=== PATIENT | male | born 1955 | race Caucasian/White ===

== ENCOUNTER → 2023-08-05 14:14 | Outpatient (REF) | payer OTHER, SELFPAY | LOC: RAD 14:14 | PROVIDERS: ATTENDING PHYSICIAN Internal Medicine Cardiovascular Disease; FAMILY PHYSICIAN Student in an Organized Health Care Education/Training Program | DX: C34.90 Malignant neoplasm of unspecified part of unspecified bronchus or lung (principal); I48.0 Paroxysmal atrial fibrillation; R60.0 Localized edema | CPT/HCPCS: 93970 ==

== ENCOUNTER → 2023-08-08 09:14 | Outpatient (REF) | payer OTHER, SELFPAY ==
[2023-08-08 09:45] VITALS: BP 133/67; BP_SYST 101
[2023-08-08 10:32] LABS: % Basophils 0.5 % (0-2); % Eosinophils 0.8 % (0-6); % Immature Granulocytes 0.3 % (0-0.5); % Lymphocytes 4.3 % (20.5-51.1); % Monocytes 8.7 % (1.7-9.3); % Neutrophils 85.4 % (42.2-75.2); Absolute Eosinophils 0.1 10^3/uL (0-0.7); Absolute Lymphocytes 0.3 10^3/uL (1.2-3.4); Absolute Monocytes 0.6 10^3/uL (0.1-0.6); Absolute Neutrophils 5.5 10^3/uL (1.4-6.5); Hematocrit 27.7 % (39.0-52.0); Hemoglobin 8.9 g/dL (13.0-18.0); Mean Corp Hgb Conc. 32.1 g/dL (33.0-37.0); Mean Corpuscular Hgb 25.4 pg (27.0-31.0); Mean Corpuscular Volume 78.9 fL (80.0-94.0); Mean Platelet Volume 9.2 fL (7.4-10.4); Nucleated Red Blood Cells % 0 % (-); Platelet Count 268 10^3/uL (130-400); Red Blood Cell Count 3.51 10^6/uL (4.70-6.10); Red Cell Dist. Width 16.3 % (11.5-14.5); White Blood Cell Count 6.5 10^3/uL (4.8-10.8)
[2023-08-08 10:38] LABS: ALT (SGPT) 23 U/L (0-50); AST (SGOT) 29 U/L (17-59); Alkaline Phosphatase 96 U/L (38-126); Blood Urea Nitrogen 12 mg/dl (9-20); Calcium 8.7 mg/dl (8.4-10.2); Carbon Dioxide 29 mmol/L (22-30); Chloride 98 mmol/L (98-107); Glucose 91 mg/dl (70-99); Iron 35 ug/dl (49-181); Potassium 4.2 mmol/L (3.5-5.1); Sodium 129 mmol/L (135-145); Total Bilirubin 0.5 mg/dl (0.2-1.3); eGFR > 60.00
[2023-08-08] MEDS: ANCEF 10 IV (10:44)
[2023-08-08 10:48] LABS: Percent Saturation 14 % (20-50); Total Iron Binding Capacity 245 ug/dl (261-462)
[2023-08-08 12:07] VITALS: BP 121/80
== END ==
LOC: RADI 09:14
PROVIDERS: ATTENDING PHYSICIAN Internal Medicine Hematology & Oncology; FAMILY PHYSICIAN Student in an Organized Health Care Education/Training Program
DX: C34.31 Malignant neoplasm of lower lobe, right bronchus or lung (principal); C79.51 Secondary malignant neoplasm of bone; C78.7 Secondary malignant neoplasm of liver and intrahepatic bile duct
CPT/HCPCS: 36561; 76937; 77001; 80053; 82728; 83540; 83550; 85025; 99152; 99153; C1788

== ENCOUNTER → 2023-08-11 13:54 | Outpatient (REF) | payer OTHER, SELFPAY ==
[2023-08-11 14:41] LABS: ALT (SGPT) 17 U/L (0-50); AST (SGOT) 25 U/L (17-59); Albumin 3.1 g/dl (3.5-5.0); Alkaline Phosphatase 86 U/L (38-126); Blood Urea Nitrogen 17 mg/dl (9-20); Calcium 9.1 mg/dl (8.4-10.2); Carbon Dioxide 27 mmol/L (22-30); Chloride 92 mmol/L (98-107); Glucose 106 mg/dl (70-99); Potassium 4.5 mmol/L (3.5-5.1); Sodium 129 mmol/L (135-145); Total Bilirubin 0.6 mg/dl (0.2-1.3); Total Protein 6.2 g/dl (6.3-8.2); eGFR > 60.00
== END ==
LOC: REG 13:54
PROVIDERS: ATTENDING PHYSICIAN Internal Medicine Hematology & Oncology; FAMILY PHYSICIAN Student in an Organized Health Care Education/Training Program
DX: C34.31 Malignant neoplasm of lower lobe, right bronchus or lung (principal); C79.51 Secondary malignant neoplasm of bone; C78.7 Secondary malignant neoplasm of liver and intrahepatic bile duct; D64.81 Anemia due to antineoplastic chemotherapy
CPT/HCPCS: 36415; 80053

== ENCOUNTER → 2023-09-01 13:45 | Outpatient (REF) | payer OTHER, SELFPAY ==
[2023-09-01 09:51] LABS: Hematocrit 27.7 % (39.0-52.0); Hemoglobin 8.9 g/dL (13.0-18.0); Mean Corp Hgb Conc. 32.1 g/dL (33.0-37.0); Mean Corpuscular Hgb 26.1 pg (27.0-31.0); Mean Corpuscular Volume 81.2 fL (80.0-94.0); Mean Platelet Volume 10.2 fL (7.4-10.4); Nucleated Red Blood Cells % 0 % (-); Platelet Count 213 10^3/uL (130-400); Red Blood Cell Count 3.41 10^6/uL (4.70-6.10); Red Cell Dist. Width 21.1 % (11.5-14.5); White Blood Cell Count 2.2 10^3/uL (4.8-10.8)
[2023-09-01 10:12] LABS: ALT (SGPT) 20 U/L (0-50); AST (SGOT) 21 U/L (17-59); Albumin 3.5 g/dl (3.5-5.0); Alkaline Phosphatase 102 U/L (38-126); Blood Urea Nitrogen 18 mg/dl (9-20); Calcium 8.6 mg/dl (8.4-10.2); Carbon Dioxide 28 mmol/L (22-30); Chloride 99 mmol/L (98-107); Glucose 90 mg/dl (70-99); Potassium 4.4 mmol/L (3.5-5.1); Sodium 131 mmol/L (135-145); Total Bilirubin 0.2 mg/dl (0.2-1.3); Total Protein 6.3 g/dl (6.3-8.2); eGFR > 60.00
[2023-09-01 11:03] LABS: Absolute Neutrophils -Man Diff 1.3 10^3/uL (1.4-6.5); Band Neutrophils 0 % (0-3); Eosinophils 4 % (0-6); Lymphocytes 18 % (20-51); Metamyelocytes 3 % (-); Monocytes 15 % (2-9); Segmented Neutrophils 60 % (42-75)
[2023-09-01 11:04] LABS: Acanthocytes Slight; Anisocytosis 1+; Hypochromasia 1+; Normal RBC Morphology No; Ovalocytes Slight; Platelets Checked Yes
[2023-09-01 11:05] LABS: Total Cells Counted 100
== END ==
LOC: OIDL 13:45
PROVIDERS: ATTENDING PHYSICIAN Internal Medicine Hematology & Oncology
DX: C34.31 Malignant neoplasm of lower lobe, right bronchus or lung (principal)
CPT/HCPCS: 80053; 85025

== ENCOUNTER → 2023-09-02 10:43 | Outpatient (REF) | payer OTHER, SELFPAY ==
[2023-09-02 12:05] LABS: Iron 71 ug/dl (49-181)
[2023-09-02 12:14] LABS: Percent Saturation 24 % (20-50); Total Iron Binding Capacity 287 ug/dl (261-462)
== END ==
LOC: OIDL 10:43
PROVIDERS: ATTENDING PHYSICIAN Internal Medicine Hematology & Oncology
DX: C34.31 Malignant neoplasm of lower lobe, right bronchus or lung (principal)
CPT/HCPCS: 82728; 83540; 83550

== ENCOUNTER 2023-10-14 08:26 | Outpatient (RCR) | payer MEDICARE, OTHER, SELFPAY ==
[2023-10-14] VITALS (7 sets, daily range): BP systolic 101–125; BP diastolic 55–72
[2023-10-14] MEDS: TYLENOL 650 MG PO (08:50)
== END 2023-10-28 23:59 | disposition home or self-care (01) ==
LOC: OID 08:26
PROVIDERS: ATTENDING PHYSICIAN Internal Medicine Hematology & Oncology
DX: C34.31 Malignant neoplasm of lower lobe, right bronchus or lung (principal); C79.51 Secondary malignant neoplasm of bone; C78.7 Secondary malignant neoplasm of liver and intrahepatic bile duct; D64.81 Anemia due to antineoplastic chemotherapy
CPT/HCPCS: 36430; 86850; 86900; 86901; 86920; P9016

== ENCOUNTER → 2023-10-28 07:13 | Outpatient (REF) | payer MEDICARE, OTHER, SELFPAY | LOC: RCS 07:13 | PROVIDERS: ATTENDING PHYSICIAN Nurse Practitioner Gerontology; FAMILY PHYSICIAN Student in an Organized Health Care Education/Training Program | DX: I48.0 Paroxysmal atrial fibrillation (principal); I51.89 Other ill-defined heart diseases; R93.1 Abnormal findings on diagnostic imaging of heart and coronary circulation; C34.91 Malignant neoplasm of unspecified part of right bronchus or lung | CPT/HCPCS: 93306; Q9950 ==

== ENCOUNTER → 2023-11-18 08:31 | Outpatient (REF) | payer MEDICARE, OTHER, SELFPAY | LOC: MRI 08:31 | PROVIDERS: ATTENDING PHYSICIAN Internal Medicine Cardiovascular Disease; FAMILY PHYSICIAN Student in an Organized Health Care Education/Training Program | DX: I51.89 Other ill-defined heart diseases (principal) | CPT/HCPCS: 75561; A9585 ==

== ENCOUNTER 2023-12-17 08:19 | Outpatient (RCR) | payer MEDICARE, OTHER, SELFPAY ==
[2023-12-03] VITALS (7 sets, daily range): BP systolic 96–108; BP diastolic 60–73
[2023-12-16 14:41] LABS: % Eosinophils 0.3 % (0-6); % Immature Granulocytes 0.6 % (0-0.5); % Lymphocytes 4.8 % (20.5-51.1); % Neutrophils 85.3 % (42.2-75.2); Absolute Lymphocytes 0.2 10^3/uL (1.2-3.4); Absolute Monocytes 0.3 10^3/uL (0.1-0.6); Absolute Neutrophils 3.1 10^3/uL (1.4-6.5); Hematocrit 23.4 % (39.0-52.0); Hemoglobin 7.4 g/dL (13.0-18.0); Mean Corp Hgb Conc. 31.6 g/dL (33.0-37.0); Mean Corpuscular Hgb 28.7 pg (27.0-31.0); Mean Corpuscular Volume 90.7 fL (80.0-94.0); Mean Platelet Volume 12.3 fL (7.4-10.4); Nucleated Red Blood Cells % 0 % (-); Platelet Count 106 10^3/uL (130-400); Red Blood Cell Count 2.58 10^6/uL (4.70-6.10); Red Cell Dist. Width 19.4 % (11.5-14.5); White Blood Cell Count 3.6 10^3/uL (4.8-10.8)
[2023-12-17] VITALS (7 sets, daily range): BP systolic 87–105; BP diastolic 46–60
== END 2023-12-28 23:59 | disposition home or self-care (01) ==
LOC: OID 08:19
PROVIDERS: Internal Medicine Hematology & Oncology; ATTENDING PHYSICIAN Internal Medicine Hematology & Oncology; FAMILY PHYSICIAN Student in an Organized Health Care Education/Training Program
DX: C34.31 Malignant neoplasm of lower lobe, right bronchus or lung (principal); C79.51 Secondary malignant neoplasm of bone; C78.7 Secondary malignant neoplasm of liver and intrahepatic bile duct; D64.81 Anemia due to antineoplastic chemotherapy
CPT/HCPCS: 36415; 36430; 85025; 86850; 86900; 86901; 86920; P9016

== ENCOUNTER 2024-01-06 16:22 | Inpatient (IN) | payer MEDICARE, OTHER, SELFPAY ==
[2024-01-06] VITALS (15 sets, daily range): BP systolic 85–125; BP diastolic 47–81; PULSE 78–85; BMI 23.3; BMI 23.7
--- NOTE | 2024-01-06 12:04 | ED.GENMED ---
History of Present Illness
General
Chief Complaint: Weakness
Time Seen by Provider: 01/06/24 11:55
History of Present Illness
History of Present Illness:
68-year-old male with history of metastatic lung cancer presents emergency department for ration of generalized weakness and shortness of breath. Currently undergoing chemotherapy treatments, over the past several days he has had no appetite and no
desire to drink fluids. Feels as though he may be dehydrated. No chest pain at this time. Does also have chronic lower extremity edema, on 20 mg of Lasix daily, may be worsening. Last chemo treatment was 2 weeks ago. Did have a fever of 100
Fahrenheit this morning but this resolved, denies any purulent or bloody sputum
Past History
Past History
ED Past Medical History: None
ED Past Surgical History: Appendectomy
Social History
Tobacco: Smoker
Alcohol: None
Personal: Single
Living: alone
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
Review of Systems
Review of Systems
Allergies reviewed?: Yes
All Other Systems: ROS reviewed and negative except as documented in HPI and ROS
Phy Exam
Physical Exam
Physical Exam:
GEN: Chronically ill-appearing, tachypneic
Eyes: PERRLA, EOMs intact, no scleral icterus
HENT: NCAT, oral mucosa moist
Lungs: Tachypneic with occasional pursed lip breathing, diminished right base breath sounds with crackles
Cardiac: Tachycardic and irregular
Abdomen: S, NT, ND, NABS, no masses or hepatosplenomegaly
Neuro: AO x 3
MSK: No gross deformity or ecchymosis. 2+ pitting edema bilateral lower extremities
Skin: No rashes, petechiae. Normal color, no pallor or jaundice.
Psych: Calm, cooperative, proper hygiene
Course
Orders/Labs/Results
Orders:
Orders
01/06/24 11:51
EKG [Electrocardiogram (*1)] Urgent
Reason for Study: Vertigo / Dizzy
01/06/24 11:52
EKG- Treatment ONCE
01/06/24 11:57
CXR2 [CR Chest - 2 Views ] Urgent
Comment:
Reason For Exam: shortness of breath
01/06/24 12:02
Urinalysis Reflex To Culture Urgent
Date Specimen was Collected: 01/06/24
Time Specimen was Collected: 12:03
01/06/24 12:03
Complete Blood Count/With Diff Urgent
Comprehensive Metabolic Panel Urgent
Lactic Acid Urgent
NT-proBNP Urgent
Serum Osmolality Urgent
Comment: SERUM OSOLALITY ADDED ON BY FLOOR 12:40PM 01-06-24
Troponin I Urgent
Blood Culture Urgent
SERGIO Source: Blood/Venous
Specimen Description:
Blood Culture Urgent
SERGIO Source: Blood/Venous
Specimen Description:
01/06/24 12:36
Urine Sodium Urgent
Date Specimen was Collected: 01/06/24
Time Specimen was Collected: 12:43
0.9% Sodium Chloride 500 ml [Nss] 500 ml IV BOLUS
01/06/24 12:37
Add On- LAB Urgent
Tests Added?: serum osmolality
01/06/24 14:28
0.9% Sodium Chloride 500 ml [Nss] 500 ml IV BOLUS
01/06/24 15:00
Lactic Acid Urgent
Abnormal Lab Results
01/06/24
12:03
WBC 11.8 H 10^3/uL
(4.8-10.8)
RBC 2.96 L 10^6/uL
(4.70-6.10)
Hgb 8.5 L g/dL
(13.0-18.0)
Hct 26.3 L %
(39.0-52.0)
MCHC 32.3 L g/dL
(33.0-37.0)
RDW 19.6 H %
(11.5-14.5)
MPV 10.9 H fL
(7.4-10.4)
Abs Immat Gran (auto) 0.2 H 10^3/uL
(0-0.05)
Absolute Neuts (auto) 9.3 H 10^3/uL
(1.4-6.5)
Absolute Lymphs (auto) 0.5 L 10^3/uL
(1.2-3.4)
Absolute Monos (auto) 1.9 H 10^3/uL
(0.1-0.6)
Immature Gran % 1.3 H %
(0-0.5)
Neutrophils % 78.8 H %
(42.2-75.2)
Lymphocytes % 3.8 L %
(20.5-51.1)
Monocytes % 15.8 H %
(1.7-9.3)
Sodium 125 L mmol/L
(135-145)
Chloride 93 L mmol/L
(98-107)
Serum Osmolality 262 L mOsm/kg
(275-300)
Lactic Acid 2.3 H mmol/L
(0.7-2.0)
Calcium 7.9 L mg/dl
(8.4-10.2)
Total Protein 5.2 L g/dl
(6.3-8.2)
Albumin 2.6 L g/dl
(3.5-5.0)
01/06/24 12:03
01/06/24 12:03
Vital Signs
Initial and Last Documented VS:
Initial Vital Signs
BP
87/67
01/06/24 11:52
Last Documented Vital Signs
Temp Pulse Resp BP Pulse Ox
97.8 F 115 20 95/59 93
01/06/24 11:53 01/06/24 13:45 01/06/24 13:45 01/06/24 13:44 01/06/24 13:45
MDM/Problems Addressed
MDM/Problems Addressed:
This is a complex situation as the patient is clearly dehydrated/hypovolemic however likely has a component of decompensated HFrEF evidenced by dyspnea at rest and increased lower extremity edema. Last ejection fraction was 20% on echocardiogram in
September. Patient was quite insistent on being discharged however I recommended against this given the complexity of the situation. He is hypotensive and thus we trialed a small fluid challenge which she tolerated with improved blood pressures. Did
not diurese in the emergency department due to hypotension. May ultimately be suitable for hospice care given the extensive nature of his cancer will admit to the hospitalist service for further evaluation and management
Comment
Comment:
EKG independently interpreted by me shows atrial fibrillation with a rapid ventricular response at a rate of 116, no obvious ST changes concerning for ischemia, QTc of 517
*Critical Care Note
Total Time (30-74mins, 75-104mins- exclusive of procedures): Not Applicable
ED Attending Note
-
Portions of this chart may have been created with voice recognition software.� Occasional wrong word or��sound alike� substitutions may have occurred due to the inherent limitations of voice recognition software.
Discharge Plan
Departure
Patient Disposition: Admit
Date of Disposition: 01/06/24
Time of Disposition: 15:17
Admit to: IMU
Presentation/result/management discussed w/ accepting MD/DO: Hospitalist
Discharge Problem:
Acute hyponatremia, Atrial fibrillation with RVR, Acute HFrEF (heart failure with reduced ejection fraction), Metastatic primary lung cancer
Prescriptions:
No Action
acetaminophen 325 mg Tablet
650 mg PO Q4HPRN PRN (Reason: mild pain/DOUGLASS/temp> 100.4F) Qty: 0 0RF
folic acid 1 mg Tablet
1 mg PO DAILY
dexamethasone 4 mg Tablet
8 mg PO DAILYPRN PRN (Reason: 2 days before and 2 after chemo)
furosemide 20 mg Tablet
20 mg PO MOWEFR@0800
metoprolol succinate [Toprol XL] 50 mg Tablet Extended Release 24 Hr
50 mg PO BID
ondansetron HCl [Zofran] 8 mg Tablet
8 mg PO Q8HPRN PRN (Reason: nausea)
Eliquis 5 mg Tablet
5 mg PO BID
amiodarone 200 mg tablet
200 mg PO DAILY
doxycycline hyclate 100 mg Capsule
100 mg PO BID
lidocaine-prilocaine 2.5-2.5 % Cream
1 applic topical DAILYPRN PRN (Reason: port)
lorazepam 0.5 mg Tablet
0.5 mg PO TIDPRN PRN (Reason: anxiety)
loratadine [Claritin] 10 mg Tablet
10 mg PO DAILYPRN PRN (Reason: allergies)
codeine-guaifenesin 10-100 mg/5 mL Liquid
10 ml PO TIDPRN PRN (Reason: cough)
Referrals:
Eliud Jones MD [Family Provider] -
Interventions
Interventions:
*Risk Screen - Suicide Last Done: 01/06/24 12:23
*General Assessment Last Done: 01/06/24 12:22
*Neglect/Abuse Screening Last Done: 01/06/24 12:23
ED- Fall Risk Assessment Last Done: 01/06/24 12:30
*ED COVID-19 Vaccine History Last Done: 01/06/24 12:21
ED- Cardiac Assessment Last Done: 01/06/24 12:30
ED- Neurological Assessment Last Done: 01/06/24 12:30
ED- Pulmonary Assessment Last Done: 01/06/24 12:30
Discharge Date and Time
Print Language: SINGAPOREAN
[2024-01-06 12:19] LABS: % Basophils 0.3 % (0-2); % Immature Granulocytes 1.3 % (0-0.5); % Lymphocytes 3.8 % (20.5-51.1); % Monocytes 15.8 % (1.7-9.3); % Neutrophils 78.8 % (42.2-75.2); Absolute Immature Granulocytes 0.2 10^3/uL (0-0.05); Absolute Lymphocytes 0.5 10^3/uL (1.2-3.4); Absolute Monocytes 1.9 10^3/uL (0.1-0.6); Absolute Neutrophils 9.3 10^3/uL (1.4-6.5); Hematocrit 26.3 % (39.0-52.0); Hemoglobin 8.5 g/dL (13.0-18.0); Mean Corp Hgb Conc. 32.3 g/dL (33.0-37.0); Mean Corpuscular Hgb 28.7 pg (27.0-31.0); Mean Corpuscular Volume 88.9 fL (80.0-94.0); Mean Platelet Volume 10.9 fL (7.4-10.4); Nucleated Red Blood Cells % 0 % (-); Platelet Count 232 10^3/uL (130-400); Red Blood Cell Count 2.96 10^6/uL (4.70-6.10); Red Cell Dist. Width 19.6 % (11.5-14.5); White Blood Cell Count 11.8 10^3/uL (4.8-10.8)
[2024-01-06 12:34] LABS: ALT (SGPT) 14 U/L (0-50); AST (SGOT) 36 U/L (17-59); Albumin 2.6 g/dl (3.5-5.0); Alkaline Phosphatase 73 U/L (38-126); Blood Urea Nitrogen 15 mg/dl (9-20); Calcium 7.9 mg/dl (8.4-10.2); Carbon Dioxide 25 mmol/L (22-30); Chloride 93 mmol/L (98-107); Estimated Creatinine Clearance 80 ml/min; Glucose 89 mg/dl (70-99); Sodium 125 mmol/L (135-145); Total Protein 5.2 g/dl (6.3-8.2); eGFR > 60.00
[2024-01-06 12:40] LABS: Lactic Acid 2.3 mmol/L (0.7-2.0)
[2024-01-06 12:44] LABS: NT-proBNP 8050 pg/ml; Troponin I < 0.012 ng/ml
[2024-01-06] MEDS: NSS 500 IV ×2 (12:50→14:30)
[2024-01-06 14:48] LABS: Osmolality Serum 262 mOsm/kg (275-300)
--- NOTE | 2024-01-06 16:07 | CON.CAR ---
Addendum entered and electronically signed by Rolan Herrera MD 01/06/24 19:45:
Patient seen and examined in collaboration with TRANSPORTATION DRIVER; agree with below.
-68-year-old male with metastatic lung adenocarcinoma, including right atrial mass, chronic dilated cardiomyopathy/HFrEF, and persistent atrial fibrillation (on Eliquis) presenting with shortness of breath; Cardiology consulted for CHF management.
-The patient takes Lasix 3 days weekly, but he has had decreased PO intake over the past 2 days.
-Patient is likely having progressive medical decline, given his metastatic cancer in addition to end-stage cardiomyopathy.
-Nephrology consulted--patient is currently hyponatremic; plan is for hypertonic saline.
-Patient's heart rate likely to improve with nutrion; monitor volume status closely.
-threat monitoring analyst; will follow.
Original Note:
Consultation
Consultation Request
Date/Time Consultation Requested: 01/06/2024 16:00
Date/Time Consultation Performed: 01/06/2024 16:10
Requesting Provider: Rona Ghosh PA-C
Performing Provider: DAQUAN Beckman for Dr. Herrera
Reason for Consultation: Abnormal proBNP
Medical History
-
Chief Complaint: Shortness of breath
History of Present Illness:
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
lung with metastasis. He also has a dilated cardiomyopathy, HFrEF, and neoplastic anemia. He presents today with a chief complaint of shortness of breath. This started yesterday and got worse today. He also reports decreased oral intake and poor
appetite. He also endorses associated fatigue. He saw [facility] for a second opinion but unfortunately those records are not available at this time.
Past Medical History
Past Medical History: Arrhythmias (Persistent atrial fibrillation [on apixaban]), Cancer (Metastatic lung cancer), CHF (HFrEF, DCM) and Other (Anemia)
Past Surgical History: Appendectomy
Social History
Tobacco: Former Smoker
Alcohol: Former (Sobriety x 17 years)
Drug: None
Family History
Family History: Reviewed & Not Pertinent
Allergies / Home Medications
Allergy/AdvReac Type Severity Reaction Status Date / Time
No Known Allergies Allergy Verified 01/06/24 11:52
�Medication �Instructions �Recorded �Confirmed �Type
acetaminophen 325 mg tablet 650 mg (2 x 325 mg) PO Q4HPRN PRN 07/14/23 01/06/24 Rx
mild pain/DOUGLASS/temp> 100.4F #0 tabs
folic acid 1 mg tablet 1 mg PO DAILY 08/08/23 01/06/24 History
dexamethasone 4 mg tablet 8 mg PO DAILYPRN PRN 2 days before 10/14/23 01/06/24 History
and 2 after chemo
furosemide 20 mg tablet 20 mg PO MOWEFR@0800 10/14/23 01/06/24 History
amiodarone 200 mg tablet 200 mg PO DAILY 12/03/23 01/06/24 History
apixaban 5 mg tablet (Eliquis) 5 mg PO BID 12/03/23 01/06/24 History
metoprolol succinate 50 mg 50 mg PO BID 12/03/23 01/06/24 History
tablet,extended release 24 hr
(Toprol XL)
ondansetron HCl 8 mg tablet 8 mg PO Q8HPRN PRN nausea 12/03/23 01/06/24 History
codeine 10 mg-guaifenesin 100 mg/5 10 ml PO TIDPRN PRN cough 01/06/24 01/06/24 History
mL oral liquid
doxycycline hyclate 100 mg capsule 100 mg PO BID 01/06/24 01/06/24 History
lidocaine-prilocaine 2.5 %-2.5 % 1 applic topical DAILYPRN PRN port 01/06/24 01/06/24 History
topical cream
loratadine 10 mg tablet (Claritin) 10 mg PO DAILYPRN PRN allergies 01/06/24 01/06/24 History
lorazepam 0.5 mg tablet 0.5 mg PO TIDPRN PRN anxiety 01/06/24 01/06/24 History
Review of Systems
-
History Source: Patient
All other systems: Negative unless noted
Constitutional: Fatigue
EENT: No Symptoms
Respiratory: Trouble Breathing
Cardiac: No Symptoms
Abdomen/GI: No Symptoms
: No Symptoms
Musculoskeletal: Edema
Skin: No Symptoms
Neurological: Dizzy and Weakness
Endocrine: No Symptoms
Hematologic/Lymphatic: No Symptoms
Physical Exam
Vital Signs
Temp Pulse Resp BP Pulse Ox
97.8 F 115 20 95/59 93
01/06/24 11:53 01/06/24 13:45 01/06/24 13:45 01/06/24 13:44 01/06/24 13:45
Lab Results
01/06/24 12:03
01/06/24 12:03
Troponin I < 0.012 ng/ml 01/06/24 12:03
Ywa-T-[id number] Pept 8050 pg/ml 01/06/24 12:03
Physical Exam
General: Well Developed, Well Nourished, No Apparent Distress and Comfortable
HEENT: Other (Periorbital edema)
Respiratory: Rhonchi
Cardiac: S1/S2, Irregular Rhythm and Peripheral Edema (+2 pitting bilateral lower extremity edema)
Breast: Deferred by me
GI: Soft, Non Tender, Non Distended and Normal Bowel Sounds
Rectal: Deferred by Provider
Genito-urinary: No Costovertebral Tender
Musculoskeletal: No Clubbing and No Cyanosis
Skin: Warm and Dry
Neuro: AO x 3
Hematologic/Lymphatic: No Lymphadenopathy
Psych: Calm
Impression / Plan
-
Shortness of breath, multifactorial
-In the setting of HFrEF, anemia, and active lung cancer
Dizziness
-Could be orthostasis
-None at rest, follow telemetry
Dilated cardiomyopathy
HFrEF (LVEF 20%)
-Furosemide is on hold for hyponatremia
-Bilateral lower extremity edema on exam
-Follow daily weight, I/O
Persistent atrial fibrillation
-Rate control has been particularly challenging
-Continue amiodarone and metoprolol succinate
-Oral Anticoagulation: Apixaban 5 mg twice daily, he denies missed doses and abnormal bleeding
-[id number]: Score is low at 1 (age 68) however metastatic cancer is a thrombogenic condition
Metastatic lung cancer, adenocarcinoma
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
-Metastasis to adrenal gland, liver, and retroperitoneum
-Currently on Keytruda and Alimta
-Most recent PET showed progression
-He follows with Dr. Hong, he got a second opinion at [facility]
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
Right atrial mass, measuring 1.8 x 2.2 cm which appeared to be continuous with the left atrial mass
Hyponatremia, per primary
Tricuspid regurgitation, moderate
Neoplastic anemia
Former smoker, continued cessation recommended
Data Reviewed
-
EKG: Report Reviewed by me (Atrial fibrillation with rapid ventricular response, low voltage QRS, rate 116)
Radiology: Report Reviewed by me (CXR: Moderate right pleural effusion. Recent PET scan showed large primary malignancy in the right lower lobe continuous within the right side of the heart)
Medical Tests (Nuc Med, Echo etc): Report Reviewed by me (Prior echocardiogram as above)
Labs: Labs Reviewed by me
Old Records: Reviewed
--- NOTE | 2024-01-06 16:13 | HPS.HSE ---
Addendum entered and electronically signed by Yasmine Hameed MD 01/06/24 22:18:
I saw and examined the patient.
The DESIGN AND SALES CONSULTANT or PA's note was reviewed and I agree with the note.
Comment: 68M Metastatic Lung Ca Chronic Anemia Hyponatremia HFrEF afib p/w weakness dizziness poor oral intake past few days. Recently noted to be febrile in outpatient oncology follow up assessment, started on Doxycycline. Fever since resolved.
On chemo, last tx a few weeks ago, next tx due following week. ED eval notable for worsening hyponatremia Elevated BNP and mild leukocytosis. Expiratory wheeze also noted on auscultation but otherhwise stable respiratory statys on room air
Physical Exam
General: No acute distress resting comfortably in bed
HEENT: Anicteric normocephalic atraumatic
Respiratory: Stable respiratory status on room air conversational dyspnea noted along with mild expiratory wheeze
Cardiac: irregularly irregular
GI: Soft and Non Tender
Musculoskeletal: No Clubbing, No Cyanosis, Trace/+1 non-pitting edema bilateral lower ext
Skin: Warm and Dry
Neuro: Awake, Alert, Oriented and Nonfocal/grossly intact
Psych: calm
Acute on Chronic Hyponatremia
Chronic HFpEF
Metastatic Lung Cancer with invasion into myocardium and liver, bone, adrenal metastasis
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
Suspected COPD, extensive smoking hx 40+ ys prior to quitting
Paroxysmal Atrial Fibrillation
Anxiety/Depression
3% NS as per nephro
cardio nephro eval's appreciated
hold home diuresis as this time
Xopenex scheduled and prn
cont home Eliquis Amiodarone Metoprolol
cont doxycycline
trend wbc follow cultures
Original Note:
Family Physician
-
Family Physician: Eliud Jones
Chief Complaint
-
Weakness and Dizziness
History of Present Illness
Patient is a 68 y/o male past medical history of metastatic lung cancer, chronic anemia, chronic hyponatremia, heart failure and atrial fibrillation who presents with weakness and dizziness. Patient reports over the past few days he has been
experiencing increased generalized weakness. He report poor appetite with decreased oral intake over the past few days. Yesterday he developed some dizziness which worsened today prompting him to come to the emergency department for evaluation. He
reports shortness of breath that seems worse over the past few days. He denies increased cough, chest pain or palpitation. He denies abdominal pain, nausea, vomiting or diarrhea.
Medical History
Past Medical History
Past Medical History: Reports Other
Additional Past Medical History:
Metastatic Lung Cancer with invasion into myocardium and liver, bone, adrenal metastasis
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
Chronic HFpEF EF 20%
Paroxysmal Atrial Fibrillation
Anxiety/Depression
Past Surgical History: Reports Other
Additional Past Surgical History:
Appendectomy
Social History
Tobacco: Former Smoker (Quit in Jan 2023)
Alcohol: Former (Sober for 17 years)
Family History
Family History: Not pertinent
Allergies / Home Medications
Allergies reflects when Allergies were last updated in [email or web address].
Home Medications with original date entered in [email or web address]
Allergy/Medication List:
Allergies
Allergy/AdvReac Type Severity Reaction Status Date / Time
No Known Allergies Allergy Verified 01/06/24 11:52
Home Medications
acetaminophen 325 mg tablet 650 mg (2 x 325 mg) PO Q4HPRN PRN mild pain/DOUGLASS/temp> 100.4F #0 tabs 07/14/23
folic acid 1 mg tablet 1 mg PO DAILY 08/08/23
dexamethasone 4 mg tablet 8 mg PO DAILYPRN PRN 2 days before and 2 after chemo 10/14/23
furosemide 20 mg tablet 20 mg PO MOWEFR@0800 10/14/23
amiodarone 200 mg tablet 200 mg PO DAILY 12/03/23
apixaban 5 mg tablet (Eliquis) 5 mg PO BID 12/03/23
metoprolol succinate 50 mg tablet,extended release 24 hr (Toprol XL) 50 mg PO BID 12/03/23
ondansetron HCl 8 mg tablet 8 mg PO Q8HPRN PRN nausea 12/03/23
codeine 10 mg-guaifenesin 100 mg/5 mL oral liquid 10 ml PO TIDPRN PRN cough 01/06/24
doxycycline hyclate 100 mg capsule 100 mg PO BID 01/06/24
lidocaine-prilocaine 2.5 %-2.5 % topical cream 1 applic topical DAILYPRN PRN port 01/06/24
loratadine 10 mg tablet (Claritin) 10 mg PO DAILYPRN PRN allergies 01/06/24
lorazepam 0.5 mg tablet 0.5 mg PO TIDPRN PRN anxiety 01/06/24
Review of Systems
-
A 12 point ROS was completed and negative except as noted: Yes
Respiratory: Reports Cough and Trouble Breathing
Cardiac: Denies Chest Pain or Palpitations
Abdomen/GI: Denies Abdominal Pain, Nausea, Vomiting or Diarrhea
Physical Exam
Vital Signs
Vital Signs
Temp Pulse Resp BP Pulse Ox
97.8 F 86 24 87/48 92
01/06/24 11:53 01/06/24 16:00 01/06/24 14:30 01/06/24 16:00 01/06/24 16:00
Physical Exam
General: Comfortable and Conversant (Slight conversational dyspnea)
HEENT: Anicteric and Other (Mucous membranes are slightly dry)
Respiratory: Wheezes (Late Expiratory) and Non Labored Respirations
Cardiac: S1/S2 and Regular Rhythm
GI: Soft and Non Tender
Rectal: Deferred by Provider
Musculoskeletal: No Clubbing, No Cyanosis and Other (Trace/+1 non-pitting edema bilateral lower ext)
Skin: Warm and Dry
Neuro: Awake, Alert, Oriented and Nonfocal/grossly intact
Psych: Other (Flat Affect)
Laboratory Results
-
01/06/24 12:03
01/06/24 12:03
Laboratory Results
Lactic Acid 2.3 mmol/L (0.7-2.0) H 01/06/24 12:03
Total Bilirubin 1.0 mg/dl (0.2-1.3) 01/06/24 12:03
AST 36 U/L (17-59) 01/06/24 12:03
ALT 14 U/L (0-50) 01/06/24 12:03
Alkaline Phosphatase 73 U/L (38-126) 01/06/24 12:03
Troponin I < 0.012 ng/ml 01/06/24 12:03
Data Reviewed
-
Lab Data: Labs Reviewed by me
Old Records: Reviewed
Impression/Plan
-
Acute on Chronic Hyponatremia, appears volume depleted presenting with dizziness/tachycardia/hypotension
-Consult Nephrology
-Check urine sodium/osmo
-Hold Lasix
-Continue slow IVFs overnight
Chronic HFpEF
-Echo September 2023: Severe global hypokinesis with EF 20%
-Patient appears intravascularly depleted but BNP elevated with some lower extremity edema
-Lasix on hold
-Consult Cardiology
-Monitor Is&Os and Daily Weights
Metastatic Lung Cancer with invasion into myocardium and liver, bone, adrenal metastasis
-Last chemotherapy December 22
-Consult Oncology
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
-Last transfusion
-Continue to monitor CBC
Suspected COPD
-Add Xopenex TID and PRN
Paroxysmal Atrial Fibrillation
-Continue Eliquis for anticoagulation
-Continue Amiodarone and Metoprolol
Anxiety/Depression
-Continue lorazepam prn
DVT proph: Eliquis
Code Status: Full Code
--- NOTE | 2024-01-06 16:50 | W.CON.NEPH ---
Consultation
-
Date/Time Consultation Requested: January 06, 2024 4 PM
Date/Time Consultation Performed: January 06, 2024 5 PM
Requesting Provider: Dr. Hameed
Performing Provider: Dr. Horta
Reason for Consultation: Hyponatremia
Medical History
-
Chief Complaint: Shortness of breath
History of Present Illness:
This is a 68-year-old gentleman who has metastatic lung cancer to myocardium, liver, bone, adrenal glands. He is currently being treated with chemotherapy. Given the extent of the disease he has likely been deemed a nonsurgical candidate but may
be a candidate for palliative radiation therapy. He has a chronic cough for months. He also has heart failure with reduced ejection fraction of 20% on diuretic therapy. However this is low-dose and dosed only 3 times a week. He often will skip
the dose if he feels that his lower legs are not swollen. He tries to follow a fluid intake of around 60 ounces per day. Recently, his appetite had changed as food sometimes did not taste good. So there are days when he was not eating. However,
he maintained his fluid intake as well as his medications. Ultimately his shortness of breath worsened and he came to the emergency room for evaluation. He was noted to have a sodium level of 125, lower than his typical sodium of 130. He also
reports lightheadedness and orthostasis recently as well.
Past Medical History
Metastatic lung cancer to heart, liver, bone, adrenal
Hyponatremia
Heart failure reduced ejection fraction 20%
Paroxysmal atrial fibrillation
Anxiety/depression
Appendectomy
Right-sided port placement
Social History
Tobacco: Former Smoker
Alcohol: Former
Family History
Family History: Not Pertinent
Allergies / Home Medications
Allergy/AdvReac Type Severity Reaction Status Date / Time
No Known Allergies Allergy Verified 01/06/24 11:52
�Medication �Instructions �Recorded �Confirmed �Type
acetaminophen 325 mg tablet 650 mg (2 x 325 mg) PO Q4HPRN PRN 07/14/23 01/06/24 Rx
mild pain/DOUGLASS/temp> 100.4F #0 tabs
folic acid 1 mg tablet 1 mg PO DAILY 08/08/23 01/06/24 History
dexamethasone 4 mg tablet 8 mg PO DAILYPRN PRN 2 days before 10/14/23 01/06/24 History
and 2 after chemo
furosemide 20 mg tablet 20 mg PO MOWEFR@0800 10/14/23 01/06/24 History
amiodarone 200 mg tablet 200 mg PO DAILY 12/03/23 01/06/24 History
apixaban 5 mg tablet (Eliquis) 5 mg PO BID 12/03/23 01/06/24 History
metoprolol succinate 50 mg 50 mg PO BID 12/03/23 01/06/24 History
tablet,extended release 24 hr
(Toprol XL)
ondansetron HCl 8 mg tablet 8 mg PO Q8HPRN PRN nausea 12/03/23 01/06/24 History
codeine 10 mg-guaifenesin 100 mg/5 10 ml PO TIDPRN PRN cough 01/06/24 01/06/24 History
mL oral liquid
doxycycline hyclate 100 mg capsule 100 mg PO BID 01/06/24 01/06/24 History
lidocaine-prilocaine 2.5 %-2.5 % 1 applic topical DAILYPRN PRN port 01/06/24 01/06/24 History
topical cream
loratadine 10 mg tablet (Claritin) 10 mg PO DAILYPRN PRN allergies 01/06/24 01/06/24 History
lorazepam 0.5 mg tablet 0.5 mg PO TIDPRN PRN anxiety 01/06/24 01/06/24 History
Review of Systems
-
Orthostasis. No pain. Chronic cough. Shortness of breath as above. No issues with urine output
All other systems: Negative unless noted
Physical Exam
Vital Signs
Vital Signs
Temp Pulse Resp BP Pulse Ox
97.8 F 83 24 87/48 91
01/06/24 11:53 01/06/24 16:30 01/06/24 14:30 01/06/24 16:00 01/06/24 16:30
Lab Results
WBC 11.8 10^3/uL (4.8-10.8) H 01/06/24 12:03
RBC 2.96 10^6/uL (4.70-6.10) L 01/06/24 12:03
Hgb 8.5 g/dL (13.0-18.0) L 01/06/24 12:03
Hct 26.3 % (39.0-52.0) L 01/06/24 12:03
Plt Count 232 10^3/uL (130-400) 01/06/24 12:03
Sodium 125 mmol/L (135-145) L 01/06/24 12:03
Potassium 4.0 mmol/L (3.5-5.1) 01/06/24 12:03
Chloride 93 mmol/L (98-107) L 01/06/24 12:03
Carbon Dioxide 25 mmol/L (22-30) 01/06/24 12:03
BUN 15 mg/dl (9-20) 01/06/24 12:03
Creatinine 1.0 mg/dL (0.7-1.3) 01/06/24 12:03
eGFR > 60.00 01/06/24 12:03
Glucose 89 mg/dl (70-99) 01/06/24 12:03
Calcium 7.9 mg/dl (8.4-10.2) L 01/06/24 12:03
Par-O-Sccsyhfjusu Pept 8050 pg/ml 01/06/24 12:03
Albumin 2.6 g/dl (3.5-5.0) L 01/06/24 12:03
Physical Exam
Patient is awake alert oriented and in no distress. Mood and affect were pleasant, insight and judgment were good. Pupils are equal round and reactive to light, extraocular movements are intact, sclera were anicteric. Hearing was normal, ears and
nose are intact. Oropharynx was clear. Neck was supple with trachea midline and no thyromegaly. Heart was regular rate and rhythm without rubs. Lower extremities without edema. Lungs were clear to auscultation bilaterally and with normal
excursion. There were rhonchi and rales at the right base. Abdomen was soft, nontender, with normal active bowel sounds, and no hepatosplenomegaly. Skin was without rash and with normal turgor.
Data Reviewed
-
Radiology: Image Personally Visualized and interpreted (Chest x-ray on January 06, 2024 by my reading shows right-sided effusion and consolidation)
Medical Tests (Nuc Med, Echo etc): Image Personally Visualized and interpreted (EKG on January 06, 2024 my read shows atrial fibrillation rapid ventricular sponsor) and Report Reviewed by me (Echocardiogram on October 28, 2023 shows ejection fraction 20%
severe global hypokinesis, left atrial echodensity 2.8 cm, right atrial mass 2.2 cm, tricuspid regurgitation)
Labs: Labs Reviewed by me (WBC 11.8, hemoglobin 8.5, platelets 232, sodium 125, potassium 4.0, creatinine 1, lactic acid 2.3, calcium 7.9)
Old Records: Reviewed (On September 01, 2023 sodium 131, calcium 8.6)
Assessment/Plan
-
Assessment
metastatic lung cancer to heart, liver, bone, adrenal
Acute on chronic hyponatremia
Anemia
Atrial fibrillation
Hypotension
Heart failure reduced ejection fraction 20%
Anemia
Lactic acidosis
Plan
Hypertonic saline
Holding Lasix
Check urine studies
Could consider Samsca if blood pressure improves
Lactic acidosis with a normal bicarbonate level would suggest a mixed disorder with some contribution from volume depletion
Follow lactate level
[2024-01-06] MEDS: SODIUM CHLORIDE 3% 250 IV (18:02)
[2024-01-06 18:27] LABS: Lactic Acid 1.8 mmol/L (0.7-2.0)
[2024-01-06] MEDS: XOPENEX 0.63 MG INHALANT SOLUTION INH (19:48)
[2024-01-06] MEDS: TOPROL XL PO (21:46)
[2024-01-06] MEDS: ATIVAN 0.5 MG PO (21:46)
[2024-01-06] MEDS: ELIQUIS 5 MG PO (21:46)
[2024-01-06] MEDS: VIBRAMYCIN 100 MG PO (21:46)
[2024-01-06 22:03] LABS: Blood Urea Nitrogen 18 mg/dl (9-20); Calcium 7.9 mg/dl (8.4-10.2); Carbon Dioxide 24 mmol/L (22-30); Chloride 95 mmol/L (98-107); Estimated Creatinine Clearance 80 ml/min; Glucose 105 mg/dl (70-99); Potassium 3.8 mmol/L (3.5-5.1); Sodium 126 mmol/L (135-145); eGFR > 60.00
[2024-01-06] MEDS: ANESTHETIC LOZENGE 1 LOZENGE PO (22:21)
[2024-01-07] VITALS (16 sets, daily range): BP systolic 90–116; BP diastolic 56–89; BMI 23.7
[2024-01-07 05:24] LABS: Hemoglobin 8.7 g/dL (13.0-18.0); Mean Corp Hgb Conc. 33.5 g/dL (33.0-37.0); Mean Corpuscular Hgb 29.4 pg (27.0-31.0); Mean Corpuscular Volume 87.8 fL (80.0-94.0); Mean Platelet Volume 10.8 fL (7.4-10.4); Platelet Count 227 10^3/uL (130-400); Red Blood Cell Count 2.96 10^6/uL (4.70-6.10); Red Cell Dist. Width 19.2 % (11.5-14.5); White Blood Cell Count 10.9 10^3/uL (4.8-10.8)
[2024-01-07 05:42] LABS: Blood Urea Nitrogen 18 mg/dl (9-20); Carbon Dioxide 24 mmol/L (22-30); Chloride 97 mmol/L (98-107); Estimated Creatinine Clearance 80 ml/min; Glucose 90 mg/dl (70-99); Magnesium 1.7 mg/dl (1.6-2.3); Potassium 3.8 mmol/L (3.5-5.1); Sodium 127 mmol/L (135-145); eGFR > 60.00
[2024-01-07 06:11] LABS: Urine Albumin Negative (Neg - Trace); Urine Bilirubin 1+ (Negative); Urine Character Slightly Cloudy (Clear); Urine Color Amber; Urine Glucose Negative (Negative); Urine Ketone Trace (Negative); Urine Leukocyte Negative (Negative); Urine Nitrite Negative (Negative); Urine Occult Blood Trace (Negative); Urine Specific Gravity 1.025 (<1.030); Urine Urobilinogen Negative (Neg - 1+)
[2024-01-07 06:14] LABS: TSH Reflex To Free T4 3.78 uIU/ml (0.47-4.68)
[2024-01-07 06:22] LABS: Osmolality Urine 518 mOsm/kg (300-900)
[2024-01-07 06:25] LABS: Urine Sodium 9 mmol/L (30-90)
--- NOTE | 2024-01-07 06:34 | PTCARENOTE ---
Pt admitted from ED on 3% NS. Pt AAOx3, standby assist with ambulation. No c/o pain. Pt afebrile. BP 80s/50s - 8 pm metoprolol held. Port accessed by IV team. No N/V or stool. Call gaytan within reach.
[2024-01-07 07:06] LABS: Urine Bacteria Many (Negative); Urine Mucus Few
[2024-01-07 07:07] LABS: Urine Red Blood Cell 0-2 /HPF (0-2)
--- NOTE | 2024-01-07 07:17 | W.PN.HOSP.TC ---
Today's Communication/Plan
-
Transfer to IMU
amio digoxin as per cardio
switch doxycycline to empiric vanc zosyn possible sepsis 2/2 pna immunocompromised recent chemo
fluid restriction
monitor Na
Assessment / Plan
Assessment / Plan
Physical Exam
General: No acute distress resting comfortably in bed
HEENT: Anicteric normocephalic atraumatic
Respiratory: Stable respiratory status on room air conversational dyspnea noted along with mild expiratory wheeze
Cardiac: irregularly irregular
GI: Soft and Non Tender
Musculoskeletal: No Clubbing, No Cyanosis, Trace/+1 non-pitting edema bilateral lower ext
Skin: Warm and Dry
Neuro: Awake, Alert, Oriented and Nonfocal/grossly intact
Psych: calm
68M Metastatic Lung Ca Chronic Anemia Hyponatremia HFrEF afib p/w weakness dizziness poor oral intake past few days. Recently noted to be febrile in outpatient oncology follow up assessment, started on Doxycycline. Fever since resolved. On chemo,
last tx a few weeks ago, next tx due following week. ED eval notable for worsening hyponatremia Elevated BNP and mild leukocytosis. Expiratory wheeze also noted on auscultation but otherwise stable respiratory status on room a
Acute on Chronic Hyponatremia, appears volume depleted presenting with dizziness/tachycardia/hypotension
-Consult Nephrology appreciated once 3% given, fluid restrict
-Hold Lasix
Paroxysmal Atrial Fibrillation
Developed Afib rvr
-Continue Eliquis for anticoagulation
-Cardio eval appreciated amio gtt and digoxin load started
-transferred to IMU for closer monitoring.
Chronic HFpEF
-Echo September 2023: Severe global hypokinesis with EF 20%
-Patient appears intravascularly depleted but BNP elevated with some lower extremity edema
-Lasix on hold
-Consult Cardiology appreciated
-Monitor Is&Os and Daily Weights
Metastatic Lung Cancer with invasion into myocardium and liver, bone, adrenal metastasis
-Last chemotherapy December 22
-Consult Oncology appreciated
Possible PNA noted on CXR
Started on Doxycycline outpt due to fever not noted here
given leukocytosis tachycardia recent chemo, doxycycline switched to empiric vanc zosyn for now possible sepsis immunocompromised
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
-Last transfusion
-Continue to monitor CBC
Suspected COPD
-cont Xopenex TID and PRN
Anxiety/Depression
-Continue lorazepam prn
DVT proph: Eliquis
Code Status: Full Code
Anticipated Discharge: > 48 hours
Subjective/Interval History
-
Date of Service: January 07, 2024
Objective Data
-
Labs:
Laboratory Results
01/06/24 01/07/24
21:37 05:00
WBC 10.9 H
Hgb 8.7 L
Hct 26.0 L
Plt Count 227
Sodium 126 L 127 L
Potassium 3.8 3.8
Chloride 95 L 97 L
Carbon Dioxide
BUN 18 18
Creatinine 1.0 1.0
Glucose 105 H 90
Calcium 7.9 L 8.0 L
Vital Signs:
Vital Signs
Temp Pulse Resp BP Pulse Ox
97.3 F 108 20 110/63 96
01/07/24 03:54 01/07/24 03:54 01/07/24 03:54 01/07/24 03:54 01/07/24 03:54
I&O
01/06/24 01/07/24 01/08/24
06:59 06:59 06:59
Intake Total 720 / 720
Output Total 125 / 125
Balance 595 / 595
[2024-01-07] MEDS: XOPENEX 0.63 MG INHALANT SOLUTION INH ×3 (07:50→21:40)
[2024-01-07] MEDS: ELIQUIS 5 MG PO ×2 (08:13→20:24)
[2024-01-07] MEDS: FOLVITE 1 MG PO (08:13)
[2024-01-07] MEDS: VIBRAMYCIN 100 MG PO (08:13)
[2024-01-07] MEDS: PACERONE 200 MG PO ×2 (08:38→20:25)
[2024-01-07] MEDS: MAGNESIUM SULFATE 50 IV (08:44)
[2024-01-07] MEDS: TOPROL XL PO (08:49)
--- NOTE | 2024-01-07 09:08 | W.PN.CD ---
Today's Communication / Plan
-
afib wit RVR. challenging to manage on prior in patient admit. He was on amio 400mg PO for a while and mre recently on 200mg. Ability to rhythm control limited with cardiac invasion of his lung cancer. rate control also limtied by BP
- IV amiodarone start today and increase oral dosing back to 400mg daily
- will start Digoxin for adtional rate control . will need to limit dosing while on amio
- previously would have PAF and spontaneously convert without needed CV. Continue to observe to seeif convertson his own.
- continue BB as BP tolerates
- echo to r/o pericardial effusion
--Oral Anticoagulation: Apixaban 5 mg twice daily, he denies missed doses and abnormal bleeding
-[id number]: Score is low at 2 (age 68, HF)and metastatic cancer/thrombogenic condition
.
Impression / Plan
-
.
Shortness of breath, multifactorial
-In the setting of HFrEF, anemia, afib with RVR.and active lung cancer
-on RA this morning but so with minimal activiyt ( getting to bedside commode) . Now on O2
- echo to r/o pericardial effusion
afib wit RVR. challenging to manage on prior in patient admit. He was on amio 400mg PO for a while and mre recently on 200mg. Ability to rhythm control limited with cardiac invasion of his lung cancer. rate control also limtied by BP
- IV amiodarone start today and increase oral dosing back to 400mg daily
- will start Digoxin for adtional rate control . will need to limit dosing while on amio
- previously would have PAF and spontaneously convert without needed CV. Continue to observe to seeif convertson his own.
- continue BB as BP tolerates
- echo to r/o pericardial effusion
--Oral Anticoagulation: Apixaban 5 mg twice daily, he denies missed doses and abnormal bleeding
-[id number]: Score is low at 2 (age 68, HF)and metastatic cancer/thrombogenic condition
.
Dilated cardiomyopathy
HFrEF (LVEF 20%)
-Furosemide is on hold for hyponatremia
-Bilateral lower extremity edema on exam
-Follow daily weight, I/O
Persistent atrial fibrillation
-Rate control has been particularly challenging
-Continue amiodarone and metoprolol succinate
-Oral Anticoagulation: Apixaban 5 mg twice daily, he denies missed doses and abnormal bleeding
-[id number]: Score is low at 2 (age 68, HF)and metastatic cancer/thrombogenic condition
Metastatic lung cancer, adenocarcinoma
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
-Metastasis to adrenal gland, liver, and retroperitoneum
-Currently on Keytruda and Alimta
-Most recent PET showed progression
-He follows with Dr. Hong, [facility]
-Defer to oncology regarding management but appears palliative care options will needto be reviewed with im.
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
Right atrial mass, measuring 1.8 x 2.2 cm which appeared to be continuous with the left atrial mass
Hyponatremia, per primary
Tricuspid regurgitation, moderate
Neoplastic anemia
Former smoker, continued cessation recommended
Physical Exam
Vital Signs/Labs
Vital Signs
Temp Pulse Resp BP Pulse Ox
97.5 F 155 16 90/56 93
01/07/24 08:03 01/07/24 08:38 01/07/24 08:03 01/07/24 08:49 01/07/24 08:03
01/06/24 01/07/24 01/08/24
06:59 06:59 06:59
Actual Weight 79.18 kg
01/07/24 05:00
01/07/24 05:00
Magnesium 1.7 mg/dl (1.6-2.3) 01/07/24 05:00
01/06/24
12:03
Bmx-S-Pzimotpivtc Pept 8050
LAB Results
01/06/24
12:03
Troponin I < 0.012
Physical Exam
Constitutional: No acute distress
Cardiovascular: Rhythm/rate is irregular and Other (tachycadic)
Respiratory: Wheeze Absent and Rhonchi Absent
GI: Soft and Non tender
Neuro/Psych: Alert
Other: Other (mild ankle edema)
Data Reviewed
-
Date of Service: January 07, 2024
Labs: Labs Reviewed by me
--- NOTE | 2024-01-07 09:23 | CON.ONC ---
Impression
Impression
Metastatic lung cancer, with extensive mediastinal and cardiac involvement, recently initiated Taxotere chemotherapy after progression on Keytruda and Alimta
HFrEF, persistent atrial fibrillation
Hyponatremia
Fever to 102, 01/05/2024; possible pneumonia by chest x-ray
Anemia, likely secondary to malignancy and chemotherapy
Plan
Plan
In the short-term, management of cardiac status per cardiology
Low threshold to initiate empiric antibiotics as he had a fever to 102 when I saw him in the office on Friday morning and chest x-ray suggest possible pneumonia
Discussed goals of care; he would like to continue active/aggressive cancer treatment. He recently initiated chemotherapy with Taxotere, too soon to know if he is or will respond. We discussed the fact that his metastatic lung cancer and
significant cardiac issues are both life-threatening. I've reached out to Dr. Reeder at [facility] (whom Samuel saw last week) to review his case, awaiting call back. Unfortunately, I do not think additional/better cancer treatment options exist beyond
what we're doing now.
We will continue to follow, and arrange outpatient oncology follow-up accordingly.
Patient History
History of Present Illness
This is a 68-year-old man with metastatic lung cancer, well-known to me from the office setting. He recently started Taxotere chemotherapy (december 22) after disease progression on Keytruda and Alimta. He has extensive mediastinal/cardiac tumor
involvement and HFrEF with persistent afib, known to Dr. Pedro. I saw him for a scheduled office visit on January 05, 2024. He presented to the office with a fever of 102, chills, and weakness. He declined ER evaluation. I sent him for blood work,
urine analysis and blood cultures. Later that night he had a fall and progressive weakness at home, and presented to the emergency room yesterday for evaluation. He has been afebrile since admission. Blood work at admission showed sodium 126, 127
today. Chest x-ray showed moderate right pleural effusion which is stable and probable mild right perihilar pneumonia. Also seen is a tiny left pleural effusion.
He has been seen by cardiology, echocardiogram has been ordered. IV amiodarone and digoxin started. Lasix is on hold in the setting of hyponatremia.
Past-Medical/Surgical History
Past medical and surgical history is as per the HPI, small right caudate head infarct noted at the time of lung cancer diagnosis, appendectomy
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
Family history: Brother had several forms of cancer, details unknown. Father had cancer involving the brain
Patient Medication
�Medication �Instructions �Recorded �Confirmed �Last Taken �Type
acetaminophen 325 mg tablet 650 mg (2 x 325 mg) PO Q4HPRN PRN 07/14/23 01/06/24 01/03/24 Rx
mild pain/DOUGLASS/temp> 100.4F #0 tabs
folic acid 1 mg tablet 1 mg PO DAILY Supplement 08/08/23 01/06/24 01/06/24 History
dexamethasone 4 mg tablet 8 mg PO DAILYPRN PRN 2 days before 10/14/23 01/06/24 12/02/23 History
and 2 after chemo
furosemide 20 mg tablet 20 mg PO MOWEFR@0800 Fluid 10/14/23 01/06/24 01/05/24 History
Retention/Swelling
amiodarone 200 mg tablet 200 mg PO DAILY Arrhythmia 12/03/23 01/06/24 01/06/24 History
apixaban 5 mg tablet (Eliquis) 5 mg PO BID Blood Clot 12/03/23 01/06/24 01/06/24 History
Prevention/Tx
metoprolol succinate 50 mg 50 mg PO BID Blood Pressure 12/03/23 01/06/24 01/06/24 History
tablet,extended release 24 hr
(Toprol XL)
ondansetron HCl 8 mg tablet 8 mg PO Q8HPRN PRN nausea 12/03/23 01/06/24 12/03/23 History
codeine 10 mg-guaifenesin 100 mg/5 10 ml PO TIDPRN PRN cough 01/06/24 01/06/24 01/05/24 History
mL oral liquid
doxycycline hyclate 100 mg capsule 100 mg PO BID Infection 01/06/24 01/06/24 01/06/24 History
lidocaine-prilocaine 2.5 %-2.5 % 1 applic topical DAILYPRN PRN port 01/06/24 01/06/24 Unknown History
topical cream
loratadine 10 mg tablet (Claritin) 10 mg PO DAILYPRN PRN allergies 01/06/24 01/06/24 12/30/23 History
lorazepam 0.5 mg tablet 0.5 mg PO TIDPRN PRN anxiety 01/06/24 01/06/24 Unknown History
Active Medications
Generic Name Dose Route Start Last Admin
Trade Name Freq PRN Reason Stop Dose Admin
Acetaminophen 650 mg 01/06/24 19:24
Acetaminophen 325 Mg Tablet PO 02/03/24 19:23
Q4HPRN PRN
mild pain/DOUGLASS/temp> 100.4F
Amiodarone HCl 200 mg 01/07/24 20:00
Amiodarone 200 Mg Tablet PO 02/04/24 19:59
BID CH[place]
Apixaban 5 mg 01/06/24 20:00 01/07/24 08:13
Apixaban (Eliquis) 5 Mg Tablet PO 02/03/24 19:59 5 mg
BID [place] Administration
Benzocaine/Menthol 1 lozenge 01/06/24 21:53 01/06/24 22:21
Benzocaine/Menthol Lozenge PO 02/03/24 21:52 1 lozenge
Q2HPRN PRN Administration
sore throat/cough
Digoxin 250 mcg 01/07/24 09:02
Digoxin 250 Mcg Tablet PO 01/07/24 09:03
NOW STA
Digoxin 250 mcg 01/07/24 09:05
Digoxin 250 Mcg Tablet PO 01/07/24 09:06
ONCE ONE
Doxycycline Hyclate 100 mg 01/06/24 20:00 01/07/24 08:13
Doxycycline 100 Mg Capsule PO 100 mg
BID [place] Administration
Folic Acid 1 mg 01/07/24 08:00 01/07/24 08:13
Folic Acid 1 Mg Tablet PO 02/04/24 07:59 1 mg
DAILY [place] Administration
Heparin Sodium (Porcine) 500 unit 01/07/24 05:47 01/07/24 05:49
Heparin Flush Pf (100 Unit/Ml) 5 Ml Syringe IV 02/04/24 05:46 500 unit
PRN PRN Administration
PORT FLUSH
Magnesium Sulfate 2 gram in 50 mls @ 25 mls/hr 01/07/24 08:25 01/07/24 08:44
Magnesium Sulfate IV 01/07/24 10:24 50 mls
NOW STA Administration
Amiodarone HCl 150 mg/ 103 mls @ 618 mls/hr 01/07/24 09:01
Dextrose IV 01/07/24 09:10
NOW STA
Amiodarone HCl 900 mg/ 518 mls @ 0 mls/hr 01/07/24 09:15
Dextrose/Water IV
PER PROTOCOL [place]INA
Protocol
Per Protocol
Levalbuterol HCl 0.63 mg 01/06/24 20:00 01/07/24 07:50
Levalbuterol 0.63 Mg/3 Ml Ampul INH 0.63 mg
R TID [place] Administration
Protocol
Levalbuterol HCl 0.63 mg 01/06/24 19:24
Levalbuterol 0.63 Mg/3 Ml Ampul INH
R Q6HPRN PRN
shortness of breath/wheeze
Protocol
Lorazepam 0.5 mg 01/06/24 19:24 01/06/24 21:46
Lorazepam 0.5 Mg Tablet PO 02/03/24 19:23 0.5 mg
TIDPRN PRN Administration
anxiety
Metoprolol Succinate 50 mg 01/06/24 20:00 01/07/24 08:49
Metoprolol 50 Mg Extended Release Tablet PO 02/03/24 19:59 Not Given
BID [place]
Sodium Chloride 0 flush 01/06/24 18:00
Sodium Chloride 0.9% (Flush) Syringe IV 02/03/24 17:59
PER PROTOCOL [place]
Review of Systems
-
All Other Systems: Not reviewed unless documented
Physical Exam
-
General: No Apparent Distress and Conversant
HEENT: Negative Jaundice
Cardiology: Irregular Rate/Rhythm
Musculoskeletal: No Edema
Neurology: Non Focal, No Lateralizing Symptoms and No Word Finding Difficulty
Skin: Warm and Dry
Psych: Calm and Intact Judgement/Insight
Labs
Lab Results
WBC 10.9 10^3/uL (4.8-10.8) H 01/07/24 05:00
RBC 2.96 10^6/uL (4.70-6.10) L 01/07/24 05:00
Hgb 8.7 g/dL (13.0-18.0) L 01/07/24 05:00
Hct 26.0 % (39.0-52.0) L 01/07/24 05:00
MCV 87.8 fL (80.0-94.0) 01/07/24 05:00
MCH 29.4 pg (27.0-31.0) 01/07/24 05:00
MCHC 33.5 g/dL (33.0-37.0) 01/07/24 05:00
RDW 19.2 % (11.5-14.5) H 01/07/24 05:00
Plt Count 227 10^3/uL (130-400) 01/07/24 05:00
MPV 10.8 fL (7.4-10.4) H 01/07/24 05:00
Abs Immat Gran (auto) 0.2 10^3/uL (0-0.05) H 01/06/24 12:03
Absolute Neuts (auto) 9.3 10^3/uL (1.4-6.5) H 01/06/24 12:03
Absolute Lymphs (auto) 0.5 10^3/uL (1.2-3.4) L 01/06/24 12:03
Absolute Monos (auto) 1.9 10^3/uL (0.1-0.6) H 01/06/24 12:03
Absolute Eos (auto) 0.0 10^3/uL (0-0.7) 01/06/24 12:03
Absolute Basos (auto) 0.0 10^3/uL (0-0.2) 01/06/24 12:03
Immature Gran % 1.3 % (0-0.5) H 01/06/24 12:03
Neutrophils % 78.8 % (42.2-75.2) H 01/06/24 12:03
Lymphocytes % 3.8 % (20.5-51.1) L 01/06/24 12:03
Monocytes % 15.8 % (1.7-9.3) H 01/06/24 12:03
Eosinophils % 0.0 % (0-6) 01/06/24 12:03
Basophils % 0.3 % (0-2) 01/06/24 12:03
Creatinine 1.0 mg/dL (0.7-1.3) 01/07/24 05:00
Vital Signs
Vital Signs
Temp Pulse Resp BP Pulse Ox
97.5 F 155 16 90/56 93
01/07/24 08:03 01/07/24 08:38 01/07/24 08:03 01/07/24 08:49 01/07/24 08:03
[2024-01-07] MEDS: LANOXIN 250 MCG PO ×2 (09:51→16:45)
--- NOTE | 2024-01-07 09:54 | WOUNDNOTE ---
WO RN note: Patient admitted with hyponatremia, weakness, poor po. Patient lives alone.
See H&P for complete history.
PMH: metastatic lung cancer, last chemo 12/22, anemia, a fib (Eliquis), anxiety/depression.
Wound Location and type/assessment: Patient admitted with: R sacral/buttocks deep dermal pressure injury, pink with yellow fibrin. Sacral stage 1 pressure injury.
Appetite: improved today as per patient.
Pressure redistribution devices in place: [employer] air bed. Patient can move self in bed. He was ambulating at home. He stated he sleeps on his couch at home.
Plan: Silicone border foam applied to R buttocks and sacrum. Air chair cushion given. Instructed local wound care and suggested he request VN if discharged back home when discharged. Instructed patient pressure injury prevention measures including
heel elevation, take air chair cushion when discharged and importance of nutrition/protein for wound healing.
Will confirm orders with Dr. Hameed and discussed with CHIRAG Singh. Patient being transferred to ICU.
Care plan to be updated and will follow as needed.
Note to case management requested for discharge: VN if goes home when discharged.
Recommend follow up at wound care center upon discharge.
--- NOTE | 2024-01-07 10:48 | PTCARENOTE ---
Pt received to room 3365 ([facility]) from the floor in sinus rhythm. Amio gtt had not been started. Dr Pedro notified. Per , Amio gtt will be started as ordered.
[2024-01-07] MEDS: CORDARONE IV (10:54)
[2024-01-07] MEDS: CORDARONE 518 MG IV (11:50)
[2024-01-07] MEDS: CORDARONE 103 MG IV (11:50)
--- NOTE | 2024-01-07 13:09 | PHA.VAN.IN ---
Assessment
- Assessment
Renal Function: Appears similar to baseline
Concomitant Antimicrobials: piperacillin/tazobactam
AUC Dosing Plan
- Dosing Variables
Dosing Weight (kg): 79
Dosing CrCl (ml/min): 80
Vd coefficient (L/kg): 0.7
- Empiric Dosing
Initial / Loading Dose: 2000mg - administration pending
Maintenance Regimen: Vanc 1000mg Q12H starting 01/07 600
Estimated AUC (mcg*h/mL): 529
Estimated Peak (mcg*h/mL): 31.6
Estimated Trough (mcg/ml): 14.5
Estimated Half Life (H): 9.8
- Monitoring
No levels ordered at this time: consider levels in next few days
MRSA Screen: Ordered per protocol
Pharmacokinetics Vancomycin I
- -
Patient Age: 68
Patient Sex: Male
Vancomycin Day #: 1
Indication: Pulmonary/Respiratory
Requesting Provider: Dr. Hameed
Pertinent Antimicrobial Allergies:
NKDA
Height / Weight:
Height 6 ft
Actual Weight 79.18 kg
Pertinent Past Medical History: metastatic lung cancer
- Vital Signs / Lab Results
Temp Pulse Resp BP Pulse Ox
98.4 F 121 16 90/56 93
01/07/24 11:08 01/07/24 09:51 01/07/24 08:03 01/07/24 08:49 01/07/24 08:03
Lab Results - Hematology
01/06/24 01/07/24
12:03 05:00
WBC 11.8 H 10.9 H
Lab Results - Chemistry
01/06/24 01/06/24 01/07/24
12:03 21:37 05:00
BUN 15 18 18
Creatinine 1.0 1.0 1.0
Estimated Creat Clear 80 80 80
Albumin 2.6 L
01/06/24 01/06/24
12:03 18:11
Lactic Acid 2.3 H 1.8
Lab Results - Urine
01/07/24
05:37
Urine Nitrite (Reflex) Negative
Leukocyte Esterase Rfl Negative
Urine WBC (Reflex) 3-5
Ur Squamous Epith Cells 6-10
Urine Bacteria (Reflex) Many A
Microbiology Results
01/06/24 12:03 Blood Culture - Preliminary
Blood/Venous No Growth in 24 hours- Final report to follow
01/06/24 12:03 Blood Culture - Preliminary
Blood/Venous No Growth in 24 hours- Final report to follow
--- NOTE | 2024-01-07 13:14 | PTCARENOTE ---
1000 Pt transferred to room 3369 per order. All belongings sent with pt. Amiodarone received as pt was been transferred and sent with pt. Pt transported with nurse educator and PCT on a monitor.
--- NOTE | 2024-01-07 13:15 | PTCARENOTE ---
Addendum entered by Olive Calzada RN 01/07/24 13:26:
Back in NSR at 1320.
Original Note:
Pt back in Afib around 11:40. HR 110-120s. Occasionally noted to be 140. Amio gtt infusing. O2 weaned off. SpO2 92-94%
[2024-01-07] MEDS: VANCOCIN 540 MG IV (14:07)
--- NOTE | 2024-01-07 14:23 | W.PN.NEPH.PH ---
Today's Communication / Plan
-
Observe on fluid restriction
Assessment/Plan
-
Assessment
metastatic lung cancer to heart, liver, bone, adrenal
Acute on chronic hyponatremia
Anemia
Atrial fibrillation with RVR
Hypotension
Heart failure reduced ejection fraction 20%
Anemia
Lactic acidosis
Plan
Hypertonic saline was provided and serum sodium was raised to 127
Holding Lasix, however patient likely volume overloaded and therefore I will try to avoid hypertonic saline again
Check urine studies: Urine sodium was less than 5 and urine osmolality was 500
Could consider Samsca if blood pressure improves but currently remains hypotensive
Lactic acidosis with a normal bicarbonate level would suggest a mixed disorder with some contribution from volume depletion
Follow lactate level
-
-
Date of Service: January 07, 2024
CC / HPI / ROS
-
Chief Complaint:
Hyponatremia
History of Present Illness:
Serum sodium improved to 127 after hypertonic saline administered
Hemodynamically labile
Review of Systems:
Nonoliguric
Weight stable
No fevers
Labs
-
Labs:
WBC 10.9 10^3/uL (4.8-10.8) H 01/07/24 05:00
RBC 2.96 10^6/uL (4.70-6.10) L 01/07/24 05:00
Hgb 8.7 g/dL (13.0-18.0) L 01/07/24 05:00
Hct 26.0 % (39.0-52.0) L 01/07/24 05:00
Plt Count 227 10^3/uL (130-400) 01/07/24 05:00
Sodium 127 mmol/L (135-145) L 01/07/24 05:00
Potassium 3.8 mmol/L (3.5-5.1) 01/07/24 05:00
Chloride 97 mmol/L (98-107) L 01/07/24 05:00
Carbon Dioxide 24 mmol/L (22-30) 01/07/24 05:00
BUN 18 mg/dl (9-20) 01/07/24 05:00
Creatinine 1.0 mg/dL (0.7-1.3) 01/07/24 05:00
eGFR > 60.00 01/07/24 05:00
Glucose 90 mg/dl (70-99) 01/07/24 05:00
Calcium 8.0 mg/dl (8.4-10.2) L 01/07/24 05:00
Qyj-S-Xconvxydmmi Pept 8050 pg/ml 01/06/24 12:03
Albumin 2.6 g/dl (3.5-5.0) L 01/06/24 12:03
Physical Exam
-
Vital Signs:
Vital Signs
Temp Pulse Resp BP Pulse Ox
98.4 F 92 23 93/63 93
01/07/24 11:08 01/07/24 14:16 01/07/24 14:16 01/07/24 12:49 01/07/24 14:16
Cardiovascular:: Regular rate and rhythm
Respiratory:: Bilateral: Coarse
Extremity Edema:: None: Bilateral:
Schwartz Catheter: No
[2024-01-07] MEDS: ZOSYN 50 IV ×3 (14:45→23:57)
[2024-01-07] MEDS: TOPROL XL 50 MG PO (20:24)
--- NOTE | 2024-01-07 22:22 | PTCARENOTE ---
cannot verify vitals prior to 1900, previous shift.
--- NOTE | 2024-01-07 22:22 | PTCARENOTE ---
Received patient AAOx3, following commands, denying pain. Afib 100s-120s, BP stable 110s/50s, normothermic. +2 bilateral lower extremity edema, TARI stockings on. 96% on room air, lung sounds diminished. Abdomen soft, round, nontender, positive bowel
sounds. Walks to bathroom to void. Stage 1 on right sacrum and stage 2 on right cheek, dressing CDI. Chest wall port patent, WNL, amio gtt ongoing per order. RFA #[id number] patent, WNL. Call gaytan within reach.
[2024-01-08] VITALS (13 sets, daily range): BP systolic 92–123; BP diastolic 60–78; PULSE 84; O2SAT 92–93; BMI 24.3
[2024-01-08 04:09] LABS: Hematocrit 25.2 % (39.0-52.0); Hemoglobin 8.2 g/dL (13.0-18.0); Mean Corp Hgb Conc. 32.5 g/dL (33.0-37.0); Mean Corpuscular Hgb 29.2 pg (27.0-31.0); Mean Corpuscular Volume 89.7 fL (80.0-94.0); Mean Platelet Volume 10.1 fL (7.4-10.4); Platelet Count 253 10^3/uL (130-400); Red Blood Cell Count 2.81 10^6/uL (4.70-6.10); Red Cell Dist. Width 18.9 % (11.5-14.5); White Blood Cell Count 12.5 10^3/uL (4.8-10.8)
[2024-01-08 04:36] LABS: Blood Urea Nitrogen 16 mg/dl (9-20); Calcium 8.2 mg/dl (8.4-10.2); Carbon Dioxide 23 mmol/L (22-30); Chloride 96 mmol/L (98-107); Digoxin 0.7 ng/ml (0.8-2.0); Estimated Creatinine Clearance 89 ml/min; Glucose 115 mg/dl (70-99); Magnesium 2.1 mg/dl (1.6-2.3); Phosphorus 3.5 mg/dl (2.5-4.5); Potassium 3.8 mmol/L (3.5-5.1); Sodium 127 mmol/L (135-145); eGFR > 60.00
[2024-01-08] MEDS: ZOSYN 50 IV ×4 (05:55→23:33)
[2024-01-08] MEDS: VANCOCIN 200 IV (05:56)
--- NOTE | 2024-01-08 06:50 | W.PN.HOSP.TC ---
Today's Communication/Plan
-
cont empiric zosyn, MRSA screen neg vanc discontinued
ID eval requested
PT/OT
Amio digoxin as per Cardiology
fluid restriction as per Nephro
Assessment / Plan
Assessment / Plan
Physical Exam
General: No acute distress resting comfortably in bed
HEENT: Anicteric normocephalic atraumatic
Respiratory: clear to auscultation b/l some conversational dyspnea remains present.
Cardiac: irregularly irregular
GI: Soft and Non Tender
Musculoskeletal: No Clubbing, No Cyanosis, Trace/+1 non-pitting edema bilateral lower ext
Skin: Warm and Dry
Neuro: AOx3
Psych: calm
68M Metastatic Lung Ca Chronic Anemia Hyponatremia HFrEF afib p/w weakness dizziness poor oral intake past few days. Recently noted to be febrile in outpatient oncology follow up assessment, started on Doxycycline. Fever since resolved. On chemo,
last tx a few weeks ago, next tx due following week. ED eval notable for worsening hyponatremia Elevated BNP and mild leukocytosis. Expiratory wheeze also noted on auscultation but otherwise stable respiratory status on room a
Acute on Chronic Hyponatremia, appears volume depleted presenting with dizziness/tachycardia/hypotension
-Consult Nephrology appreciated once 3% given, fluid restrict
-Hold Lasix
Persistent Atrial Fibrillation
Developed Afib rvr
-Continue Eliquis for anticoagulation
-Cardio eval appreciated amio gtt and digoxin load started
-transferred to IMU for closer monitoring.
-amio gtt to transition to oral 01/07 as per cardio
Chronic HFpEF
-Echo September 2023: Severe global hypokinesis with EF 20%
-Repeat ECHO notes slight improvement from 20 to 30% EF, slight enlargement left atrial mass
-Lasix on hold soft pressures, otherwise stable respiratory status on room air
-Consult Cardiology appreciated
-Monitor Is&Os and Daily Weights
Metastatic Lung Cancer with invasion into myocardium and liver, bone, adrenal metastasis
-Last chemotherapy December 22
-Consult Oncology appreciated
Possible PNA noted on CXR
Started on Doxycycline outpt due to fever not noted here
given leukocytosis tachycardia recent chemo, doxycycline switched to empiric vanc zosyn for possible sepsis immunocompromised
MRSA screen neg, vanc discontinued
ID eval requested
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
-Last transfusion
-Continue to monitor CBC
Suspected COPD
-Xopenex PRN
Anxiety/Depression
-Continue lorazepam prn
PT/OT appreciated home health
DVT proph: Eliquis
Code Status: Full Code
I spent a total of 55 minutes with the patient or on the floor. More than 50% of this time involved counseling and coordination of care.
Anticipated Discharge: 24 - 48 hours
Subjective/Interval History
-
Date of Service: January 08, 2024
No acute distress. Continues to report exertional dyspnea no relief with neb treatment. Heart rate better controlled. In and out of afib.
Objective Data
-
Labs:
Laboratory Results
01/08/24
03:47
WBC 12.5 H
Hgb 8.2 L
Hct 25.2 L
Plt Count 253
Sodium 127 L
Potassium 3.8
Chloride 96 L
Carbon Dioxide 23
BUN 16
Creatinine 0.9
Glucose 115 H
Calcium 8.2 L
Vital Signs:
Vital Signs
Temp Pulse Resp BP Pulse Ox
98 F 129 23 92/73 95
01/08/24 03:51 01/08/24 06:00 01/08/24 06:00 01/08/24 04:04 01/07/24 22:29
I&O
01/06/24 01/07/24 01/08/24
06:59 06:59 06:59
Intake Total 720 / 720 583.7 / 583.7
Output Total 125 / 125
Balance 595 / 595 583.7 / 583.7
--- NOTE | 2024-01-08 07:00 | PTCARENOTE ---
report received from previous RN. pt resting in bed. AAOX3. afib on telemetry heart rate in low 100s. amio gtt infusing at 0.5 mg/min. 94% on room air. lung sounds diminished in bases. active bowel sounds. voiding in urinal/bathroom. pt updated on
plan of care. see worklist for full nursing assessment.
[2024-01-08] MEDS: XOPENEX 0.63 MG INHALANT SOLUTION INH (08:02)
--- NOTE | 2024-01-08 08:17 | W.PN.CD ---
Today's Communication / Plan
-
Transient conversion to sinus rhythm but back in A-fib. Rates are better controlled than yesterday.
Will transition from IV amiodarone to oral amiodarone later today. Although we usually try to avoid amiodarone 20 mg daily for A-fib. Due to all the challenges above we will plan to transition amiodarone 40 mg daily at discharge.
Continue digoxin
Continue Toprol-XL as blood pressure tolerates
Impression / Plan
-
.
Shortness of breath, multifactorial
-In the setting of HFrEF, anemia, afib with RVR.and active lung cancer
-on RA this morning but so with minimal activiyt ( getting to bedside commode) . Now on O2
- echo to r/o pericardial effusion
afib wit RVR. challenging to manage on prior in patient admit. He was on amio 400mg PO for a while and mre recently on 200mg. Ability to rhythm control limited with cardiac invasion of his lung cancer. rate control also limtied by BP
-Transient conversion to sinus rhythm but now back in A-fib. Rates mildly improved.
-Patient was on amiodarone 200 mg daily prior to admit. IV amiodarone given back on 01/07/2024. Transition to oral amiodarone.
-Patient received 2 doses of digoxin on 01/07/2024. Will continue digoxin. Monitor dosing closely with patient on amiodarone.
- continue BB as BP tolerates
- echo to r/o pericardial effusion
--Oral Anticoagulation: Apixaban 5 mg twice daily, he denies missed doses and abnormal bleeding
-[id number]: Score is low at 2 (age 68, HF)and metastatic cancer/thrombogenic condition
.
Dilated cardiomyopathy
HFrEF (LVEF 20%)
-Furosemide is on hold for hyponatremia
-Bilateral lower extremity edema on exam
-Follow daily weight, I/O
Persistent atrial fibrillation
-Rate control has been particularly challenging
-Continue amiodarone and metoprolol succinate
-Oral Anticoagulation: Apixaban 5 mg twice daily, he denies missed doses and abnormal bleeding
-[id number]: Score is low at 2 (age 68, HF)and metastatic cancer/thrombogenic condition
Metastatic lung cancer, adenocarcinoma
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
-Metastasis to adrenal gland, liver, and retroperitoneum
-Currently on Keytruda and Alimta
-Most recent PET showed progression
-He follows with Dr. Hong, [facility]
-Defer to oncology regarding management but appears palliative care options will needto be reviewed with im.
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
Right atrial mass, measuring 1.8 x 2.2 cm which appeared to be continuous with the left atrial mass
Hyponatremia, per primary
Tricuspid regurgitation, moderate
Neoplastic anemia
Former smoker, continued cessation recommended
Physical Exam
Vital Signs/Labs
Vital Signs
Temp Pulse Resp BP Pulse Ox
97.7 F 114 20 92/73 94
01/08/24 08:13 01/08/24 08:06 01/08/24 08:06 01/08/24 04:04 01/08/24 08:06
01/07/24 01/08/24 01/09/24
06:59 06:59 06:59
Actual Weight 79.18 kg 81.1 kg
01/08/24 03:47
01/08/24 03:47
Magnesium 2.1 mg/dl (1.6-2.3) 01/08/24 03:47
Digoxin 0.7 ng/ml (0.8-2.0) L 01/08/24 03:47
01/06/24
12:03
Qti-C-Rsrumvsvitu Pept 8050
LAB Results
01/06/24
12:03
Troponin I < 0.012
Physical Exam
Constitutional: No acute distress
Cardiovascular: Rhythm/rate is irregular
Respiratory: Respiratory effort normal
GI: Soft
Data Reviewed
-
Date of Service: January 08, 2024
Medical Decision Making: External Notes
Medical Tests (PFT, Pathology etc): Image Personally Visualized and interpreted
Labs: Labs Reviewed by me
Old Records: Requested
--- NOTE | 2024-01-08 08:25 | W.PN.NEPH.PH ---
Today's Communication / Plan
-
Maintain fluid restrict
Follow electrolyte
Assessment/Plan
-
Assessment
metastatic lung cancer to heart, liver, bone, adrenal
Acute on chronic hyponatremia
Anemia
Atrial fibrillation with RVR
Hypotension
Heart failure reduced ejection fraction 20%
Anemia
Lactic acidosis
Plan
Hypertonic saline was provided and serum sodium was raised to 127, remains stable at 127
Holding Lasix, however patient likely volume overloaded and therefore I will try to avoid hypertonic saline again
Check urine studies: Urine sodium was less than 5 and urine osmolality was 500
Will utilize Samsca if sodium levels dropped further as patient has underlying SIADH and ongoing hypotension
Maintain fluid restriction 48 ounce
-
-
Date of Service: January 08, 2024
CC / HPI / ROS
-
Chief Complaint:
Hyponatremia
History of Present Illness:
Serum sodium improved to 127 after hypertonic saline administered
Hemodynamically labile, can provide midodrine as needed
Review of Systems:
Nonoliguric
Weight stable
No fevers
Labs
-
Labs:
WBC 12.5 10^3/uL (4.8-10.8) H 01/08/24 03:47
RBC 2.81 10^6/uL (4.70-6.10) L 01/08/24 03:47
Hgb 8.2 g/dL (13.0-18.0) L 01/08/24 03:47
Hct 25.2 % (39.0-52.0) L 01/08/24 03:47
Plt Count 253 10^3/uL (130-400) 01/08/24 03:47
Sodium 127 mmol/L (135-145) L 01/08/24 03:47
Potassium 3.8 mmol/L (3.5-5.1) 01/08/24 03:47
Chloride 96 mmol/L (98-107) L 01/08/24 03:47
Carbon Dioxide 23 mmol/L (22-30) 01/08/24 03:47
BUN 16 mg/dl (9-20) 01/08/24 03:47
Creatinine 0.9 mg/dL (0.7-1.3) 01/08/24 03:47
eGFR > 60.00 01/08/24 03:47
Glucose 115 mg/dl (70-99) H 01/08/24 03:47
Calcium 8.2 mg/dl (8.4-10.2) L 01/08/24 03:47
Phosphorus 3.5 mg/dl (2.5-4.5) 01/08/24 03:47
Dpg-B-Jpecxcftgmd Pept 8050 pg/ml 01/06/24 12:03
Albumin 2.6 g/dl (3.5-5.0) L 01/06/24 12:03
Physical Exam
-
Vital Signs:
Vital Signs
Temp Pulse Resp BP Pulse Ox
97.7 F 127 17 92/73 94
01/08/24 08:13 01/08/24 08:15 01/08/24 08:15 01/08/24 04:04 01/08/24 08:06
Cardiovascular:: Regular rate and rhythm
Respiratory:: Bilateral: Coarse
Extremity Edema:: None: Bilateral:
Schwartz Catheter: No
[2024-01-08] MEDS: ELIQUIS 5 MG PO ×2 (08:29→20:38)
[2024-01-08] MEDS: FOLVITE 1 MG PO (08:29)
[2024-01-08] MEDS: LANOXIN 250 MCG PO (09:44)
[2024-01-08] MEDS: PACERONE 200 MG PO ×2 (09:44→20:38)
[2024-01-08] MEDS: TOPROL XL 50 MG PO ×2 (10:08→20:38)
--- NOTE | 2024-01-08 10:11 | CON.ID ---
Documented by User: Cindy Sutherland MD, Resident 01/08/24 10:40
Chief Complaint / Past History
History of Present Illness
68-year-old man with past medical history significant of metastatic lung cancer to liver, bone, myocardium on chemotherapy ( started December 22), was admitted for evaluation of weakness and dizziness. Patient reports having chronic cough for some
months and weakness from the past few days. He had an outpatient visit with his oncologist Dr. Henny Hong on January 05, 2024�presented with fever of 102, chills, weakness. Later that night he had a fall due to weakness/dizziness at home and
presented to the ER for further evaluation. Blood work at admission showed sodium of 126, chest x-ray showed moderate right pleural effusion and mild right perihilar pneumonia, tiny left pleural effusion. Patient is afebrile today.
Past History
Allergy History:
No Known Allergies Allergy (Verified 01/06/24 11:52)
Review of Systems
Vital Signs
Temp Pulse Resp BP Pulse Ox
97.7 F 90 17 123/72 94
01/08/24 08:13 01/08/24 10:08 01/08/24 08:15 01/08/24 10:08 01/08/24 08:06
Physical Exam
Lab / Diagnostic Study Results
01/08/24 03:47
01/08/24 03:47
Abs Immat Gran (auto) 0.2 10^3/uL (0-0.05) H 01/06/24 12:03
Absolute Neuts (auto) 9.3 10^3/uL (1.4-6.5) H 01/06/24 12:03
Absolute Lymphs (auto) 0.5 10^3/uL (1.2-3.4) L 01/06/24 12:03
Absolute Monos (auto) 1.9 10^3/uL (0.1-0.6) H 01/06/24 12:03
Absolute Basos (auto) 0.0 10^3/uL (0-0.2) 01/06/24 12:03
Immature Gran % 1.3 % (0-0.5) H 01/06/24 12:03
Neutrophils % 78.8 % (42.2-75.2) H 01/06/24 12:03
Lymphocytes % 3.8 % (20.5-51.1) L 01/06/24 12:03
Monocytes % 15.8 % (1.7-9.3) H 01/06/24 12:03
Eosinophils % 0.0 % (0-6) 01/06/24 12:03
Basophils % 0.3 % (0-2) 01/06/24 12:03
Lactic Acid 1.8 mmol/L (0.7-2.0) 01/06/24 18:11
Ur Squamous Epith Cells 6-10 /LPF (Few) 01/07/24 05:37
Microbiology Results
Micro:
01/07/24 18:32 Nasal Screen MRSA (PCR) - Final
Nose MRSA not detected - performed by PCR methodology.
01/06/24 12:03 Blood Culture - Preliminary
Blood/Venous No Growth in 24 hours- Final report to follow
01/06/24 12:03 Blood Culture - Preliminary
Blood/Venous No Growth in 24 hours- Final report to follow
01/07/24 05:37 Urine Culture - Pending
Urine

Documented by User: Rolan Rhodes DO 01/08/24 13:16
Consultation
-
Date/Time Consultation Requested: 01/08/2024 [id number]
Date/Time Consultation Performed: 01/08/2024 1158
Requesting Provider: Dr. Hameed
Performing Provider: Dr. Rhodes
Reason for Consultation: Sepsis
Chief Complaint / Past History
History of Present Illness
Samuel Pro is a 68-year-old male being evaluated at the request of Dr. Hameed in regards to possible sepsis. History is obtained from chart review, along with patient interview.
The patient has a significant past medical history of metastatic lung cancer (to liver, bone and myocardium; Dx 01/2023). He previously was on Keytruda and Alimta but had disease progression and started Taxotere on 12/23/2023. He reports that he
was feeling well up through this past weekend, but earlier this week developed marked decrease in overall appetite. He had seen [facility] in the office, and at that point in time he was reported to have a fever of 102 degrees. He admits to having
chills possibly in the night before. While in the office he declined ER evaluation, but was started on empiric doxycycline. Ultimately, he had progression of generalized weakness which resulted in a fall at home and he was brought to the emergency
room for further workup.
Here he was noted to have hyponatremia along with a low-grade leukocytosis. Chest imaging revealed possible right middle lobe infiltrate. Infectious Diseases is asked to comment upon further antimicrobial therapy.
The patient reports ongoing shortness of breath, but denies any significant change to his chronic cough which he describes as dry with the occasional production of clear sputum.
Past History
Additional Past Medical History:
Lung adenocarcinoma (mets to liver, bone and myocardium)
CHF
Anxiety/depression
Paroxysmal A-fib
Anemia
Additional Past Surgical History:
Port-A-Cath placement
Appendectomy
Allergy History:
No Known Allergies Allergy (Verified 01/06/24 11:52)
Medications Reviewed: Yes
Current Antibiotics:
Zosyn
Social History
Tobacco: Smoker (2 PPD)
Alcohol: Former
Drug: None
Personal: Single
Living: Alone
Employment: Employed
Family History
Family History: Not Pertinent
Physical Exam
Physical Exam
Constitutional: No Acute Distress, Comfortable and Non-toxic
Head: Normocephalic
Eyes: Pupils Equal, Pupils Round, No Conjunctival Hemorrhage and Sclera Anicteric
Oral: No Thrush and No Ulcers
Cardiovascular: Regular Rate and S1/S2; Negative S3/S4
Pulmonary: Wheezes, Rhonchi (scattered), Coarse and Non Labored
Gastrointestinal: Soft, Non Tender, Non Distended, Normal Bowel Sounds, No Rebound and No Guarding
Genito-Urinary: Negative Schwartz
Extremities: Negative Edema, Cyanosis or Erythema
Musculoskeletal: Negative Joint Swelling or Joint Effusion
Skin: Warm and Dry; Negative Rash or Jaundice
Neurological: Awake, Alert and Oriented
Psychological: Calm
Lab / Diagnostic Study Results
01/08/24 03:47
01/08/24 03:47
Abs Immat Gran (auto) 0.2 10^3/uL (0-0.05) H 01/06/24 12:03
Absolute Neuts (auto) 9.3 10^3/uL (1.4-6.5) H 01/06/24 12:03
Absolute Lymphs (auto) 0.5 10^3/uL (1.2-3.4) L 01/06/24 12:03
Absolute Monos (auto) 1.9 10^3/uL (0.1-0.6) H 01/06/24 12:03
Absolute Basos (auto) 0.0 10^3/uL (0-0.2) 01/06/24 12:03
Immature Gran % 1.3 % (0-0.5) H 01/06/24 12:03
Neutrophils % 78.8 % (42.2-75.2) H 01/06/24 12:03
Lymphocytes % 3.8 % (20.5-51.1) L 01/06/24 12:03
Monocytes % 15.8 % (1.7-9.3) H 01/06/24 12:03
Eosinophils % 0.0 % (0-6) 01/06/24 12:03
Basophils % 0.3 % (0-2) 01/06/24 12:03
Lactic Acid 1.8 mmol/L (0.7-2.0) 01/06/24 18:11
Ur Squamous Epith Cells 6-10 /LPF (Few) 01/07/24 05:37
Microbiology Results
Imaging:
01/06/2024 CXR (2 view): Moderate right pleural effusion. Tiny left pleural effusion noted. No pneumothorax. New mild right suprahilar and perihilar suspected airspace disease. Overall minimal change from CXR imaging in June 2023 by personal
visualization.
Assessment / Plan
Generalized weakness
Pulmonary infiltrate
- DDx: PNA vs malignancy progression
- Pt with little infectious symptomatology at present
Low-grade leukocytosis
Fever (outpatient)
- afebrile since admission
Hyponatremia
Elevated BNP
Lung adenocarcinoma (mets to liver, bone and myocardium)
- recent transition (12/23/23) to taxotere 2* disease progression on Keytruda and Alimta
CHF
Anxiety/depression
Paroxysmal A-fib
Anemia
Recommendations:
Continue Zosyn for the present.
Check sputum culture. Check Legionella and pneumococcal urinary antigens.
Follow white count and temperature curve.
Monitor for clinical improvement.
Further recommendations as additional data is returned.
Would not order procalcitonin given underlying malignancy, as results may be falsely positive.
--- NOTE | 2024-01-08 12:30 | W.PN.ONC2 ---
Today's Communication / Plan
-
follow CBC, fever, curve, infectious work up
Impression
Impression
Metastatic lung cancer, with extensive mediastinal and cardiac involvement, recently initiated Taxotere chemotherapy after progression on Keytruda and Alimta
HFrEF, persistent atrial fibrillation
Hyponatremia
Fever to 102, 01/05/2024; possible pneumonia by chest x-ray
Anemia, likely secondary to malignancy and chemotherapy
Plan
Plan
In the short-term, management of cardiac status per cardiology
on IV antibiotics
chest x-ray suggest possible pneumonia
goals of care; he would like to continue active/aggressive cancer treatment. He recently initiated chemotherapy with Taxotere, too soon to know if he is or will respond. We discussed the fact that his metastatic lung cancer and significant cardiac
issues are both life-threatening.
I will follow up with Dr. Reeder at [facility] (whom Samuel saw last week) to review his case, awaiting call back. Unfortunately, I do not think additional/better cancer treatment options exist beyond what we're doing now.
We will continue to follow, and arrange outpatient oncology follow-up accordingly.
Subjective/Objective
Chief Complaint
feeling better, diarrhea since admission
Subjective
denies sob at rest, chest pain or palpitations
Vital Signs:
Vital Signs
Temp Pulse Resp BP Pulse Ox
97.8 F 85 16 123/72 93
01/08/24 12:20 01/08/24 11:00 01/08/24 11:00 01/08/24 10:08 01/08/24 11:00
Lab Results:
Laboratory Data
WBC 12.5 10^3/uL (4.8-10.8) H 01/08/24 03:47
Hgb 8.2 g/dL (13.0-18.0) L 01/08/24 03:47
Plt Count 253 10^3/uL (130-400) 01/08/24 03:47
eGFR > 60.00 01/08/24 03:47
Physical Exam
General: No Apparent Distress and Conversant
HEENT: Negative Jaundice
Cardiology: Irregular Rate/Rhythm
Musculoskeletal: No Edema
Neurology: Non Focal, No Lateralizing Symptoms and No Word Finding Difficulty
Skin: Warm and Dry
Psych: Calm and Intact Judgement/Insight
Review of Systems
Review of Systems
notable for subjective, otherwise negative
--- NOTE | 2024-01-08 13:13 | PN.CDI ---
CDI
- -
CDI:
Physician Documentation Request
Admit Date: 01/06/24 16:22
Dear Doctor Zari,
Patient admitted with acute on chronic hyponatremia.
01/06 PN, 'Paroxysmal Atrial Fibrillation...'
01/06 Cardiology note, 'Persistent atrial fibrillation.'
Due to conflicting documentation, please clarify in your note the type of atrial fibrillation being monitored, evaluated and/ or treated:
Paroxysmal atrial fibrillation - terminates spontaneously or with intervention within 7 days of onset
Persistent atrial fibrillation - episodes of continuous AF that last more than 7 days and do not self-terminate
Other - please specify
Use of terms such as suspected, likely, concern for, or probable (associated with a specific diagnosis that is being evaluated, monitored, or treated as if it exists) are acceptable and can be coded in the inpatient setting, when documented at the
time of discharge.
Thank you,
Juanis GRADY,RN,CCDS
CDI Specialist
Available via tiger text
Please use your independent medical judgment in providing your response.
[2024-01-08] MEDS: ANESTHETIC LOZENGE 1 LOZENGE PO (20:47)
[2024-01-09] VITALS (23 sets, daily range): BP systolic 102–143; BP diastolic 55–96
--- NOTE | 2024-01-09 03:39 | PTCARENOTE ---
Assumed care of patient at 1900, nursing assessment as documented. Patient ambulated to bathroom with x1 assist for stand by. Medications given without difficulty. Right CW subcutaneous port accessed and patent. Patient on RA and desaturated into
60's during sleep, recovered to 94% when awakened, denies hx of JATIN. VSS, call gaytan within reach, care ongoing.
[2024-01-09] MEDS: ZOSYN 50 IV ×2 (05:20→11:34)
[2024-01-09 05:32] LABS: Hematocrit 21.4 % (39.0-52.0); Mean Corp Hgb Conc. 32.7 g/dL (33.0-37.0); Mean Corpuscular Volume 88.8 fL (80.0-94.0); Mean Platelet Volume 10.5 fL (7.4-10.4); Platelet Count 196 10^3/uL (130-400); Red Blood Cell Count 2.41 10^6/uL (4.70-6.10); Red Cell Dist. Width 18.7 % (11.5-14.5); White Blood Cell Count 7.4 10^3/uL (4.8-10.8)
[2024-01-09 06:02] LABS: Blood Urea Nitrogen 11 mg/dl (9-20); Calcium 8.1 mg/dl (8.4-10.2); Carbon Dioxide 25 mmol/L (22-30); Chloride 98 mmol/L (98-107); Estimated Creatinine Clearance 100 ml/min; Glucose 82 mg/dl (70-99); Potassium 3.3 mmol/L (3.5-5.1); Sodium 129 mmol/L (135-145); eGFR > 60.00
[2024-01-09] MEDS: KCL 40 MEQ PO (06:32)
--- NOTE | 2024-01-09 07:31 | W.PN.HOSP.TC ---
Today's Communication/Plan
-
Likely discharge later today pending repeat BMP results following Samsca
Assessment / Plan
Assessment / Plan
Physical Exam
General: No acute distress resting comfortably in bed
HEENT: Anicteric normocephalic atraumatic
Respiratory: clear to auscultation b/l some conversational dyspnea remains present though improved from prior.
Cardiac: NSR rate controlled
GI: Soft and Non Tender
Musculoskeletal: No Clubbing, No Cyanosis, Trace/+1 non-pitting edema bilateral lower ext
Skin: Warm and Dry
Neuro: AOx3
Psych: calm
68M Metastatic Lung Ca Chronic Anemia Hyponatremia HFrEF afib p/w weakness dizziness poor oral intake past few days. Recently noted to be febrile in outpatient oncology follow up assessment, started on Doxycycline. Fever since resolved. On chemo,
last tx a few weeks ago, next tx due following week. ED eval notable for worsening hyponatremia Elevated BNP and mild leukocytosis. Expiratory wheeze also noted on auscultation but otherwise stable respiratory status on room a
Acute on Chronic Hyponatremia, appears volume depleted presenting with dizziness/tachycardia/hypotension
-Consult Nephrology appreciated once 3% given, fluid restrict
-Hold Lasix
-once samsca 01/09/24
Persistent Atrial Fibrillation
Developed Afib rvr
-Continue Eliquis for anticoagulation
-Cardio eval appreciated amio gtt and digoxin load started
-transferred to IMU for closer monitoring.
-amio gtt to transition to oral 01/07 as per cardio
-stable for discharge as per Cardio
Chronic HFpEF
-Echo September 2023: Severe global hypokinesis with EF 20%
-Repeat ECHO notes slight improvement from 20 to 30% EF, slight enlargement left atrial mass
-Lasix on hold soft pressures, otherwise stable respiratory status on room air
-Consult Cardiology appreciated
-Monitor Is&Os and Daily Weights
Metastatic Lung Cancer with invasion into myocardium and liver, bone, adrenal metastasis
-Last chemotherapy December 22
-Consult Oncology appreciated
Possible PNA noted on CXR
Started on Doxycycline outpt due to fever not noted here
given leukocytosis tachycardia recent chemo, doxycycline switched to empiric vanc zosyn for possible sepsis immunocompromised
MRSA screen neg, vanc discontinued
Leukocytosis since resolved
ID eval appreciated abx narrowed to Cefdinir for 5 more days
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
-Last transfusion
-Continue to monitor CBC
-Oncology eval appreciated
-transfusing 1PRBC as per oncology for goal hgb >7.5 in preparation for Treatment next week
Likely COPD
-Stable respiratory status on room air.
Hypokalemia
-monitor and replete as necessary
Anxiety/Depression
-Continue lorazepam prn
PT/OT appreciated home health
DVT proph: Eliquis
Code Status: Full Code
Pending repeat BMP following samsca, likely Medically stable for discharge, later today, home with home health and outpatient follow up recommendations
Total Time Preparing Discharge __50 minutes including examination of the patient, summary of the hospital stay, instructions for continuing care to all relevant caregivers; and preparation of discharge records, prescriptions, and referral
forms if necessary.
Anticipated Discharge: Today
Subjective/Interval History
-
Date of Service: January 09, 2024
Seen and examined at bedside in not acute distress reports overall improvement in symptoms. Denies new acute issues. Eager to go home.
Objective Data
-
Labs:
Laboratory Results
01/09/24
05:19
WBC 7.4
Hgb 7.0 L
Hct 21.4 L
Plt Count 196 D
Sodium 129 L
Potassium 3.3 L
Chloride 98
Carbon Dioxide 25
BUN 11
Creatinine 0.8
Glucose 82
Calcium 8.1 L
Vital Signs:
Vital Signs
Temp Pulse Resp BP Pulse Ox
97.8 F 76 15 105/65 90
01/09/24 07:28 01/09/24 06:00 01/09/24 06:00 01/09/24 06:00 01/09/24 06:00
I&O
01/08/24 01/09/24 01/10/24
06:59 06:59 06:59
Intake Total 583.7 / 600.4 903.5 / 903.5
Balance 583.7 / 600.4 903.5 / 903.5
[2024-01-09] MEDS: PACERONE 200 MG PO ×2 (08:10→20:25)
[2024-01-09] MEDS: ELIQUIS 5 MG PO ×2 (08:10→20:23)
[2024-01-09] MEDS: TOPROL XL 50 MG PO ×2 (08:11→20:24)
[2024-01-09] MEDS: FOLVITE 1 MG PO (08:11)
--- NOTE | 2024-01-09 09:22 | PN.CDI ---
CDI
- -
CDI:
Physician Documentation Request
Admit Date: 01/06/24 16:22
Dear Doctor Zari,
Patient admitted with acute on chronic hyponatremia.
01/06 PN, 'Started on Doxycycline outpt due to fever not noted here...possible PNA noted on CXR....given leukocytosis tachycardia recent chemo, doxycycline switched to empiric Vanc Zosyn for possible sepsis.'
On admission, HR> 90 and RR > 20.
Laboratory Tests
01/06/24 01/07/24 01/08/24
12:03 05:00 03:47
WBC 11.8 H 10.9 H 12.5 H
After careful study, please clarify the status update for the possible sepsis diagnosis:
Sepsis was POA
Sepsis evolved during hospitalization
Sepsis ruled out
Other
Use of terms such as suspected, likely, concern for, or probable (associated with a specific diagnosis that is being evaluated, monitored, or treated as if it exists) are acceptable and can be coded in the inpatient setting, when documented at the
time of discharge.
Thank you,
Juanis GRADY,RN,CCDS
CDI Specialist
Available via tiger text
Please use your independent medical judgment in providing your response.
--- NOTE | 2024-01-09 09:50 | W.PN.NEPH.PH ---
Today's Communication / Plan
-
samsca
Assessment/Plan
-
Assessment
metastatic lung cancer to heart, liver, bone, adrenal
Acute on chronic hyponatremia
Anemia
Atrial fibrillation with RVR
Hypotension
Heart failure reduced ejection fraction 20%
Anemia
Lactic acidosis
Plan
samsca today
follow BMP
replete K
-
-
Date of Service: January 09, 2024
CC / HPI / ROS
-
Chief Complaint:
Hyponatremia
History of Present Illness:
Serum sodium improved to 129 after hypertonic saline administered
Hemodynamically labile, can provide midodrine as needed
K low 3.3
Review of Systems:
Nonoliguric
Weight stable
No fevers
Labs
-
Labs:
WBC 7.4 10^3/uL (4.8-10.8) 01/09/24 05:19
RBC 2.41 10^6/uL (4.70-6.10) L 01/09/24 05:19
Plt Count 196 10^3/uL (130-400) D 01/09/24 05:19
Sodium 129 mmol/L (135-145) L 01/09/24 05:19
Potassium 3.3 mmol/L (3.5-5.1) L 01/09/24 05:19
Chloride 98 mmol/L (98-107) 01/09/24 05:19
Carbon Dioxide 25 mmol/L (22-30) 01/09/24 05:19
BUN 11 mg/dl (9-20) 01/09/24 05:19
Creatinine 0.8 mg/dL (0.7-1.3) 01/09/24 05:19
eGFR > 60.00 01/09/24 05:19
Glucose 82 mg/dl (70-99) 07/12/24 05:19
Calcium 8.1 mg/dl (8.4-10.2) L 01/09/24 05:19
Phosphorus 3.5 mg/dl (2.5-4.5) 01/08/24 03:47
Tnh-N-Qbfghmyzycq Pept 8050 pg/ml 01/06/24 12:03
Albumin 2.6 g/dl (3.5-5.0) L 01/06/24 12:03
Physical Exam
-
Vital Signs:
Vital Signs
Temp Pulse Resp BP Pulse Ox
97.8 F 79 23 129/85 90
01/09/24 07:28 01/09/24 08:00 01/09/24 08:00 01/09/24 08:00 01/09/24 06:00
Cardiovascular:: Regular rate and rhythm
Respiratory:: Bilateral: Coarse
Lung Excursion:: Normal
Abdomen:: Nontender and Soft
Bowel Sounds:: Normal
Extremity Edema:: None: Bilateral:
--- NOTE | 2024-01-09 10:37 | W.PN.ONC2 ---
Today's Communication / Plan
-
follow CBC, fever, curve, infectious work up
transfuse 1 unit prbc for Hgb <7.5 in preparation for treatment next week -consent obtained and placed on chart
Impression
Impression
Metastatic lung cancer, with extensive mediastinal and cardiac involvement, recently initiated Taxotere chemotherapy after progression on Keytruda and Alimta
HFrEF, persistent atrial fibrillation
acute on chronic Hyponatremia
PNA
Anemia, likely secondary to malignancy and chemotherapy
Plan
Plan
on IV antibiotics
goals of care; he would like to continue active/aggressive cancer treatment. He recently initiated chemotherapy with Taxotere, too soon to know if he is or will respond. complex case with metastatic lung cancer and significant cardiac issues that
are both life-threatening.
2nd opinion with Dr. Reeder at [facility] (whom Samuel saw last week) agrees with current treatment plan, if poor response or POD would consider clinical trial at [facility]
Subjective/Objective
Chief Complaint
no new complaints
Subjective
afebrile, no hypoxia or hypotension
Vital Signs:
Vital Signs
Temp Pulse Resp BP Pulse Ox
97.8 F 79 23 129/85 90
01/09/24 07:28 01/09/24 08:00 01/09/24 08:00 01/09/24 08:00 01/09/24 06:00
Lab Results:
Laboratory Data
WBC 7.4 10^3/uL (4.8-10.8) 01/09/24 05:19
Hgb 7.0 g/dL (13.0-18.0) L 01/09/24 05:19
Plt Count 196 10^3/uL (130-400) D 01/09/24 05:19
eGFR > 60.00 01/09/24 05:19
Physical Exam
General: No Apparent Distress and Conversant
HEENT: Negative Jaundice
Cardiology: Irregular Rate/Rhythm
Musculoskeletal: No Edema
Neurology: Non Focal, No Lateralizing Symptoms and No Word Finding Difficulty
Skin: Warm and Dry
Psych: Calm and Intact Judgement/Insight
Review of Systems
Review of Systems
notable for subjective, otherwise negative
[2024-01-09] MEDS: SAMSCA 15 MG PO (11:33)
[2024-01-09] MEDS: LANOXIN 125 MCG PO (11:33)
[2024-01-09] MEDS: FLUSH (NSS) 1 FLUSH IV (11:35)
--- NOTE | 2024-01-09 12:31 | W.PN.ID1 ---
Date of Service
Date of Service: January 09, 2024
Today's Communication
Narrow to cefdinir
Assessment / Plan
Generalized weakness
Pulmonary infiltrate
- DDx: PNA vs malignancy progression
- Pt with little infectious symptomatology at present
Low-grade leukocytosis
- normalized today
Fever (outpatient)
- afebrile since admission
Hyponatremia
Elevated BNP
Lung adenocarcinoma (mets to liver, bone and myocardium)
- recent transition (12/23/23) to taxotere 2* disease progression on Keytruda and Alimta
CHF
Anxiety/depression
Paroxysmal A-fib
Anemia
Recommendations:
Legionella and pneumococcal urinary antigens negative.
White count normalized today. Patient with little significant pulmonary symptomatology.
Narrow antibiotics to cefdinir 300 mg p.o. twice daily for an additional 5 days.
Monitor for clinical improvement.
Would not order procalcitonin given underlying malignancy, as results may be falsely positive.
����������������������������������������������������������
Chief Complaint
-: Clinical Sepsis
Subjective / Review of Systems
Review of Systems: No Fever, No Chills, Cough (occasional) and No Sputum Production
Vital Signs / Physical Exam
Vital Signs
Vital Signs
Temp Pulse Resp BP Pulse Ox
97.8 F 76 12 102/61 95
01/09/24 07:28 01/09/24 11:33 01/09/24 10:00 01/09/24 10:00 01/09/24 12:08
Physical Exam
Constitutional: Comfortable, Chronically Ill and Non-toxic
Eyes: Sclera Anicteric
Cardiovascular: S1/S2; Negative S3/S4
Pulmonary: Rhonchi (Scattered), Coarse and Non Labored
Gastrointestinal: Soft, Non Tender and Non Distended
Extremities: Negative Edema, Cyanosis or Erythema
Neurological: Awake and Alert
Psychological: Calm
Objective Data
Lab Data
Estimated Creat Clear 100 ml/min 01/09/24 05:19
Lactic Acid 1.8 mmol/L (0.7-2.0) 01/06/24 18:11
Total Bilirubin 1.0 mg/dl (0.2-1.3) 01/06/24 12:03
AST 36 U/L (17-59) 01/06/24 12:03
ALT 14 U/L (0-50) 01/06/24 12:03
Alkaline Phosphatase 73 U/L (38-126) 01/06/24 12:03
Most recent labs reviewed.
Micro Results:
01/06/24 12:03 Blood Culture - Preliminary
Blood/Venous No Growth in 72 hours- Final report to follow
01/06/24 12:03 Blood Culture - Preliminary
Blood/Venous No Growth in 72 hours- Final report to follow
01/08/24 17:18 Respiratory Culture - Preliminary
Sputum Usual Respiratory Dona
Gram Stain - Preliminary
01/08/24 18:21 Legionella Urinary Antigen - Final
Urine Negative for Legionella pneumophila Serogroup 1 antigen.
A negative result does not rule out the possiblity of
Legionella infection due to other serogroups or species of
Legionella. Clinical correlation is recommended.
Streptococcus pneumoniae Antigen (M - Final
Negative for Streptococcus pneumoniae antigen.
A negative result does not exclude infection with
Streptococcus pneumoniae. Clinical correlation is
recommended.
01/07/24 05:37 Urine Culture - Final
Urine No Significant Growth
01/07/24 18:32 Nasal Screen MRSA (PCR) - Final
Nose MRSA not detected - performed by PCR methodology.
Imaging:
01/06/2024 CXR (2 view): Moderate right pleural effusion. Tiny left pleural effusion noted. No pneumothorax. New mild right suprahilar and perihilar suspected airspace disease. Overall minimal change from CXR imaging in June 2023 by personal
visualization.
--- NOTE | 2024-01-09 12:33 | CM ---
CM following re: discharge planning.
Reviewed pt's chart, met with pt. Pt stated he feels he might be ready to be discharged today. IMM reviewed, placed on chart, pt has a copy.
PT and OT evaluations noted - home PT/OT recommended. pt is aware, expressed his agreement. A list of VN vendors provided. Pt preferred [facility]. A referral to [facility] made.
Please fax discharge instructions to [facility] at [phone]
D/C plan: home with [facility] and family support. Domestic partner Tg to transport home.
CM will follow with discharge plan updates as hospitalization progresses
--- NOTE | 2024-01-09 12:37 | W.PN.CD ---
Today's Communication / Plan
-
-
Will decrease Dig dose to 62.5 mcg daily to decrease risk of future toxicity. Note age, amio use, and poor prognosis lung cancer
-
Cardiology will sign off.
-
I think he will need Lasix at discharge at least PRN for weight gain/increased edema
-
F/u in place with Dr. Pedro on 01/29/2024 at 1:40 PM
-
-
Impression / Plan
-
-
Shortness of breath, multifactorial
-In the setting of HFrEF, anemia, afib with RVR.and active lung cancer
AFib
- In sinus last 24 hrs, sinus rate OK
- Rate was fast earlier in afib
- On BB, dig, amio
- On Eliquis
Dilated cardiomyopathy
HFrEF (LVEF 20% =>30%
Metastatic lung cancer, adenocarcinoma
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
-Metastasis to adrenal gland, liver, and retroperitoneum
-Currently on Keytruda and Alimta
-Most recent PET showed progression
-He follows with Dr. Hong, he got a second opinion at [place]
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
Right atrial mass, measuring 1.8 x 2.2 cm which appeared to be continuous with the left atrial mass
Hyponatremia, per primary
Tricuspid regurgitation, moderate
Neoplastic anemia
Former smoker, continued cessation recommended
Subjective:
He wants to go home.
Physical Exam
Vital Signs/Labs
Vital Signs
Temp Pulse Resp BP Pulse Ox
97.8 F 76 12 102/61 95
01/09/24 07:28 01/09/24 11:33 01/09/24 10:00 01/09/24 10:00 01/09/24 12:08
01/08/24 01/09/24 01/10/24
06:59 06:59 06:59
Actual Weight 81.1 kg
Magnesium 2.1 mg/dl (1.6-2.3) 01/08/24 03:47
Digoxin Cancelled 01/08/24 12:21
01/06/24
12:03
Iqs-P-Qrquxuuzrco Pept 8050
LAB Results
01/06/24
12:03
Troponin I < 0.012
Physical Exam
Constitutional: No acute distress
Cardiovascular: Rhythm & rate is regular and Pedal edema is absent
Respiratory: Lungs clear to auscul. (but decrease BS on right)
GI: Soft and Distention absent
Neuro/Psych: AO x 3
Data Reviewed
-
Date of Service: January 09, 2024
[2024-01-09 13:31] LABS: % Basophils 0.5 % (0-2); % Monocytes 7.5 % (1.7-9.3); Absolute Immature Granulocytes 0.1 10^3/uL (0-0.05); Absolute Lymphocytes 0.4 10^3/uL (1.2-3.4); Absolute Monocytes 0.6 10^3/uL (0.1-0.6); Absolute Neutrophils 7.1 10^3/uL (1.4-6.5); Hematocrit 22.1 % (39.0-52.0); Hemoglobin 7.3 g/dL (13.0-18.0); Mean Corpuscular Hgb 28.7 pg (27.0-31.0); Mean Platelet Volume 9.9 fL (7.4-10.4); Nucleated Red Blood Cells % 0 % (-); Platelet Count 220 10^3/uL (130-400); Red Blood Cell Count 2.54 10^6/uL (4.70-6.10); White Blood Cell Count 8.2 10^3/uL (4.8-10.8)
[2024-01-09 17:19] LABS: ALT (SGPT) 14 U/L (0-50); AST (SGOT) 30 U/L (17-59); Albumin 2.6 g/dl (3.5-5.0); Alkaline Phosphatase 74 U/L (38-126); Blood Urea Nitrogen 10 mg/dl (9-20); Calcium 8.3 mg/dl (8.4-10.2); Carbon Dioxide 24 mmol/L (22-30); Chloride 99 mmol/L (98-107); Estimated Creatinine Clearance 100 ml/min; Glucose 98 mg/dl (70-99); Potassium 3.6 mmol/L (3.5-5.1); Sodium 131 mmol/L (135-145); Total Bilirubin 0.5 mg/dl (0.2-1.3); Total Protein 5.2 g/dl (6.3-8.2); eGFR > 60.00
--- NOTE | 2024-01-09 17:26 | PTCARENOTE ---
Patient has remained in SR, HR 70-80's. Vital signs stable. Patient ambulating to BR with assistance x1. RA SPO2 MID 90'S denies SOB. Dry cough, non-productive. Patient urinating without difficulty. Patient reports a few loose stools. Currently
receiving one unit of PRBC'S, hemoglobin today 7.3. in room at bedside.
--- NOTE | 2024-01-09 19:53 | PTCARENOTE ---
Assumed care of pt. approx 1900.
AAOx4, no neurological deficits present, of note pt is hard of hearing.
NSR w/ non conductive pvcs, normotensive (MAP 70-83), Normothermic (tMAX: 98.2), pt offers no complaints of chest pain.
Lungs vesicular bilaterally, no evidence of TRALI post transfusion., RA SP02 (94-98).
Normoactive bowel sounds, loose stools noted from day shift.
Excessive UO, approx 1200 dayshift, of note pt received Samsca dose, contributing to antidiuresis.
Chest wall port patent.
Care transferred to telemetry floor.
[2024-01-09] MEDS: OMNICEF 300 MG PO (20:22)
--- NOTE | 2024-01-09 21:30 | PTCARENOTE ---
Patient received from ICU accompanied by ICU RNs in bed, patient transferred into room 404-2 with all belongings. Oriented to room and unit. Nursing assessment as documented. Instructed use of call gaytan and within reach, VSS, care ongoing.
[2024-01-10 03:43] VITALS: BP 92/61
[2024-01-10 05:59] LABS: Blood Urea Nitrogen 8 mg/dl (9-20); Calcium 8.6 mg/dl (8.4-10.2); Carbon Dioxide 26 mmol/L (22-30); Chloride 104 mmol/L (98-107); Estimated Creatinine Clearance 100 ml/min; Glucose 86 mg/dl (70-99); Potassium 3.3 mmol/L (3.5-5.1); Sodium 137 mmol/L (135-145); eGFR > 60.00
[2024-01-10 06:00] VITALS: BMI 23.5
[2024-01-10 06:06] LABS: Digoxin 0.8 ng/ml (0.8-2.0)
--- NOTE | 2024-01-10 07:09 | W.PN.HOSP.TC ---
Today's Communication/Plan
-
discharge
Assessment / Plan
Assessment / Plan
Physical Exam
General: No acute distress resting comfortably in bed
HEENT: Anicteric normocephalic atraumatic
Respiratory: clear to auscultation b/l
Cardiac: NSR rate controlled
GI: Soft and Non Tender
Musculoskeletal: No Clubbing, No Cyanosis, Trace/+1 non-pitting edema bilateral lower ext
Skin: Warm and Dry
Neuro: AOx3
Psych: calm
68M Metastatic Lung Ca Chronic Anemia Hyponatremia HFrEF afib p/w weakness dizziness poor oral intake past few days. Recently noted to be febrile in outpatient oncology follow up assessment, started on Doxycycline. Fever since resolved. On chemo,
last tx a few weeks ago, next tx due following week. ED eval notable for worsening hyponatremia Elevated BNP and mild leukocytosis. Expiratory wheeze also noted on auscultation but otherwise stable respiratory status on room air. Wheezing since
resolved
Acute on Chronic Hyponatremia, appears volume depleted presenting with dizziness/tachycardia/hypotension
-Consult Nephrology appreciated once 3% given, fluid restrict
-once samsca 01/09/24 Na since improved to 130s
-started on lasix 20 mg po daily as per nephro
Persistent Atrial Fibrillation
Developed Afib rvr
-Continue Eliquis for anticoagulation
-Cardio eval appreciated amio gtt and digoxin load started
-transferred to IMU for closer monitoring.
-amio gtt to transition to oral 01/07 as per cardio
-stable for discharge as per Cardio on oral amio and digoxin
Chronic HFpEF
-Echo September 2023: Severe global hypokinesis with EF 20%
-Repeat ECHO notes slight improvement from 20 to 30% EF, slight enlargement left atrial mass
-Lasix on hold soft pressures, otherwise stable respiratory status on room air
-Consult Cardiology appreciated
-Monitor Is&Os and Daily Weights
Metastatic Lung Cancer with invasion into myocardium and liver, bone, adrenal metastasis
-Last chemotherapy December 22
-Consult Oncology appreciated
Possible PNA noted on CXR
possible sepsis POA
Started on Doxycycline outpt due to fever not noted here
given leukocytosis tachycardia recent chemo, doxycycline switched to empiric vanc zosyn for possible sepsis immunocompromised
MRSA screen neg, vanc discontinued
Leukocytosis since resolved
ID eval appreciated abx narrowed to Cefdinir for 5 more days
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
-Last transfusion
-Continue to monitor CBC
-Oncology eval appreciated
-transfused 1PRBC as per oncology for goal hgb >7.5 in preparation for Treatment next week
-01/09 Hgb at goal >7.5
Likely COPD
-Stable respiratory status on room air.
Hypokalemia
-monitor and replete as necessary
Anxiety/Depression
-Continue lorazepam prn
PT/OT appreciated home health
DVT proph: Eliquis
Code Status: Full Code
Medically stable for discharge home with home services and outpatient follow up recommendations.
Discussed with patient and patient's significant other Tg
Total Time Preparing Discharge ___50____ minutes including examination of the patient, summary of the hospital stay, instructions for continuing care to all relevant caregivers; and preparation of discharge records, prescriptions, and referral
forms if necessary.
Anticipated Discharge: Today
Subjective/Interval History
-
Date of Service: January 10, 2024
Seen and examined at bedside in no acute distress sitting up comfortably in bed. Overall reports feeling well. Denies new acute issues at this time. Eager to go home.
Objective Data
-
Labs:
Laboratory Results
01/09/24 01/10/24
13:19 05:26
Hgb Cancelled
Hct Cancelled
Sodium 137
Potassium 3.3 L
Chloride 104
Carbon Dioxide 26
BUN 8 L
Creatinine 0.8
Glucose 86
Calcium 8.6
Vital Signs:
Vital Signs
Temp Pulse Resp BP Pulse Ox
97.9 F 103 18 92/61 91
01/10/24 03:43 01/10/24 03:43 01/10/24 03:43 01/10/24 03:43 01/10/24 03:43
I&O
01/09/24 01/10/24 01/11/24
06:59 06:59 06:59
Intake Total 903.5 / 903.5 1879
Output Total 1859
Balance 903.5 / 903.5
[2024-01-10 07:25] VITALS: BP 102/70
[2024-01-10] MEDS: OMNICEF 300 MG PO (07:51)
[2024-01-10] MEDS: PACERONE 200 MG PO (07:51)
[2024-01-10] MEDS: TOPROL XL 50 MG PO (07:51)
[2024-01-10] MEDS: ELIQUIS 5 MG PO (07:52)
[2024-01-10] MEDS: FOLVITE 1 MG PO (07:52)
[2024-01-10] MEDS: KCL 40 MEQ PO ×2 (08:00→13:41)
--- NOTE | 2024-01-10 09:55 | W.PN.NEPH.PH ---
Today's Communication / Plan
-
lasix
Assessment/Plan
-
Assessment
metastatic lung cancer to heart, liver, bone, adrenal
Acute on chronic hyponatremia
Anemia
Atrial fibrillation with RVR
Hypotension
Heart failure reduced ejection fraction 20%
Anemia
Lactic acidosis
Plan
lasix 20mg po daily
follow BMP
replete K
-
-
Date of Service: January 10, 2024
CC / HPI / ROS
-
Chief Complaint:
Hyponatremia
History of Present Illness:
Serum sodium improved to 137
Hemodynamically labile, can provide midodrine as needed
K low 3.3 still
Review of Systems:
Nonoliguric
Weight stable
No fevers
Labs
-
Labs:
WBC Cancelled 01/10/24 07:51
RBC Cancelled 01/10/24 07:51
Plt Count Cancelled 01/10/24 07:51
Sodium Cancelled 01/10/24 07:51
Potassium Cancelled 01/10/24 07:51
Chloride Cancelled 01/10/24 07:51
Carbon Dioxide Cancelled 01/10/24 07:51
BUN Cancelled 01/10/24 07:51
Creatinine Cancelled 01/10/24 07:51
eGFR Cancelled 01/10/24 07:51
Glucose Cancelled 01/10/24 07:51
Calcium Cancelled 01/10/24 07:51
Phosphorus Cancelled 01/10/24 07:51
Ezc-K-Pjuveekeypc Pept 8050 pg/ml 01/06/24 12:03
Albumin 2.6 g/dl (3.5-5.0) L 01/09/24 13:19
Physical Exam
-
Vital Signs:
Vital Signs
Temp Pulse Resp BP Pulse Ox
98.9 F 83 16 102/70 95
01/10/24 07:25 01/10/24 07:51 01/10/24 07:25 01/10/24 07:51 01/10/24 07:25
Cardiovascular:: Regular rate and rhythm
Respiratory:: Bilateral: Coarse
Lung Excursion:: Normal
Abdomen:: Nontender and Soft
Bowel Sounds:: Normal
Extremity Edema:: None: Bilateral:
[2024-01-10 10:21] LABS: Hemoglobin 7.8 g/dL (13.0-18.0)
[2024-01-10 11:15] VITALS: BP 103/64
[2024-01-10] MEDS: LANOXIN 62.5 MCG PO (11:21)
[2024-01-10] MEDS: LASIX 20 MG PO (11:22)
[2024-01-10 11:54] VITALS: BP 103/64; BP 111/65; BP 99/58; PULSE 79; PULSE 81; PULSE 82
--- NOTE | 2024-01-10 14:59 | W.DCSUMMARY ---
Discharge Summary
Discharge Data
Date of Admission: 01/06/24
Date of Discharge: 01/10/24
-
Pending Results: No
Discharge Plan
-
Patient Disposition: Home with Home Care
Discharge Diagnosis/Procedures: Acute on Chronic Hyponatremia
Persistent Atrial Fibrillation
Atrial Fibrillation with Rapid Ventricular Rate since resolved
Chronic Heart Failure with Restricted Ejection Fraction
Metastatic Lung Cancer with invasion into myocardium and liver, bone, adrenal metastasis
Possible Pneumonia
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
Suspected COPD
Mild Hypokalemia
Anxiety/Depression
Condition: Fair
Diet: 2 Gram Sodium and Restrict fluids to 48 oz
Activity: As tolerated
Driving Restrictions: Not until seen by your Dr
Bathing Restrictions: None
Blood Work: Repeat CBC, CMP, and digoxin level with primary care provider or Oncology in 2-3 days of discharge.
Other Services: VN, PT and OT
Specialty Instructions: Weigh Daily- Call MD for wt gain/loss 3 lbs overnight/5 lbs in 1 week
Activity Restrictions/Additional Instructions:
Wound Care Instructions
R sacral/buttocks ulcer-clean with saline, apply silicone border foam, change q 3 days and prn loosened dressing. If foam ineffective, apply zinc barrier ointment (i.e. Calazime or Triad) 2-3 times a day instead.
Elevate heels off bed with pillow/s.
Pressure redistributing chair cushion (i.e. Air chair cushion).
Follow up at wound care center call for an appointment.
Please up with your primary care provider and oncologist in 1 week of discharge and keep your appointment with Cardiology.
Cefdinir has been prescribed for 5 days to complete treatment of suspected pneumonia. (previously prescribed Doxycycline has been discontinued, no need to take at this time)
Digoxin and increased amiodarone dose have been prescribed for better control atrial fibrillation
Lasix has been increased to daily for treatment heart failure and hyponatremia.
Potassium supplementation has been prescribed for mild hypokalemia and to prevent hypokalemia due to Lasix diuresis
Please take medications as prescribed/recommended and follow up with primary care provider and/or other healthcare provider involved in your care for refills and/or further adjustment to your medication regimen as necessary.
Referrals:
Gume Pedro MD [Active] - 01/29/24 1:40 pm
Eliud Jones MD [Family Provider] - in one week
Prescriptions:
New
digoxin 125 mcg (0.125 mg) Tablet
62.5 mcg PO NOON 30 Days Qty: 15 0RF
cefdinir 300 mg Capsule
300 mg PO Q12 5 Days Qty: 10 0RF
potassium chloride 20 mEq tablet extended release
20 meq PO DAILY 30 Days Qty: 30 0RF
furosemide [Lasix] 20 mg tablet
20 mg PO DAILY 30 Days Qty: 30 0RF
Continued
acetaminophen 325 mg Tablet
650 mg PO Q4HPRN PRN (Reason: mild pain/DOUGLASS/temp> 100.4F) Qty: 0 0RF
folic acid 1 mg Tablet
1 mg PO DAILY
dexamethasone 4 mg Tablet
8 mg PO DAILYPRN PRN (Reason: 2 days before and 2 after chemo)
metoprolol succinate [Toprol XL] 50 mg Tablet Extended Release 24 Hr
50 mg PO BID
ondansetron HCl 8 mg Tablet
8 mg PO Q8HPRN PRN (Reason: nausea)
Eliquis 5 mg Tablet
5 mg PO BID
lidocaine-prilocaine 2.5-2.5 % Cream
1 applic topical DAILYPRN PRN (Reason: port)
lorazepam 0.5 mg Tablet
0.5 mg PO TIDPRN PRN (Reason: anxiety)
loratadine [Claritin] 10 mg Tablet
10 mg PO DAILYPRN PRN (Reason: allergies)
codeine-guaifenesin 10-100 mg/5 mL Liquid
10 ml PO TIDPRN PRN (Reason: cough)
Changed
amiodarone 200 mg tablet
200 mg PO BID 30 Days Qty: 60 0RF
Discontinued
furosemide 20 mg Tablet
20 mg PO MOWEFR@0800
doxycycline hyclate 100 mg Capsule
100 mg PO BID
Discharge Orders:
Discharge Patient (As Directed); Ordered 01/10/24
Ordered By: Yasmine Hameed
Discharge Date and Time
Print Language: MALAGASY
--- NOTE | 2024-01-10 15:12 | CM ---
CM reviewed chart and noted dc order
Referral sent to [facility] in Care PO[facility]
Physical home address is [address] [facility] [address]
Bedside update to pt and SO
IMM completed day prior
VN order on chart
Discharge Disposition- home with [facility]- family transport
--- NOTE | 2024-01-12 11:23 | W.HF.CON ---
Heart Failure
- LV Function
Left ventricular function study result: LV Ejection fraction </= 35%
Ejection Fraction Percentage: 20-30
- ARNI
Patient already on ARNI: No
Heart Failure ARNI Contraindication: Hypotension
- ACEI/ARB
Patient already on ACEI/ARB: No
Heart Failure ACEI/ARB Contraindication: Hypotension
- Beta Shalini
Patient already on Evidence Based Beta Shalini: Yes
- Mineralocorticord Receptor Antagonist
Patient already on MRA: No
Heart Failure MRA Contraindication: Hypotension
- SGLT-2 Inhibitor
Patient already on SGLT-2 Inhibitor: No
Heart Failure SGLT-2 Inhibitor Contraindication: Patient Refusal
- Afib Anticoagulation
Patient already on Anticoagulation for Afib: Yes
- NYHA CHF Classification
NYHA CHF Classification Level: Class III - Symptoms w/ min exertion, interferes w/ nml daily activity (lung cancer with metastasis)
- ACC/AHA Stage
ACC/AHA Stage: Stage C: Symptomatic Heart Failure
== END 2024-01-10 16:41 | disposition home health service (06) | DRG 871 ==
LOC: 4 EAST ACU 16:22
PROVIDERS: Internal Medicine Cardiovascular Disease; Nurse Practitioner Acute Care; Physician Assistant; Physician Assistant Medical; Specialist; ADMITTING PHYSICIAN Internal Medicine; CONSULT PHYSICIAN Internal Medicine; CONSULT PHYSICIAN Internal Medicine Hematology & Oncology; CONSULT PHYSICIAN Internal Medicine Infectious Disease; CONSULT PHYSICIAN Specialist; EMERGENCY PHYSICIAN Emergency Medicine; FAMILY PHYSICIAN Family Medicine
PROC: 30233N1 Transfusion of Nonautologous Red Blood Cells into Peripheral Vein, Percutaneous Approach (ICD-10-PCS; 2024-01-09)
DX: A41.9 Sepsis, unspecified organism (principal); J18.9 Pneumonia, unspecified organism; E87.1 Hypo-osmolality and hyponatremia; I48.19 Other persistent atrial fibrillation; I50.32 Chronic diastolic (congestive) heart failure; C34.90 Malignant neoplasm of unspecified part of unspecified bronchus or lung; C78.7 Secondary malignant neoplasm of liver and intrahepatic bile duct; D84.9 Immunodeficiency, unspecified; F17.200 Nicotine dependence, unspecified, uncomplicated; Z79.01 Long term (current) use of anticoagulants; E87.6 Hypokalemia; I48.0 Paroxysmal atrial fibrillation
CPT/HCPCS: 93308; 71046; 80048; 80053; 80162; 81003; 81015; 82570; 83605; 83735; 83880; 83930; 83935; 84100; 84300; 84443; 84484; 85014; 85018; 85025; 85027; 86850; 86900; 86901; 86920; 87040; 87070; 87086; 87205; 87449; 87641; 87899; 93005; 94640; 96360; 97162; 97167; 99285; P9016

== ENCOUNTER → 2024-01-12 15:52 | Outpatient (REF) | payer MEDICARE, OTHER, SELFPAY ==
[2024-01-12 13:21] LABS: % Basophils 0.3 % (0-2); % Eosinophils 0.1 % (0-6); % Immature Granulocytes 0.9 % (0-0.5); % Lymphocytes 3.5 % (20.5-51.1); % Monocytes 6.6 % (1.7-9.3); % Neutrophils 88.6 % (42.2-75.2); Absolute Immature Granulocytes 0.1 10^3/uL (0-0.05); Absolute Lymphocytes 0.4 10^3/uL (1.2-3.4); Absolute Monocytes 0.7 10^3/uL (0.1-0.6); Absolute Neutrophils 9.2 10^3/uL (1.4-6.5); Hematocrit 25.3 % (39.0-52.0); Hemoglobin 8.2 g/dL (13.0-18.0); Mean Corp Hgb Conc. 32.4 g/dL (33.0-37.0); Mean Corpuscular Hgb 28.5 pg (27.0-31.0); Mean Corpuscular Volume 87.8 fL (80.0-94.0); Mean Platelet Volume 10.1 fL (7.4-10.4); Nucleated Red Blood Cells % 0 % (-); Platelet Count 275 10^3/uL (130-400); Red Blood Cell Count 2.88 10^6/uL (4.70-6.10); Red Cell Dist. Width 18.6 % (11.5-14.5); White Blood Cell Count 10.4 10^3/uL (4.8-10.8)
[2024-01-12 13:23] LABS: ALT (SGPT) 13 U/L (0-50); AST (SGOT) 30 U/L (17-59); Albumin 2.9 g/dl (3.5-5.0); Alkaline Phosphatase 80 U/L (38-126); Blood Urea Nitrogen 11 mg/dl (9-20); Calcium 9.1 mg/dl (8.4-10.2); Carbon Dioxide 27 mmol/L (22-30); Chloride 98 mmol/L (98-107); Glucose 87 mg/dl (70-99); Sodium 134 mmol/L (135-145); Total Bilirubin 0.5 mg/dl (0.2-1.3); Total Protein 5.8 g/dl (6.3-8.2); eGFR > 60.00
[2024-01-12 13:53] LABS: PSA, Total - Diagnostic 2.31 ng/ml (0.0-4.0)
== END ==
LOC: OIDL 15:52
PROVIDERS: Obstetrics & Gynecology Gynecologic Oncology; ATTENDING PHYSICIAN Nurse Practitioner Adult Health
DX: C34.31 Malignant neoplasm of lower lobe, right bronchus or lung (principal); C50.019 Malignant neoplasm of nipple and areola, unspecified female breast; C79.51 Secondary malignant neoplasm of bone
CPT/HCPCS: 80053; 84153; 85025

== ENCOUNTER 2024-01-14 16:38 | Inpatient (IN) | payer MEDICARE, OTHER, SELFPAY ==
[2024-01-14] VITALS (16 sets, daily range): BP systolic 76–136; BP diastolic 51–74; BMI 23.4; BMI 22.9
--- NOTE | 2024-01-14 12:15 | ED.GENMED ---
History of Present Illness
General
Chief Complaint: Dizziness
Source: patient
Time Seen by Provider: 01/14/24 11:59
History of Present Illness
History of Present Illness:
68yoM with a history of lung cancer on chemotherapy, CHF with an EF of 30%, and atrial fibrillation presenting via EMS for evaluation after a fall. Patient states he stood up to ambulate about an hour prior to arrival when became dizzy and fell. He
denies any injuries from the fall. Specifically, he denies any head strike or LOC. He currently reports feeling generally weak and short of breath. He had chills last night but denies any fevers. He was recently admitted from 01/06/24-01/10/24 for a
CHF exacerbation. He states his weight is unchanged from discharge and he has been complaint with his diet. He was supposed to have chemotherapy treatment today but this was cancelled due to his recent hospitalization.
Past History
Past History
ED Past Medical History: None
ED Past Surgical History: Appendectomy
Social History
Tobacco: Smoker
Alcohol: None
Personal: Single
Living: alone
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
Phy Exam
Physical Exam
Physical Exam:
Ill appearing male, mildly tachypneic, dry mucous membranes
General Physical Exam
General Presentation: mild distress
General age: appears older than age
General Skin: warm and dry
General Mental: alert
General Hydration: dry mucous membranes
ENT Exam
ENT Exam: normocephalic (No external signs of head trauma. Full ROM of cervical spine without midline tenderness. )
Eye Exam
Eye Exam: PERRL
Cardiovascular Exam
Cardiovascular Exam: irregularly irregular and tachycardia
Pulmonary Exam
Pulmonary Exam: other (Rhonchi noted bilaterally)
Cough: non productive cough
Respirations: mild increase in effort
Gastrointestinal Exam
Gastrointestinal Exam: non tender, soft and non distended
Neurological Exam
Neurological Exam: alert and no motor deficits
Evans Coma Scale
Eye Opening: Spontaneous
Verbal Response: Oriented
Motor Response: Obeys Commands
GCS Total Score: 15
Skin Exam
Skin Exam: normal color and warm/dry
Course
Orders/Labs/Results
Orders:
Orders
01/14/24 11:51
ECG [Electrocardiogram (*1)] Urgent
Reason for Study: Syncope
EKG- Treatment ONCE
01/14/24 12:07
Complete Blood Count/With Diff Urgent
Comprehensive Metabolic Panel Urgent
Magnesium Urgent
Comment: ADD ON
Troponin I Urgent
Urinalysis Reflex To Culture Urgent
Date Specimen was Collected: 01/14/24
Time Specimen was Collected: 12:06
01/14/24 12:18
Add On- LAB Urgent
Tests Added?: magnesium
01/14/24 12:19
CT Head W/o Iv Contrast Urgent
Comment:
Reason For Exam: Fall, headache
CR Chest - 2 Views Urgent
Comment:
Reason For Exam: SOB
01/14/24 13:17
0.9% Sodium Chloride 250 ml [Nss] 250 ml IV BOLUS
01/14/24 14:16
Dexamethasone Sod Phosphate [Decadron] 10 mg IV NOW STA
Levetiracetam [Keppra] 500 mg PO NOW STA
Abnormal Lab Results
01/14/24
12:07
WBC 23.6 H 10^3/uL
(4.8-10.8)
RBC 3.17 L 10^6/uL
(4.70-6.10)
Hgb 9.2 L g/dL
(13.0-18.0)
Hct 28.3 L %
(39.0-52.0)
MCHC 32.5 L g/dL
(33.0-37.0)
RDW 18.9 H %
(11.5-14.5)
Abs Immat Gran (auto) 0.3 H 10^3/uL
(0-0.05)
Absolute Neuts (auto) 21.1 H 10^3/uL
(1.4-6.5)
Absolute Lymphs (auto) 0.4 L 10^3/uL
(1.2-3.4)
Absolute Monos (auto) 1.7 H 10^3/uL
(0.1-0.6)
Immature Gran % 1.4 H %
(0-0.5)
Neutrophils % 89.5 H %
(42.2-75.2)
Lymphocytes % 1.7 L %
(20.5-51.1)
Sodium 129 L mmol/L
(135-145)
Chloride 94 L mmol/L
(98-107)
Troponin I 0.036 H* ng/ml
Total Protein 5.7 L g/dl
(6.3-8.2)
Albumin 3.0 L g/dl
(3.5-5.0)
01/14/24 12:07
01/14/24 12:07
Vital Signs
Initial and Last Documented VS:
Initial Vital Signs
Temp Pulse Resp BP Pulse Ox
98.1 F 129 22 121/74 91
01/14/24 11:54 01/14/24 11:54 01/14/24 11:54 01/14/24 11:54 01/14/24 11:54
Last Documented Vital Signs
Temp Pulse Resp BP Pulse Ox
97.2 F 107 19 91/56 99
01/14/24 14:00 01/14/24 14:00 01/14/24 14:00 01/14/24 14:00 01/14/24 14:00
MDM/Problems Addressed
Differential Diagnosis Includes:
68yoM here after a fall. Became dizzy after standing and fell. No LOC. No reported injuries. C/o generalized weakness and SOB. Hx of lung cancer on chemo and CHF. Patient is ill-appearing but nontoxic. Mild increased work of breathing. Rhonchi
noted throughout lung exam. No obvious injuries on exam. Patient is tachycardic to 129, oxygen saturation 91%. Remainder of vitals stable. Differential diagnosis includes but is not limited to: Dehydration, orthostatic hypotension, electrolyte
abnormality, arrhythmia, ACS, infectious process, failure to thrive
Initial ED plan: Check cardiac labs, magnesium, UA, CXR, and CT head.
*EKG
Interpreted by ED Provider?: Yes
EKG Intrepretation Date: 01/14/24
Interpretation: abnormal
Heart Rate: 122
Rate: tachycardiac
Rhythm: a-fib
[place]: normal axis
Interval: normal interval
Ischemia: non-specific ST changes
*Critical Care Note
Total Time (30-74mins, 75-104mins- exclusive of procedures): Not Applicable
Update Note
Update Note:
EKG shows afib with RVR and nonspecific T wave changes. Troponin is 0.036. Leukocytosis noted with WBC of 23.6 which is new. CXR appears improved from prior. UA bland. No clear source of infection identified. CT head shows 3.5cm area in the
posterior L occipital lobe suspicious for a hemorrhagic metastasis, less likely intracranial hematoma. Case was discussed with both oncology and neurosurgery (Dr. Mccormick, Dr. Chu). Both oncology and neurosurgery recommending admission here at
[facility]. Neurosurgery recommends MRI brain w/ and w/o contrast, CT CAP to reassess cancer staging, Decadron 10mg x 1 followed by 4mg Q6, and Keppra 500mg BID. No need to reverse Eliquis at this time per neurosurgery. He was admitted for further
management.
ED Attending Note
-
Portions of this chart may have been created with voice recognition software.� Occasional wrong word or��sound alike� substitutions may have occurred due to the inherent limitations of voice recognition software.
Discharge Plan
Departure
Patient Disposition: Admit
Date of Disposition: 01/14/24
Time of Disposition: 14:39
Presentation/result/management discussed w/ accepting MD/DO: Hospitalist
Discharge Problem:
Abnormal CT of the head, Atrial fibrillation with RVR, Fall from standing, Elevated troponin, Generalized weakness
Prescriptions:
No Action
acetaminophen 325 mg Tablet
650 mg PO Q4HPRN PRN (Reason: mild pain/DOUGLASS/temp> 100.4F) Qty: 0 0RF
folic acid 1 mg Tablet
1 mg PO DAILY
dexamethasone 4 mg Tablet
8 mg PO DAILYPRN PRN (Reason: 2 days before and 2 after chemo)
metoprolol succinate [Toprol XL] 50 mg Tablet Extended Release 24 Hr
50 mg PO BID
ondansetron HCl 8 mg Tablet
8 mg PO Q8HPRN PRN (Reason: nasuea from chemo)
Eliquis 5 mg Tablet
5 mg PO BID
lidocaine-prilocaine 2.5-2.5 % Cream
1 applic topical DAILYPRN PRN (Reason: port)
lorazepam 0.5 mg Tablet
0.5 mg PO TIDPRN PRN (Reason: anxiety)
loratadine [Claritin] 10 mg Tablet
10 mg PO DAILYPRN PRN (Reason: allergies)
codeine-guaifenesin 10-100 mg/5 mL Liquid
10 ml PO TIDPRN PRN (Reason: cough)
digoxin 125 mcg (0.125 mg) Tablet
62.5 mcg PO NOON 30 Days Qty: 15 0RF
cefdinir 300 mg Capsule
300 mg PO Q12 5 Days Qty: 10 0RF
amiodarone 200 mg tablet
200 mg PO BID 30 Days Qty: 60 0RF
potassium chloride 20 mEq tablet extended release
20 meq PO DAILY 30 Days Qty: 30 0RF
furosemide [Lasix] 20 mg tablet
20 mg PO DAILY 30 Days Qty: 30 0RF
Referrals:
Eliud Jones MD [Family Provider] -
Interventions
Interventions:
*General Assessment Last Done: 01/14/24 11:50
*Neglect/Abuse Screening Last Done: 01/14/24 12:44
ED- Fall Risk Assessment Last Done: 01/14/24 12:44
*ED COVID-19 Vaccine History Last Done: 01/14/24 11:49
ED- Cardiac Assessment Last Done: 01/14/24 12:44
ED-Musculoskeletal Assessment Last Done: 01/14/24 12:44
ED- Neurological Assessment Last Done: 01/14/24 12:44
ED-Skin Assessment Last Done: 01/14/24 12:44
ED Swallowing Screen Last Done: 01/14/24 12:44
Discharge Date and Time
Print Language: GREEK
[2024-01-14 12:20] LABS: Urine Albumin Negative (Neg - Trace); Urine Bilirubin Negative (Negative); Urine Character Clear (Clear); Urine Color Yellow; Urine Glucose Negative (Negative); Urine Ketone Negative (Negative); Urine Leukocyte Negative (Negative); Urine Nitrite Negative (Negative); Urine Occult Blood Negative (Negative); Urine Urobilinogen Negative (Neg - 1+); Urine pH 6.5 (5.0-9.0)
[2024-01-14 12:33] LABS: ALT (SGPT) 14 U/L (0-50); AST (SGOT) 45 U/L (17-59); Alkaline Phosphatase 85 U/L (38-126); Blood Urea Nitrogen 12 mg/dl (9-20); Calcium 8.6 mg/dl (8.4-10.2); Carbon Dioxide 28 mmol/L (22-30); Chloride 94 mmol/L (98-107); Estimated Creatinine Clearance 89 ml/min; Glucose 93 mg/dl (70-99); Potassium 3.8 mmol/L (3.5-5.1); Sodium 129 mmol/L (135-145); Total Bilirubin 0.8 mg/dl (0.2-1.3); Total Protein 5.7 g/dl (6.3-8.2); eGFR > 60.00
[2024-01-14 12:43] LABS: Troponin I 0.036 ng/ml
[2024-01-14 12:44] LABS: Hematocrit 28.3 % (39.0-52.0); Hemoglobin 9.2 g/dL (13.0-18.0); Mean Corp Hgb Conc. 32.5 g/dL (33.0-37.0); Mean Corpuscular Volume 89.3 fL (80.0-94.0); Mean Platelet Volume 9.9 fL (7.4-10.4); Platelet Count 271 10^3/uL (130-400); Red Blood Cell Count 3.17 10^6/uL (4.70-6.10); Red Cell Dist. Width 18.9 % (11.5-14.5); White Blood Cell Count 23.6 10^3/uL (4.8-10.8)
[2024-01-14 12:47] LABS: Magnesium 1.6 mg/dl (1.6-2.3)
[2024-01-14 13:06] LABS: % Basophils 0.2 % (0-2); % Eosinophils 0.1 % (0-6); % Immature Granulocytes 1.4 % (0-0.5); % Lymphocytes 1.7 % (20.5-51.1); % Monocytes 7.1 % (1.7-9.3); % Neutrophils 89.5 % (42.2-75.2); Absolute Immature Granulocytes 0.3 10^3/uL (0-0.05); Absolute Lymphocytes 0.4 10^3/uL (1.2-3.4); Absolute Monocytes 1.7 10^3/uL (0.1-0.6); Absolute Neutrophils 21.1 10^3/uL (1.4-6.5); Nucleated Red Blood Cells % 0 % (-)
[2024-01-14] MEDS: NSS 250 IV (14:57)
[2024-01-14] MEDS: KEPPRA 500 MG PO ×2 (14:58→22:08)
[2024-01-14] MEDS: DECADRON 10 MG IV (14:58)
--- NOTE | 2024-01-14 16:08 | HPS.HSE ---
Family Physician
-
Family Physician: Eliud Jones
Chief Complaint
-
Dizziness with fall.
History of Present Illness
Patient is a 68 years old male with metastatic lung carcinoma recently on chemotherapy who was discharged less than a week ago after treatment for shortness of breath at that time felt to be multifactorial in the settings of decompensated CHF,
anemia, overall deconditioning. Patient felt weak and dizzy today and fell with inability to get up. He denies any loss of consciousness or head trauma.
Additional workup while in the emergency room revealed no focal neurologic findings, although with imaging consistent with occipital metastatic disease with hemorrhagic complication and cerebral edema.
Medical History
Past Medical History
Past Medical History: Reports Arrhythmia (Paroxysmal A-fib), CHF and Other (Metastatic lung CA)
Past Surgical History: Reports Other
Social History
Tobacco: Non-smoker
Alcohol: None
Drug: None
Personal:
Living: With Family
Family History
Family History: Not pertinent
Allergies / Home Medications
Allergies reflects when Allergies were last updated in [facility].
Home Medications with original date entered in [facility]
Allergy/Medication List:
Allergies
Allergy/AdvReac Type Severity Reaction Status Date / Time
No Known Allergies Allergy Verified 01/06/24 11:52
Home Medications
acetaminophen 325 mg tablet 650 mg (2 x 325 mg) PO Q4HPRN PRN mild pain/DOUGLASS/temp> 100.4F #0 tabs 07/14/23
folic acid 1 mg tablet 1 mg PO DAILY Supplement 08/08/23
dexamethasone 4 mg tablet 8 mg PO DAILYPRN PRN 2 days before and 2 after chemo 10/14/23
apixaban 5 mg tablet (Eliquis) 5 mg PO BID Blood Clot Prevention/Tx 12/03/23
metoprolol succinate 50 mg tablet,extended release 24 hr (Toprol XL) 50 mg PO BID Blood Pressure 12/03/23
ondansetron HCl 8 mg tablet 8 mg PO Q8HPRN PRN nasuea from chemo 12/03/23
codeine 10 mg-guaifenesin 100 mg/5 mL oral liquid 10 ml PO TIDPRN PRN cough 01/06/24
lidocaine-prilocaine 2.5 %-2.5 % topical cream 1 applic topical DAILYPRN PRN port 01/06/24
loratadine 10 mg tablet (Claritin) 10 mg PO DAILYPRN PRN allergies 01/06/24
lorazepam 0.5 mg tablet 0.5 mg PO TIDPRN PRN anxiety 01/06/24
amiodarone 200 mg tablet 200 mg PO BID Arrhythmia 30 days #60 tabs 01/09/24
cefdinir 300 mg capsule 300 mg PO Q12 5 days #10 caps 01/09/24
digoxin 125 mcg (0.125 mg) tablet 62.5 mcg (1/2 x 125 mcg (0.125 mg)) PO NOON 30 days #15 tabs 01/09/24
furosemide 20 mg tablet (Lasix) 20 mg PO DAILY 30 days #30 tabs 01/10/24
potassium chloride 20 mEq tablet,extended release 20 meq PO DAILY 30 days #30 tabs 01/10/24
Review of Systems
-
A 12 point ROS was completed and negative except as noted: Yes
Respiratory: Reports See HPI
Neurological: Reports See HPI
Physical Exam
Vital Signs
Vital Signs
Temp Pulse Resp BP Pulse Ox
97.6 F 102 20 92/62 98
01/14/24 15:47 01/14/24 15:47 01/14/24 15:47 01/14/24 15:47 01/14/24 15:47
Physical Exam
General: Well Developed, Well Nourished and No Apparent Distress
HEENT: NormoCephalic, Moist mucous membranes and Atraumatic
Respiratory: Clear
Cardiac: S1/S2 and Regular Rhythm; No Murmur or Rub
GI: Soft, Non Tender, Non Distended and Normal Bowel Sounds; No Organomegaly
Rectal: Deferred by Provider
Musculoskeletal: No Clubbing, No Cyanosis and No Edema
Skin: No Rash
Neuro: Awake, Alert, Oriented, AO x 3, No Motor Deficits and Nonfocal/grossly intact
Laboratory Results
-
01/14/24 12:07
01/14/24 12:07
Laboratory Results
Total Bilirubin 0.8 mg/dl (0.2-1.3) 01/14/24 12:07
AST 45 U/L (17-59) 01/14/24 12:07
ALT 14 U/L (0-50) 01/14/24 12:07
Alkaline Phosphatase 85 U/L (38-126) 01/14/24 12:07
Troponin I 0.036 ng/ml H* 01/14/24 12:07
Data Reviewed
-
CT Scan: Report Reviewed by me
Lab Data: Labs Reviewed by me
Impression/Plan
-
IMPRESSION:
Presentation with fall, vertigo/ataxia.
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
Recurrent euvolemic hyponatremia
Acute hypoxic respiratory insufficiency
Conditions prior to admission
Metastatic lung CA with extensive mediastinal and cardiac involvement.
� Recently initiated on Taxotere chemo after progression on Keytruda and Alimta.
Acute hypoxic respiratory insufficiency, multifactorial due to CHF, anemia, active lung CA, overall deconditioning.
Dilated cardiomyopathy.
� Heart failure reduced EF with LVEF of 20%
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
Paroxysmal atrial fibrillation
Anticoagulation with Eliquis for thromboembolic prophylaxis [employer]
Hyponatremia
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
Anxiety/depression.
PLAN:
Presentation with fall, vertigo and ataxia.
CT head without contrast consistent with 3.5 cm slightly hyperdense/hemorrhagic mass along the posterior left occipital lobe with moderate amount of adjacent vasogenic edema suspicious for hemorrhagic metastatic cysts.
Neurologic status stable with no focal findings.
Discussed with neurosurgery, neurology.
Stop Eliquis. No reversal required.
Neurologic monitoring.
Seizure precautions
MRI of the brain for better assessment.
Oncology possibly radiation oncology consultation.
IV corticosteroids: Decadron 10 mg with following dose 4 mg every 6 hours.
Seizure prophylaxis with Keppra 500 g twice daily.
Further consideration of options pending brain MRI as well as restaging imaging with CT chest abdomen and pelvis. If this is a single solitary lesion and there is a possibility of getting good systemic control, neurosurgical intervention could be
offered otherwise radiation treatment could be considered. Patient with progressively deteriorating performance status as well as severe dilated cardiomyopathy with intracardiac carcinoma spread and LVEF of 20%.
CHF/cardiomyopathy with severely reduced EF 20-30%.
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
Currently compensated volume status. Continue Lasix. Monitor volume status closely
Paroxysmal atrial fibrillation
Sinus rhythm upon presentation
Rhythm control with amiodarone, digoxin (check level), metoprolol.
With intracranial hemorrhagic complications, stop Eliquis
Hyponatremia.
Euvolemic on exam.
Continue free water restriction to 48 ounces
Continue Lasix
Serial BMP.
Repeat urine osmolarity
Consider nephrology consultation
Consider Samsca.
Leukocytosis
Patient is afebrile
Chest x-ray with right lower lobe infiltrate improving from prior examination.
He does have productive cough.
He just completed course of antibiotics including cefdinir.
He has no gastrointestinal or urinary complaints
Monitor closely following CBC.
If febrile or with rising white count consider empiric antibiotics
Anxiety/depression
Continue lorazepam
Goals of care discussion with patient and at the bedside
They understand seriousness of situation with progressive carcinoma, deteriorating performance status and multiple hospital readmissions. Further discussion with primary oncology.
They would like to maintain full code at this time.
DVT prophylaxis mechanical.
[2024-01-14 18:31] LABS: Glucose - Point of Care 108 mg/dl (70-99)
[2024-01-14] MEDS: NOVOLOG FLEXPEN-LOW RESISTANCE SC (18:32)
--- NOTE | 2024-01-14 19:57 | PTCARENOTE ---
received pt from ED 1730, oriented to room 318-2, VSS obtained, assessment complete, call gaytan within reach, pt resting comfortably, no obvious distress
[2024-01-14] MEDS: ProAmatine 5 MG PO (20:20)
--- NOTE | 2024-01-14 20:39 | W.PN.UPDATE ---
Update Note
Progress Note Update
RN notified JANITOR patient BP manual was 76/52, 106, 19, 97 3l, SOB, Pt received 250ml bolus in ER, Will give Midodrine 5 mg PO x 1 at present, hold metoprolol
Keppra PO given, BP 104/60 HR 100, no complaints at present
[2024-01-14] MEDS: PACERONE 200 MG PO (22:06)
[2024-01-14] MEDS: DECADRON 4 MG IV (22:12)
[2024-01-15] VITALS (7 sets, daily range): BP systolic 92–116; BP diastolic 50–68; O2SAT 97; BMI 23.1
[2024-01-15] MEDS: DECADRON 4 MG IV ×4 (04:05→21:21)
[2024-01-15] MEDS: DECADRON IV (04:17)
[2024-01-15] MEDS: OMNIPAQUE 50 ML PO (06:00)
[2024-01-15 07:52] LABS: Glucose - Point of Care 131 mg/dl (70-99)
[2024-01-15] MEDS: NOVOLOG FLEXPEN-LOW RESISTANCE SC ×2 (08:07→12:52)
--- NOTE | 2024-01-15 08:16 | CON.ONC ---
Impression
Impression
Metastatic lung cancer, with extensive mediastinal and cardiac involvement, recently initiated Taxotere chemotherapy after progression on Keytruda and Alimta
3.5 cm slightly hyperdense/hemorrhagic mass along the posterior left occipital lobe with moderate amount of adjacent vasogenic edema suspicious for hemorrhagic metastasis
HFrEF, persistent atrial fibrillation
Anemia, likely secondary to malignancy and chemotherapy
Leukocytosis
hyponatremia
Plan
Plan
f/u brain MRI
f/u neurosurgery/neurology consult
XRT consult upon discharge
dexamethasone 4mg q6
blood sugar monitoring/management on steroids
monitor for infection
Patient History
History of Present Illness
68-year-old man with metastatic lung cancer, well-known to Dr. Hong recently hospitalized 01/05-01/09 for management of CHF, atrial fibrillation and pneumonia who presented with dizziness and fall. He reports that he fell due to dizziness and was
unable to get up due to weakness. He denies LOC, trauma, or injury. He started Taxotere chemotherapy 12/23/2023 after disease progression on Keytruda and Alimta. He has extensive mediastinal/cardiac tumor involvement and HFrEF with persistent afib,
known to Dr. Pedro. He was evaluated in the offce 01/12/2024 and his 2nd cycle of antineoplastic therapy was postponed to allow for recovery from pneumonia since he was still on oral antibiotics. 01/13 cxr showed slight interval improvement of
irregular right basilar opacity. His CT head showed a 3.5 cm slightly hyperdense/hemorrhagic mass along the posterior left occipital lobe with moderate amount of adjacent vasogenic edema suspicious for hemorrhagic metastasis versus less likely
intracranial hematoma. These findings are new when compared to MRI brain June 2023 that showed no evidence if intracranial metastatic disease. He received dexamethasone 10mg x 1 dose in the ER and continued on dexamethasone 4mg q6. He was also
started on Keppra. Neurology and neurosurgery consults are pending. MRI brain is pending.
Clinically, other than his dizziness, he denies headache, visual changes or other neurological symptoms. He feels that his appetite and PO intake if good.
Past-Medical/Surgical History
Past medical and surgical history is as per the HPI, small right caudate head infarct noted at the time of lung cancer diagnosis, appendectomy
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
Family history: Brother had several forms of cancer, details unknown. Father had cancer involving the brain
Patient Medication
�Medication �Instructions �Recorded �Confirmed �Last Taken �Type
acetaminophen 325 mg tablet 650 mg (2 x 325 mg) PO Q4HPRN PRN 07/14/23 01/14/24 01/03/24 Rx
mild pain/DOUGLASS/temp> 100.4F #0 tabs
folic acid 1 mg tablet 1 mg PO DAILY Supplement 08/08/23 01/14/24 01/14/24 History
dexamethasone 4 mg tablet 8 mg PO DAILYPRN PRN 2 days before 10/14/23 01/14/24 12/02/23 History
and 2 after chemo
apixaban 5 mg tablet (Eliquis) 5 mg PO BID Blood Clot 12/03/23 01/14/24 01/14/24 History
Prevention/Tx
metoprolol succinate 50 mg 50 mg PO BID Blood Pressure 12/03/23 01/14/24 01/14/24 History
tablet,extended release 24 hr
(Toprol XL)
ondansetron HCl 8 mg tablet 8 mg PO Q8HPRN PRN nasuea from 12/03/23 01/14/24 12/03/23 History
chemo
codeine 10 mg-guaifenesin 100 mg/5 10 ml PO TIDPRN PRN cough 01/06/24 01/14/24 01/05/24 History
mL oral liquid
lidocaine-prilocaine 2.5 %-2.5 % 1 applic topical DAILYPRN PRN port 01/06/24 01/14/24 Unknown History
topical cream
loratadine 10 mg tablet (Claritin) 10 mg PO DAILYPRN PRN allergies 01/06/24 01/14/24 12/30/23 History
lorazepam 0.5 mg tablet 0.5 mg PO TIDPRN PRN anxiety 01/06/24 01/14/24 Unknown History
amiodarone 200 mg tablet 200 mg PO BID Arrhythmia 30 days 01/09/24 01/14/24 01/14/24 Rx
#60 tabs
cefdinir 300 mg capsule 300 mg PO Q12 5 days #10 caps 01/09/24 01/14/24 01/14/24 Rx
digoxin 125 mcg (0.125 mg) tablet 62.5 mcg (1/2 x 125 mcg (0.125 01/09/24 01/14/24 01/13/24 Rx
mg)) PO NOON 30 days #15 tabs
furosemide 20 mg tablet (Lasix) 20 mg PO DAILY 30 days #30 tabs 01/10/24 01/14/24 01/14/24 Rx
potassium chloride 20 mEq 20 meq PO DAILY 30 days #30 tabs 01/10/24 01/14/24 01/14/24 Rx
tablet,extended release
Active Medications
Generic Name Dose Route Start Last Admin
Trade Name Freq PRN Reason Stop Dose Admin
Acetaminophen 650 mg 01/14/24 17:19
Acetaminophen 325 Mg Tablet PO 02/11/24 17:18
Q4HPRN PRN
mild pain/DOUGLASS/temp> 100.4F
Amiodarone HCl 200 mg 01/14/24 20:00 01/14/24 22:06
Amiodarone 200 Mg Tablet PO 02/11/24 19:59 200 mg
BID [place] Administration
Dexamethasone Sodium Phosphate 4 mg 01/15/24 04:00 01/15/24 04:05
Dexamethasone 4 Mg/Ml 1 Ml Vial IV 02/12/24 03:59 4 mg
Q6H [place] Administration
Dextrose 12.5 grams 01/14/24 17:19
Dextrose 50% (0.5 Grams/Ml) 50 Ml Syringe IV 02/11/24 17:18
[id number] PRN
hypoglycemia
Protocol
Digoxin 62.5 mcg 01/15/24 12:00
Digoxin 125 Mcg Tablet PO 02/12/24 11:59
NOON [place]
Folic Acid 1 mg 01/15/24 08:00
Folic Acid 1 Mg Tablet PO 02/12/24 07:59
DAILY [place]
Furosemide 20 mg 01/15/24 08:00
Furosemide 20 Mg Tablet PO 02/12/24 07:59
DAILY [place]
Glucagon 1 mg 01/14/24 17:19
Glucagon 1 Mg Vial IM 02/11/24 17:18
PRN PRN
hypoglycemia
Protocol
Guaifenesin/Codeine Phosphate 10 ml 01/14/24 17:19
Guaifenesin/Codeine Solution (200 Mg/20 Mg) 10 Ml Cup PO 02/11/24 17:18
TIDPRN PRN
cough
Heparin Sodium (Porcine) 500 unit 01/14/24 18:30 01/14/24 22:16
Heparin Flush Pf (100 Unit/Ml) 5 Ml Syringe IV 02/11/24 18:29 500 unit
PER PROTOCOL [place] Administration
Insulin Aspart 0 units 01/14/24 17:19 01/15/24 08:07
Insulin Aspart Low Resistance 300 Units/3 Ml Pen.Injctr SC 02/11/24 17:18 Not Given
AC [place]
Protocol
Levetiracetam 500 mg 01/14/24 20:00 01/14/24 22:08
Levetiracetam 500 Mg Regular Release Tablet PO 02/11/24 19:59 500 mg
BID [place] Administration
Lidocaine/Prilocaine 0 gram 01/14/24 17:19
Lidocaine 2.5%/Prilocaine 2.5% (Cream) 5 Gram Tube TOPICAL 02/11/24 17:18
DAILYPRN PRN
port
Loratadine 10 mg 01/14/24 17:19
Loratadine 10 Mg Tablet PO 02/11/24 17:18
DAILYPRN PRN
allergies
Lorazepam 0.5 mg 01/14/24 17:19
Lorazepam 0.5 Mg Tablet PO 02/11/24 17:18
TIDPRN PRN
anxiety
Metoprolol Succinate 50 mg 01/14/24 20:00 01/14/24 22:06
Metoprolol 50 Mg Extended Release Tablet PO 02/11/24 19:59 Not Given
BID [place]
Ondansetron HCl 8 mg 01/14/24 17:29
Ondansetron 4 Mg Tablet PO 02/11/24 17:28
Q8HPRN PRN
nasuea from chemo
Potassium Chloride 20 meq 01/15/24 08:00
Potassium Chloride 20 Meq Extended Release Tablet PO 02/12/24 07:59
DAILY [place]
Sodium Chloride 0 flush 01/14/24 18:00
Sodium Chloride 0.9% (Flush) Syringe IV 02/11/24 17:59
PER PROTOCOL [place]
Review of Systems
-
Review of systems is notable for HPI, otherwise negative
Physical Exam
-
General: No Apparent Distress
HEENT: Moist Mucous Membranes; Negative Jaundice
Cardiology: S1 and S2
Pulmonary: Other (scatter rhonchi)
GI: Soft
Musculoskeletal: Negative No Edema
Extremities: Pulses Present; Negative Edema
Neurology: Other (speech clear)
Skin: Warm
Psych: Calm
Labs
Lab Results
WBC 23.6 10^3/uL (4.8-10.8) H 01/14/24 12:07
RBC 3.17 10^6/uL (4.70-6.10) L 01/14/24 12:07
Hgb 9.2 g/dL (13.0-18.0) L 01/14/24 12:07
Hct 28.3 % (39.0-52.0) L 01/14/24 12:07
MCV 89.3 fL (80.0-94.0) 01/14/24 12:07
MCH 29.0 pg (27.0-31.0) 01/14/24 12:07
MCHC 32.5 g/dL (33.0-37.0) L 01/14/24 12:07
RDW 18.9 % (11.5-14.5) H 01/14/24 12:07
Plt Count 271 10^3/uL (130-400) 01/14/24 12:07
MPV 9.9 fL (7.4-10.4) 01/14/24 12:07
Abs Immat Gran (auto) 0.3 10^3/uL (0-0.05) H 01/14/24 12:07
Absolute Neuts (auto) 21.1 10^3/uL (1.4-6.5) H 01/14/24 12:07
Absolute Lymphs (auto) 0.4 10^3/uL (1.2-3.4) L 01/14/24 12:07
Absolute Monos (auto) 1.7 10^3/uL (0.1-0.6) H 01/14/24 12:07
Absolute Eos (auto) 0.0 10^3/uL (0-0.7) 01/14/24 12:07
Absolute Basos (auto) 0.0 10^3/uL (0-0.2) 01/14/24 12:07
Immature Gran % 1.4 % (0-0.5) H 01/14/24 12:07
Neutrophils % 89.5 % (42.2-75.2) H 01/14/24 12:07
Lymphocytes % 1.7 % (20.5-51.1) L 01/14/24 12:07
Monocytes % 7.1 % (1.7-9.3) 01/14/24 12:07
Eosinophils % 0.1 % (0-6) 01/14/24 12:07
Basophils % 0.2 % (0-2) 01/14/24 12:07
Creatinine 0.9 mg/dL (0.7-1.3) 01/14/24 12:07
Vital Signs
Vital Signs
Temp Pulse Resp BP Pulse Ox
97.5 F 73 16 107/68 97
01/15/24 07:37 01/15/24 07:37 01/15/24 07:37 01/15/24 07:37 01/15/24 07:37
--- NOTE | 2024-01-15 08:20 | CON.NEURO4 ---
Addendum entered and electronically signed by Nasir Vaughn MD 01/15/24 15:36:
I saw and evaluated the patient I reviewed the note by Daphnie Mckeon and agree with the findings the following comments:
68-year-old male with known metastatic lung cancer presented to hospital because of dizziness and a fall and has been found to have left-sided occipital brain metastasis associated with mild amount of hemorrhage and edema..
Patient has noticed perhaps some mild blurred vision and perhaps some difficulty reading but otherwise no overt blindness or double vision. He denies any headache or recent head trauma he has been compliant with Eliquis. He had brain MRI in
June 2023 which showed no evidence of [employer] metastatic disease.
Neurologic examination shows normal mental status
Cranial nerves significant for a right-sided inferior quadrant tropia
Motor examination unremarkable
Brain MRI reviewed with lesion in the left occipital lobe associated with very minimal amount of hemorrhage visible in the susceptibility and GRE sequences as well as mild surrounding edema and no significant midline shift
Assessment: Lung cancer now with metastasis to the brain in the left occipital lobe resulting in some right-sided visual field defect. Patient has been evaluated by neurosurgery. Underlying medical issues including significant cardiac
abnormalities have pointed to that he is a suboptimal surgical candidate and patient discussed with me that he in general would not want to pursue surgery. He is agreeable to medical treatments and radiation.
No clinical seizures have been apparent.
Recommendations
-My office will report to [facility] and he should not drive due to the quadrantopia from the occipital lobe metastasis
-Reasonable to have on levetiracetam 500 mg twice daily for prophylaxis of seizures
-Agree with steroids 4 mg 3-4 times a day should be sufficient, blood sugar monitoring and management
-Agree that it seems best to hold Eliquis given risk of brain hemorrhage and evidence of minimal brain hemorrhage on CT and brain MRI
Original Note:
Consultation - Neurology 4
-
CONSULTING PHYSICIAN: Yudy Vaugnh MD
REFERRING PHYSICIAN: Hospitalists/Dr. Fernandez
DICTATED BY: DAQUAN Duffy
DATE/TIME OF REQUEST: 01/14/24
DATE/TIME OF CONSULTATION: 01/15/24
Reason for Consultation: Abnormal CT of head
History of Present Illness:
This is a 68-year-old right-handed male with a PMH of metastatic lung cancer with myocardium, liver, bone, and adrenal involvement, Afib (Eliquis), HFrEF who has presented to the hospital on 01/14/24 with report of dizziness and a fall. Patient
reports being diagnosed with lung cancer in May 2023. He underwent radiation in June 2023 then started chemotherapy in July. He was recently started on Taxotere on 12/23/23. He was recently hospitalized here from 01/06/24-01/10/24 with CHF
exacerbation. Patient reports about one week ago standing up, becoming dizzy, then falling to the ground. He did not hit his head and did not seek medical attention. Then yesterday (01/15/24), he reports having the same thing happen again, but this
time he had been feeling weak and dyspneic, so he called 911. Blood pressure has been as low at 76/52. CT head was obtained in the ER and demonstrated a left occipital mass concerning for hemorrhagic metastases. Patient had an MRI brain in June
2023 that was negative for any acute abnormalities. He reports a 1-2 week history of intermittent blurry vision. He has felt like his eyes have been 'wet' and wiping them was improving his blurry vision. He denies any overt vision loss. He also
notes having an occasional headache starting two months ago. He has had numbness in bilateral fingers for years. He denies any speech/swallow difficulty, nausea, focal weakness, chest pain, and palpitations. He is taking Eliquis for Afib and denies
missing any doses.
Past Medical History: Lung cancer w/myocardium, liver, bone, and adrenal metastasis s/p radiation/currently on chemotherapy (Keytruda, Alimta starting 07/2023, changed to Taxotere 12/23/23), Afib (Eliquis), HFrEF, anemia, hyponatremia,
anxiety/depression
Surgical History: lung biopsy, thoracentesis, hepatic mass biopsy, appendectomy, port placement
Family History: Father- brain cancer. Brother- cancer, unsure which type.
Social History: Stopped smoking January 2023 (35 year smoking history). Former alcohol. Denies illicit drug
Allergies: No known allergies.
Home Medications:See below.
Review of Symptoms:
Patient denies any fever, headache, chest pain, shortness of breath, GI or symptoms.
�Per the HPI.�All systems are reviewed negative except above.
Physical Exam:
The patient is afebrile, abdomen is nondistended, breathing is unlabored, skin is warm and dry, no edema.
Neurologic Examination:
The patient is awake, alert and oriented x 3. He is able to follow commands and answer questions appropriately. There is no aphasia or dysarthria. On cranial nerve assessment, pupils are 3 mm bilateral, round and reactive to light and
accommodation. Visual ibarra are absent in the RLQ. Extraocular movements are intact. Facial sensations are intact and bilaterally symmetrical, there is no facial asymmetry. Hearing is intact bilaterally to normal conversation volume. Tongue palate
and uvula are midline. Sternocleidomastoid strengths are full bilaterally. Motor strengths are 5/5 bilateral upper and lower extremities on medical research Perley scale. There is no drift or involuntary movement noted. Deep tendon reflexes are 1+
bilateral upper and lower extremities and Babinski is absent bilaterally. There was no extinction noted on double simultaneous stimulation. Coordination is intact by finger to nose bilaterally.
Lab Results: See below.
Neuro Imaging:
1. CT Head 01/15/24: 3.5 cm slightly hyperdense/hemorrhagic mass along the posterior left occipital lobe with moderate amount of adjacent vasogenic edema suspicious for hemorrhagic metastasis versus less likely intracranial hematoma.
2. MRI brain 01/15/24: There are three rounded enhancing masses in the left posterior cerebral hemisphere as described, with associated white matter edema. These almost certainly represent intracranial metastatic lesions in this patient with a
history of metastatic lung cancer.
Differentials for the patient's presentation include:
1. 3 new enhancing masses in the occipital lobe with moderate associated vasogenic edema concerning for brain metastases, new since MRI brain imaging in June 2023.
2. Dizziness/falls likely due to orthostatic hypotension.
3. Metastatic lung cancer.
Patient has the following risk factors for their symptoms: Cancer
Recommendations:
-Okay to continue Keppra 500mg BID for seizure prophylaxis.
-Resume home Eliquis 5mg BID when it is confirmed that no surgical procedures/biopsies are taking place.
-Steroid dosing per oncology.
-Check orthostatic vital signs BID.
-DVT prophylaxis.
-No driving.
Discussed patient care with: Dr. Vaughn, the patient
Vital Signs and Labs
-
Vital Signs and Labs:
Vital Signs
Temp Pulse Resp BP Pulse Ox
97.5 F 73 16 107/68 97
01/15/24 07:37 01/15/24 08:32 01/15/24 07:37 01/15/24 08:32 01/15/24 09:54
Lab Results
01/14/24 12:07
01/14/24 12:07
Sodium 129 mmol/L (135-145) L 01/14/24 12:07
Potassium 3.8 mmol/L (3.5-5.1) 01/14/24 12:07
BUN 12 mg/dl (9-20) 01/14/24 12:07
Glucose 93 mg/dl (70-99) 01/14/24 12:07
Calcium 8.6 mg/dl (8.4-10.2) 01/14/24 12:07
Medications
-
Active Medications
Generic Name Dose Route Start Last Admin
Trade Name Freq PRN Reason Stop Dose Admin
Acetaminophen 650 mg 01/14/24 17:19
Acetaminophen 325 Mg Tablet PO 02/11/24 17:18
Q4HPRN PRN
mild pain/DOUGLASS/temp> 100.4F
Amiodarone HCl 200 mg 01/14/24 20:00 01/15/24 08:31
Amiodarone 200 Mg Tablet PO 02/11/24 19:59 200 mg
BID [place] Administration
Dexamethasone Sodium Phosphate 4 mg 01/15/24 04:00 01/15/24 04:05
Dexamethasone 4 Mg/Ml 1 Ml Vial IV 02/12/24 03:59 4 mg
Q6H [place] Administration
Dextrose 12.5 grams 01/14/24 17:19
Dextrose 50% (0.5 Grams/Ml) 50 Ml Syringe IV 02/11/24 17:18
[id number] PRN
hypoglycemia
Protocol
Digoxin 62.5 mcg 01/15/24 12:00
Digoxin 125 Mcg Tablet PO 02/12/24 11:59
NOON [place]
Folic Acid 1 mg 01/15/24 08:00 01/15/24 08:32
Folic Acid 1 Mg Tablet PO 02/12/24 07:59 1 mg
DAILY [place] Administration
Furosemide 20 mg 01/15/24 08:00 01/15/24 08:32
Furosemide 20 Mg Tablet PO 02/12/24 07:59 20 mg
DAILY [place] Administration
Glucagon 1 mg 01/14/24 17:19
Glucagon 1 Mg Vial IM 02/11/24 17:18
PRN PRN
hypoglycemia
Protocol
Guaifenesin/Codeine Phosphate 10 ml 01/14/24 17:19
Guaifenesin/Codeine Solution (200 Mg/20 Mg) 10 Ml Cup PO 02/11/24 17:18
TIDPRN PRN
cough
Heparin Sodium (Porcine) 500 unit 01/14/24 18:30 01/14/24 22:16
Heparin Flush Pf (100 Unit/Ml) 5 Ml Syringe IV 02/11/24 18:29 500 unit
PER PROTOCOL [place] Administration
Insulin Aspart 0 units 01/14/24 17:19 01/15/24 08:07
Insulin Aspart Low Resistance 300 Units/3 Ml Pen.Injctr SC 02/11/24 17:18 Not Given
AC [place]
Protocol
Levetiracetam 500 mg 01/14/24 20:00 01/15/24 08:31
Levetiracetam 500 Mg Regular Release Tablet PO 02/11/24 19:59 500 mg
BID [place] Administration
Lidocaine/Prilocaine 0 gram 01/14/24 17:19
Lidocaine 2.5%/Prilocaine 2.5% (Cream) 5 Gram Tube TOPICAL 02/11/24 17:18
DAILYPRN PRN
port
Loratadine 10 mg 01/14/24 17:19
Loratadine 10 Mg Tablet PO 02/11/24 17:18
DAILYPRN PRN
allergies
Lorazepam 0.5 mg 01/14/24 17:19
Lorazepam 0.5 Mg Tablet PO 02/11/24 17:18
TIDPRN PRN
anxiety
Metoprolol Succinate 50 mg 01/14/24 20:00 01/14/24 22:06
Metoprolol 50 Mg Extended Release Tablet PO 02/11/24 19:59 Not Given
BID [place]
Ondansetron HCl 8 mg 01/14/24 17:29
Ondansetron 4 Mg Tablet PO 02/11/24 17:28
Q8HPRN PRN
nasuea from chemo
Potassium Chloride 20 meq 01/15/24 08:00 01/15/24 08:31
Potassium Chloride 20 Meq Extended Release Tablet PO 02/12/24 07:59 20 meq
DAILY [place] Administration
Sodium Chloride 0 flush 01/14/24 18:00
Sodium Chloride 0.9% (Flush) Syringe IV 02/11/24 17:59
PER PROTOCOL [place]
Home Medications
�Medication �Instructions �Recorded
acetaminophen 325 mg tablet 650 mg (2 x 325 mg) PO Q4HPRN PRN 07/14/23
mild pain/DOUGLASS/temp> 100.4F #0 tabs
folic acid 1 mg tablet 1 mg PO DAILY Supplement 08/08/23
dexamethasone 4 mg tablet 8 mg PO DAILYPRN PRN 2 days before 10/14/23
and 2 after chemo
apixaban 5 mg tablet (Eliquis) 5 mg PO BID Blood Clot 12/03/23
Prevention/Tx
metoprolol succinate 50 mg 50 mg PO BID Blood Pressure 12/03/23
tablet,extended release 24 hr
(Toprol XL)
ondansetron HCl 8 mg tablet 8 mg PO Q8HPRN PRN nasuea from 12/03/23
chemo
codeine 10 mg-guaifenesin 100 mg/5 10 ml PO TIDPRN PRN cough 01/06/24
mL oral liquid
lidocaine-prilocaine 2.5 %-2.5 % 1 applic topical DAILYPRN PRN port 01/06/24
topical cream
loratadine 10 mg tablet (Claritin) 10 mg PO DAILYPRN PRN allergies 01/06/24
lorazepam 0.5 mg tablet 0.5 mg PO TIDPRN PRN anxiety 01/06/24
amiodarone 200 mg tablet 200 mg PO BID Arrhythmia 30 days 01/09/24
#60 tabs
cefdinir 300 mg capsule 300 mg PO Q12 5 days #10 caps 01/09/24
digoxin 125 mcg (0.125 mg) tablet 62.5 mcg (1/2 x 125 mcg (0.125 01/09/24
mg)) PO NOON 30 days #15 tabs
furosemide 20 mg tablet (Lasix) 20 mg PO DAILY 30 days #30 tabs 01/10/24
potassium chloride 20 mEq 20 meq PO DAILY 30 days #30 tabs 01/10/24
tablet,extended release
[2024-01-15] MEDS: KCL 20 MEQ PO (08:31)
[2024-01-15] MEDS: PACERONE 200 MG PO ×2 (08:31→20:12)
[2024-01-15] MEDS: KEPPRA 500 MG PO ×2 (08:31→20:12)
[2024-01-15] MEDS: LASIX 20 MG PO (08:32)
[2024-01-15] MEDS: FOLVITE 1 MG PO (08:32)
[2024-01-15 09:50] LABS: Osmolality Urine 616 mOsm/kg (300-900)
[2024-01-15 10:18] LABS: Glycohemoglobin (HgbA1c) 5.3 % (4.0-5.6)
--- NOTE | 2024-01-15 12:24 | WOUNDNOTE ---
R BUTTOCKS (SACRAL/BUTTOCKS)
--- NOTE | 2024-01-15 12:25 | WOUNDNOTE ---
[facility] RN note: Patient admitted with lung ca with complications. Patient lives with . History of fall prior to admission.
See H&P for complete history.
PMH: metastatic lung ca on chemo, a fib, COPD, CHF, R buttocks stage 2 pressure injury.
Wound Location and type/assessment: Patient admitted with: R sacral/buttocks deep dermal stage 2 pressure injury, lower occipital dry scab suspect r/t recent fall, small arm scabbed abrasions.
Appetite: good.
Pressure redistribution devices in place: [employer] Accumax. Patient moves well in bed.
Plan: Silicone border foam applied R buttocks. Cleansed scalp scab with saline. PT Raisa to elevate patient's heels at end of her session and she gave patient and air chair cushion.
Will confirm orders with Dr. Gomez and updated RN Soco.
Care plan to be updated and will follow as needed.
Recommend follow up at wound care center upon discharge.
[2024-01-15] MEDS: LANOXIN 62.5 MCG PO (12:45)
[2024-01-15 12:53] LABS: Glucose - Point of Care 140 mg/dl (70-99)
--- NOTE | 2024-01-15 12:58 | CON.NS ---
Consultation
-
Date/Time Consultation Performed: 01/15/2024; 13:00
Performing Provider: Vlad
Chief Complaint
History of Present Illness
This is a neurosurgical consultation on a 68-year-old gentleman with a past medical history of metastatic lung carcinoma, recently on chemotherapy, who was discharged 1 week prior after being treated for shortness of breath. He also has
decompensated congestive heart failure, anemia, and deconditioning. He presented with symptoms of weakness, dizziness. He had a noncontrast head CT which demonstrated a possible left occipital neoplastic lesion.
Oncology notes are available for review. Patient recently had new chemotherapy initiated, Taxotere, on 12/23/2023, after he had progression of disease on Keytruda and Alimta. There is notable extensive mediastinal/cardiac tumor involvement with
heart failure.
Review of Systems
-
A 10 point review of systems including constitutional, ENT, cardiovascular, respiratory, GI, , hematologic, neurologic, musculoskeletal, endocrinologic, was performed and was negative except for stated in HPI.
Medication and Allergies
Home Medications
Home Medications
�Medication �Instructions �Recorded
acetaminophen 325 mg tablet 650 mg (2 x 325 mg) PO Q4HPRN PRN 07/14/23
mild pain/DOUGLASS/temp> 100.4F #0 tabs
folic acid 1 mg tablet 1 mg PO DAILY Supplement 08/08/23
dexamethasone 4 mg tablet 8 mg PO DAILYPRN PRN 2 days before 10/14/23
and 2 after chemo
apixaban 5 mg tablet (Eliquis) 5 mg PO BID Blood Clot 12/03/23
Prevention/Tx
metoprolol succinate 50 mg 50 mg PO BID Blood Pressure 12/03/23
tablet,extended release 24 hr
(Toprol XL)
ondansetron HCl 8 mg tablet 8 mg PO Q8HPRN PRN nasuea from 12/03/23
chemo
codeine 10 mg-guaifenesin 100 mg/5 10 ml PO TIDPRN PRN cough 01/06/24
mL oral liquid
lidocaine-prilocaine 2.5 %-2.5 % 1 applic topical DAILYPRN PRN port 01/06/24
topical cream
loratadine 10 mg tablet (Claritin) 10 mg PO DAILYPRN PRN allergies 01/06/24
lorazepam 0.5 mg tablet 0.5 mg PO TIDPRN PRN anxiety 01/06/24
amiodarone 200 mg tablet 200 mg PO BID Arrhythmia 30 days 01/09/24
#60 tabs
cefdinir 300 mg capsule 300 mg PO Q12 5 days #10 caps 01/09/24
digoxin 125 mcg (0.125 mg) tablet 62.5 mcg (1/2 x 125 mcg (0.125 01/09/24
mg)) PO NOON 30 days #15 tabs
furosemide 20 mg tablet (Lasix) 20 mg PO DAILY 30 days #30 tabs 01/10/24
potassium chloride 20 mEq 20 meq PO DAILY 30 days #30 tabs 01/10/24
tablet,extended release
Allergies
Allergies
Allergy/AdvReac Type Severity Reaction Status Date / Time
No Known Allergies Allergy Verified 01/06/24 11:52
Physical Exam
-
Exam:
Awake, alert, no apparent distress
Pupils equal and reactive
Extraocular movements are full
Visual ibarra: Right hemifield cut
Right-sided neglect, arm greater than leg
Motor: 5/5 strength in bilateral upper and lower extremities, no pronator drift
Gait not tested
Head is normocephalic atraumatic
Neck is supple
Breathing nonlabored, on oxygen
Abdomen is soft
Extremities are warm
MRI brain with without contrast performed on 01/15/2024 demonstrates 3 separate left occipital lesions extending from the left parasagittal parietal lobe to the left occipital lobe. There is evidence of vasogenic edema. Imaging is most consistent
with brain metastasis, given that patient had brain MRI performed in June 2023 which did not demonstrate any lesion.
Problems
-
Problem Status Onset Code
Generalized weakness R53.1
Elevated troponin R79.89
Fall from standing W19.XXXA
Atrial fibrillation with RVR I48.[address] of the head R93.0
Assessment / Plan
-
This is a 68-year-old gentleman, who unfortunately has now likely left-sided brain metastases in the setting of Metastatic lung cancer, with recent admission secondary to overall systemic progression of disease, and significant mediastinal/cardiac
involvement.
Imaging is most consistent with brain metastasis versus other pathology, given that previous brain MRI in June 2023 did not demonstrate these lesions.
Given multiplicity of lesions, and the patient's underlying medical comorbidities/unfortunately poor systemic control of primary disease, he is a suboptimal surgical candidate for craniotomy for resection of these lesions.
Recommend radiation oncology treatment/ongoing oncologic treatment for the patient's primary neoplastic disease.
Okay to continue with dexamethasone for symptomatic relief.
--- NOTE | 2024-01-15 14:53 | W.PN.HOSP.TC ---
Today's Communication/Plan
-
Home O2 eval
Follow Na
DC planning
Assessment / Plan
Assessment / Plan
IMPRESSION:
Presentation with fall, vertigo/ataxia.
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
Recurrent euvolemic hyponatremia
Acute hypoxic respiratory insufficiency
Conditions prior to admission
Metastatic lung CA with extensive mediastinal and cardiac involvement.
� Recently initiated on Taxotere chemo after progression on Keytruda and Alimta.
Acute hypoxic respiratory insufficiency, multifactorial due to CHF, anemia, active lung CA, overall deconditioning.
Dilated cardiomyopathy.
� Heart failure reduced EF with LVEF of 20%
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
Paroxysmal atrial fibrillation
Anticoagulation with Eliquis for thromboembolic prophylaxis [employer]
Hyponatremia
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
Anxiety/depression.
PLAN:
Presentation with fall, vertigo and ataxia.
CT head without contrast consistent with 3.5 cm slightly hyperdense/hemorrhagic mass along the posterior left occipital lobe with moderate amount of adjacent vasogenic edema suspicious for hemorrhagic metastatic cysts.
Neurologic status stable with no focal findings.
Neurosurgery, neurology involved
Stop Eliquis. No reversal required.
MRI of the brain with intracranial mets with surrounding edema. Steroids inititated . Onc planning on RTX as OP.
Decadron 10 mg with following dose 4 mg every 6 hours.
Seizure prophylaxis with Keppra 500 g twice daily.
CHF/cardiomyopathy with severely reduced EF 20-30%.
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
Currently compensated volume status. Continue Lasix. Monitor volume status closely
Paroxysmal atrial fibrillation
Sinus rhythm upon presentation
Rhythm control with amiodarone, digoxin (check level), metoprolol.
With intracranial hemorrhagic complications, stop Eliquis
Hyponatremia.
Euvolemic on exam.
Continue free water restriction to 48 ounces
Continue Lasix
Serial BMP.
urine osmolarity 616 . Salt tabs not much of help. If needed will use lasix prn
Consider nephrology consultation if remains low
Leukocytosis
Patient is afebrile
Chest x-ray with right lower lobe infiltrate improving from prior examination.
He does have productive cough.
He just completed course of antibiotics including cefdinir.
He has no gastrointestinal or urinary complaints
Monitor closely following CBC.
If febrile or with rising white count consider empiric antibiotics
Anxiety/depression
Continue lorazepam
Goals of care discussion with patient and at the bedside by Dr Fernandez
They understand seriousness of situation with progressive carcinoma, deteriorating performance status and multiple hospital readmissions.
They would like to maintain full code at this time.
DVT prophylaxis mechanical.
DW Onc Dr Rdz today -cw steroids and follow up with Onc for OP RTX
Check for Home o2 need
DC planing
Anticipated Discharge: Within 24 hours
Subjective/Interval History
-
Date of Service: January 15, 2024
No DOUGLASS
No vision changes
No limb weakness
No N/V
Feels better in general with use of oxygen
Not SOB
Cough present mostly dry; Post nasal drip noted at home
Objective Data
-
Vital Signs:
Vital Signs
Temp Pulse Resp BP Pulse Ox
97.5 F 65 17 113/68 98
01/15/24 07:37 01/15/24 12:45 01/15/24 11:24 01/15/24 11:24 01/15/24 11:24
Review of Systems
-
Cardiac: Denies Chest Pain
Abdomen/GI: Denies Abdominal Pain
Neuro: Denies Dizzy
Physical Exam
-
General: No Apparent Distress
HEENT: Moist Mucous Membranes
Respiratory: Non Labored Respirations; Negative Wheezes or Accessory Resp Muscle Use
Cardiac: Regular Rhythm and S1/S2
GI: Soft and Nontender
Neuro: AO x 3
Data Reviewed
-
CT Scan: Report Reviewed by me (CT A/P)
MRI: Report Reviewed by me (Brain)
Labs: Labs Reviewed by me
[2024-01-15 16:38] LABS: Glucose - Point of Care 158 mg/dl (70-99)
--- NOTE | 2024-01-15 16:48 | CM ---
Initial assessment completed
Pharmacy verified: [facility] @ [address]
Patient and significant other live in a [place]; 3 steps to enter; bathroom has walk-in shower stall
PLOF: reports he was independent with ADL, ambulation, not driving currently
DME: Has a walker available to him if recommended
Transportation: will have a ride home
Home O2 evaluation in progress. CM will follow up tomorrow and send home oxygen/supplies referral if needed
Plan: discharge to home when stable; PT recommended outpatient therapy; will need a script
[2024-01-15] MEDS: NOVOLOG FLEXPEN-LOW RESISTANCE 1 UNITS SC (16:58)
--- NOTE | 2024-01-15 17:08 | RESPNOTE ---
Respiratory: Pulse ox was SpO2 85% on Room Air at Rest. Walk not completed. SpO2 on 3 LPM nasal cannula 95%.
[2024-01-15 21:17] LABS: Glucose - Point of Care 211 mg/dl (70-99)
[2024-01-16 03:01] VITALS: BP 122/73
[2024-01-16] MEDS: DECADRON 4 MG IV ×3 (03:50→16:58)
[2024-01-16 06:00] VITALS: BMI 23.3
[2024-01-16 06:34] LABS: Hematocrit 25.1 % (39.0-52.0); Hemoglobin 8.2 g/dL (13.0-18.0); Mean Corp Hgb Conc. 32.7 g/dL (33.0-37.0); Mean Corpuscular Hgb 29.6 pg (27.0-31.0); Mean Corpuscular Volume 90.6 fL (80.0-94.0); Mean Platelet Volume 10.8 fL (7.4-10.4); Platelet Count 227 10^3/uL (130-400); Red Blood Cell Count 2.77 10^6/uL (4.70-6.10); Red Cell Dist. Width 18.7 % (11.5-14.5); White Blood Cell Count 13.4 10^3/uL (4.8-10.8)
[2024-01-16 06:41] LABS: Blood Urea Nitrogen 28 mg/dl (9-20); Calcium 8.6 mg/dl (8.4-10.2); Carbon Dioxide 25 mmol/L (22-30); Chloride 96 mmol/L (98-107); Estimated Creatinine Clearance 89 ml/min; Glucose 137 mg/dl (70-99); Potassium 4.5 mmol/L (3.5-5.1); Sodium 130 mmol/L (135-145); eGFR > 60.00
[2024-01-16 07:27] LABS: Glucose - Point of Care 141 mg/dl (70-99)
[2024-01-16] MEDS: NOVOLOG FLEXPEN-LOW RESISTANCE SC ×3 (07:29→16:59)
[2024-01-16 07:38] VITALS: BP 113/73
[2024-01-16] MEDS: PACERONE 200 MG PO (08:44)
[2024-01-16] MEDS: FOLVITE 1 MG PO (08:45)
[2024-01-16] MEDS: LASIX 20 MG PO (08:45)
[2024-01-16] MEDS: KCL 20 MEQ PO (08:45)
[2024-01-16] MEDS: KEPPRA 500 MG PO (08:45)
[2024-01-16 11:34] VITALS: BP 118/71
[2024-01-16 11:43] LABS: Glucose - Point of Care 128 mg/dl (70-99)
--- NOTE | 2024-01-16 12:18 | PN.CDI ---
CDI
- -
CDI:
Physician Documentation Request
Admit Date: 01/14/24 16:38
Dear Doctor Jason,
Patient admitted with intracranial metastatic process with hemorrhage and cerebral edema.
01/14 N note, 'Patient admitted with: R sacral/buttocks deep dermal stage 2 pressure injury.'
Physician documentation of the type and location of wounds is required for compliant documentation. Based on the above clinical findings and your assessment, please provide the following in your progress note:
Type (etiology) of ulcer/wound:
- Diabetic ulcer
- Arterial (ischemic) ulcer
- Traumatic wound
- Venous stasis ulcer
- Pressure (decubitus) ulcer
- Non-healing surgical wound
- Other
- Unable to determine
For a pressure ulcer, please also include the stage* of the ulcer:
- Stage 1 - Skin intact, non-blanchable redness
- Stage 2 - Partial thickness loss of dermis, includes intact or open blister
- Stage 3 - Full thickness tissue not including bone, tendon or muscle
- Stage 4 - Full thickness tissue loss, including exposed bone, tendon or muscle
- Unstageable - Full thickness loss in which the base of the ulcer is covered by slough (yellow, matthews, donaldson, green or brown) and/or eschar (matthews, brown or black) in the wound bed.
- Unable to determine
Use of terms such as suspected, likely, concern for, or probable (associated with a specific diagnosis that is being evaluated, monitored, or treated as if it exists) are acceptable and can be coded in the inpatient setting, when documented at the
time of discharge.
Thank you,
Juanis GRADY,RN,CCDS
CDI Specialist
Available via [facility] text
Please use your independent medical judgment in providing your response.
*Source: National Pressure Ulcer Advisory Panel (NPUAP)
--- NOTE | 2024-01-16 12:38 | W.PN.ONC2 ---
Today's Communication / Plan
-
XRT consult
continue dexamethasone
Impression
Impression
Metastatic lung cancer, with extensive mediastinal and cardiac involvement, recently initiated Taxotere chemotherapy after progression on Keytruda and Alimta
3 rounded enhancing masses in the left posterior cerebral hemisphere measuring 3.2cm, 1.9cm, and 1.5cm with MRI finding suggesting a component of hemorrhage
HFrEF, persistent atrial fibrillation
Anemia, likely secondary to malignancy and chemotherapy
Leukocytosis
hyponatremia
Plan
Plan
XRT consulted, [place] Texted Dr. Joiner
dexamethasone 4mg q6
blood sugar monitoring/management on steroids
monitor for infection, improving WBC and remains afebrile
Subjective/Objective
Chief Complaint
frontal headache, visual field cut
ambulating to bathroom
Subjective
Met with pt and 2 sons at bedside to discuss need for continued steroids and XRT
He is meeting with wares sorter today for will planning with family
Vital Signs:
Vital Signs
Temp Pulse Resp BP Pulse Ox
97.4 F 76 18 118/71 96
01/16/24 11:34 01/16/24 11:34 01/16/24 11:34 01/16/24 11:34 01/16/24 11:34
Lab Results:
Laboratory Data
WBC 13.4 10^3/uL (4.8-10.8) H 01/16/24 06:00
Hgb 8.2 g/dL (13.0-18.0) L 01/16/24 06:00
Plt Count 227 10^3/uL (130-400) 01/16/24 06:00
eGFR > 60.00 01/16/24 06:00
Physical Exam
General: No Apparent Distress
HEENT: Moist Mucous Membranes; Negative Jaundice
Cardiology: S1 and S2
Pulmonary: Other (scatter rhonchi)
GI: Soft
Musculoskeletal: Negative No Edema
Extremities: Pulses Present; Negative Edema
Neurology: Other (speech clear)
Skin: Warm
Psych: Calm
Review of Systems
Review of Systems
Review of systems notable for subjective otherwise negative
Orders
Orders
Orders From Last 24 Hours
01/16/24 12:13
Radiation Oncology Consult Routine
[2024-01-16] MEDS: LANOXIN 62.5 MCG PO (13:04)
--- NOTE | 2024-01-16 13:04 | W.PN.HOSP.TC ---
Addendum entered and electronically signed by Leonardo Gomez MD 01/28/24 10:38:
'Patient admitted with: R sacral/buttocks deep dermal stage 2 pressure injury
Addendum entered and electronically signed by Leonardo Gomez MD 01/16/24 13:24:
Pt is in need of oxygen at 3l/min via NC continuously not 2l
Addendum entered and electronically signed by Leonardo Gomez MD 01/16/24 13:18:
Patient is in need of oxygen at 2 liters/minute via nasal cannula continuously due to pulse oximetry of 85% on room air at rest. Oxygen will help to improve hypoxemia. Patient is mobile within the home. DuoNeb therapy has been tried and is
ineffective in treating hypoxemia related symptoms. Oxygen is needed to improve symptoms.
Original Note:
Today's Communication/Plan
-
DC
Assessment / Plan
Assessment / Plan
IMPRESSION:
Presentation with fall, vertigo/ataxia.
Intracranial metastatic process with cerebral edema and likely small component of hemorrhage
Recurrent euvolemic hyponatremia
Acute hypoxic respiratory insufficiency
Conditions prior to admission
Metastatic lung CA with extensive mediastinal and cardiac involvement.
� Recently initiated on Taxotere chemo after progression on Keytruda and Alimta.
Acute hypoxic respiratory insufficiency, multifactorial due to CHF, anemia, active lung CA, overall deconditioning.
Dilated cardiomyopathy.
� Heart failure reduced EF with LVEF of 20%
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
Paroxysmal atrial fibrillation
Anticoagulation with Eliquis for thromboembolic prophylaxis [employer]
Hyponatremia
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
Anxiety/depression.
PLAN:
Presentation with fall, vertigo and ataxia.
CT head without contrast consistent with 3.5 cm slightly hyperdense/hemorrhagic mass along the posterior left occipital lobe with moderate amount of adjacent vasogenic edema suspicious for hemorrhagic metastatic cysts.
Neurologic status stable with no focal findings.
Neurosurgery, neurology involved
Stop Eliquis. No reversal required.
MRI of the brain with intracranial mets with surrounding edema. Steroids inititated . Onc planning on RTX as OP.
Decadron 10 mg with following dose 4 mg every 6 hours.
Seizure prophylaxis with Keppra 500 g twice daily.
CHF/cardiomyopathy with severely reduced EF 20-30%.
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
Currently compensated volume status. Continue Lasix. Monitor volume status closely
Paroxysmal atrial fibrillation
Sinus rhythm upon presentation
Rhythm control with amiodarone, digoxin (check level), metoprolol.
With intracranial hemorrhagic complications, stop Eliquis
Hyponatremia.
Euvolemic on exam.
Continue free water restriction to 48 ounces
Continue Lasix
Serial BMP - Na 130 mildly low - cw his lasix and FR.
urine osmolarity 616 . Salt tabs not much of help.
Leukocytosis
Patient is afebrile
Chest x-ray with right lower lobe infiltrate improving from prior examination.
He does have productive cough.
He just completed course of antibiotics including cefdinir.
He has no gastrointestinal or urinary complaints
Improving CBC. Afebrile.
Anxiety/depression
Continue lorazepam
Goals of care discussion with patient and at the bedside by Dr Fernandez
They understand seriousness of situation with progressive carcinoma, deteriorating performance status and multiple hospital readmissions.
They would like to maintain full code at this time.
DVT prophylaxis mechanical.
DW Onc Dr Rdz 01/14 -cw steroids and follow up with Onc for OP RTX
Home o2 eval shows need of O2 - CM arranging it
DW pt about new findings, med changes, and follow up plan
More than 30 minutes spent in discharge including
Final examination of the patient
Summarizing hospital stay
Instructions for continuing care to all relevant caregivers
Preparation of discharge records, prescriptions, and referral forms
Total time spent (in minutes): 35
Anticipated Discharge: Today
Subjective/Interval History
-
Date of Service: January 16, 2024
Slight headache but nothing to severe needing even Tylenol.
Objective Data
-
Labs:
Laboratory Results
01/16/24
06:00
WBC 13.4 H
Hgb 8.2 L
Hct 25.1 L
Plt Count 227
Sodium 130 L
Potassium 4.5
Chloride 96 L
Carbon Dioxide 25
BUN 28 H
Creatinine 0.9
Glucose 137 H
Calcium 8.6
Vital Signs:
Vital Signs
Temp Pulse Resp BP Pulse Ox
97.4 F 76 18 118/71 96
01/16/24 11:34 01/16/24 11:34 01/16/24 11:34 01/16/24 11:34 01/16/24 11:34
I&O
01/15/24 01/16/24 01/17/24
06:59 06:59 06:59
Intake Total 180 / 180
Output Total 500 / 500
Balance -320 / -320
Review of Systems
-
Constitutional: Denies Fever
Respiratory: Denies Trouble Breathing
Cardiac: Denies Chest Pain
Abdomen/GI: Denies Abdominal Pain, Nausea or Vomiting
Neuro: Denies Dizzy
Physical Exam
-
General: Comfortable
Respiratory: Clear to Auscultation and Non Labored Respirations; Negative Accessory Resp Muscle Use
Cardiac: Regular Rhythm and S1/S2
Neuro: AO x 3 and No Motor Deficits
Psych: Calm; Negative Confused
Data Reviewed
-
Labs: Labs Reviewed by me
--- NOTE | 2024-01-16 13:16 | W.DS.TRANS ---
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
-
Discharge Instructions:
Sleep Apnea Risk Low
Discharge Diagnosis/Procedures Intracranial mets;Lung cancer;hypoxic resp
insufficiency
Diet Regular
Activity As tolerated
Driving Restrictions Not until seen by your Dr
Bathing Restrictions None
Other Services PT,VN
Instructions:
Stand-Alone Forms:
Changes to Home Medications: Yes
Discharge Medications:
DC Medications w/original date entered in [facility]
acetaminophen 325 mg tablet 650 mg (2 x 325 mg) PO Q4HPRN PRN mild pain/DOUGLASS/temp> 100.4F #0 tabs 07/14/23
folic acid 1 mg tablet 1 mg PO DAILY Supplement 08/08/23
metoprolol succinate 50 mg tablet,extended release 24 hr (Toprol XL) 50 mg PO BID Blood Pressure 12/03/23
ondansetron HCl 8 mg tablet 8 mg PO Q8HPRN PRN nasuea from chemo 12/03/23
codeine 10 mg-guaifenesin 100 mg/5 mL oral liquid 10 ml PO TIDPRN PRN cough 01/06/24
lidocaine-prilocaine 2.5 %-2.5 % topical cream 1 applic topical DAILYPRN PRN port 01/06/24
loratadine 10 mg tablet (Claritin) 10 mg PO DAILYPRN PRN allergies 01/06/24
lorazepam 0.5 mg tablet 0.5 mg PO TIDPRN PRN anxiety 01/06/24
amiodarone 200 mg tablet 200 mg PO BID Arrhythmia 30 days #60 tabs 01/09/24
digoxin 125 mcg (0.125 mg) tablet 62.5 mcg (1/2 x 125 mcg (0.125 mg)) PO NOON 30 days #15 tabs 01/09/24
furosemide 20 mg tablet (Lasix) 20 mg PO DAILY 30 days #30 tabs 01/10/24
potassium chloride 20 mEq tablet,extended release 20 meq PO DAILY 30 days #30 tabs 01/10/24
dexamethasone 4 mg tablet 4 mg PO BID #60 tabs 01/16/24
levetiracetam 500 mg tablet 500 mg PO BID #60 tabs 01/16/24
pantoprazole 40 mg tablet,delayed release (Protonix) 40 mg PO DAILY #30 tabs 01/16/24
Home Medication Changes
New med - Protonix, keppra, dexamthasone
DC meds - Eliquis
Pending Results: No
--- NOTE | 2024-01-16 14:12 | CM ---
Addendum entered by Nayeli Taylor 01/16/24 16:47:
Portable O2 tank delivered to bedside
Original Note:
Met with patient at bedside to discuss discharge plan; home health offered; patient agreeable
Home health referral sent to [facility] via email: [email or web address]
Plan: discharge to Home with [facility] Home Health services for VN an PT. Domestic Partner will provide transport home
Home oxygen ordered; Oxygen order and clinicals sent to [facility]; portable tank will be delivered to the bedside before 4 PM today.
Patient instructed to call [email or web address] @ #[phone] before he leaves the hospital today
[2024-01-16 15:48] VITALS: BP 94/60
== END 2024-01-16 17:55 | disposition home health service (06) | DRG 54 ==
LOC: 3 WEST ACU 16:38
PROVIDERS: ADMITTING PHYSICIAN Internal Medicine; ATTENDING PHYSICIAN Internal Medicine; CONSULT PHYSICIAN Internal Medicine Hematology & Oncology; CONSULT PHYSICIAN Neurological Surgery; CONSULT PHYSICIAN Student in an Organized Health Care Education/Training Program; EMERGENCY PHYSICIAN Emergency Medicine; FAMILY PHYSICIAN Family Medicine
DX: C79.31 Secondary malignant neoplasm of brain (principal); G93.6 Cerebral edema; C34.90 Malignant neoplasm of unspecified part of unspecified bronchus or lung; E87.1 Hypo-osmolality and hyponatremia; I50.22 Chronic systolic (congestive) heart failure; I42.0 Dilated cardiomyopathy; C79.70 Secondary malignant neoplasm of unspecified adrenal gland; R09.02 Hypoxemia; I48.0 Paroxysmal atrial fibrillation; D63.0 Anemia in neoplastic disease; F41.9 Anxiety disorder, unspecified; L89.152 Pressure ulcer of sacral region, stage 2
CPT/HCPCS: 70450; 70553; 71046; 71260; 74177; 80048; 80053; 81003; 82962; 83036; 83735; 83935; 84153; 84484; 85025; 85027; 93005; 96361; 96374; 97116; 97163; 99285; 99406; Q9967

== ENCOUNTER → 2024-02-13 13:56 | Outpatient (REF) | payer MEDICARE, OTHER, SELFPAY ==
[2024-02-13 11:49] LABS: % Immature Granulocytes 1.7 % (0-0.5); % Lymphocytes 1.8 % (20.5-51.1); % Monocytes 4.2 % (1.7-9.3); % Neutrophils 92.3 % (42.2-75.2); Absolute Immature Granulocytes 0.2 10^3/uL (0-0.05); Absolute Lymphocytes 0.2 10^3/uL (1.2-3.4); Absolute Monocytes 0.5 10^3/uL (0.1-0.6); Absolute Neutrophils 10.8 10^3/uL (1.4-6.5); Hematocrit 27.4 % (39.0-52.0); Hemoglobin 8.8 g/dL (13.0-18.0); Mean Corp Hgb Conc. 32.1 g/dL (33.0-37.0); Mean Corpuscular Hgb 29.7 pg (27.0-31.0); Mean Corpuscular Volume 92.6 fL (80.0-94.0); Mean Platelet Volume 10.2 fL (7.4-10.4); Nucleated Red Blood Cells % 0 % (-); Platelet Count 140 10^3/uL (130-400); Red Blood Cell Count 2.96 10^6/uL (4.70-6.10); Red Cell Dist. Width 20.2 % (11.5-14.5); White Blood Cell Count 11.7 10^3/uL (4.8-10.8)
[2024-02-13 12:03] LABS: ALT (SGPT) 42 U/L (0-50); AST (SGOT) 37 U/L (17-59); Albumin 3.6 g/dl (3.5-5.0); Alkaline Phosphatase 101 U/L (38-126); Blood Urea Nitrogen 54 mg/dl (9-20); Calcium 9.2 mg/dl (8.4-10.2); Carbon Dioxide 32 mmol/L (22-30); Chloride 95 mmol/L (98-107); Glucose 78 mg/dl (70-99); Potassium 4.3 mmol/L (3.5-5.1); Sodium 133 mmol/L (135-145); Total Bilirubin 0.4 mg/dl (0.2-1.3); Total Protein 6.3 g/dl (6.3-8.2); eGFR > 60.00
== END ==
LOC: OIDL 13:56
PROVIDERS: ATTENDING PHYSICIAN Internal Medicine Hematology & Oncology
DX: C34.31 Malignant neoplasm of lower lobe, right bronchus or lung (principal)
CPT/HCPCS: 80053; 85025

== ENCOUNTER → 2024-02-17 15:38 | Outpatient (REF) | payer MEDICARE, OTHER, SELFPAY ==
[2024-02-17 12:29] LABS: Blood Urea Nitrogen 53 mg/dl (9-20); Iron 61 ug/dl (49-181)
[2024-02-17 12:38] LABS: Percent Saturation 21 % (20-50); Total Iron Binding Capacity 286 ug/dl (261-462)
== END ==
LOC: OIDL 15:38
PROVIDERS: ATTENDING PHYSICIAN Internal Medicine Hematology & Oncology
DX: C34.31 Malignant neoplasm of lower lobe, right bronchus or lung (principal)
CPT/HCPCS: 82565; 82728; 83540; 83550; 84520

== ENCOUNTER 2024-02-23 04:33 | Inpatient (IN) | payer MEDICARE, OTHER, SELFPAY ==
[2024-02-23] VITALS (18 sets, daily range): BP systolic 84–115; BP diastolic 56–103; PULSE 121–140; O2SAT 97; BMI 20.6; BMI 23.3; BMI 24.3
[2024-02-23 01:38] LABS: Hematocrit 23.1 % (39.0-52.0); Hemoglobin 7.5 g/dL (13.0-18.0); Mean Corp Hgb Conc. 32.5 g/dL (33.0-37.0); Mean Corpuscular Hgb 30.7 pg (27.0-31.0); Mean Corpuscular Volume 94.7 fL (80.0-94.0); Red Blood Cell Count 2.44 10^6/uL (4.70-6.10); Red Cell Dist. Width 19.2 % (11.5-14.5)
[2024-02-23 01:41] LABS: ALT (SGPT) 48 U/L (0-50); AST (SGOT) 53 U/L (17-59); Albumin 2.9 g/dl (3.5-5.0); Alkaline Phosphatase 83 U/L (38-126); Blood Urea Nitrogen 47 mg/dl (9-20); Calcium 8.5 mg/dl (8.4-10.2); Carbon Dioxide 38 mmol/L (22-30); Chloride 97 mmol/L (98-107); Estimated Creatinine Clearance 64 ml/min; Glucose 86 mg/dl (70-99); Potassium 4.4 mmol/L (3.5-5.1); Sodium 138 mmol/L (135-145); Total Bilirubin 0.7 mg/dl (0.2-1.3); Total Protein 5.1 g/dl (6.3-8.2); eGFR > 60.00
[2024-02-23 01:43] LABS: Band Neutrophils 8 % (0-3); Lymphocytes 24 % (20-51); Monocytes 4 % (2-9); Segmented Neutrophils 64 % (42-75)
[2024-02-23 01:44] LABS: Anisocytosis 1+; Hypochromasia Moderate; Microcytosis 1+; Normal RBC Morphology No; Nucleated Red Blood Cells 4 (-); Platelets Checked Yes; Polychromasia 1+
[2024-02-23 01:45] LABS: Ovalocytes Slight; Poikilocytosis Slight; Tear Drop Red Blood Cells Slight; Total Cells Counted 25
[2024-02-23 01:46] LABS: White Blood Cell Count 1.1 10^3/uL (4.8-10.8)
[2024-02-23 01:47] LABS: Absolute Neutrophils -Man Diff 0.7 10^3/uL (1.4-6.5); Platelet Count 27 10^3/uL (130-400)
[2024-02-23] MEDS: DUONEB 3 ML INH ×5 (01:52→20:13)
[2024-02-23 01:56] LABS: NT-proBNP 3050 pg/ml; Troponin I 0.026 ng/ml
--- NOTE | 2024-02-23 02:03 | ED.GENMED ---
History of Present Illness
General
Chief Complaint: Breathing Problem
Source: patient, spouse, ambulance crew and previous hospital records (Multiple recent hospitalizations for similar events, acute CHF, metastatic lung cancer)
Exam Limitations: none
Time Seen by Provider: 02/23/24 01:33
Nursing documentation reviewed up to this point in time: agreed with
History of Present Illness
History of Present Illness:
This is a 68-year-old gentleman who has history of metastatic lung cancer with extensive mediastinal as well as cardiac involvement as well as metastatic brain lesion noted on most recent hospitalization 1 month ago. He also has history of CHF with
reduced EF of 25 to 30%. 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 Was started on supplemental oxygen at last hospitalization in December and he continues to follow with
[facility], maintained on chemotherapy.
He presents via EMS with progressive shortness of breath throughout the day today. He began with a cough 1 to 2 days ago but is unsure if he has been running a fever. He denies feeling feverish. Cough has been wet but nonproductive. He denies
pain. He does note increasing in lower extremity edema.
Overall chronically fatigued which has been an ongoing issue.
Past History
Past History
ED Past Medical History: Arrthythmia (Paroxysmal atrial fibrillation), Cancer (Metastatic lung cancer), CHF and COPD
ED Past Surgical History: Appendectomy
Social History
Tobacco: Smoker
Alcohol: None
Personal: Single
Living: with family
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
Family History
Family History: Other (Noncontributory)
Phy Exam
Physical Exam
Physical Exam:
GENERAL: 68-year-old gentleman appears much older than stated age, appears chronically debilitated, mild to moderate respiratory distress, appears moderately fatigued but able to speak in full sentences, alert, oriented x 3.
EYE: pupils equal and reactive. anicteric
NECK: Supple, nontender, no meningismus, no significant adenopathy. Mild JVD.
ENT: posterior pharynx is clear, oral mucosa is moist. No rhinorrhea.
CARDIAC: Irregularly irregular, tachycardic at 120, 2/6 holosystolic murmur sternal border.
LUNGS: Mild to moderate respiratory distress with frequent moist nonproductive cough. Coarse rhonchi throughout with moderately decreased breath sounds right base. Scattered expiratory wheezing.
ABDOMEN: Soft, nondistended, without focal tenderness, no r/g, normoactive BS.
NEUROLOGICAL: Awake, minimally fatigued, and oriented x3, no focal neuro deficits.
SKIN: Warm and dry, normal color, skin intact. No rash.
MUSCULOSKELETAL: +3 pitting edema bilateral lower extremities, peripheral pulses are full and equal b/l. No palpable tenderness.
PSYCH: Normal and appropriate interaction.
Scores
Heart Failure Risk
Heart Failure Risk Score: Yes
History of Stroke or TIA: No
History of intubation for respiratory distress: No
Heart rate on ED arrival >/= 110: Yes
SaO2 <90% on arrival on room air: Yes
HR >/=110 during 3min walk test (or too ill to perform test): Yes
ECG has acute ischemic changes: No
Urea >/=12mmol/L (BUN 33.6mg/dL): Yes
Serum CO2>/=35mmol/L: Yes
Troponin I or T elevated to SD Level (0.4mg/dL): No
NT-proBNP >/=5,000ng/L (5,000pg/ml): No
HF Risk Score: 6
Admission Status: VERY HIGH RISK 55.3% Consider admission to hospital
Course
Orders/Labs/Results
Orders:
Orders
02/23/24 00:49
Electrocardiogram (*1) Urgent
Reason for Study: Other
Other Reason for Exam: Respiratory Distress
Cardiac Monitoring- Treatment ONCE
EKG- Treatment ONCE
IV Insert/Care/Rem.- Treatment PRN
O2 Therapy [RESP] Urgent
Titrate/Wean O2 to maintain O2 sat greater than (%): 93
Special Instructions: TO MAINTAIN CONTINUOUS O2 SATS >/= 93%
Pulse Ox/cont/shift [RESP] Urgent
Quantity: 1
Special Instructions: continuous pulse ox
02/23/24 01:10
Portable Chest Xray [CR Chest Portable - 1 View] Urgent
Comment:
Reason For Exam: sob
Reason Study Needs to be Portable: Patient Unstable
02/23/24 01:13
Complete Blood Count/With Diff Urgent
Manual Differential Urgent
NT-proBNP Urgent
Troponin I Urgent
02/23/24 01:14
Comprehensive Metabolic Panel Urgent
02/23/24 01:38
Ipratropium/Albuterol Sulfate [Duoneb] 3 ml INH R NOW ONE
02/23/24 01:39
Sputum Culture [Respiratory Culture/Gram Stain] Urgent
SERGIO Source: Sputum
Specimen Description:
02/23/24 01:41
Heparin Pf [Heparin Lock Flush] 500 unit .ROUTE .STK-MED ONE
02/23/24 02:08
COVID-19 Antigen Urgent
Source: Nasal Swab
Lactic Acid Urgent
Blood Culture Urgent
SERGIO Source: Blood/Venous
Specimen Description:
02/23/24 02:10
Cefepime HCl [Maxipime] 2,000 mg IV NOW STA
02/23/24 02:14
Piperacillin/Tazo 4.5 Gram [Zosyn] 4.5 gram in 100 ml IV NOW
02/23/24 03:23
Cefepime HCl [Maxipime] 2,000 mg .ROUTE .STK-MED ONE
Heparin Pf [Heparin Lock Flush] 500 unit .ROUTE .STK-MED ONE
02/23/24 03:27
Sterile Water [Sterile Water For Injection] 10 ml .ROUTE .STK-MED ONE
02/23/24 03:45
Heparin Pf [Heparin Lock Flush] 500 unit IV NOW ONE
02/23/24 04:11
Admit/Transfer Patient As Directed
Co-Sign Provider:
Level of Care: Inpatient admission
Assign to:: IMU- Intermediate Care
Physician / Group: [facility]bo
Diagnosis: Pneumonia, Neutropenia, A-Fib, Lung Cancer
Reason for Hospitalization: Pneumonia, Neutropenia, A-Fib, Lung Cancer
Expected length of stay greater than two midnights?: Yes
ELOS- Estimated Length of Stay in days: 4
I certify the patient meets the requirements for IP care: Yes
PRN Pain Medication Management As Directed
May give lesser potent ordered pain med per pt: Yes
preference::
Protocol:: Medication orders for pain may be administered in a
manner that supports deferring to patient preference
when the pt is:
- Requesting an ordered lesser potent pain medication.
Least to most potent pain medications are defined
as: acetaminophen < NSAID < tramadol < opioids
(morphine, oxycodone, hydromorphone).
- Requesting a lesser dose of the same medication IF
ORDERED.
- Requesting a less intrusive route of administration
if both routes are prescribed by the provider (PO <
IV).
02/23/24 04:13
Code Status As Directed
Resuscitation Status: Full Code
02/23/24 Breakfast
Regular
02/23/24 06:39
Acetaminophen [Tylenol] 650 mg PO Q4HPRN PRN
Albuterol Nebs [Ventolin Nebules] 2.5 mg INH R Q4HPRN PRN
Lorazepam [Ativan] 0.5 mg PO TIDPRN PRN
Piperacillin/Tazo 3.375 Gram [Zosyn] 3.375 gram in 50 ml IV Q6H
Polyethylene Glycol Powder [Miralax] 17 grams PO DAILY PRN
02/23/24 06:39
Consult Notification Routine
Specialty to Notify: Oncology
Consult Notification Routine
Specialty to Notify: Pulmonary
ONCOLOGY CONSULT Routine
Consulting Provider: Sergio Walker
Was physician already notified: No
Reason for consult: Pneumonia, Neutropenia, A-Fib, Lung Cancer
PULMONARY CONSULT Routine
Consulting Provider: Elijah Mendoza
Was physician already notified: No
Reason for consult: Pneumonia, Neutropenia, Lung Cancer
Activity As Directed
Activity Level: Ambulate
With Assistance
Bladder Scan As Directed
Follow Bladder Retention/Intermittent Cath Algorithm?: Yes
PRN if no void in __ hours: 6
Frequency: Per Retention Algorithm
If Bladder Scan Result >: 400
then:: Straight cath
EKG with chest pain [ECG as needed] As Directed
ECG as needed for:: Chest Pain
I/O [Intake/ Output] As Directed
Frequency: Per unit guidelines
Orthostatic Vital Signs As Directed
Orthostatic VS Frequency: BID
Pneumatic Compression Sleeves As Directed
Type: Knee high
Precautions As Directed
Type of Precautions: Aspiration
Neutropenic
Straight Cath As Directed
Frequency: Per Retention Algorithm
Additional Instructions: straight cath as needed per acute urinary retention algorithm for 24 hrs
Additional Instructions: for bladder scan greater than 400 mL
Vital Signs As Directed
Frequency: Per unit guidelines
Weight As Directed
Frequency: Daily
Acapella [Rx Pep / Acapela] [RESP] Routine
Chest PT [Rx Chest Pt] [RESP] Routine
Special Instructions: BID
Oxygen Therapy [O2 Therapy] [RESP] Routine
Titrate/Wean O2 to maintain O2 sat greater than (%): 94
Ot Eval And Treat Routine
PT Consult [Pt Eval And Treat] Routine
Activity Level: Ambulate
With Assistance
Speech Therapy Eval & Treat Routine
DX Deep Vein Thrombosis Video Routine
02/23/24 08:00
Amiodarone [Pacerone] 200 mg PO BID
Dexamethasone [Decadron] 4 mg PO DAILY
FOLic ACID [Folvite] 1 mg PO DAILY
Furosemide [Lasix] 40 mg PO DAILY
Ipratropium/Albuterol Sulfate [Duoneb] 3 ml INH R QID
Levetiracetam [Keppra] 500 mg PO BID
Metoprolol Xl [Toprol Xl] 50 mg PO BID
Pantoprazole [Protonix] 40 mg PO DAILY
Potassium Chloride [KCl] 20 meq PO DAILY
02/23/24 12:00
Digoxin [Lanoxin] 62.5 mcg PO NOON
02/24/24 06:00
Basic Metabolic Panel IN AM
Complete Blood Count/No Diff IN AM
Abnormal Lab Results
02/23/24 02/23/24
01:13 01:14
WBC 1.1 L* 10^3/uL
(4.8-10.8)
RBC 2.44 L 10^6/uL
(4.70-6.10)
Hgb 7.5 L g/dL
(13.0-18.0)
Hct 23.1 L %
(39.0-52.0)
MCV 94.7 H fL
(80.0-94.0)
MCHC 32.5 L g/dL
(33.0-37.0)
RDW 19.2 H %
(11.5-14.5)
Plt Count 27 L* 10^3/uL
(130-400)
Abs Neuts (Manual) 0.7 L* 10^3/uL
(1.4-6.5)
Band Neutrophils 8 H %
(0-3)
Chloride 97 L mmol/L
(98-107)
Carbon Dioxide 38 H mmol/L
(22-30)
BUN 47 H mg/dl
(9-20)
Total Protein 5.1 L g/dl
(6.3-8.2)
Albumin 2.9 L g/dl
(3.5-5.0)
02/23/24 01:13
02/23/24 01:14
Vital Signs
Initial and Last Documented VS:
Initial Vital Signs
Temp Pulse Resp BP Pulse Ox
98.2 F 124 32 110/69 98
02/23/24 00:52 02/23/24 00:52 02/23/24 00:52 02/23/24 00:52 02/23/24 00:52
Last Documented Vital Signs
Temp Pulse Resp BP Pulse Ox
98.3 F 122 25 90/63 97
02/23/24 06:21 02/23/24 04:30 02/23/24 04:30 02/23/24 04:00 02/23/24 06:21
MDM/Problems Addressed
Differential Diagnosis Includes:
Concern for acute on chronic CHF, pneumonia, sepsis, neutropenia, anemia, progression of known lung CA with metastatic disease.
Patient appears moderately fatigued, mild shortness of breath but improved with nasal cannula oxygen.
Chest x-ray shows large masslike structure right mediastinum with large right pleural effusion, mild to moderate interstitial fullness. Overall similar to previous film 1 month ago save for interstitial fullness seems most more pronounced.
Chronic conditions affecting care: Cardiomyopathy, Arrhythmia, COPD, Immunosuppressed and Cancer
Acute Exacerbation and/or Progression of Chronic Illness: Cardiomyopathy, Arrhythmia, Immunosuppressed and Cancer
*Radiology
Radiology exam reviewed: preliminary read by ED provider (Chest x-ray shows large mass right hilum with moderate size right pleural effusion, concern for interstitial edema which is more pronounced from previous film.)
*Pulse Oximetry
Patient hypoxic: yes
*EKG
Interpreted by ED Provider?: Yes
Interpretation: abnormal
Comparison EKG: changes noted (A flutter has replaced A-fib noted on previous EKG January 13)
Rate: tachycardiac
Rhythm: atrial flutter
Mentmore: normal axis
Interval: normal QT interval
QRS Pattern: normal QRS
Ischemia: non-specific ST changes
*Head Loft Worker Interpretation
Rate: tachycardiac
Interpretation: abnormal
Rhythm: atrial flutter
*Critical Care Note
Total Time (30-74mins, 75-104mins- exclusive of procedures): Not Applicable
Comment
Comment:
Patient is severely immunocompromised, neutropenic with severe thrombocytopenia, significant concern for sepsis, he is at risk for spontaneous bleeding.
IV Zosyn initiated for potential healthcare associated pneumonia.
Admit to hospitalist service.
ED Attending Note
-
Portions of this chart may have been created with voice recognition software.� Occasional wrong word or��sound alike� substitutions may have occurred due to the inherent limitations of voice recognition software.
Discharge Plan
Departure
Patient Disposition: Admit
Date of Disposition: 02/23/24
Time of Disposition: 02:20
Admit to: Telemetry
Admit to doctor: Bob
Presentation/result/management discussed w/ accepting MD/DO: Hospitalist
Condition: Serious
Discharge Problem:
HCAP (healthcare-associated pneumonia), Acute HFrEF (heart failure with reduced ejection fraction), Metastatic primary lung cancer, Immunocompromised, Atrial fibrillation with RVR, severe neutropenia, Severe thrombocytopenia
Interventions
Interventions:
*Risk Screen - Suicide Last Done: 02/23/24 06:28
*General Assessment Last Done: 02/23/24 01:25
*Neglect/Abuse Screening Last Done: 02/23/24 01:25
ED- Fall Risk Assessment Last Done: 02/23/24 01:25
*ED COVID-19 Vaccine History Last Done: 02/23/24 01:25
*Nursing Disposition Last Done: 02/23/24 06:20
ED- Cardiac Assessment Last Done: 02/23/24 01:25
ED- Pulmonary Assessment Last Done: 02/23/24 01:25
Discharge Date and Time
Discharge Date/Time: 02/23/24 06:22
[2024-02-23 02:37] LABS: COVID-19 Antigen Negative (Negative)
[2024-02-23] MEDS: ZOSYN 100 IV (02:46)
[2024-02-23] MEDS: MAXIPIME 2000 MG IV (03:28)
--- NOTE | 2024-02-23 04:16 | HPS.HSE ---
Family Physician
-
Family Physician: Damion Allen, DO
Chief Complaint
-
Cough / SOB
History of Present Illness
Patient is a 68y M with PMH significant for metastatic lung cancer, CHF, COPD and A-Fib who presents to ED complaining of increased cough and SOB. Patient states that he has noted 'rattling' in his throat and ineffective cough for about 1-2
weeks now. He has felt increasingly more weak / fatigued. EMS had to come to his house this AM to help him up out of bed due to his weakness. He declined ED evaluation at that time. This evening after dinner he developed a harsh cough paroxysm
and became extremely SOB. EMS was called and this time patient was brought to the ED for further evaluation.
In the ED, he states that he feels somewhat improved.
He continues to have the rattling sensation but his dyspnea is somewhat better after coughing spell has ceased.
Patient denies any fevers / chills, chest pain or GI complaints.
His most recent chemo treatment was last Friday.
He had XRT last Friday (10 days ago).
He states that he took double dose of Lasix (40mg) for the past 4 days due to increased LE edema. This was effective and he notes that his legs are much improved.
He notes that his steroid dose is being tapered down.
He is not certain of the current dose.
Patient states that his significant other gave a medication list to staff or EMS; however, it is no longer present and his medications have not been updated.
Medical History
Past Medical History
Past Medical History: Reports Other
Additional Past Medical History:
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
Chronic HFpEF EF 20%
Paroxysmal Atrial Fibrillation
Anxiety/Depression
Past Surgical History: Reports Other
Additional Past Surgical History:
Appendectomy
Social History
Tobacco: Former Smoker (Quit in Jan 2023)
Alcohol: Former (Sober for 17 years)
Family History
Family History: Not pertinent
Allergies / Home Medications
Allergies reflects when Allergies were last updated in [facility].
Home Medications with original date entered in [facility]
Allergy/Medication List:
Allergies
Allergy/AdvReac Type Severity Reaction Status Date / Time
No Known Allergies Allergy Verified 01/06/24 11:52
Home Medications
acetaminophen 325 mg tablet 650 mg (2 x 325 mg) PO Q4HPRN PRN mild pain/DOUGLASS/temp> 100.4F #0 tabs 07/14/23
folic acid 1 mg tablet 1 mg PO DAILY Supplement 08/08/23
metoprolol succinate 50 mg tablet,extended release 24 hr (Toprol XL) 50 mg PO BID Blood Pressure 12/03/23
ondansetron HCl 8 mg tablet 8 mg PO Q8HPRN PRN nasuea from chemo 12/03/23
codeine 10 mg-guaifenesin 100 mg/5 mL oral liquid 10 ml PO TIDPRN PRN cough 01/06/24
lidocaine-prilocaine 2.5 %-2.5 % topical cream 1 applic topical DAILYPRN PRN port 01/06/24
loratadine 10 mg tablet (Claritin) 10 mg PO DAILYPRN PRN allergies 01/06/24
lorazepam 0.5 mg tablet 0.5 mg PO TIDPRN PRN anxiety 01/06/24
amiodarone 200 mg tablet 200 mg PO BID Arrhythmia 30 days #60 tabs 01/09/24
digoxin 125 mcg (0.125 mg) tablet 62.5 mcg (1/2 x 125 mcg (0.125 mg)) PO NOON 30 days #15 tabs 01/09/24
furosemide 20 mg tablet (Lasix) 20 mg PO DAILY 30 days #30 tabs 01/10/24
potassium chloride 20 mEq tablet,extended release 20 meq PO DAILY 30 days #30 tabs 01/10/24
dexamethasone 4 mg tablet 4 mg PO BID #60 tabs 01/16/24
levetiracetam 500 mg tablet 500 mg PO BID #60 tabs 01/16/24
pantoprazole 40 mg tablet,delayed release (Protonix) 40 mg PO DAILY #30 tabs 01/16/24
Review of Systems
-
History Source: Patient
A 12 point ROS was completed and negative except as noted: Yes
Constitutional: Reports Fatigue; Denies Fever or Chills
EENT: Denies Sore Throat
Respiratory: Reports Cough and Trouble Breathing; Denies Hemoptysis
Cardiac: Denies Chest Pain or Palpitations
Abdomen/GI: Denies Abdominal Pain, Nausea, Vomiting or Diarrhea
: Denies Dysuria or Flank Pain
Musculoskeletal: Reports Edema
Neurological: Reports Weakness; Denies Dizzy or Headache
Psych: Reports Depression and Anxiety
Physical Exam
Vital Signs
Vital Signs
Temp Pulse Resp BP Pulse Ox
98.1 F 122 20 102/75 100
02/23/24 02:54 02/23/24 02:54 02/23/24 02:54 02/23/24 02:54 02/23/24 02:54
Physical Exam
General: Other (Frail 68y M in no acute distress.)
HEENT: Moist mucous membranes, PERRLA and Other (Pos JVD. )
Respiratory: Other (Coarse rhonchi throughout. No wheezing or rales. Decreased BS / dullness to percussion at the R base.)
Cardiac: S1/S2, Irregular Rhythm and Tachycardia; No Murmur
GI: Soft, Non Tender, Non Distended and Normal Bowel Sounds
Musculoskeletal: No Clubbing, No Cyanosis and Other (2-3+ pitting edema b/l LEs to the knees.)
Neuro: AO x 3 and Nonfocal/grossly intact
Laboratory Results
-
02/23/24 01:13
02/23/24 01:14
Laboratory Results
Lactic Acid 2.0 mmol/L (0.7-2.0) 02/23/24 02:08
Total Bilirubin 0.7 mg/dl (0.2-1.3) 02/23/24 01:14
AST 53 U/L (17-59) 02/23/24 01:14
ALT 48 U/L (0-50) 02/23/24 01:14
Alkaline Phosphatase 83 U/L (38-126) 02/23/24 01:14
Troponin I 0.026 ng/ml 02/23/24 01:13
Impression/Plan
-
A/P: Patient is a 68y M with PMH significant for metastatic lung cancer on chemotherapy who presents to ED complaining of increased cough and SOB.
Acute Hypoxemic Respiratory Insufficiency
Right Sided Pneumonia
Possible Aspiration
- Admit for further evaluation and treatment.
- Coarse breath sounds throughout wth increase opacity in the RUL / RML on CXR compared to prior.
- Pancytopenia including neutropenia - but afebrile at present.
- Cover with IV Zosyn for now for possible pneumonia.
- Supportive care including nebs, chest PT, Acapella, etc.
- Pulmonary evaluation.
- Follow for clinical improvement. Monitor temperature curve, culture data, etc.
- Aspiration precautions / formal Speech evaluation.
Pancytopenia
Neutropenia
- Chronic anemia appears essentially unchanged / at baseline.
- New neutropenia / thrombocytopenia compared to prior.
- ? new chemo formulation?
- Neutropenic precautions. IV abx as noted above.
- Monitor for any evidence of active bleeding - none at present.
- Oncology evaluation for additional recommendations - ? GCSF, etc.
Metastatic Lung Cancer
- Patent with widely metastatic disease including the mediastinum, pericardium, brain, etc.
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
- Oncology evaluation as noted above.
- Prognosis is dismal.
Chronic HFrEF
- Some evidence of volume overload on CXR, exam, etc - though edema improved from recent according to patient.
- Will continue with higher dose of Lasix for now (40mg daily).
- Follow I/Os, daily weights, etc.
- Adjust diuretic regimen as needed.
Paroxysmal Atrial Fibrillation
- Rates in the low 100s - 120s here in the ED.
- Continue usual home med regimen including Amio, dig and metoprolol.
- Monitor on telemetry.
- Not on OAC secondary to recent discovery of hemorrhagic brain metastases.
Anxiety / Depression
- Continue PRN Ativan.
DVT Prophylaxis: SCDs
Code Status: Full
--- NOTE | 2024-02-23 07:35 | PTCARENOTE ---
Pt arrived to IMU from ED approx 0620. Complete CHG bath provided. All admission questions answered by pt. Pt is AAO3, wet voice quality. Telemetry rhythm reveals Afib, HR 120-130's, +2 edema noted in b/l LE, palpable peripheral pulses present. Lung
sounds w rhonchi/crackles throughout, pox 95-97% on 3L O2 nasal cannula. +BS, abdomen soft nontender. Urinal at bedside. Sacral dressing removed upon arrival to unit, skin intact/blanchable; new dressing applied. Pt w several scattered scabbed areas
on b/l elbows, dressings removed, skin assessed, new dressings applied. R SQ port in place, capped. Report given to oncoming shift RN.
[2024-02-23] MEDS: LASIX 40 MG PO (08:50)
[2024-02-23] MEDS: PROTONIX 40 MG PO (08:50)
[2024-02-23] MEDS: FOLVITE 1 MG PO (08:50)
[2024-02-23] MEDS: PACERONE 200 MG PO ×2 (08:50→20:58)
[2024-02-23] MEDS: KEPPRA 500 MG PO ×2 (08:50→20:58)
[2024-02-23] MEDS: KCL 20 MEQ PO (08:50)
[2024-02-23] MEDS: ZOSYN 50 IV ×3 (08:50→20:58)
[2024-02-23] MEDS: DECADRON 4 MG PO (08:50)
[2024-02-23] MEDS: TOPROL XL 50 MG PO ×2 (08:50→20:58)
--- NOTE | 2024-02-23 09:10 | CON.PUL ---
Consultation
Consultation Request
Date/Time Consultation Requested: 02/23/24
Date/Time Consultation Performed: 02/23/24
Performing Provider: Fuad
Reason for Consultation: SOB
Medical History
-
History of Present Illness:
Patient is a 68-year-old male with previous history of metastatic lung cancer (presumed) to bone, liver, mediastinum; CHF, COPD, A-fib presenting to ER for increased cough and shortness of breath. Chest x-ray demonstrating chronic right sided
effusion, increased compared to prior. This is in the site of his known primary lung mass. Has been actively receiving treatment including palliative radiation with [facility], he is deemed a nonsurgical candidate. He has been taking additional
doses of Lasix for increased lower extremity swelling. On arrival was noted to be pancytopenic, placed on 2 L nasal cannula.
Was seen by Dr. Cardona in the past, last seen in May.
Quit smoking 1 year ago and has remained off.
.
Past Medical History
Past Medical History: Other (see list below)
Social History
Tobacco: Former Smoker
Alcohol: None
Drug: None
Family History
Family History: Reviewed & Not Pertinent
Allergies / Home Medications
Allergies
Allergy/AdvReac Type Severity Reaction Status Date / Time
No Known Allergies Allergy Verified 01/06/24 11:52
Home Medications
�Medication �Instructions �Recorded �Confirmed �Last Taken �Type
acetaminophen 325 mg tablet 650 mg (2 x 325 mg) PO Q4HPRN PRN 07/14/23 02/23/24 01/03/24 Rx
mild pain/DOUGLASS/temp> 100.4F #0 tabs
folic acid 1 mg tablet 1 mg PO DAILY Supplement 08/08/23 02/23/24 01/14/24 History
metoprolol succinate 50 mg 50 mg PO BID Blood Pressure 12/03/23 02/23/24 01/14/24 History
tablet,extended release 24 hr
(Toprol XL)
ondansetron HCl 8 mg tablet 8 mg PO Q8HPRN PRN nasuea from 12/03/23 02/23/24 12/03/23 History
chemo
codeine 10 mg-guaifenesin 100 mg/5 10 ml PO TIDPRN PRN cough 01/06/24 02/23/24 01/05/24 History
mL oral liquid
lidocaine-prilocaine 2.5 %-2.5 % 1 applic topical DAILYPRN PRN port 01/06/24 02/23/24 Unknown History
topical cream
loratadine 10 mg tablet (Claritin) 10 mg PO DAILYPRN PRN allergies 01/06/24 02/23/24 12/30/23 History
lorazepam 0.5 mg tablet 0.5 mg PO TIDPRN PRN anxiety 01/06/24 02/23/24 Unknown History
amiodarone 200 mg tablet 200 mg PO BID Arrhythmia 30 days 01/09/24 02/23/24 01/14/24 Rx
#60 tabs
potassium chloride 20 mEq 20 meq PO DAILY 30 days #30 tabs 01/10/24 02/23/24 01/14/24 Rx
tablet,extended release
dexamethasone 4 mg tablet 4 mg PO BID #60 tabs 01/16/24 02/23/24 Unknown Rx
pantoprazole 40 mg tablet,delayed 40 mg PO DAILY #30 tabs 01/16/24 02/23/24 Unknown Rx
release (Protonix)
Decadron 1 mg PO DAILY 02/23/24 02/23/24 Unknown History
furosemide 20 mg tablet (Lasix) 40 mg PO DAILY 02/23/24 02/23/24 Unknown History
levetiracetam 500 mg tablet 100 mg PO BID 02/23/24 02/23/24 Unknown History
prochlorperazine 10 mg PO DAILY PRN nausea 02/23/24 02/23/24 Unknown History
Review of Systems
-
History Source: Patient
All other systems: Negative unless noted
Vitals / Labs / Diagnostic Testing
Vital Signs
Temp Pulse Resp BP Pulse Ox
98.3 F 123 17 96/70 98
02/23/24 06:21 02/23/24 08:07 02/23/24 08:07 02/23/24 08:00 02/23/24 08:07
Lab Data
02/23/24 01:13
02/23/24 01:14
Diagnostic Testing:
Physical Exam
-
HEENT: Normocephalic, Anicteric and Moist Mucous Membranes
Cardiovascular: S1/S2, Regular Rhythm and Peripheral Edema
Respiratory: Clear (decreased BS at bases) and Non-Labored Respirations
GI: Soft, Non Distended and Non Tender
Neurology: Awake, Alert, Oriented, AO x 3 and No Motor Deficits
Skin: Warm, Dry and Good Color
General: Comfortable, Poor Appetite and Other (NAD, overall weakness noted)
Assessment
-
Patient is a 68-year-old male with previous history of metastatic lung cancer (presumed) to bone, liver, mediastinum; CHF, COPD, A-fib presenting to ER for increased cough and shortness of breath. Chest x-ray demonstrating chronic right sided
effusion, increased compared to prior. This is in the site of his known primary lung mass. Has been actively receiving treatment including palliative radiation with [facility], he is deemed a nonsurgical candidate. He has been taking additional
doses of Lasix for increased lower extremity swelling. On arrival was noted to be pancytopenic, placed on 2 L nasal cannula. We are consulted for eval.
Acute hypoxic respiratory failure
Right-sided pleural effusion cannot exclude PNA/worsening met dz
Pancytopenia
History of metastatic lung cancer, nonsurgical candidate, palliative radiation treatment
Large left atrial mass/echodensity on ECHO
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
Large lung mass: PET/CT with metastatic to liver, adrenal and bone.
Status post percutaneous biopsy 06/20/2023 --nondiagnostic
s/p liver biopsy 07-14-23 by IRad --poorly differentiated carcinoma, nonspecific, cancer type ID favored to be lung adeno with a 72% probability
Malignant R pleural effusions s/p thora 07/15/23, 1500mL removed -- positive for malignant cells
s/ PORT placement 08/08/23
Atrial fibrillation with rapid ventricular response
Tobacco abuse-likely has COPD.
Chronic heart failure with reduced ejection fraction of 20%
Former ETOH abuse, sober 17 years
Anxiety/depression
Plan
Hypoxemia noted on arrival, placed on 2L NC, now 98%
He not known to be on home O2
Home O2 evaluation eventually
Prior history of lung disease is noted including possible COPD, no PFTs in past for review
Former smoker, quit 1 year ago
Following with Dr Cardona but has not been back/reviewed OP records
Primary lung cancer determined based on 72% chance/following with [facility]
Suspect patient has SOB/cough from malignant recurrent R pleural effusion, increased from prior
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
CXR/CT imaging personally reviewed
Can consider therapeutic tap but plts are 27
Pancytopenia noted
Onc eval obtained
CHF
Prior ECHO results are reviewed indicating EF 30%
Has been taking increased lasix as OP for LE swelling
Continue as tolerated, midodrine PRN
Smoking history noted, quit 1 year ago
Encouraged continued smoking cessation
Will need outpatient pulmonary evaluation in our office for PFTs and 6MWT
Reviewed with patient
We will follow
Diagnostic Data
Chest X-Ray: 02/23/24- 1. Right lower lobe hazy opacity, slightly improved compared to prior study. This is likely related to the large right hilar and right mediastinal mass seen on prior CT dated 01/15/2024, and/or post obstructive atelectasis from
the mass.
2. Small right pleural effusion, likely with some loculation along the right lateral chest wall.
CT Scan: [facility] 01/15/24- 1. Large right lower lobe and right hilar mass measures 14.6 x 11.6 x 8.0 cm, grossly unchanged in size compared to PET/CT dated 12/01/2023.
2. Mass invades the mediastinum, and causes direct invasion of the left atrium. Right pulmonary venous inflow into the left atrium is severely narrowed by the mass. Intra-atrial portion of the mass measures approximately 5 cm in diameter.
3. 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
4. Hepatic metastasis, enlarged compared to prior PET/CT.
5. Bilateral adrenal metastasis.
6. Bilateral retroperitoneal/perirenal metastases, enlarged in size compared to prior PET/CT.
7. Small bilateral pleural effusions. Bibasilar subsegmental atelectasis.
8. Urinary bladder is diffusely thick-walled. Please correlate for symptoms of cystitis.
Echo: 01/08/24- Normal LV size with severely reduced systolic function. LVEF is estimated at approximately 30%. LAD and RCA territory severe hypokinesis/akinesis. Normal right ventricular size and function. Large left atrial mass/echodensity still
present. Limited valvular interrogation. Trivial pericardial effusion. Compared to prior from October 28, 2023, on [id number] comparison overall LVEF is slightly improved from 20% to approximately 30% today and left atrial mass/echodensity appears
to be slightly larger on certain views.
PFT's:
Reports and relevant images were personally reviewed.
Total time spent on this consultation __76__ includes review of history, physical exam, medications, laboratory data, personal review of imaging, extensive review of outpatient records, discussion with care team and respiratory therapy.
--- NOTE | 2024-02-23 09:12 | CON.ONC ---
Documented by User: [email or web address] Viveros 02/23/24 11:22
Impression
Impression
stage IV lung cancer with invasion into myocardium and liver, bone, adrenal, and brain metastasis s/p C2 taxotere 02/16, eflapegrastim 02/17
a/w acute respiratory failure
Pancytopenia
PAF
HFrEF
Restorative goals
Plan
Plan
Neutropenic precautions, no role for G-CSF since long-acting agent administered 02/17
Transfuse hemoglobin less than 7 or as needed for symptomatic anemia
Transfuse platelets for platelet count less than 10 or as needed for bleeding, if develops a neutropenic fever will transfuse platelets for less than 20,000
Avoid NSAIDs, anticoagulation, and antiplatelets with platelet count less than 50,000
Continue steroid taper per radiation oncology. He reports current dose of dexamethasone is 1mg BID. He takes PPI while on steroids for GI ppx
On empiric IV antibiotics, follow blood cultures
Follow-up pulmonary consult
Taxotere can be associated with but not limited to fluid retention, pancytopenia, infection, asthenia, interstitial pulmonary disease, pneumonitis, pulmonary edema, pulmonary fibrosis. May benefit from further evaluation with CT chest to help
determine etiology of acute respiratory failure.
Goals remain restorative
Patient History
History of Present Illness
Consult reason stage IV lung non-small cell lung cancer
Samuel is a 68-year-old male known to Dr. Hong for stage IV lung cancer with invasion into myocardium and liver, bone, adrenal, and brain metastasis who presented to [facility] emergency room with increased cough and shortness of breath. He
reports a cough for approximately 1 to 2 weeks and increasing weakness for which EMS was called to help him get out of bed, however he declined ER evaluation at that time. That evening, after dinner he developed worsening cough and became acutely
short of breath for which EMS was called and patient was brought to the emergency room. Chest xray showed a right lower lobe hazy opacity, slightly improved and is likely related to the large right hilar and right mediastinal mass seen on prior CT
dated 01/15/2024, and/or post obstructive atelectasis from the mass. Small right pleural effusion, likely with some loculation along the right lateral chest wall. Labs reveal pancytopenia with ANC 700, hemoglobin 7.5 g/dL and platelet count 27,000.
Troponin 0.026, proBNP 3050.
He started Taxotere on December 23, 2023 after progression on Keytruda and pemetrexed. He was then hospitalized in early December with fever and diagnosed with brain metastasis in mid December. He completed radiation therapy to his brain metastasis February 08,
2023. He was doing well at home with physical therapy and weaning from his steroids. With improvement of performance status he resumed Taxotere on February 17, 2024 which was his second dose.
Clinically he denies fever, chills, nausea, vomiting, diarrhea, constipation. He does note increasing lower extremity edema despite increased dose of Lasix over the past 48 hours. Denies overt bleeding. Denies headache or any other neurological
changes.
Afebrile, tachycardia, 3-4L NC
Significant other at bedside provided with updates per pt request.
Past-Medical/Surgical History
Past medical CHF w LVEF 20%, COPD, A-Fib, anxiety, depression
surgical history: appendectomy
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
Family history: Brother had several forms of cancer, details unknown. Father had cancer involving the brain
Patient Medication
�Medication �Instructions �Recorded �Confirmed �Last Taken �Type
acetaminophen 325 mg tablet 650 mg (2 x 325 mg) PO Q4HPRN PRN 07/14/23 02/23/24 01/03/24 Rx
mild pain/DOUGLASS/temp> 100.4F #0 tabs
folic acid 1 mg tablet 1 mg PO DAILY Supplement 08/08/23 02/23/24 01/14/24 History
metoprolol succinate 50 mg 50 mg PO BID Blood Pressure 12/03/23 02/23/24 01/14/24 History
tablet,extended release 24 hr
(Toprol XL)
ondansetron HCl 8 mg tablet 8 mg PO Q8HPRN PRN nasuea from 12/03/23 02/23/24 12/03/23 History
chemo
codeine 10 mg-guaifenesin 100 mg/5 10 ml PO TIDPRN PRN cough 01/06/24 02/23/24 01/05/24 History
mL oral liquid
lidocaine-prilocaine 2.5 %-2.5 % 1 applic topical DAILYPRN PRN port 01/06/24 02/23/24 Unknown History
topical cream
loratadine 10 mg tablet (Claritin) 10 mg PO DAILYPRN PRN allergies 01/06/24 02/23/24 12/30/23 History
lorazepam 0.5 mg tablet 0.5 mg PO TIDPRN PRN anxiety 01/06/24 02/23/24 Unknown History
amiodarone 200 mg tablet 200 mg PO BID Arrhythmia 30 days 01/09/24 02/23/24 01/14/24 Rx
#60 tabs
potassium chloride 20 mEq 20 meq PO DAILY 30 days #30 tabs 01/10/24 02/23/24 01/14/24 Rx
tablet,extended release
dexamethasone 4 mg tablet 4 mg PO BID #60 tabs 01/16/24 02/23/24 Unknown Rx
pantoprazole 40 mg tablet,delayed 40 mg PO DAILY #30 tabs 01/16/24 02/23/24 Unknown Rx
release (Protonix)
Decadron 1 mg PO DAILY 02/23/24 02/23/24 Unknown History
furosemide 20 mg tablet (Lasix) 40 mg PO DAILY 02/23/24 02/23/24 Unknown History
levetiracetam 500 mg tablet 100 mg PO BID 02/23/24 02/23/24 Unknown History
prochlorperazine 10 mg PO DAILY PRN nausea 02/23/24 02/23/24 Unknown History
Active Medications
Generic Name Dose Route Start Last Admin
Trade Name Freq PRN Reason Stop Dose Admin
Acetaminophen 650 mg 02/23/24 06:39
Acetaminophen 325 Mg Tablet PO 03/22/24 06:38
Q4HPRN PRN
Mild Pain / Temp > 101
Albuterol Sulfate 2.5 mg 02/23/24 06:39
Albuterol Nebs 2.5 Mg/3 Ml Ampul INH
R Q4HPRN PRN
SOB
Protocol
Albuterol/Ipratropium 3 ml 02/23/24 08:00 02/23/24 08:00
Ipratropium 0.5/Albuterol 3 Mg (3 Ml Ampul) INH 3 ml
R QID CHINA Administration
Protocol
Amiodarone HCl 200 mg 02/23/24 08:00 02/23/24 08:50
Amiodarone 200 Mg Tablet PO 03/22/24 07:59 200 mg
BID CHINA Administration
Dexamethasone 4 mg 02/23/24 08:00 02/23/24 08:50
Dexamethasone 4 Mg Tablet PO 03/22/24 07:59 4 mg
DAILY [place]INA Administration
Digoxin 62.5 mcg 02/23/24 12:00
Digoxin 125 Mcg Tablet PO 03/22/24 11:59
NOON CHINA
Folic Acid 1 mg 02/23/24 08:00 02/23/24 08:50
Folic Acid 1 Mg Tablet PO 03/22/24 07:59 1 mg
DAILY CHINA Administration
Furosemide 40 mg 02/23/24 08:00 02/23/24 08:50
Furosemide 40 Mg Tablet PO 03/22/24 07:59 40 mg
DAILY [place]INA Administration
Piperacillin Sod/Tazobactam Sod 3.375 gram in 50 mls @ 100 mls/hr 02/23/24 08:00 02/23/24 08:50
Zosyn IV 50 mls
Q6H CHINA Administration
Levetiracetam 500 mg 02/23/24 08:00 02/23/24 08:50
Levetiracetam 500 Mg Regular Release Tablet PO 03/22/24 07:59 500 mg
BID CHINA Administration
Lorazepam 0.5 mg 02/23/24 06:39
Lorazepam 0.5 Mg Tablet PO 03/22/24 06:38
TIDPRN PRN
anxiety
Metoprolol Succinate 50 mg 02/23/24 08:00 02/23/24 08:50
Metoprolol 50 Mg Extended Release Tablet PO 03/22/24 07:59 50 mg
BID CHINA Administration
Pantoprazole Sodium 40 mg 02/23/24 08:00 02/23/24 08:50
Pantoprazole 40 Mg Delayed Release Tablet PO 03/22/24 07:59 40 mg
DAILY [place]INA Administration
Polyethylene Glycol 17 grams 02/23/24 06:39
Polyethylene Glycol Powder 17 Grams Packet PO 03/22/24 06:38
DAILYPRN PRN
Constipation
Potassium Chloride 20 meq 02/23/24 08:00 02/23/24 08:50
Potassium Chloride 20 Meq Extended Release Tablet PO 03/22/24 07:59 20 meq
DAILY CHINA Administration
Sodium Chloride 0 flush 02/23/24 08:00
Sodium Chloride 0.9% (Flush) Syringe IV 03/22/24 07:59
PER PROTOCOL CHINA
Review of Systems
-
Review of systems notable for HPI, otherwise negative
Physical Exam
-
General: Appears Chronically Ill; Negative No Apparent Distress
HEENT: Moist Mucous Membranes; Negative Jaundice
Cardiology: Other (tachycardia)
Pulmonary: Rhonchi (coars)
GI: Soft
Extremities: Pulses Present and Edema (bilateral pitting)
Neurology: Non Focal
Skin: Warm
Psych: Calm
Labs
Lab Results
WBC 1.1 10^3/uL (4.8-10.8) L* 02/23/24 01:13
RBC 2.44 10^6/uL (4.70-6.10) L 02/23/24 01:13
Hgb 7.5 g/dL (13.0-18.0) L 02/23/24 01:13
Hct 23.1 % (39.0-52.0) L 02/23/24 01:13
MCV 94.7 fL (80.0-94.0) H 02/23/24 01:13
MCH 30.7 pg (27.0-31.0) 02/23/24 01:13
MCHC 32.5 g/dL (33.0-37.0) L 02/23/24 01:13
RDW 19.2 % (11.5-14.5) H 02/23/24 01:13
Plt Count 27 10^3/uL (130-400) L* 02/23/24 01:13
MPV Not Reportable 02/23/24 01:13
Creatinine 1.1 mg/dL (0.7-1.3) 02/23/24 01:14
Vital Signs
Vital Signs
Temp Pulse Resp BP Pulse Ox
98.3 F 123 17 96/70 98
02/23/24 06:21 02/23/24 08:07 02/23/24 08:07 02/23/24 08:00 02/23/24 08:07

Documented by User: Padma Johnson MD 02/23/24 11:45
Impression
Impression
stage IV lung cancer with invasion into myocardium and liver, bone, adrenal, and brain metastasis s/p C2 taxotere 02/16, eflapegrastim 02/17
a/w acute respiratory failure
Pancytopenia
PAF with rapid ventricular response
HFrEF
Restorative goals
Plan
Plan
Neutropenic precautions, no role for G-CSF since long-acting agent administered 02/17
Transfuse hemoglobin less than 7 or as needed for symptomatic anemia
Transfuse platelets for platelet count less than 10 or as needed for bleeding, if develops a neutropenic fever will transfuse platelets for less than 20,000
Avoid NSAIDs, anticoagulation, and antiplatelets with platelet count less than 50,000
Continue steroid taper per radiation oncology. He reports current dose of dexamethasone is 1mg BID. He takes PPI while on steroids for GI ppx
On empiric IV antibiotics, follow blood cultures
Follow-up pulmonary consult
Taxotere can be associated with but not limited to fluid retention, pancytopenia, infection, asthenia, interstitial pulmonary disease, pneumonitis, pulmonary edema, pulmonary fibrosis. May benefit from further evaluation with CT chest to help
determine etiology of acute respiratory failure.
Goals remain restorative
ATTENDING SUPPLEMENT
Clinical picture concerning for sepsis with pancytopenia way out of proportion to that seen with cycle 1 taxotere, hypotension. At risk due to ANC 700.
DIC panel.
He was not on steroids long enough to cause adrenal insufficiency but he does have adrenal mets. Check AM Cortisol, eval for stress-dose steroid.
Currently on Zosyn for post-obstructive pna, but with suspicion for sepsis, suggest abx appropriate for neutropenic fever.
Elliott-culture if not already done.
I think pneumonitis may be less likely given that he has been on steroids for almost a month now.
Prognosis grim for this pt, he is DNR. Suggest observing for improvement over next 24-48 hours before possibly revisiting goals of care.
Patient History
History of Present Illness
Consult reason stage IV lung non-small cell lung cancer
Samuel is a 68-year-old male known to Dr. Hong for stage IV lung cancer with invasion into myocardium and liver, bone, adrenal, and brain metastasis who presented to [facility] emergency room with increased cough and shortness of breath. He
reports a cough for approximately 1 to 2 weeks and increasing weakness for which EMS was called to help him get out of bed, however he declined ER evaluation at that time. That evening, after dinner he developed worsening cough and became acutely
short of breath for which EMS was called and patient was brought to the emergency room. Chest xray showed a right lower lobe hazy opacity, slightly improved and is likely related to the large right hilar and right mediastinal mass seen on prior CT
dated 01/15/2024, and/or post obstructive atelectasis from the mass. Small right pleural effusion, likely with some loculation along the right lateral chest wall. Labs reveal pancytopenia with ANC 700, hemoglobin 7.5 g/dL and platelet count 27,000.
Troponin 0.026, proBNP 3050.
He started Taxotere on December 23, 2023 after progression on Keytruda and pemetrexed. He was then hospitalized in early December with fever and diagnosed with brain metastasis in mid December. He completed radiation therapy to his brain metastasis February 08,
2023. He was doing well at home with physical therapy and weaning from his steroids; pt's states now on dexamethasone 1 mg (1 tab?) PO BID, had been on 4 mg PO TID beginning 01/28 when diagnosted with brain mets. With improvement of performance
status he resumed Taxotere on February 17, 2024 which was his second dose. He was treated with Rolvedon (WBC growth factor) on 02/17. Cytopenias were minimal with cycle 1.
Clinically he denies fever, chills, nausea, vomiting, diarrhea, constipation. He does note increasing lower extremity edema despite increased dose of Lasix over the past 48 hours, and weight loss of 7 lbs between 02/16 and 02/22 (assuming hospital
scale and our office scale are similar.) Denies overt bleeding. Denies headache or any other neurological changes.
Afebrile, tachycardia, 3-4L NC
Significant other at bedside provided with updates per pt request.
Physical Exam
-
Awake, alert, appropriate
--- NOTE | 2024-02-23 10:23 | PTOTSP ---
Speech Therapy Swallowing Assessment
The patient is showing overt signs of aspiration with symptoms also suggesting redirection of material from cervical esophagus into pharynx and/or pharyngeal stasis. Given known subcarinal mediastinum mass, question is there may be compression of
esophagus contributing to dysphagia symptoms.
Recommend
1. NPO (except meds in applesauce),
2. VSE to determine what if any oral diet is safe as MD reported the patient is not interested in hospice at this time.
3. Meds in applesauce
4. Will await results of VSE before decision re: [facility]
--- NOTE | 2024-02-23 11:53 | CON.CAR ---
Consultation
Consultation Request
Date/Time Consultation Requested: 02/23/24899
Date/Time Consultation Performed: 02/23/24899
Requesting Provider: hospitalist
Performing Provider: Dr Pedro
Reason for Consultation: afib, cm, edema
Medical History
-
History of Present Illness:
68-year-old male known to me from outpatient visits. He has metastatic lung cancer. Large lung mass with with direct invasion of the heart as noted by MRI and CT. In addition he has other metastases including metastases to the brain. From a
cardiac standpoint he has had atrial fibrillation which has been difficult to control. Challenging to keep in sinus rhythm and when he is in A-fib the heart rates challenging to control. He has been maintained on amiodarone 400 mg a day from.
Also has had cardiomyopathy and at 1 point has severely reduced left ventricular function down to 20% which had some improvement on his most recent echo. From an oncology standpoint he has been treated by Dr. Hong he has also had a second
opinion at [facility]. He is undergoing chemotherapy this week. He was recently seen in my office at which time he had significant bilateral lower extremity edema he had his Lasix increased to 40 mg twice daily for couple days but then it was
returned back to normal rhythm. We also talked about additional local measures for his edema. He also underwent chemotherapy and then presented to the hospital with increased cough and increased shortness of breath now treated for pneumonia. Also
noted to have pancytopenia. In addition on presentation he was noted to be in A-fib with heart rates in the 120s of note he had been in sinus rhythm on his most recent office visit
.
Cardiac mass. Invasion of lung cancer as noted above..
.
Past Medical History
Past Medical History: Other (above)
Social History
Tobacco: Former Smoker
Family History
Family History: Reviewed & Not Pertinent
Allergies / Home Medications
Allergy/AdvReac Type Severity Reaction Status Date / Time
No Known Allergies Allergy Verified 01/06/24 11:52
�Medication �Instructions �Recorded �Confirmed �Type
acetaminophen 325 mg tablet 650 mg (2 x 325 mg) PO Q4HPRN PRN 07/14/23 02/23/24 Rx
mild pain/DOUGLASS/temp> 100.4F #0 tabs
folic acid 1 mg tablet 1 mg PO DAILY Supplement 08/08/23 02/23/24 History
metoprolol succinate 50 mg 50 mg PO BID Blood Pressure 12/03/23 02/23/24 History
tablet,extended release 24 hr
(Toprol XL)
ondansetron HCl 8 mg tablet 8 mg PO Q8HPRN PRN nasuea from 12/03/23 02/23/24 History
chemo
codeine 10 mg-guaifenesin 100 mg/5 10 ml PO TIDPRN PRN cough 01/06/24 02/23/24 History
mL oral liquid
lidocaine-prilocaine 2.5 %-2.5 % 1 applic topical DAILYPRN PRN port 01/06/24 02/23/24 History
topical cream
loratadine 10 mg tablet (Claritin) 10 mg PO DAILYPRN PRN allergies 01/06/24 02/23/24 History
lorazepam 0.5 mg tablet 0.5 mg PO TIDPRN PRN anxiety 01/06/24 02/23/24 History
amiodarone 200 mg tablet 200 mg PO BID Arrhythmia 30 days 01/09/24 02/23/24 Rx
#60 tabs
potassium chloride 20 mEq 20 meq PO DAILY 30 days #30 tabs 01/10/24 02/23/24 Rx
tablet,extended release
dexamethasone 4 mg tablet 4 mg PO BID #60 tabs 01/16/24 02/23/24 Rx
pantoprazole 40 mg tablet,delayed 40 mg PO DAILY #30 tabs 01/16/24 02/23/24 Rx
release (Protonix)
Decadron 1 mg PO DAILY 02/23/24 02/23/24 History
furosemide 20 mg tablet (Lasix) 40 mg PO DAILY 02/23/24 02/23/24 History
levetiracetam 500 mg tablet 100 mg PO BID 02/23/24 02/23/24 History
prochlorperazine 10 mg PO DAILY PRN nausea 02/23/24 02/23/24 History
Review of Systems
-
All other systems: Negative unless noted
Physical Exam
Vital Signs
Temp Pulse Resp BP Pulse Ox
98.2 F 128 12 96/70 98
02/23/24 11:41 02/23/24 11:38 02/23/24 11:38 02/23/24 08:00 02/23/24 11:38
Lab Results
02/23/24 01:13
02/23/24 01:14
Troponin I 0.026 ng/ml 02/23/24 01:13
Zuv-H-Hzuwldxbtyr Pept 3050 pg/ml 02/23/24 01:13
Physical Exam
General: Well Nourished (appears chronically ill. no distress )
HEENT: Normocephalic
Cardiac: Irregular Rhythm (tachycardic)
GI: Soft, Non Tender and Non Distended
Genito-urinary: No Costovertebral Tender
Musculoskeletal: No Clubbing, No Cyanosis and No Edema
Skin: Warm, Dry and Rash (no)
Neuro: Awake and Alert
Psych: Calm
Impression / Plan
-
shortness of breath and increased cough. May be multifactorial including pneumonia, lung cancer and possible component of heart failure.
-Treatment of pneumonia with antibiotics as directed by primary team of note patient is neutropenic.
-Lung cancer management as per oncology.
-Issues related to heart failure and volume management as noted below.
-Continue efforts at rate control A-fib.
afib wit RVR. challenging to manage on prior in patient admit. For this reason he has been maintained on amiodarone 400 mg daily. Blood pressure limits medical therapy.
-Not on anticoagulation due to brain mets. Patient also now with pancytopenia
-Was in sinus rhythm at recent office visit. Now with A-fib in the 120s.
-Continue amiodarone at current dosing
-Can add digoxin if needed for additional rate control but will need to be cautious with use in the setting of amiodarone
.
Edema of extremities. Patient had severe edema on recent office visit. Edema extending up to the legs. May be multifactorial some of may be related to heart failure reduced ejection fraction and PAF. Pulse patient has significant invasion of
pulmonary veins which may also be impacting his hemodynamics. As an outpatient patient transiently had Lasix increased to 40 mg twice daily.
-Overall the appearance of edema appears less then most recent visit.
-Continue diuresis with Lasix. Considering blood pressure and concern for ongoing infection we will hold off on additional increase in diuretic but may consider use of IV Lasix later this hospitalization if blood pressure will allow
-Local measures including bilateral Donn wraps.
.
Chronic left heart failure. Patient has a cardiomyopathy and has had issues with left heart failure. Some of his cardiomyopathy may have been precipitated in the past by prolonged periods of A-fib RVR. Recently patient had increased edema as
noted above. Continue with diuretics as noted.
pancytopenia -
- post chemo
- tx per oncology
- PRBC as per oncology. May consider additional lasix with PRBC
.
Metastatic lung cancer. Includes metastases to the brain, heart, adrenal gland, liver and retroperitoneum. Extensive lung cancer large lung mass with direct invasion of the heart this includes invasion into the left atrium, right atrium and atrial
septum and pulmonary veins. Patient's had recent chemotherapy
-Poor prognosis
-Patient to be seen by oncology. Primary oncologist is Dr. Hong. Issues reviewed with Dr. Ortiz who will be assessing the patient later today
.
Cardiac mass. Invasion of lung cancer as noted above..
Data Reviewed
-
EKG: Report Reviewed by me
Radiology: Report Reviewed by me
CT Scan: Report Reviewed by me
Labs: Discussed with Physician
--- NOTE | 2024-02-23 11:58 | W.PN.UPDATE ---
Update Note
Progress Note Update
Seen and examined independent of pulmonary physician. Patient states mild improvement in his respiratory symptomology. Was seen by speech earlier today and recommended strict NPO.
General: Other (Frail 68y M in no acute distress.)
HEENT: Moist mucous membranes
Respiratory: Other (Coarse rhonchi throughout. No wheezing or rales.
Cardiac: S1/S2, Irregular Rhythm and Tachycardia; No Murmur
GI: Soft, Non Tender, Non Distended and Normal Bowel Sounds
Musculoskeletal: No Clubbing, No Cyanosis and Other (2-3+ pitting edema b/l LEs to the knees.)
Neuro: AO x 3 and Nonfocal/grossly intact
A/P: Patient is a 68y M with PMH significant for metastatic lung cancer on chemotherapy who presents to ED complaining of increased cough and SOB.
Acute Hypoxemic Respiratory Insufficiency
Possible Aspiration event
- CXR with Right lower lobe hazy opacity, slightly improved compared to prior study. This is likely related to the large right hilar and right mediastinal mass seen on prior CT dated 01/15/2024, and/or post obstructive atelectasis from the mass.
Small right pleural effusion, likely with some loculation along the right lateral chest wall.
- Pancytopenia including neutropenia - but afebrile at present.
- Cover with IV Zosyn for now. Blood cultures in lab..
- Supportive care including nebs, chest PT, Acapella, etc.
- Follow for clinical improvement. Monitor temperature curve, culture data, etc.
- Aspiration precautions / formal Speech evaluation.
Dysphagia
-Was seen by speech evaluation recommending n.p.o.
-Video swallow evaluation ordered. Gentle IV fluids as currently NPO.
Pancytopenia
Neutropenia
- Chronic anemia appears essentially unchanged / at baseline.
- New neutropenia / thrombocytopenia compared to prior.
- ? new chemo formulation?
- Neutropenic precautions. IV abx as noted above. Blood cultures in lab. Urine culture pending. Sputum sample pending.
- Monitor for any evidence of active bleeding - none at present. Fall precautions already in place.
-Transfuse for hemoglobin less than 7. Transfuse for platelets less than 10,000.
- Oncology evaluation for additional recommendations - DIC panel ordered.
Metastatic Lung Cancer
- Patent with widely metastatic disease including the mediastinum, pericardium, brain, etc.
- Currently on active chemo with last dose Friday and recent XRT (NEONATAL SURGEON).
- Continue current steroid dosing - started after recent discovery of NEONATAL SURGEON mets.
- Oncology evaluation as noted above.
- Prognosis is dismal.
Chronic HFrEF
- Some evidence of volume overload on CXR, exam, etc - though edema improved from recent according to patient.
- Will continue with higher dose of Lasix for now (40mg daily).
- Follow I/Os, daily weights, etc.
- Adjust diuretic regimen as needed.
Paroxysmal Atrial Fibrillation
- Rates in the low 100s - 120s here in the ED.
- Continue usual home med regimen including Amio, dig and metoprolol.
- Monitor on telemetry.
- Not on OAC secondary to recent discovery of hemorrhagic brain metastases.
Anxiety / Depression
- Continue PRN Ativan.
DVT Prophylaxis: SCDs
Code Status: DNR/DNI per patient was that he has a living well. Changed in [employer].
Hospice was briefly broached and patient stated he is not ready and would like to continue with chemotherapy regimen. Unclear if patient truly understand his prognosis. Will appreciate oncology further assistance.
Prognosis guarded.
[2024-02-23 12:54] LABS: APTT 36.1 Sec (23.4-35.0); Fibrinogen 612 MG/DL (199-459); INR 1.18; PT 14.8 Sec (11.4-14.6)
[2024-02-23 12:57] LABS: D-Dimer 1.28 ug/mlFEU (0.00-0.50)
--- NOTE | 2024-02-23 14:24 | PTOTSP ---
Video Swallow Examination
Intermittent swallow delay with thin liquid by consecutive cup reaching pyriform sinuses and NTL by teaspoon to posterior side of epiglottis prior to swallow onset. There appeared to be at least partical epiglottic inversion. Reduced anterior hyoid
movement, and tongue base retraction. Complete laryngeal vestibular closure without evidence for laryngeal penetration or aspiration. Reduced distension of PES due to impinging cervical osteophytes and intermittent evidence of a cricopharyngeal bar.
Together this resulted in intermittent trace redirection of contrast from cervical esophagus into pyriform sinuses.
Sweep of esophagus not completed per radiologist preference. Trace pharyngeal stasis throughout trials.
No laryngeal penetration or aspiration identified. Of note, patient without coughing or congestion as noted this am.
Recommend
1. Regular solids and thin liquids
2. Meds whole in applesauce
3. Aspiration precautions.
4. Remain upright for 30 minutes after meals.
5. Slow rate and cyclic ingestion.
ST will follow briefly given overt symptoms of aspiration during bedside assessment this am.
[2024-02-23] MEDS: LANOXIN 62.5 MCG PO (14:28)
--- NOTE | 2024-02-23 16:40 | PTCARENOTE ---
Pt rec'd this am as new admit into 3352. Per clinical educator, pt needs to be transfered into non negative pressure room due to neutropenia, so pt moved across ulysses into 3347. Plan discussed with multiple members of care team including
Alec Pedro, the oncology group, the patient and his sig other and son. Pt informed this RN that his living will has recently been finalized and that he wishes to be DNR status. Dr. Michael notified, code status updated. [facility] discussed briefly
with Dr. Michael who informed this RN that pt is not yet interested in considering hospice. Later this afternoon, pt's SO tearful, stated 'This is alot, it's hard to stay strong for him', emotional support provided by this RN, offered saddle mechanic visit,
or for her to consider talking to care team about obtaining hospice information, she stated that he would 'freak out' if he heard the word hospice. Care ongoing.
[2024-02-23 17:00] LABS: Urine Albumin Negative (Neg - Trace); Urine Bilirubin Negative (Negative); Urine Character Clear (Clear); Urine Color Straw; Urine Glucose Negative (Negative); Urine Ketone Negative (Negative); Urine Leukocyte Negative (Negative); Urine Nitrite Negative (Negative); Urine Occult Blood Negative (Negative); Urine Urobilinogen Negative (Neg - 1+)
[2024-02-23 19:44] LABS: Hepatitis C Antibody Negative (Negative)
[2024-02-23] MEDS: ATIVAN 0.5 MG PO (20:58)
[2024-02-24] VITALS (27 sets, daily range): BP systolic 80–118; BP diastolic 60–96; PULSE 121–133; BMI 24.4
[2024-02-24] MEDS: ZOSYN 50 IV ×4 (02:36→21:30)
--- NOTE | 2024-02-24 05:15 | PTCARENOTE ---
Addendum entered by Debbie Puga RN 02/24/24 07:23:
oTva BUTT made aware of critical labs this morning.
Original Note:
Patient slept on/off; prn ativan for sleep. 1.5-2L NC on, Sp02 >94%. Tele showing Afib HR 110s, HR 130s when OOB. BP soft, pt asymptomatic. Ambulated to with one assist and FWW; tolerated well. No BM. Voiding via urinal. Tolerating IV Abx via
Right SQ port. Port dressing C/D/I. Swallowing pills whole in applesauce, aspiration precautions in place. Encouraged to reposition self while in bed. Sacrum foam Mepilex in place. Neutropenic precautions. Call gaytan and tray table within reach. Pt
calls for assistance appropriately.
[2024-02-24 06:36] LABS: Hematocrit 20.8 % (39.0-52.0); Hemoglobin 6.8 g/dL (13.0-18.0); Mean Corp Hgb Conc. 32.2 g/dL (33.0-37.0); Mean Corpuscular Hgb 30.9 pg (27.0-31.0); Mean Corpuscular Volume 95.9 fL (80.0-94.0); Platelet Count 23 10^3/uL (130-400); Red Cell Dist. Width 19.2 % (11.5-14.5); White Blood Cell Count 1.4 10^3/uL (4.8-10.8)
[2024-02-24 06:38] LABS: Blood Urea Nitrogen 40 mg/dl (9-20); Calcium 8.8 mg/dl (8.4-10.2); Carbon Dioxide 33 mmol/L (22-30); Chloride 97 mmol/L (98-107); Estimated Creatinine Clearance 89 ml/min; Glucose 95 mg/dl (70-99); Potassium 4.2 mmol/L (3.5-5.1); Sodium 136 mmol/L (135-145); eGFR > 60.00
[2024-02-24 07:09] LABS: Cortisol, Random 2.3 ug/dl
[2024-02-24] MEDS: DUONEB 3 ML INH ×4 (08:20→20:12)
[2024-02-24] MEDS: DECADRON 1 MG PO (08:51)
[2024-02-24] MEDS: FOLVITE 1 MG PO (08:52)
[2024-02-24] MEDS: PACERONE 200 MG PO ×2 (08:52→21:30)
[2024-02-24] MEDS: KEPPRA 500 MG PO (08:52)
[2024-02-24] MEDS: PROTONIX 40 MG PO (08:52)
[2024-02-24] MEDS: LASIX 40 MG PO (08:52)
[2024-02-24] MEDS: TOPROL XL 50 MG PO ×2 (08:52→21:30)
[2024-02-24] MEDS: KCL 20 MEQ PO (08:53)
--- NOTE | 2024-02-24 09:05 | W.PN.PUL3 ---
Today's Communication / Plan
-
Weaned to RA, but still dyspneic
IR consult for therapeutic thoracentesis, careful watch of pancytopenia
Onc following, supportive care for now, transfuse as indicated
PT/OT
Updated son at bedside
Assessment
-
Patient is a 68-year-old male with previous history of metastatic lung cancer (presumed) to bone, liver, mediastinum; CHF, COPD, A-fib presenting to ER for increased cough and shortness of breath. Chest x-ray demonstrating chronic right sided
effusion, increased compared to prior. This is in the site of his known primary lung mass. Has been actively receiving treatment including palliative radiation with [facility], he is deemed a nonsurgical candidate. He has been taking additional
doses of Lasix for increased lower extremity swelling. On arrival was noted to be pancytopenic, placed on 2 L nasal cannula. We are consulted for eval.
Acute hypoxic respiratory failure
Right-sided pleural effusion cannot exclude PNA/worsening met dz
Pancytopenia
History of metastatic lung cancer, nonsurgical candidate, palliative radiation treatment
Large left atrial mass/echodensity on ECHO
Conditions present [employer]
Large lung mass: PET/CT with metastatic to liver, adrenal and bone.
Status post percutaneous biopsy 06/20/2023 --nondiagnostic
s/p liver biopsy 07-14-23 by IRad --poorly differentiated carcinoma, nonspecific, cancer type ID favored to be lung adeno with a 72% probability
Malignant R pleural effusions s/p thora 07/15/23, 1500mL removed -- positive for malignant cells
s/ PORT placement 08/08/23
Atrial fibrillation with rapid ventricular response
Tobacco abuse-likely has COPD.
Chronic heart failure with reduced ejection fraction of 20%
Former ETOH abuse, sober 17 years
Anxiety/depression
Plan
Hypoxemia noted on arrival, placed on 2L NC, now 98% on RA
He not known to be on home O2
Home O2 evaluation eventually
Prior history of lung disease is noted including possible COPD, no PFTs in past for review
Former smoker, quit 1 year ago
Following with Dr Cardona but has not been back/reviewed OP records
Primary lung cancer determined based on 72% chance/following with [facility]
Suspect patient has SOB/cough from malignant recurrent R pleural effusion, increased from prior
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
CXR/CT imaging personally reviewed
Can consider therapeutic tap but plts are 27
Previously, post thora son thinks this did help with his breathing
IR consult for tap
We have discussed possibility for pleurex if needed, should effusion recur
Pancytopenia noted
Onc eval obtained--correspondence reviewed
CHF
Prior ECHO results are reviewed indicating EF 30%
Has been taking increased lasix as OP for LE swelling
Continue as tolerated, midodrine PRN
Smoking history noted, quit 1 year ago
Encouraged continued smoking cessation
Will need outpatient pulmonary evaluation in our office for PFTs and 6MWT
Reviewed with patient
Diagnostic Data
Chest X-Ray: 02/23/24- . Right lower lobe hazy opacity, slightly improved compared to prior study. This is likely related to the large right hilar and right mediastinal mass seen on prior CT dated 01/15/2024, and/or post obstructive atelectasis from
the mass.
2. Small right pleural effusion, likely with some loculation along the right lateral chest wall.
CT Scan: CAP 01/15/24- . Large right lower lobe and right hilar mass measures 14.6 x 11.6 x 8.0 cm, grossly unchanged in size compared to PET/CT dated 12/01/2023.
2. Mass invades the mediastinum, and causes direct invasion of the left atrium. Right pulmonary venous inflow into the left atrium is severely narrowed by the mass. Intra-atrial portion of the mass measures approximately 5 cm in diameter.
3. 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
4. Hepatic metastasis, enlarged compared to prior PET/CT.
5. Bilateral adrenal metastasis.
6. Bilateral retroperitoneal/perirenal metastases, enlarged in size compared to prior PET/CT.
7. Small bilateral pleural effusions. Bibasilar subsegmental atelectasis.
8. Urinary bladder is diffusely thick-walled. Please correlate for symptoms of cystitis.
Echo: 01/08/24- Normal LV size with severely reduced systolic function. LVEF is estimated at approximately 30%. LAD and RCA territory severe hypokinesis/akinesis. Normal right ventricular size and function. Large left atrial mass/echodensity still
present. Limited valvular interrogation. Trivial pericardial effusion. Compared to prior from October 28, 2023, on [id number] comparison overall LVEF is slightly improved from 20% to approximately 30% today and left atrial mass/echodensity appears
to be slightly larger on certain views.
PFT's:
Reports and relevant images were personally reviewed.
Total time spent on this encounter __51__ includes review of history, physical exam, medications, laboratory data, personal review of imaging, extensive review of outpatient records, discussion with care team and respiratory therapy.
Subjective Data
-
Date of Service:
Date of Service: February 24, 2024
Chief Complaint: Pulmonary Follow Up
Subjective:
No acute events ON, now on RA
Feels his breathing has been stable, no worsening
Son at bedside
Objective Data
Data Reviewed
Vital Signs / I&O / Oxygen:
Vital Signs
Temp Pulse Resp BP Pulse Ox
97.6 F 123 22 91/65 98
02/24/24 07:20 02/24/24 08:52 02/24/24 08:23 02/24/24 08:52 02/24/24 08:23
Intake and Output
02/23/24 02/24/24 02/25/24
06:59 06:59 06:59
Intake Total 440 / 440
Output Total 700 / 700
Balance -260 / -260
SaO2 98
Nasal Cannula flow liters per 2
minute
Physical Exam
General: Respiratory Distress (Mild dyspnea noted), Comfortable and Other (NAD)
HEENT: Normocephalic, Anicteric and Moist Mucous Membranes
Cardiovascular: S1-S2, Regular Rhythm and Other (PORT in place)
Respiratory: Clear (decreased BS at R base) and Non-Labored Respirations
GI: Soft, Non Distended and Non Tender
Neurology: Awake, Alert, Oriented, AO x 3 and No Motor Deficits
Skin: Warm, Dry and Good Color
Labs/Micro/Reports
Lab Data
02/24/24 06:07
02/24/24 06:08
Laboratory Results
02/23/24
12:29
PT 14.8 H
INR 1.18
APTT 36.1 H
Microbiology
02/23/24 02:08 Blood/Venous Blood Culture - Preliminary
No Growth in 24 hours- Final report to follow
02/23/24 12:25 Sputum Gram Stain - Preliminary
--- NOTE | 2024-02-24 09:16 | W.PN.ONC ---
Today's Communication / Plan
-
Continue empiric antibiotics for possible pulm infection with neutropenia; follow cultures
Will transfuse 1u prbcs today
Monitor CBC daily
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
Discussed ongoing difficulty treating his cancer - despite chemo, RT, etc, his performance status and QOL has continued to decline. He is now DNR, but has not been agreeable to hospice as of yet. Will continue discussions, especially if status does
not improve in next 1-2 days
Son in room for discussions, partner Tg on phone
Impression
Impression
stage IV lung cancer with invasion into myocardium and liver, bone, adrenal, and brain metastasis s/p C2 taxotere 02/16, eflapegrastim 02/17
a/w acute respiratory failure
Pancytopenia
PAF with rapid ventricular response
HFrEF
Restorative goals
Plan
Plan
Continue empiric antibiotics for possible pulm infection with neutropenia; follow cultures
Will transfuse 1u prbcs today
Monitor CBC daily
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
Discussed ongoing difficulty treating his cancer - despite chemo, RT, etc, his performance status and QOL has continued to decline. He is now DNR, but has not been agreeable to hospice as of yet. Will continue discussions, especially if status does
not improve in next 1-2 days
Son in room for discussions, partner Tg on phone
Subjective/Objective
Subjective/Objective
c/o ongoing shortness of breath, weakness
Vital Signs:
Vital Signs
Temp Pulse Resp BP Pulse Ox
97.6 F 123 22 91/65 98
02/24/24 07:20 02/24/24 08:52 02/24/24 08:23 02/24/24 08:52 02/24/24 08:23
Lab Results:
Laboratory Data
WBC 1.4 10^3/uL (4.8-10.8) L* 02/24/24 06:07
Hgb 6.8 g/dL (13.0-18.0) L* 02/24/24 06:07
Plt Count 23 10^3/uL (130-400) L* 02/24/24 06:07
PT 14.8 Sec (11.4-14.6) H 02/23/24 12:29
INR 1.18 02/23/24 12:29
APTT 36.1 Sec (23.4-35.0) H 02/23/24 12:29
eGFR > 60.00 02/24/24 06:08
Orders
Orders
Orders From Last 24 Hours
02/24/24 09:15
* Blood Bank Products Routine
--- NOTE | 2024-02-24 09:41 | VNURNOTE ---
Chart reviewed. Patient is current with [facility] nursing, PT, OT. He has home [address] Will continue to monitor hospital course and DC plans.
--- NOTE | 2024-02-24 10:41 | W.PN.HOSP.TC ---
Today's Communication/Plan
-
Transfuse 1u PRBC
cont IV abx
fall precaution
Assessment / Plan
Assessment / Plan
General: Other (Frail 68y M in no acute distress.)
HEENT: Moist mucous membranes
Respiratory: Other (Coarse rhonchi throughout. No wheezing or rales.
Cardiac: S1/S2, Irregular Rhythm and Tachycardia; No Murmur
GI: Soft, Non Tender, Non Distended and Normal Bowel Sounds
Musculoskeletal: No Clubbing, No Cyanosis and Other (2-3+ pitting edema b/l LEs to the knees-improving
Neuro: AO x 3 and Nonfocal/grossly intact
A/P: Patient is a 68y M with PMH significant for metastatic lung cancer on chemotherapy who presents to ED complaining of increased cough and SOB.
Acute Hypoxemic Respiratory Insufficiency
Possible Aspiration event
- CXR with Right lower lobe hazy opacity, slightly improved compared to prior study. This is likely related to the large right hilar and right mediastinal mass seen on prior CT dated 01/15/2024, and/or post obstructive atelectasis from the mass.
Small right pleural effusion, likely with some loculation along the right lateral chest wall.
- Pancytopenia including neutropenia - but afebrile at present.
- Cover with IV Zosyn for now. Blood cultures in lab negative so far.
- Supportive care including nebs, chest PT, Acapella, etc.
- Follow for clinical improvement. Monitor temperature curve, culture data, etc.
- Aspiration precautions / formal Speech evaluation.
Dysphagia
-s/p VSE and okay for regular diet.
Pancytopenia
Neutropenia
- Chronic anemia
- New neutropenia / thrombocytopenia compared to prior. Fall precaution as with low platelet
- Neutropenic precautions. IV abx as noted above. Blood cultures neg. Urine culture pending. Sputum sample pending.
- Monitor for any evidence of active bleeding - none at present. Fall precautions already in place.
-Transfuse for hemoglobin less than 7. Transfuse for platelets less than 10,000. Hgb at 6.8 and plan to transfuse 1u PRBC today.
- Oncology evaluation for additional recommendations - DIC panel ordered.
Metastatic Lung Cancer
- Patent with widely metastatic disease including the mediastinum, pericardium, brain, etc.
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
- Continue current steroid dosing - started after recent discovery of DOCUMENT MANAGEMENT CONSULTANT mets. On decadron 1mg daily taper regimen with plan to stop in 5days.
- Oncology evaluation as noted above. Cont with keppra.
- Prognosis is dismal.
Chronic HFrEF
- Some evidence of volume overload on CXR, exam, etc - though edema improved from recent according to patient.
- Will continue with higher dose of Lasix for now (40mg daily).
- Follow I/Os, daily weights, etc.
- Adjust diuretic regimen as needed.
Paroxysmal Atrial Fibrillation
- Rates in the low 100s - 120s here
- Continue usual home med regimen including Amio, dig and metoprolol. Due to soft BP limited options and difficult to control HR.
- Monitor on telemetry.
- Not on OAC secondary to recent discovery of hemorrhagic brain metastases.
- Cardiology following
Anxiety / Depression
- Continue PRN Ativan.
DVT Prophylaxis: SCDs
Code Status: DNR/DNI per patient was that he has a living well. Changed in [facility].
Hospice was briefly broached and patient stated he is not ready and would like to continue with chemotherapy regimen. Unclear if patient truly understand his prognosis. Will appreciate oncology further assistance.
Prognosis guarded.
d/w with son at bedside in details
Anticipated Discharge: > 48 hours
Subjective/Interval History
-
Date of Service: February 24, 2024
off oxygen
states breathing has improved
Objective Data
-
Labs:
Laboratory Results
02/24/24 02/24/24
06:07 06:08
WBC 1.4 L*
Hgb 6.8 L*
Hct 20.8 L*
Plt Count 23 L*
Sodium 136
Potassium 4.2
Chloride 97 L
Carbon Dioxide 33 H
BUN 40 H
Creatinine 0.9
Glucose 95
Calcium 8.8
Vital Signs:
Vital Signs
Temp Pulse Resp BP Pulse Ox
97.6 F 123 14 91/65 97
02/24/24 07:20 02/24/24 08:52 02/24/24 08:51 02/24/24 08:52 02/24/24 09:55
I&O
02/23/24 02/24/24 02/25/24
06:59 06:59 06:59
Intake Total 440 / 440
Output Total 700 / 700
Balance -260 / -260
Data Reviewed
-
Total Time Spent with Patient (in minutes): 58
--- NOTE | 2024-02-24 10:42 | W.PN.CD ---
Today's Communication / Plan
-
Heart rates mildly better than they were yesterday. May be in atrial flutter this morning heart rate 118
Continue amiodarone
Continue current dosing of digoxin
Additional treatment of anemia. Hemoglobin 6.8. May get additional heart rate improvement with additional rise in hemoglobin.
PRBCs as directed by hematology/oncology and primary team. Consider additional IV Lasix 20 mg after administration of PRBCs
Impression / Plan
-
shortness of breath and increased cough. May be multifactorial including pneumonia, lung cancer and possible component of heart failure.
-Improved. Appears to be breathing comfortably and was being tried off oxygen this morning.
-Treatment of pneumonia with antibiotics as directed by primary team of note patient is neutropenic.
-Lung cancer management as per oncology.
-Issues related to heart failure and volume management as noted below.
-Continue efforts at rate control A-fib/flutter
-Additional treatment of anemia.
afib wit RVR. challenging to manage on prior in patient admit. For this reason he has been maintained on amiodarone 400 mg daily. Blood pressure limits medical therapy.
-Not on anticoagulation due to brain mets. Patient also now with pancytopenia
-Was in sinus rhythm at recent office visit. Now with A-fib or flutter in the 120s.
-Continue amiodarone at current dosing
-Can continue low-dose digoxin as ordered but need to monitor with use of amiodarone.
-Treat anemia
-Repeat ECG
.
Edema of extremities. Patient had severe edema on recent office visit. Edema extending up to the legs. May be multifactorial some of may be related to heart failure reduced ejection fraction and PAF. Pulse patient has significant invasion of
pulmonary veins which may also be impacting his hemodynamics. As an outpatient patient transiently had Lasix increased to 40 mg twice daily.
-Overall the appearance of edema appears less then most recent visit.
-Continue diuresis with Lasix. Considering blood pressure and concern for ongoing infection we will hold off on additional increase in diuretic but may consider use of IV Lasix later this hospitalization if blood pressure will allow
-Local measures including bilateral Donn wraps.
.
Chronic left heart failure. Patient has a cardiomyopathy and has had issues with left heart failure. Some of his cardiomyopathy may have been precipitated in the past by prolonged periods of A-fib RVR. Recently patient had increased edema as
noted above. Continue with diuretics as noted.
pancytopenia -
- post chemo
- tx per oncology
-Hemoglobin down to 6.8 PRBC as per oncology. May consider additional lasix with PRBC
.
Metastatic lung cancer. Includes metastases to the brain, heart, adrenal gland, liver and retroperitoneum. Extensive lung cancer large lung mass with direct invasion of the heart this includes invasion into the left atrium, right atrium and atrial
septum and pulmonary veins. Patient's had recent chemotherapy
-Poor prognosis
-Patient to be seen by oncology. Primary oncologist is Dr. Hong. Issues reviewed with Dr. Ortiz who will be assessing the patient later today
.
Cardiac mass. Invasion of lung cancer as noted above..
Physical Exam
Vital Signs/Labs
Vital Signs
Temp Pulse Resp BP Pulse Ox
97.6 F 123 14 91/65 97
02/24/24 07:20 02/24/24 08:52 02/24/24 08:51 02/24/24 08:52 02/24/24 09:55
02/23/24 02/24/24 02/25/24
06:59 06:59 06:59
Actual Weight 81.2 kg 81.4 kg
02/24/24 06:07
02/24/24 06:08
PT 14.8 Sec (11.4-14.6) H 02/23/24 12:29
INR 1.18 02/23/24 12:29
APTT 36.1 Sec (23.4-35.0) H 02/23/24 12:29
02/23/24
01:13
Kns-S-Hkytdaxholf Pept 3050
LAB Results
02/23/24
01:13
Troponin I 0.026
Physical Exam
Constitutional: No acute distress
Cardiovascular: Rhythm/rate is irregular
Respiratory: Wheeze Absent, Rhonchi Absent and Other (Decreased breath sounds at bases bilaterally)
GI: Soft and Non tender
Neuro/Psych: Alert and Oriented
Other: Other (Bilateral lower extremity edema seems less with a Donn wraps and elevation but patient does have edema in thighs as well)
Data Reviewed
-
Date of Service: February 24, 2024
EKG: Report Reviewed by me
Medical Tests (PFT, Pathology etc): Report Reviewed by me
Labs: Labs Reviewed by me
--- NOTE | 2024-02-24 11:27 | PN.CDI ---
CDI
- -
CDI:
Physician Documentation Request
Admit Date: 02/23/24 04:33
Dear Doctor Alec,
Please review the following and provide your response in the progress notes.
Clinical Indicators:
PN, 02/23
#Pancytopenia
#Metastatic Lung Cancer
#- Patent with widely metastatic disease including the mediastinum, pericardium, brain, etc.
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
Based on the above, please further specify,the known or suspected etiology of the pancytopenia:
- Antineoplastic chemotherapy induced pancytopenia
- Other drug induced pancytopenia
- Other pancytopenia
Use of terms such as suspected, likely, concern for, or probable (associated with a specific diagnosis that is being evaluated, monitored, or treated as if it exists) are acceptable and can be coded in the inpatient setting, when documented at the
time of discharge.
Thank you,
Raisa Min RN BSN CCDS
CDI Specialist
please contact via tiger text
Please use your independent medical judgment in providing your response.
--- NOTE | 2024-02-24 11:37 | PN.CDI ---
CDI
- -
CDI:
Physician Documentation Request
Admit Date: 02/23/24 04:33
Dear Doctor Alec,
Please review the following and provide your response in the progress notes.
Clinical Indicators:
H+P, 02/22
#Right Sided Pneumonia
#...Possible Aspiration
#- Cover with IV Zosyn for now for possible pneumonia.
PN, 02/23
#Possible Aspiration event
- CXR with Right lower lobe hazy opacity, slightly improved compared to prior study. This is likely related to the large right hilar and right mediastinal mass seen on prior CT dated 01/15/2024, and/or post obstructive atelectasis from the mass.
Small right pleural effusion, likely with some loculation along the right lateral chest wall.
Based on the above, please clarify in the Progress Notes further specificity regarding the known, suspected condition/diagnosis?
Aspiration Pneumonia - indicate substance such as food or vomitus, oils or other solids or liquids
Bacterial Pneumonia
Other type
Use of terms such as suspected, likely, concern for, or probable (associated with a specific diagnosis that is being evaluated, monitored, or treated as if it exists) are acceptable and can be coded in the inpatient setting, when documented at the
time of discharge.
Thank you,
Raisa Min RN BSN CCDS
CDI Specialist
please contact via tiger text
Please use your independent medical judgment in providing your response.
--- NOTE | 2024-02-24 11:44 | PN.CDI ---
CDI
- -
CDI:
Physician Documentation Request
Admit Date: 02/23/24 04:33
Dear Doctor Alec,
Please review the following and provide your response in the progress notes.
Clinical Indicators:
PN, 02/23
#Chronic HFrEF
#...- Some evidence of volume overload on CXR, exam,
#...etc - though edema improved from recent according to patient.
#...- Will continue with higher dose of Lasix for now (40mg daily).
Cardiology, PN, 02/23
#Edema of extremities. Patient had severe edema on recent office visit.
#Edema extending up to the legs.
#May be multifactorial some of may be related to
#...heart failure reduced ejection fraction and PAF.
#...significant invasion of pulmonary veins which may also be impacting his hemodynamics.
#...As an outpatient patient transiently had Lasix increased to 40 mg twice daily.
#...-Continue diuresis with Lasix.
Home Medications
#furosemide 20 mg tablet (Lasix) 20 mg PO DAILY 30 days #30 tabs 01/10/24
Laboratory Tests
02/23/24
01:13
Zjj-U-Hrrpkofubzt Pept 3050
Please clarify the acuity of the documented HFrEF:
Acute on Chronic HFrEF
Chronic HFrEF
Other(please specify)
Use of terms such as suspected, likely, concern for, or probable (associated with a specific diagnosis that is being evaluated, monitored, or treated as if it exists) are acceptable and can be coded in the inpatient setting, when documented at the
time of discharge.
Thank you,
Raisa Min
CDI Specialist
Please use your independent medical judgment in providing your response.
--- NOTE | 2024-02-24 11:49 | PTCARENOTE ---
Assumed care of patient at beginning of this shift from previous RN. H&H 6.8/20.8; T&S sent and one unit of PRBCs currently infusing as per Dr Hong's order(refer to [facility]AR). POx 99% on 2L n/c. POx on RA 94-97% but then 88-91% when sleeping; O2 2L
n/c placed back on patient. OOB to commode x1 assist for BM; denied dizziness. See worklist for full assessment and vital signs; see MAR for med administration. Confirmed with [facility] Schafer cardiology, that patient will be going for a cardiac
cath this afternoon; he remains NPO. Patient denies CP, SOB or dizziness. and daughter at bedside.
--- NOTE | 2024-02-24 11:55 | PTCARENOTE ---
Assumed care of patient at beginning of this shift from previous RN. H&H 6.8/20.8; T&S sent and one unit of PRBCs currently infusing as per Dr Hong's order(refer to [facility]AR). POx 99% on 2L n/c. POx on RA 94-97% but then 88-91% when sleeping; O2 2L
n/c placed back on patient. OOB to commode x1 assist for BM; denied dizziness. See worklist for full assessment and vital signs; see MAR for med administration.
[2024-02-24] MEDS: LANOXIN 62.5 MCG PO (12:38)
--- NOTE | 2024-02-24 14:25 | CM ---
CM met with pt and SO/Tg bedside
Pt residing with his SO in her home at [address] [address]
Rancher with [address]
Pt notes typically independent, has a WW/SPC and shower chair for use as needed
Current with [facility] and has home O2 throug [employer], portable and 3L nocturnal
Pt currently receiving chemo at , next scheduled for 03/09
No insecurities
PT/OT following with SNF recommendations
PAC list provided
Aware SNF will likely require chemo to be on hold during rehab
Hopeful for return home with services
Physicians addressing GOC- not ready for hospice at this time
CM will continue to follow for dc
Discharge Disposition- home with [facility] [place] vs SNF
--- NOTE | 2024-02-24 14:49 | PTCARENOTE ---
PRBCs completed; see TAR. Patient to go to IR for thoracentesis.
--- NOTE | 2024-02-24 14:49 | PTCARENOTE ---
Patient's significant other in to see patient, asked to review meds and stated that his 'memory medication' was not listed. She verified med with their pharmacy: Memantine 10mg bid. Med rec updated and Dr Michael made aware. Also verified dose of
kepra as med rec listed it as 100mg bid. Verified with patient's significant other that dose is 1000mg bid. Both meds orders updated by Dr Michael.
[2024-02-24 16:11] LABS: Body Fluid pH 7.16
[2024-02-24 16:15] LABS: Body Fluid WBC 18 /CUMM
[2024-02-24 16:19] LABS: Body Fluid Protein 4.2 g/dl
[2024-02-24 16:34] LABS: Body Fluid Second Tech EYM
[2024-02-24 16:42] LABS: Body Fluid LDH 4193 U/L
--- NOTE | 2024-02-24 18:52 | PTCARENOTE ---
Patient post thoracentesis; bandaid to area clean, dry and intact.
[2024-02-24] MEDS: NAMENDA 10 MG PO (21:30)
[2024-02-24] MEDS: ATIVAN 0.5 MG PO (21:30)
[2024-02-24] MEDS: KEPPRA 1000 MG PO (21:30)
[2024-02-25] VITALS (22 sets, daily range): BP systolic 93–127; BP diastolic 60–81; PULSE 75–98; O2SAT 94–98; BMI 23.9
[2024-02-25] MEDS: ZOSYN 50 IV ×4 (02:55→20:43)
[2024-02-25 07:07] LABS: Blood Urea Nitrogen 36 mg/dl (9-20); Calcium 9.1 mg/dl (8.4-10.2); Carbon Dioxide 32 mmol/L (22-30); Chloride 94 mmol/L (98-107); Estimated Creatinine Clearance 89 ml/min; Glucose 91 mg/dl (70-99); Potassium 3.9 mmol/L (3.5-5.1); Sodium 134 mmol/L (135-145); eGFR > 60.00
[2024-02-25 07:14] LABS: Hematocrit 24.6 % (39.0-52.0); Mean Corp Hgb Conc. 32.5 g/dL (33.0-37.0); Mean Corpuscular Hgb 29.9 pg (27.0-31.0); Mean Corpuscular Volume 91.8 fL (80.0-94.0); Platelet Count 23 10^3/uL (130-400); Red Blood Cell Count 2.68 10^6/uL (4.70-6.10); Red Cell Dist. Width 21.6 % (11.5-14.5)
[2024-02-25] MEDS: DUONEB 3 ML INH ×4 (07:32→19:58)
[2024-02-25 08:04] LABS: Absolute Neutrophils -Man Diff 3.3 10^3/uL (1.4-6.5)
[2024-02-25 08:05] LABS: Band Neutrophils 6 % (0-3); Lymphocytes 5 % (20-51); Monocytes 3 % (2-9); Segmented Neutrophils 77 % (42-75)
[2024-02-25 08:06] LABS: Hypochromasia Slight; Metamyelocytes 2 % (-); Microcytosis Slight; Myelocytes 7 % (-); Normal RBC Morphology No; Nucleated Red Blood Cells 3 (-); Platelets Checked Yes; Total Cells Counted 100
--- NOTE | 2024-02-25 08:15 | W.PN.PUL3 ---
Today's Communication / Plan
-
Attempted thora, but only able to extract 40cc, would not reattempt this due to loculations/chronicity
Cell count showing non-infectious; pH likely low as seen in malignant fluid, culture prelim neg
Sputum + pseudomonas on zosyn, will need 14 day treatment, but can transition to PO course
Pancytopenia is improving
Stable on RA at this time, could benefit from rehab
Outpatient pulmonary FU recommended
Ongoing cardiac management per team
Can transfer out of IMU
We will sign off at this time, please call with questions
Assessment
-
Patient is a 68-year-old male with previous history of metastatic lung cancer (presumed) to bone, liver, mediastinum; CHF, COPD, A-fib presenting to ER for increased cough and shortness of breath. Chest x-ray demonstrating chronic right sided
effusion, increased compared to prior. This is in the site of his known primary lung mass. Has been actively receiving treatment including palliative radiation with [facility], he is deemed a nonsurgical candidate. He has been taking additional
doses of Lasix for increased lower extremity swelling. On arrival was noted to be pancytopenic, placed on 2 L nasal cannula. We are consulted for eval.
Acute hypoxic respiratory failure
Right-sided pleural effusion cannot exclude PNA/worsening met dz
s/p thora 09/24/23 with 40cc extracted, mostly loculated with septations
Pancytopenia
History of metastatic lung cancer, nonsurgical candidate, palliative radiation treatment
Large left atrial mass/echodensity on ECHO
Pseudomonas + sputum
Conditions present GROUND HAND
Large lung mass: PET/CT with metastatic to liver, adrenal and bone.
Status post percutaneous biopsy 06/20/2023 --nondiagnostic
s/p liver biopsy 07-14-23 by [facility] --poorly differentiated carcinoma, nonspecific, cancer type ID favored to be lung adeno with a 72% probability
Malignant R pleural effusions s/p thora 07/15/23, 1500mL removed -- positive for malignant cells
s/ PORT placement 08/08/23
Atrial fibrillation with rapid ventricular response
Tobacco abuse-likely has COPD.
Chronic heart failure with reduced ejection fraction of 20%
Former ETOH abuse, sober 17 years
Anxiety/depression
Plan
Hypoxemia noted on arrival, placed on 2L NC, now 98% on RA
He not known to be on home O2
Home O2 evaluation eventually
Prior history of lung disease is noted including possible COPD, no PFTs in past for review
Former smoker, quit 1 year ago
Following with Dr Cardona but has not been back/reviewed OP records
Primary lung cancer determined based on 72% chance/following with [place]
Suspect patient has SOB/cough from malignant recurrent R pleural effusion, increased from prior
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
CXR/CT imaging personally reviewed
Can consider therapeutic tap but plts are 27
Previously, post thora son thinks this did help with his breathing
IR consult for tap, attempted 09/24/23 but only 40cc extracted/loculated with septations
Cell count: pH 7.16 - WBC 18 - LDH 4193 - culture prelim neg, likely due to malignancy
Not amenable to repeat tap at this point, patient agrees
Would need chest tube/pleurodesis, aggressive measures which he would not want
Sputum culture showing + pseudomonas
On Zosyn for past 3 days
Can continue 14 day treatment, transition to PO
Pancytopenia noted--improving
Onc eval obtained--correspondence reviewed
Ongoing management
CHF
Prior ECHO results are reviewed indicating EF 30%
Has been taking increased lasix as OP for LE swelling
Continue as tolerated, midodrine PRN
Smoking history noted, quit 1 year ago
Encouraged continued smoking cessation
Will need outpatient pulmonary evaluation in our office for PFTs and 6MWT
Reviewed with patient
Diagnostic Data
Chest X-Ray: 02/23/24- 1. Right lower lobe hazy opacity, slightly improved compared to prior study. This is likely related to the large right hilar and right mediastinal mass seen on prior CT dated 01/15/2024, and/or post obstructive atelectasis from
the mass.
2. Small right pleural effusion, likely with some loculation along the right lateral chest wall.
CT Scan: CAP 01/15/24- 1. Large right lower lobe and right hilar mass measures 14.6 x 11.6 x 8.0 cm, grossly unchanged in size compared to PET/CT dated 12/01/2023.
2. Mass invades the mediastinum, and causes direct invasion of the left atrium. Right pulmonary venous inflow into the left atrium is severely narrowed by the mass. Intra-atrial portion of the mass measures approximately 5 cm in diameter.
3. 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
4. Hepatic metastasis, enlarged compared to prior PET/CT.
5. Bilateral adrenal metastasis.
6. Bilateral retroperitoneal/perirenal metastases, enlarged in size compared to prior PET/CT.
7. Small bilateral pleural effusions. Bibasilar subsegmental atelectasis.
8. Urinary bladder is diffusely thick-walled. Please correlate for symptoms of cystitis.
Echo: 01/08/24- Normal LV size with severely reduced systolic function. LVEF is estimated at approximately 30%. LAD and RCA territory severe hypokinesis/akinesis. Normal right ventricular size and function. Large left atrial mass/echodensity still
present. Limited valvular interrogation. Trivial pericardial effusion. Compared to prior from October 28, 2023, on [id number] comparison overall LVEF is slightly improved from 20% to approximately 30% today and left atrial mass/echodensity appears
to be slightly larger on certain views.
PFT's:
Reports and relevant images were personally reviewed.
Total time spent on this encounter __51__ includes review of history, physical exam, medications, laboratory data, personal review of imaging, extensive review of outpatient records, discussion with care team and respiratory therapy.
Subjective Data
-
Date of Service:
Date of Service: February 25, 2024
Chief Complaint: Pulmonary Follow Up
Subjective:
Has been stable off O2, no new complaints
An attempted yesterday but could not drain more than 40cc
He does not wish to attempt any more
Objective Data
Data Reviewed
Vital Signs / I&O / Oxygen:
Vital Signs
Temp Pulse Resp BP Pulse Ox
98.2 F 91 16 112/72 96
02/25/24 07:47 02/25/24 07:33 02/25/24 07:33 02/25/24 06:00 02/25/24 07:33
Intake and Output
02/24/24 02/25/24 02/26/24
06:59 06:59 06:59
Intake Total 440 / 440 2100 / 2100
Output Total 700 / 700 1075 / 1075
Balance -260 / -260 1025 / 1025
SaO2 96
Nasal Cannula flow liters per 2
minute
Physical Exam
General: Respiratory Distress (Mild dyspnea noted), Comfortable and Other (NAD)
HEENT: Normocephalic, Anicteric and Moist Mucous Membranes
Cardiovascular: S1-S2, Regular Rhythm and Other (PORT in place)
Respiratory: Clear (decreased BS at R base) and Non-Labored Respirations
GI: Soft, Non Distended and Non Tender
Neurology: Awake, Alert, Oriented, AO x 3 and No Motor Deficits
Skin: Warm, Dry and Good Color
Labs/Micro/Reports
Lab Data
02/25/24 06:25
02/25/24 06:25
Microbiology
02/23/24 12:25 Sputum Respiratory Culture - Preliminary
Gram negative bacilli
02/23/24 12:25 Sputum Gram Stain - Preliminary
02/23/24 02:08 Blood/Venous Blood Culture - Preliminary
No Growth in 48 hours- Final report to follow
02/24/24 15:50 Pleural Fluid Gram Stain - Preliminary
02/23/24 15:04 Urine Urine Culture - Final
NO GROWTH
--- NOTE | 2024-02-25 08:17 | W.PN.ONC2 ---
Today's Communication / Plan
-
Blood counts are low but adequate.
Hgb improved from 6.8-8.0 following PRBC transfusion. Platelet count is stable. White blood count is improving.
Impression
Impression
stage IV lung cancer with invasion into myocardium and liver, bone, adrenal, and brain metastasis s/p C2 taxotere 02/16, eflapegrastim 02/17
a/w acute respiratory failure
Pancytopenia
PAF with rapid ventricular response
HFrEF
Restorative goals
Plan
Plan
Patient is stable from my perspective. Discharge home when cleared by other specialist.
Steroid taper per rad onc (for recent SHORTS SIFTER RT), currently dex 1mg/d, continue PPI
Discussed ongoing difficulty treating his cancer - despite chemo, RT, etc, his performance status and QOL has continued to decline. He is now DNR, but has not been agreeable to hospice as of yet.
Patient is scheduled for follow-up with Dr. Hong in preparation for next chemotherapy on 03/10.
Subjective/Objective
Chief Complaint
ACS Heme Onc
Subjective
Patient is sitting in chair. Eating breakfast. Telling me that he wants to go home today.
Vital Signs:
Vital Signs
Temp Pulse Resp BP Pulse Ox
98.2 F 91 16 112/72 96
02/25/24 07:47 02/25/24 07:33 02/25/24 07:33 02/25/24 06:00 02/25/24 07:33
Lab Results:
Laboratory Data
WBC 4.0 10^3/uL (4.8-10.8) L 02/25/24 06:25
Hgb 8.0 g/dL (13.0-18.0) L 02/25/24 06:25
Plt Count 23 10^3/uL (130-400) L* 02/25/24 06:25
PT 14.8 Sec (11.4-14.6) H 02/23/24 12:29
INR 1.18 02/23/24 12:29
APTT 36.1 Sec (23.4-35.0) H 02/23/24 12:29
eGFR > 60.00 02/25/24 06:25
Physical Exam
Cardiology: S1 and S2
Pulmonary: Clear
GI: Soft
[2024-02-25 08:38] LABS: Glucose - Point of Care 87 mg/dl (70-99)
[2024-02-25] MEDS: TOPROL XL 50 MG PO ×2 (08:45→20:42)
[2024-02-25] MEDS: LASIX 40 MG PO (08:45)
[2024-02-25] MEDS: PROTONIX 40 MG PO (08:45)
[2024-02-25] MEDS: KCL 20 MEQ PO (08:45)
[2024-02-25] MEDS: PACERONE 200 MG PO ×2 (08:45→20:43)
[2024-02-25] MEDS: NAMENDA 10 MG PO ×2 (08:45→20:43)
[2024-02-25] MEDS: KEPPRA 1000 MG PO ×2 (08:45→20:44)
[2024-02-25] MEDS: DECADRON 1 MG PO (08:45)
[2024-02-25] MEDS: FOLVITE 1 MG PO (08:45)
--- NOTE | 2024-02-25 09:11 | W.PN.CD ---
Today's Communication / Plan
-
In sinus rhyhtm today
-Continue diuresis with Lasix. will improvement in BP will give addtional lasix today
Impression / Plan
-
shortness of breath and increased cough. May be multifactorial including pneumonia, lung cancer and possible component of heart failure.
-Improved. Appears to be breathing comfortably and was being tried off oxygen this morning.
-Treatment of pneumonia with antibiotics as directed by primary team of note patient is neutropenic.
-Lung cancer management as per oncology.
-Issues related to heart failure and volume management as noted below.
-Additional treatment of anemia.
afib wit RVR. challenging to manage on prior in patient admit. For this reason he has been maintained on amiodarone 400 mg daily. Blood pressure limits medical therapy.
-Not on anticoagulation due to brain mets. Patient also now with pancytopenia
-Was in sinus rhythm at recent office visit. A-fib or flutter in the 120s this admit [facility] spontaneous conversion 02/25/24
-Continue amiodarone at current dosing
-Can continue low-dose digoxin as ordered but need to monitor with use of amiodarone.
-Treat anemia
Edema of extremities. Patient had severe edema on recent office visit. Edema extending up to the legs. May be multifactorial some of may be related to heart failure reduced ejection fraction and PAF. Pulse patient has significant invasion of
pulmonary veins which may also be impacting his hemodynamics. As an outpatient patient transiently had Lasix increased to 40 mg twice daily.
-Overall the appearance of edema appears less then most recent visit.
-Continue diuresis with Lasix. will improvement in BP will give addtional lasix today
-Local measures including bilateral Donn wraps.
.
Chronic left heart failure. Patient has a cardiomyopathy and has had issues with left heart failure. Some of his cardiomyopathy may have been precipitated in the past by prolonged periods of A-fib RVR. Recently patient had increased edema as
noted above. Continue with diuretics as noted.
pancytopenia -
- post chemo
- tx per oncology
-Hemoglobin down to 6.8 PRBC as per oncology. May consider additional lasix with PRBC
.
Metastatic lung cancer. Includes metastases to the brain, heart, adrenal gland, liver and retroperitoneum. Extensive lung cancer large lung mass with direct invasion of the heart this includes invasion into the left atrium, right atrium and atrial
septum and pulmonary veins. Patient's had recent chemotherapy
-Poor prognosis
-Patient to be seen by oncology. Primary oncologist is Dr. Hong. Issues reviewed with Dr. Ortiz who will be assessing the patient later today
.
Cardiac mass. Invasion of lung cancer as noted above..
Physical Exam
Vital Signs/Labs
Vital Signs
Temp Pulse Resp BP Pulse Ox
98.2 F 91 16 116/70 96
02/25/24 07:47 02/25/24 07:33 02/25/24 07:33 02/25/24 08:45 02/25/24 07:33
02/24/24 02/25/24 02/26/24
06:59 06:59 06:59
Actual Weight 81.4 kg 79.7 kg
02/25/24 06:25
02/25/24 06:25
PT 14.8 Sec (11.4-14.6) H 02/23/24 12:29
INR 1.18 02/23/24 12:29
APTT 36.1 Sec (23.4-35.0) H 02/23/24 12:29
02/23/24
01:13
Gur-M-Kcwhzsnwqgi Pept 3050
LAB Results
02/23/24
01:13
Troponin I 0.026
Physical Exam
Constitutional: No acute distress
Cardiovascular: Rhythm & rate is regular
GI: Soft, Non tender and Normal bowel sounds
Neuro/Psych: Alert
Data Reviewed
-
Date of Service: February 25, 2024
Medical Decision Making: Reviewed Test Results
Medical Tests (PFT, Pathology etc): Report Reviewed by me
Labs: Labs Reviewed by me
[2024-02-25] MEDS: LASIX 20 MG IV (10:11)
--- NOTE | 2024-02-25 11:21 | W.PN.HOSP.TC ---
Today's Communication/Plan
-
Normal sinus rhythm
Continue to trend CBC
IV Zosyn
PT OT
Cardiology recs
Assessment / Plan
Assessment / Plan
General: Other (Frail 68y M in no acute distress.)
HEENT: Moist mucous membranes
Respiratory: improvement in rhonchi. No wheezing or rales.
Cardiac: S1/S2, Irregular Rhythm and Tachycardia; No Murmur
GI: Soft, Non Tender, Non Distended and Normal Bowel Sounds
Musculoskeletal: No Clubbing, No Cyanosis and Other (2-3+ pitting edema b/l LEs to the knees-improving
Neuro: AO x 3 and Nonfocal/grossly intact
A/P: Patient is a 68y M with PMH significant for metastatic lung cancer on chemotherapy who presents to ED complaining of increased cough and SOB.
Acute Hypoxemic Respiratory Insufficiency likely secondary to pneumonia bacterial
- CXR with Right lower lobe hazy opacity, slightly improved compared to prior study. This is likely related to the large right hilar and right mediastinal mass seen on prior CT dated 01/15/2024, and/or post obstructive atelectasis from the mass.
Small right pleural effusion, likely with some loculation along the right lateral chest wall.
- Cover with IV Zosyn for now. Blood cultures in lab negative so far.
- Supportive care including nebs, chest PT, Acapella, etc.
- Follow for clinical improvement. Monitor temperature curve, culture data, etc.
- Aspiration precautions / formal Speech evaluation.
- Sputum sample with Pseudomonas. Continue with Zosyn. Can switch to p.o. Cipro Levaquin on discharge.
Dysphagia
-s/p VSE and okay for regular diet.
Pancytopenia likely secondary to recent chemotherapy versus infection
- Chronic anemia
- New neutropenia / thrombocytopenia compared to prior. Fall precaution as with low platelet
- Neutropenic precautions. IV abx as noted above. Blood cultures neg. Urine culture pending. Sputum sample pending.
- Monitor for any evidence of active bleeding - none at present. Fall precautions already in place.
-Transfuse for hemoglobin less than 7. Transfuse for platelets less than 10,000. Status post 1u PRBC.
- Oncology evaluation for additional recommendations - DIC panel ordered.
- Hemoglobin improved to 8. WBC improving. Platelet continues remains low.
Metastatic Lung Cancer
- Patent with widely metastatic disease including the mediastinum, pericardium, brain, liver, adrenal, bone
- Currently on active chemo with last dose Friday and recent XRT ([employer]).
- Continue current steroid dosing - started after recent discovery of SH[employer] STEW[employer] mets. On decadron 1mg daily taper regimen with plan to stop in 5days.
- Oncology evaluation as noted above. Cont with keppra.
- Prognosis is dismal.
Suspected mild acute on chronic HFrEF
- Some evidence of volume overload on CXR, exam, etc - though edema improved from recent according to patient.
- Will continue with higher dose of Lasix for now (40mg daily).
- Follow I/Os, daily weights, etc.
- Adjust diuretic regimen as needed.
Paroxysmal Atrial Fibrillation
- Convert to normal sinus rhythm now.
- Continue usual home med regimen including Amio, dig and metoprolol. Due to soft BP limited options and difficult to control HR.
- Monitor on telemetry.
- Not on OAC secondary to recent discovery of hemorrhagic brain metastases.
- Cardiology following
Anxiety / Depression
- Continue PRN Ativan.
DVT Prophylaxis: SCDs in the setting of severe thrombocytopenia.
Code Status: DNR/DNI per patient was that he has a living well. Changed in [facility].
Hospice was briefly broached and patient stated he is not ready and would like to continue with chemotherapy regimen. Unclear if patient truly understand his prognosis. Will appreciate oncology further assistance.
Prognosis guarded.
Anticipated Discharge: > 48 hours
Subjective/Interval History
-
Date of Service: February 25, 2024
feeling better
converted to NSR
working with PT
Objective Data
-
Labs:
Laboratory Results
02/25/24
06:25
WBC 4.0 L
Hgb 8.0 L
Hct 24.6 L
Plt Count 23 L*
Sodium 134 L
Potassium 3.9
Chloride 94 L
Carbon Dioxide 32 H
BUN 36 H
Creatinine 0.9
Glucose 91
Calcium 9.1
Vital Signs:
Vital Signs
Temp Pulse Resp BP Pulse Ox
98.2 F 101 25 109/64 96
02/25/24 07:47 02/25/24 10:00 02/25/24 10:00 02/25/24 10:00 02/25/24 10:45
I&O
02/24/24 02/25/24 02/26/24
06:59 06:59 06:59
Intake Total 440 / 440 2100 / 2100 530 / 530
Output Total 700 / 700 1075 / 1075 300 / 300
Balance -260 / -260 1025 / 1025 230 / 230
Data Reviewed
-
Total Time Spent with Patient (in minutes): 58
--- NOTE | 2024-02-25 11:27 | PN.CDI ---
CDI
- -
CDI:
Physician Documentation Request
Admit Date: 02/23/24 04:33
Dear Doctor Alec,
Please review the following and provide your response in the progress notes.
Clinical Indicators:
H+P, 02/22
#Right Sided Pneumonia
#...Possible Aspiration
#- Cover with IV Zosyn for now for possible pneumonia.
PN, 02/23
#Possible Aspiration event
- CXR with Right lower lobe hazy opacity, slightly improved compared to prior study. This is likely related to the large right hilar and right mediastinal mass seen on prior CT dated 01/15/2024, and/or post obstructive atelectasis from the mass.
Small right pleural effusion, likely with some loculation along the right lateral chest wall.
02/23/24 12:25 Respiratory Culture - Final
Sputum Gram Stain - Final
Pseudomonas aeruginosa
Based on the above, please clarify in the Progress Notes further specificity regarding the known, suspected condition/diagnosis?
Aspiration Pneumonia - indicate substance such as food or vomitus, oils or other solids or liquids
Bacterial Pneumonia(please specify, ie Pseudomonas Pneumonia, etc.)
Other type
Use of terms such as suspected, likely, concern for, or probable (associated with a specific diagnosis that is being evaluated, monitored, or treated as if it exists) are acceptable and can be coded in the inpatient setting, when documented at the
time of discharge.
Thank you,
Raisa Min RN BSN CCDS
CDI Specialist
please contact via tiger text
Please use your independent medical judgment in providing your response.
[2024-02-25] MEDS: LANOXIN 62.5 MCG PO (12:05)
[2024-02-25] MEDS: NSS 500 IV (22:14)
--- NOTE | 2024-02-25 22:47 | PTCARENOTE ---
Pt received from previous shift in bed. AAOx3, flat affect. Telemetry = SR. Full physical assessment documented (refer to worklist). Sacral foam and small UE foams intact. Pt encouraged to turn/repositon, verbalizes understanding. Donn wraps
removed, SCDs applied. RSubQ port w/NSS at 20 mL/hr Call gaytan within reach, plan of care ongoing.
[2024-02-26] VITALS (13 sets, daily range): BP systolic 98–123; BP diastolic 57–70; PULSE 94–97; BMI 24.1
--- NOTE | 2024-02-26 00:26 | PTCARENOTE ---
Unable to wean O2, pt desatting to mid 80s at times when asleep. NC increased to 3L SpO2 94%. Pt assisted w/repostioning. Waffle cushion placed under sacrum.
[2024-02-26] MEDS: ZOSYN 50 IV ×4 (02:00→20:44)
--- NOTE | 2024-02-26 03:24 | PTCARENOTE ---
assumed care of patient, no changes to previous assessment. pt sleeping at present. care ongoing.
[2024-02-26 05:41] LABS: Hematocrit 23.4 % (39.0-52.0); Hemoglobin 7.4 g/dL (13.0-18.0); Mean Corp Hgb Conc. 31.6 g/dL (33.0-37.0); Mean Corpuscular Hgb 28.6 pg (27.0-31.0); Mean Corpuscular Volume 90.3 fL (80.0-94.0); Platelet Count 22 10^3/uL (130-400); Red Blood Cell Count 2.59 10^6/uL (4.70-6.10); Red Cell Dist. Width 21.2 % (11.5-14.5); White Blood Cell Count 6.7 10^3/uL (4.8-10.8)
--- NOTE | 2024-02-26 05:43 | PTCARENOTE ---
anusha BUTT made aware of critical platelets this AM-22. no active signs of bleeding. no new orders.
[2024-02-26 05:51] LABS: Blood Urea Nitrogen 31 mg/dl (9-20); Calcium 8.6 mg/dl (8.4-10.2); Carbon Dioxide 37 mmol/L (22-30); Chloride 93 mmol/L (98-107); Estimated Creatinine Clearance 89 ml/min; Glucose 72 mg/dl (70-99); Potassium 3.8 mmol/L (3.5-5.1); Sodium 135 mmol/L (135-145); eGFR > 60.00
[2024-02-26] MEDS: DUONEB 3 ML INH ×4 (05:59→19:18)
[2024-02-26 07:54] LABS: Absolute Neutrophils -Man Diff 6.2 10^3/uL (1.4-6.5); Anisocytosis 1+; Band Neutrophils 7 % (0-3); Hypochromasia 1+; Lymphocytes 5 % (20-51); Monocytes 2 % (2-9); Normal RBC Morphology No; Platelets Checked Yes; Polychromasia Slight; Segmented Neutrophils 86 % (42-75); Total Cells Counted 100
[2024-02-26] MEDS: FOLVITE 1 MG PO (08:06)
[2024-02-26] MEDS: DECADRON 1 MG PO (08:06)
[2024-02-26] MEDS: LASIX 40 MG PO (08:06)
[2024-02-26] MEDS: PROTONIX 40 MG PO (08:07)
[2024-02-26] MEDS: NAMENDA 10 MG PO ×2 (08:07→20:45)
[2024-02-26] MEDS: KCL 20 MEQ PO (08:07)
[2024-02-26] MEDS: TOPROL XL 50 MG PO ×2 (08:07→20:45)
[2024-02-26] MEDS: KEPPRA 1000 MG PO ×2 (08:07→20:45)
[2024-02-26] MEDS: PACERONE 200 MG PO ×2 (08:07→20:45)
--- NOTE | 2024-02-26 09:40 | W.PN.ONC2 ---
Today's Communication / Plan
-
Follow CBC, transfuse as needed
The office will follow his counts closely for as needed transfusion support. Patient was advised if he is discharged to follow-up with a CBC on Friday 03/02
Son at bedside provided updates per patient request
Greater than 50% of visit was spent on education, counseling, and coordination of care
Impression
Impression
stage IV lung cancer with invasion into myocardium and liver, bone, adrenal, and brain metastasis s/p C2 taxotere 02/16, eflapegrastim 02/17
a/w acute respiratory failure
Pseudomonas pneumonia
Pancytopenia -neutropenia resolved, continues with thrombocytopenia and anemia
PAF with rapid ventricular response
HFrEF
Restorative goals
Plan
Plan
Patient is stable from my perspective. Discharge home when cleared by other specialist.
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
Ongoing difficulty treating his cancer - despite chemo, RT, etc, his performance status and QOL has continued to decline. He is now DNR, but has not been agreeable to hospice as of yet. Goals remain restorative
Patient is scheduled for follow-up with Dr. Hong in preparation for next chemotherapy on 03/10.
On antibiotics for Pseudomonas pneumonia
Transfuse platelets less than 10,000 or as needed for bleeding. Avoid NSAIDs, antiplatelet, anticoagulation with platelet count less than 50,000
Transfuse packed RBCs for hemoglobin less than 7 or as needed for symptomatic anemia
Subjective/Objective
Chief Complaint
Denies pain
3 L nasal cannula
Neutropenia/leukopenia resolved
Denies overt bleeding
Subjective
No hypotension, afebrile
Vital Signs:
Vital Signs
Temp Pulse Resp BP Pulse Ox
98.2 F 94 16 100/65 94
02/26/24 07:44 02/26/24 07:44 02/26/24 07:44 02/26/24 07:44 02/26/24 07:44
Lab Results:
Laboratory Data
WBC 6.7 10^3/uL (4.8-10.8) 02/26/24 05:19
Hgb 7.4 g/dL (13.0-18.0) L 02/26/24 05:19
Plt Count 22 10^3/uL (130-400) L* 02/26/24 05:19
PT 14.8 Sec (11.4-14.6) H 02/23/24 12:29
INR 1.18 02/23/24 12:29
APTT 36.1 Sec (23.4-35.0) H 02/23/24 12:29
eGFR > 60.00 02/26/24 05:19
Physical Exam
HEENT: Moist Mucous Membranes; No Jaundice
Cardiology: S1 and S2
Pulmonary: Other (diminished)
GI: Soft
Extremities: Other (b/l LE KRISTYN wraps)
Neuro: Non Focal
Review of Systems
Review of Systems
Review of systems notable for subjective, otherwise negative
--- NOTE | 2024-02-26 10:42 | W.PN.HOSP.TC ---
Today's Communication/Plan
-
po abx on dc
Onc recs-persistent low platelet. High risk of bleeding
prognosis poor
trend cbc
Assessment / Plan
Assessment / Plan
General: Other (Frail 68y M in no acute distress.)
HEENT: Moist mucous membranes
Respiratory: improvement in rhonchi. No wheezing or rales.
Cardiac: S1/S2, Irregular Rhythm and Tachycardia; No Murmur
GI: Soft, Non Tender, Non Distended and Normal Bowel Sounds
Musculoskeletal: No Clubbing, No Cyanosis and Other (2-3+ pitting edema b/l LEs to the knees-improving
Neuro: AO x 3 and Nonfocal/grossly intact
A/P: Patient is a 68y M with PMH significant for metastatic lung cancer on chemotherapy who presents to ED complaining of increased cough and SOB.
Acute Hypoxemic Respiratory Insufficiency likely secondary to pneumonia bacterial
- CXR with Right lower lobe hazy opacity, slightly improved compared to prior study. This is likely related to the large right hilar and right mediastinal mass seen on prior CT dated 01/15/2024, and/or post obstructive atelectasis from the mass.
Small right pleural effusion, likely with some loculation along the right lateral chest wall.
- Cover with IV Zosyn for now. Blood cultures in lab negative so far.
- Supportive care including nebs, chest PT, Acapella, etc.
- Follow for clinical improvement. Monitor temperature curve, culture data, etc.
- Aspiration precautions / formal Speech evaluation.
- Sputum sample with Pseudomonas. Continue with Zosyn. Can switch to p.o. Cipro Levaquin on discharge.
Dysphagia
-s/p VSE and okay for regular diet.
Pancytopenia likely secondary to recent chemotherapy versus infection
- Chronic anemia
- New neutropenia / thrombocytopenia compared to prior. Fall precaution as with low platelet
- Neutropenic precautions. IV abx as noted above. Blood cultures neg. Urine culture pending. Sputum sample pending.
- Monitor for any evidence of active bleeding - none at present. Fall precautions already in place.
-Transfuse for hemoglobin less than 7. Transfuse for platelets less than 10,000. Status post 1u PRBC.
- Hemoglobin downtrended to 7.4 Platelet low at 22k. Trend cbc. May need transfusion. Await further Onc recs.
Metastatic Lung Cancer
- Patent with widely metastatic disease including the mediastinum, pericardium, brain, liver, adrenal, bone
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 On decadron 1mg daily taper regimen with plan to stop in 5days.
- Oncology evaluation as noted above. Cont with keppra.
- Prognosis is dismal.
Suspected mild acute on chronic HFrEF
- Some evidence of volume overload on CXR, exam, etc - though edema improved from recent according to patient.
- Will continue with higher dose of Lasix for now (40mg daily).
- Follow I/Os, daily weights, etc.
- Adjust diuretic regimen as needed.
Paroxysmal Atrial Fibrillation
- Convert to normal sinus rhythm now.
- Continue usual home med regimen including Amio, dig and metoprolol. Due to soft BP limited options and difficult to control HR.
- Monitor on telemetry.
- Not on OAC secondary to recent discovery of hemorrhagic brain metastases.
- Cardiology following
Anxiety / Depression
- Continue PRN Ativan.
DVT Prophylaxis: SCDs in the setting of severe thrombocytopenia.
Code Status: DNR/DNI per patient was that he has a living well. Changed in [employer].
Hospice was briefly broached and patient stated he is not ready and would like to continue with chemotherapy regimen. Unclear if patient truly understand his prognosis. Will appreciate oncology further assistance.
Prognosis guarded.
d/w wtih son at bedside
tx out of IMU
Anticipated Discharge: Within 24 hours
Subjective/Interval History
-
Date of Service: February 26, 2024
states improvement in breathing
Objective Data
-
Labs:
Laboratory Results
02/26/24
05:19
WBC 6.7
Hgb 7.4 L
Hct 23.4 L
Plt Count 22 L*
Sodium 135
Potassium 3.8
Chloride 93 L
Carbon Dioxide 37 H
BUN 31 H
Creatinine 0.9
Glucose 72
Calcium 8.6
Vital Signs:
Vital Signs
Temp Pulse Resp BP Pulse Ox
98.2 F 94 16 100/65 94
02/26/24 07:44 02/26/24 07:44 02/26/24 07:44 02/26/24 07:44 02/26/24 07:44
I&O
02/25/24 02/26/24 02/27/24
06:59 06:59 06:59
Intake Total 2100 / 2100 1280 / 1280
Output Total 1075 / 1075 1400 / 1400 350 / 350
Balance 1025 / 1025 -120 / -120 -350 / -350
[2024-02-26] MEDS: LANOXIN 62.5 MCG PO (11:30)
--- NOTE | 2024-02-26 14:30 | TRANSFER ---
Report given to Vianca transferred to [id number] via monitored stretcher.
--- NOTE | 2024-02-26 15:00 | PTCARENOTE ---
1410 Pt received from IMU via stretcher. Pt assisted to bed with assist of 2 and walker. Significant other at bedside. Pt oriented to staff, environment and call light system. All personal items and call light within reach.
[2024-02-27] VITALS (11 sets, daily range): BP systolic 84–115; BP diastolic 56–72; BMI 23.7
--- NOTE | 2024-02-27 01:53 | PTCARENOTE ---
Pt received from previous RN. this RN spoke to patients , she was calling to say claudia and check in if there were any updates. Pt drowsy but arousable to voice, oriented x3. Pt afib on the monitor. Pt on 5L 02, sat 95%. Pt took HS pills with
water,one at a time, swallow in tact. Pt using urinal to void. Denies further needs at this time. Call light in reach.
[2024-02-27] MEDS: NSS 500 IV (02:36)
[2024-02-27] MEDS: ZOSYN 50 IV ×4 (02:36→20:16)
[2024-02-27 05:00] LABS: Blood Urea Nitrogen 27 mg/dl (9-20); Calcium 8.8 mg/dl (8.4-10.2); Carbon Dioxide 35 mmol/L (22-30); Chloride 94 mmol/L (98-107); Estimated Creatinine Clearance 89 ml/min; Glucose 77 mg/dl (70-99); Hematocrit 24.2 % (39.0-52.0); Hemoglobin 7.8 g/dL (13.0-18.0); Mean Corp Hgb Conc. 32.2 g/dL (33.0-37.0); Mean Corpuscular Hgb 29.4 pg (27.0-31.0); Mean Corpuscular Volume 91.3 fL (80.0-94.0); Platelet Count 25 10^3/uL (130-400); Potassium 3.7 mmol/L (3.5-5.1); Red Blood Cell Count 2.65 10^6/uL (4.70-6.10); Red Cell Dist. Width 20.8 % (11.5-14.5); Sodium 135 mmol/L (135-145); White Blood Cell Count 9.9 10^3/uL (4.8-10.8); eGFR > 60.00
[2024-02-27 07:07] LABS: Anisocytosis 1+; Band Neutrophils 0 % (0-3); Lymphocytes 2 % (20-51); Metamyelocytes 1 % (-); Monocytes 6 % (2-9); Normal RBC Morphology No; Platelets Checked Yes; Segmented Neutrophils 91 % (42-75)
[2024-02-27 07:08] LABS: Hypochromasia 1+; Ovalocytes Slight; Total Cells Counted 100
[2024-02-27] MEDS: DUONEB 3 ML INH ×4 (07:11→20:02)
--- NOTE | 2024-02-27 08:34 | W.PN.ONC2 ---
Today's Communication / Plan
-
CBC with differential weekly upon discharge
OP f/u with Dr. Hong 03/10
Impression
Impression
stage IV lung cancer with invasion into myocardium and liver, bone, adrenal, and brain metastasis s/p C2 taxotere 02/16, eflapegrastim 02/17
a/w acute respiratory failure
Pseudomonas pneumonia
Pancytopenia -neutropenia resolved, continues with thrombocytopenia and anemia
PAF with rapid ventricular response
HFrEF
Restorative goals
Plan
Plan
Patient is stable from my perspective. Discharge home when cleared by other specialist.
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
Ongoing difficulty treating his cancer - despite chemo, RT, etc, his performance status and QOL has continued to decline. He is now DNR, but has not been agreeable to hospice as of yet. Goals remain restorative
Patient is scheduled for follow-up with Dr. Hong in preparation for next chemotherapy on 03/10.
On antibiotics for Pseudomonas pneumonia
Transfuse platelets less than 10,000 or as needed for bleeding. Avoid NSAIDs, antiplatelet, anticoagulation with platelet count less than 50,000
Transfuse packed RBCs for hemoglobin less than 7 or as needed for symptomatic anemia
Subjective/Objective
Chief Complaint
no new complaints
Subjective
no new complaints
denies bleeding
Vital Signs:
Vital Signs
Temp Pulse Resp BP Pulse Ox
98.2 F 106 20 115/63 90
02/27/24 07:40 02/27/24 07:40 02/27/24 07:40 02/27/24 07:40 02/27/24 07:40
Lab Results:
Laboratory Data
WBC 9.9 10^3/uL (4.8-10.8) 02/27/24 04:18
Hgb 7.8 g/dL (13.0-18.0) L 02/27/24 04:18
Plt Count 25 10^3/uL (130-400) L* 02/27/24 04:18
PT 14.8 Sec (11.4-14.6) H 02/23/24 12:29
INR 1.18 02/23/24 12:29
APTT 36.1 Sec (23.4-35.0) H 02/23/24 12:29
eGFR > 60.00 02/27/24 04:18
Physical Exam
Gen chronically ill
HEENT: Moist Mucous Membranes; No Jaundice
Cardiology: S1 and S2
Pulmonary: Other (diminished)
GI: Soft
Neuro: Non Focal
Review of Systems
Review of Systems
ROS notable for subjective, otherwise negative
[2024-02-27] MEDS: NAMENDA 10 MG PO ×2 (09:31→20:15)
[2024-02-27] MEDS: PACERONE 200 MG PO ×2 (09:31→20:14)
[2024-02-27] MEDS: PROTONIX 40 MG PO (09:31)
[2024-02-27] MEDS: LASIX 40 MG PO (09:31)
[2024-02-27] MEDS: FOLVITE 1 MG PO (09:31)
[2024-02-27] MEDS: KCL 20 MEQ PO (09:31)
[2024-02-27] MEDS: TOPROL XL 50 MG PO ×2 (09:32→20:14)
[2024-02-27] MEDS: KEPPRA 1000 MG PO ×2 (09:32→20:15)
[2024-02-27] MEDS: DECADRON 1 MG PO (09:32)
--- NOTE | 2024-02-27 11:26 | CM ---
Case management following for discharge planning
PT recs SNF. Met with pt and family member at bedside
Discussed SNF options - requesting referrals be sent to [facility] and [facility]
Referrals sent in [facility]
Plan - transfer to SNF when bed obtained and medically ready
--- NOTE | 2024-02-27 12:28 | W.PN.HOSP.TC ---
Today's Communication/Plan
-
Case management for placement
Family agrees
Wean O2 to baseline
Continue with IV antibiotics
Trend CBC
Prognosis severely guarded
Assessment / Plan
Assessment / Plan
General: Other (Frail 68y M in no acute distress.)
HEENT: Moist mucous membranes
Respiratory: improvement in rhonchi. No wheezing or rales. oxygen
Cardiac: S1/S2, Irregular Rhythm and Tachycardia; No Murmur
GI: Soft, Non Tender, Non Distended and Normal Bowel Sounds
Musculoskeletal: No Clubbing, No Cyanosis and Other (2-3+ pitting edema b/l LEs to the knees-improving
Neuro: AO x 3 and Nonfocal/grossly intact
A/P: Patient is a 68y M with PMH significant for metastatic lung cancer on chemotherapy who presents to ED complaining of increased cough and SOB.
Acute on chronic hypoxemic Respiratory Insufficiency likely secondary to pneumonia bacterial
Chronic hypoxic respiratory insufficiency uses O2 at home on 3 L
- CXR with Right lower lobe hazy opacity, slightly improved compared to prior study. This is likely related to the large right hilar and right mediastinal mass seen on prior CT dated 01/15/2024, and/or post obstructive atelectasis from the mass.
Small right pleural effusion, likely with some loculation along the right lateral chest wall.
- Cover with IV Zosyn for now. Blood cultures in lab negative so far.
- Supportive care including nebs, chest PT, Acapella, etc.
- Follow for clinical improvement. Monitor temperature curve, culture data, etc.
- Aspiration precautions / formal Speech evaluation.
- Sputum sample with Pseudomonas. Continue with Zosyn. Can switch to p.o. on discharge.
- Also with history of radiation fibrosis per recent CAT scan.
Dysphagia
-s/p VSE and okay for regular diet.
Pancytopenia likely secondary to recent chemotherapy versus infection
- Chronic anemia
- New neutropenia / thrombocytopenia compared to prior. Fall precaution as with low platelet
- Neutropenic precautions. IV abx as noted above. Blood cultures neg. Urine culture pending. Sputum sample pending.
- Monitor for any evidence of active bleeding - none at present. Fall precautions already in place.
-Transfuse for hemoglobin less than 7. Transfuse for platelets less than 10,000. Status post 1u PRBC.
- Hemoglobin 7.8 and platelets remains at 24K. Understand fall and bleeding precautions.
Metastatic Lung Cancer
- Patent with widely metastatic disease including the mediastinum, pericardium, brain, liver, adrenal, bone
- Currently on active chemo with last dose Friday and recent XRT (FIBERGLASS LAMINATOR).
- Continue current steroid dosing - started after recent discovery of FIBERGLASS LAMINATOR mets. On decadron 1mg daily taper regimen with plan to stop in 5days.
- Oncology evaluation as noted above. Cont with keppra.
- Prognosis is dismal.
Suspected mild acute on chronic HFrEF
- Some evidence of volume overload on CXR, exam, etc - though edema improved from recent according to patient.
- Will continue with higher dose of Lasix for now (40mg daily).
- Follow I/Os, daily weights, etc.
- Adjust diuretic regimen as needed.
Paroxysmal Atrial Fibrillation
- Convert to normal sinus rhythm now.
- Continue usual home med regimen including Amio, dig and metoprolol. Due to soft BP limited options and difficult to control HR.
- Monitor on telemetry.
- Not on OAC secondary to recent discovery of hemorrhagic brain metastases.
- Cardiology following
Anxiety / Depression
- Continue PRN Ativan.
DVT Prophylaxis: SCDs in the setting of severe thrombocytopenia.
Code Status: DNR/DNI per patient was that he has a living well. Changed in [facility].
Hospice was briefly broached and patient stated he is not ready and would like to continue with chemotherapy regimen. Unclear if patient truly understand his prognosis. Will appreciate oncology further assistance.
Prognosis guarded.
Discussed with significant other at bedside in details. Once again CODE STATUS was discussed and patient was to continue with DNR/DNI and significant other agreed to respect patient wishes.
Family wants to discuss with oncology about further prognosis.
Would benefit from placement to rehab. Case management aware.
Discussed with RN
Anticipated Discharge: Within 24 hours
Subjective/Interval History
-
Date of Service: February 27, 2024
O2 requirement went up to 4l
wants LE lynda wrapped
Objective Data
-
Labs:
Laboratory Results
02/27/24
04:18
WBC 9.9
Hgb 7.8 L
Hct 24.2 L
Plt Count 25 L*
Sodium 135
Potassium 3.7
Chloride 94 L
Carbon Dioxide 35 H
BUN 27 H
Creatinine 0.9
Glucose 77
Calcium 8.8
Vital Signs:
Vital Signs
Temp Pulse Resp BP Pulse Ox
98.2 F 117 20 115/63 92
02/27/24 07:40 02/27/24 11:29 02/27/24 11:29 02/27/24 07:40 02/27/24 11:29
I&O
02/26/24 02/27/24 02/28/24
06:59 06:59 06:59
Intake Total 1280 / 1280 1460 / 1460 480 / 480
Output Total 1400 / 1400 1800 / 1800 450 / 450
Balance -120 / -120 -340 / -340
Data Reviewed
-
Total Time Spent with Patient (in minutes): 58
[2024-02-27] MEDS: NSS 250 IV (12:48)
[2024-02-27] MEDS: LANOXIN 62.5 MCG PO ×2 (12:48→14:25)
[2024-02-27] MEDS: ProAmatine 10 MG PO (12:48)
--- NOTE | 2024-02-27 13:41 | W.PN.CD ---
Today's Communication / Plan
-
Patient's had issues with recurrent A-fib with RVR. Due to his advanced metastatic cancer including invasion of the atria it is very difficult to keep him in rhythm. Blood pressure also limits rate control.
-Will continue current dosing of amiodarone
-Mild adjustment of digoxin dosing but will need to monitor levels. Use of amiodarone increase his digoxin.
-Would favor additional treatment of anemia which also may help with rate control will defer to primary team and oncology regarding this.
I reviewed issues with the patient. CODE STATUS is DNR I think at 1 point he was rethinking this decision I told him considering his medical issues that I think remaining DNR would be a reasonable decision. I also asked if he was thinking about
hospice which I know has been brought up to him. Still sounds like he is not ready to commit to hospice although I did tell him that hospice cyst would be also be a reasonable decision based on his condition. I note patient will look for continued
input from oncology regarding these decisions on his overall treatment plan and level of care.
Impression / Plan
-
shortness of breath
-Acute on chronic
-Patient initially treated with antibiotics for pneumonia..
-Lung cancer management as per oncology.
-Continue diuretic treatment of heart failure
-Continued anemia.
afib wit RVR. challenging to manage on prior in patient admit. For this reason he has been maintained on amiodarone 400 mg daily. Blood pressure limits medical therapy.
-Not on anticoagulation due to brain mets. Patient also now with pancytopenia
-Was in sinus rhythm at recent office visit. A-fib or flutter in the 120s this admit [facility] spontaneous conversion 02/25/24
-A-fib has recurred with some accelerated rates.
-Limited rate control options would increase digoxin to 0.125 mg daily. Will check level tomorrow morning and then we will check another 1 in 4 days and then again in 2 weeks.
-Additional treatment of anemia may also help with heart rate control.
-Can continue low-dose digoxin as ordered but need to monitor with use of amiodarone.
-Treat anemia
Edema of extremities. Patient had severe edema on recent office visit. Edema extending up to the legs. May be multifactorial some of may be related to heart failure reduced ejection fraction and PAF. Pulse patient has significant invasion of
pulmonary veins which may also be impacting his hemodynamics. As an outpatient patient transiently had Lasix increased to 40 mg twice daily.
-Overall the appearance of edema appears less then most recent visit.
-Continue diuresis with Lasix. will improvement
-Local measures including bilateral Donn wraps.
.
Chronic left heart failure. Patient has a cardiomyopathy and has had issues with left heart failure. Some of his cardiomyopathy may have been precipitated in the past by prolonged periods of A-fib RVR. Recently patient had increased edema as
noted above. Continue with diuretics as noted.
pancytopenia -
- post chemo
- tx per oncology
-Hemoglobin down to 6.8 PRBC as per oncology. May consider additional lasix with PRBC
.
Metastatic lung cancer. Includes metastases to the brain, heart, adrenal gland, liver and retroperitoneum. Extensive lung cancer large lung mass with direct invasion of the heart this includes invasion into the left atrium, right atrium and atrial
septum and pulmonary veins. Patient's had recent chemotherapy
-Poor prognosis
-Patient to be seen by oncology. Primary oncologist is Dr. Hong. Issues reviewed with Dr. Ortiz who will be assessing the patient later today
.
Cardiac mass. Invasion of lung cancer as noted above..
Physical Exam
Vital Signs/Labs
Vital Signs
Temp Pulse Resp BP Pulse Ox
98.1 F 131 22 89/56 90
02/27/24 12:00 02/27/24 12:00 02/27/24 12:00 02/27/24 12:00 02/27/24 12:00
02/26/24 02/27/24 02/28/24
06:59 06:59 06:59
Actual Weight 80.4 kg 79.067 kg
02/27/24 04:18
02/27/24 04:18
PT 14.8 Sec (11.4-14.6) H 02/23/24 12:29
INR 1.18 02/23/24 12:29
APTT 36.1 Sec (23.4-35.0) H 02/23/24 12:29
02/23/24
01:13
Okp-F-Umwmlxhlplj Pept 3050
Physical Exam
Constitutional: Other (Appears chronically ill appeared quite short of breath when he just transition from the chair back into bed and then after I sat and talked with him for a while his breathing stabilized and he appeared comfortable on 4 L.)
Cardiovascular: Rhythm/rate is irregular
Respiratory: Other (Decreased breath sounds at bases no wheezes)
GI: Soft
Neuro/Psych: Alert
Other: Other
Data Reviewed
-
Date of Service: February 27, 2024
[2024-02-27] MEDS: PEPCID 20 MG IV (14:23)
[2024-02-27] MEDS: COMPAZINE 10 MG IV (14:25)
--- NOTE | 2024-02-27 14:31 | W.PN.UPDATE ---
Update Note
Progress Note Update
States over severe nausea and vomiting now. With severely decreased appetite. Patient converted atrial fibrillation with rapid ventricular response with mild hypotension. Gave patient 250 cc IV fluid bolus. Midodrine. Cardiology evaluated the
patient. Discussed with cardiology and recommending treatment for anemia. Will order 1 unit of PRBC. Digoxin dose increased. Will need to transfer to IMU. Discussed with patient and significant other at bedside in detail.
I spent additional 30 minutes with the patient or on the floor. More than 50% of this time involved counseling and coordination of care.
[2024-02-27] MEDS: TYLENOL 1000 MG PO (16:31)
[2024-02-27] MEDS: ProAmatine 5 MG PO (17:22)
--- NOTE | 2024-02-27 17:32 | PTCARENOTE ---
Pt ordered 1 unit PRBC during shift as well as order to be transferred to IMU for hypotension. Vitals before transfusion BP 97/58 HR 122 RR 20 T 99.7 POX 93% 3L. At 15 minutes into transfusion BP 99/62 HR 112 RR 20 T 101.0 POX 85% 3L. Transfusion
stopped, aware, OK to continue transfusion and Tylenol ordered. Call placed to IMU to give report, report given to RN that would resume care. Pt transferred to IMU with blood transfusing.
--- NOTE | 2024-02-27 17:47 | PTCARENOTE ---
Received into 3344- AF 120s on tele, BP 85/61 (67) , 91% on 5L NC, skin hot / dry flushed cheeks- had fever and Tylenol administered on prior unit. PRBC infusing via RSC Port - Midodrine administered. AAOx3, drowsy. , has a strong PC.
Currently BP 91/71, rates remain 120. at bedside.
--- NOTE | 2024-02-27 19:34 | PTCARENOTE ---
Completed PRBC, fever resolved. BP 99/71
[2024-02-28] VITALS (15 sets, daily range): BP systolic 87–124; BP diastolic 55–82; BMI 23.5
[2024-02-28] MEDS: ZOSYN 50 IV ×4 (02:18→20:41)
[2024-02-28 05:32] LABS: Hemoglobin 9.2 g/dL (13.0-18.0); Mean Corp Hgb Conc. 32.9 g/dL (33.0-37.0); Mean Corpuscular Hgb 31.1 pg (27.0-31.0); Mean Corpuscular Volume 94.6 fL (80.0-94.0); Platelet Count 32 10^3/uL (130-400); Red Blood Cell Count 2.96 10^6/uL (4.70-6.10); Red Cell Dist. Width 19.9 % (11.5-14.5); White Blood Cell Count 11.2 10^3/uL (4.8-10.8)
[2024-02-28 05:52] LABS: Digoxin < 0.4 ng/ml (0.8-2.0)
[2024-02-28 06:23] LABS: % Basophils 0.6 % (0-2); % Immature Granulocytes 7.6 % (0-0.5); % Monocytes 2.9 % (1.7-9.3); % Neutrophils 86.9 % (42.2-75.2); Absolute Basophils 0.1 10^3/uL (0-0.2); Absolute Immature Granulocytes 0.9 10^3/uL (0-0.05); Absolute Lymphocytes 0.2 10^3/uL (1.2-3.4); Absolute Monocytes 0.3 10^3/uL (0.1-0.6); Absolute Neutrophils 9.7 10^3/uL (1.4-6.5); Nucleated Red Blood Cells % 0.4 % (-)
[2024-02-28] MEDS: DUONEB 3 ML INH ×3 (07:47→19:53)
[2024-02-28] MEDS: TOPROL XL PO (09:20)
[2024-02-28] MEDS: KCL PO (09:21)
[2024-02-28] MEDS: PROTONIX PO (09:21)
[2024-02-28] MEDS: FOLVITE PO (09:21)
[2024-02-28] MEDS: ProAmatine PO (09:21)
[2024-02-28] MEDS: PACERONE PO (09:22)
[2024-02-28] MEDS: DECADRON 1 MG PO (09:22)
[2024-02-28] MEDS: NAMENDA PO (09:22)
[2024-02-28] MEDS: KEPPRA PO (09:22)
--- NOTE | 2024-02-28 09:26 | W.PN.CD ---
Today's Communication / Plan
-
Some increased O2 requirements noted on 02/28/2024 likely multifactorial. Patient did receive PRBC and additional volume yesterday. For this reason I will give additional IV Lasix now. Would also repeat chest x-ray. Including assessment for
pneumonia, heart failure or worsening pleural effusion. Patient previously had thoracentesis
I did review issues with oncology today. Defer to oncology regarding plans for treatment of his malignancy and also assisting with goals of care.
Impression / Plan
-
shortness of breath
-Acute on chronic
-Patient initially treated with antibiotics for pneumonia..
-Lung cancer management as per oncology.
-Some increased O2 requirements noted on 02/28/2024 likely multifactorial. Patient did receive PRBC and additional volume yesterday. For this reason I will give additional IV Lasix now. Would also repeat chest x-ray
afib wit RVR. challenging to manage on prior in patient admit. For this reason he has been maintained on amiodarone 400 mg daily. Blood pressure limits medical therapy.
-Not on anticoagulation due to brain mets. Patient also now with pancytopenia
-Was in sinus rhythm at recent office visit. A-fib or flutter in the 120s this admit wih spontaneous conversion 02/25/24
-A-fib has recurred with some accelerated rates.
-Limited rate control options would increase digoxin to 0.125 mg daily. Will check level tomorrow morning and then we will check another 1 in 4 days and then again in 2 weeks.
-Additional treatment of anemia may also help with heart rate control.
-Can continue low-dose digoxin as ordered but need to monitor with use of amiodarone.
-Treat anemia
Edema of extremities. Patient had severe edema on recent office visit. Edema extending up to the legs. May be multifactorial some of may be related to heart failure reduced ejection fraction and PAF. Pulse patient has significant invasion of
pulmonary veins which may also be impacting his hemodynamics. As an outpatient patient transiently had Lasix increased to 40 mg twice daily.
-Overall the appearance of edema appears less then most recent visit.
-Continue diuresis with Lasix. will improvement
-Local measures including bilateral Donn wraps.
.
Chronic left heart failure. Patient has a cardiomyopathy and has had issues with left heart failure. Some of his cardiomyopathy may have been precipitated in the past by prolonged periods of A-fib RVR.
-Patient may have component of acute on chronic heart failure with increased O2 requirement on 02/28/2024 although increased requirements may be multifactorial related to underlying lung cancer. Earlier in hospitalization pneumonia was a
consideration. Would reassess with chest x-ray issues related to diuretics as noted above
pancytopenia -
- post chemo
- tx per oncology
-Hemoglobin down to 6.8 PRBC as per oncology. May consider additional lasix with PRBC
.
Metastatic lung cancer. Includes metastases to the brain, heart, adrenal gland, liver and retroperitoneum. Extensive lung cancer large lung mass with direct invasion of the heart this includes invasion into the left atrium, right atrium and atrial
septum and pulmonary veins. Patient's had recent chemotherapy
-Poor prognosis
-Patient to be seen by oncology. Primary oncologist is Dr. Hong. Issues reviewed with Dr. Ortiz who will be assessing the patient later today
.
Cardiac mass. Invasion of lung cancer as noted above..
Physical Exam
Vital Signs/Labs
Vital Signs
Temp Pulse Resp BP Pulse Ox
98.6 F 114 29 118/78 92
02/28/24 02:20 02/28/24 08:00 02/28/24 08:00 02/28/24 08:00 02/28/24 08:17
02/27/24 02/28/24 02/29/24
06:59 06:59 06:59
Actual Weight 79.067 kg 78.6 kg
02/28/24 04:51
02/27/24 04:18
PT 14.8 Sec (11.4-14.6) H 02/23/24 12:29
INR 1.18 02/23/24 12:29
APTT 36.1 Sec (23.4-35.0) H 02/23/24 12:29
Digoxin < 0.4 ng/ml (0.8-2.0) L 02/28/24 04:51
02/23/24
01:13
Dcy-J-Whewcubkart Pept 3050
Physical Exam
Constitutional: Other (Depressed mood just appears uncomfortable. Respiratory status appears stable on 6 L)
Cardiovascular: Rhythm/rate is irregular (Tachycardic)
Respiratory: Other (Decreased at bases bilaterally)
GI: Soft and Normal bowel sounds
Neuro/Psych: Alert, Oriented and AO x 3
Data Reviewed
-
Date of Service: February 28, 2024
Medical Decision Making: Reviewed Test Results
Medical Tests (PFT, Pathology etc): Report Reviewed by me
Labs: Labs Reviewed by me
[2024-02-28] MEDS: LASIX PO ×2 (09:29→10:01)
[2024-02-28] MEDS: KCL 20 MEQ PO (09:42)
[2024-02-28] MEDS: PROTONIX 40 MG PO (09:42)
[2024-02-28] MEDS: ATIVAN 0.5 MG PO ×2 (09:42→17:34)
[2024-02-28] MEDS: PACERONE 200 MG PO ×2 (09:42→20:42)
[2024-02-28] MEDS: KEPPRA 1000 MG PO ×2 (09:43→20:42)
[2024-02-28] MEDS: NAMENDA 10 MG PO ×2 (09:43→20:44)
[2024-02-28] MEDS: TOPROL XL 50 MG PO ×2 (09:43→20:46)
[2024-02-28] MEDS: FOLVITE 1 MG PO (09:43)
[2024-02-28] MEDS: ProAmatine 5 MG PO ×3 (09:44→17:32)
[2024-02-28] MEDS: MIRALAX 17 GRAMS PO (09:44)
[2024-02-28] MEDS: LASIX 40 MG IV (09:45)
--- NOTE | 2024-02-28 10:14 | W.PN.HOSP.TC ---
Today's Communication/Plan
-
Repeat chest x-ray
Agree with IV Lasix
Trend CBC
Continue IV antibiotic
Oncology recs
Prognosis guarded
Assessment / Plan
Assessment / Plan
General: chronically Ill appearing,
HEENT: Moist mucous membranes
Respiratory: worsening of rhonchi, on midflow 7L
Cardiac: S1/S2, Irregular Rhythm and Tachycardia; No Murmur
GI: Soft, Non Tender, Non Distended and Normal Bowel Sounds
Musculoskeletal: No Clubbing, No Cyanosis and Other (2-3+ pitting edema b/l LEs to the knees-improving
Neuro: AO x 3 and Nonfocal/grossly intact
Psych-calm
A/P: Patient is a 68y M with PMH significant for metastatic lung cancer on chemotherapy who presents to ED complaining of increased cough and SOB
Acute on chronic hypoxemic Respiratory failure likely secondary to pneumonia bacterial and iatrogenic fluid overload secondary to blood transfusion and mild acute on chronic HFrEF and lung cancer
Chronic hypoxic respiratory insufficiency uses O2 at home on 3 L
- CXR with Right lower lobe hazy opacity, slightly improved compared to prior study. This is likely related to the large right hilar and right mediastinal mass seen on prior CT dated 01/15/2024, and/or post obstructive atelectasis from the mass.
Small right pleural effusion, likely with some loculation along the right lateral chest wall.
- Cover with IV Zosyn for now. Blood cultures in lab negative so far.
- Supportive care including nebs, chest PT, Acapella, etc.
- Follow for clinical improvement. Monitor temperature curve, culture data, etc.
- Sputum sample with Pseudomonas. Continue with Zosyn.
- Also with history of radiation fibrosis per recent CAT scan.
- Repeat chest x-ray. Additional dose of IV Lasix.
Dysphagia
-s/p VSE and okay for regular diet.
Pancytopenia likely secondary to recent chemotherapy versus infection
- Chronic anemia
- New neutropenia / thrombocytopenia compared to prior. Fall precaution as with low platelet
- Neutropenic precautions. IV abx as noted above. Blood cultures neg. Urine culture pending. Sputum sample pending.
- Monitor for any evidence of active bleeding - none at present. Fall precautions already in place.
-Transfuse for hemoglobin less than 7. Transfuse for platelets less than 10,000. Status post 1u PRBC.
- Hemoglobin 9.2. Mild improvement in platelets. Status post 2 units of PRBC.
Metastatic Lung Cancer
- Patent with widely metastatic disease including the mediastinum, pericardium, brain, liver, adrenal, bone
- Currently on active chemo with last dose Friday and recent XRT (EXAMINATION SCORER).
- Continue current steroid dosing - started after recent discovery of EXAMINATION SCORER mets. On decadron 1mg daily taper regimen with plan to stop in 5days.
- Oncology evaluation as noted above. Cont with keppra 1 g twice daily..
- Prognosis is dismal.
Suspected mild acute on chronic HFrEF
- Some evidence of volume overload on CXR, exam, etc - though edema improved from recent according to patient.
- Will continue with higher dose of Lasix for now (40mg daily). Plan for additional 20 mg of IV Lasix.
- Follow I/Os, daily weights, etc.
- Adjust diuretic regimen as needed.
Paroxysmal Atrial Fibrillation
- Back in atrial fibrillation with rapid ventricular response.
- Continue usual home med regimen including Amio, dig and metoprolol. Due to soft BP limited options and difficult to control HR. digoxin dose increased. Options are limited.
- Monitor on telemetry.
- Not on OAC secondary to recent discovery of hemorrhagic brain metastases and severe persistent thrombocytopenia. Significant high risk of bleeding if on anticoagulation.
- Cardiology following
Anxiety / Depression
- Continue PRN Ativan.
DVT Prophylaxis: SCDs in the setting of severe thrombocytopenia.
Code Status: DNR/DNI per patient was that he has a living well[facility]
Hospice was briefly broached and patient stated he is not ready and would like to continue with chemotherapy regimen. Unclear if patient truly understand his prognosis. Will appreciate oncology further assistance.
Prognosis guarded.
Discussed with significant other at bedside in details. Once again CODE STATUS was discussed and patient was to continue with DNR/DNI and significant other agreed to respect patient wishes.
Family wants to discuss with oncology about further prognosis.
Did discuss hospice again with the patient on 02/28/24. Recommended to discuss further with his family members. has 2 sons. Patient starting to understand his poor prognosis. Not ready yet to make a decision.
Anticipated Discharge: > 48 hours
Subjective/Interval History
-
Date of Service: February 28, 2024
Overnight patient with increased oxygenation requirement
Now on 7 L of mid flow
States of mild tachypnea
Remains in atrial fibrillation with rapid ventricular response
Objective Data
-
Labs:
Laboratory Results
02/28/24
04:51
WBC 11.2 H
Hgb 9.2 L
Hct 28.0 L
Plt Count 32 L D
Vital Signs:
Vital Signs
Temp Pulse Resp BP Pulse Ox
98.3 F 113 29 118/78 92
02/28/24 07:30 02/28/24 09:44 02/28/24 08:00 02/28/24 09:45 02/28/24 08:17
I&O
02/27/24 02/28/24 02/29/24
06:59 06:59 06:59
Intake Total 1460 / 1460 1260 / 1260
Output Total 1800 / 1800 1025 / 1025
Balance -340 / -340 235 / 235
Data Reviewed
-
Total Time Spent with Patient (in minutes): 58
--- NOTE | 2024-02-28 11:00 | W.PN.ONC2 ---
Today's Communication / Plan
-
Prognosis dismal, hospice would be appropriate. Pt distressed about this but does not disagree.
Await arrival of significant other and input from other providers.
Impression
Impression
Stage IV lung cancer with invasion into myocardium and liver, bone, adrenal, and brain metastasis s/p C2 taxotere 02/16, eflapegrastim 02/17
a/w acute respiratory failure
Pseudomonas pneumonia
Pancytopenia - neutropenia resolved, continues with thrombocytopenia and anemia
PAF with rapid ventricular response
HFrEF
Plan
Plan
Ongoing difficulty treating his cancer - despite chemo, RT, etc, his performance status and QOL has continued to decline. He is now DNR.
Dr. Hong, his outpt oncology provider, saw him 02/23 with comment that hospice would be appropriate if he does not improve within the next 1-2 days.
During this hospitalization, his O2 requirement had initially improved from 4 to 1.5 but since 02/24, increased from 1.5 to 6L despite maximally aggressive care in the ICU.
My impression is that current PS precludes treatment.
Hospice appropriate and seems the only reasonable option.
Discussed with pt, will endeavor to [place] back around and discuss with significant other.
Will also await input from other providers: anything realistically reversible here?
Subjective/Objective
Chief Complaint
Lung cancer, failure to thrive
Subjective
Pt awake and alert. He is aware that he has not improved much during the last six days in the hospital.
Vital Signs:
Vital Signs
Temp Pulse Resp BP Pulse Ox
98.3 F 115 28 108/68 90
02/28/24 07:30 02/28/24 10:00 02/28/24 10:00 02/28/24 10:00 02/28/24 09:49
Lab Results:
Laboratory Data
WBC 11.2 10^3/uL (4.8-10.8) H 02/28/24 04:51
Hgb 9.2 g/dL (13.0-18.0) L 02/28/24 04:51
Plt Count 32 10^3/uL (130-400) L D 02/28/24 04:51
PT 14.8 Sec (11.4-14.6) H 02/23/24 12:29
INR 1.18 02/23/24 12:29
APTT 36.1 Sec (23.4-35.0) H 02/23/24 12:29
eGFR > 60.00 02/27/24 04:18
Physical Exam
Ill-appearing.
HEENT: No Jaundice or Moist Mucous Membranes
Cardiology: S1 and S2
Pulmonary: Other (decreased anteriorly)
GI: Soft; No Distended
Extremities: No C/C/E
Neuro: Non Focal
Review of Systems
Review of Systems
Constitutional: Reports Fatigue; Denies Fever
Head: Denies Sore Throat
Respiratory: Reports Dyspnea and Cough
Cardiovascular: Denies Chest Pain or Palpitations
Gastrointestinal: Denies Nausea/Vomiting or Diarrhea
Genitourinary: Denies Hematuria
Skin: Denies Rash
Neurological: Denies Headache or Numbness
Psychiatric: Reports Depression; Denies Insomnia
Hem/Lymphatic: Reports Easy Bruising; Denies Night Sweats
[2024-02-28] MEDS: LANOXIN 125 MCG PO (13:07)
--- NOTE | 2024-02-28 13:32 | HOSPNOTE ---
Informed by collection manager Sanchez Echavarria that patient has questions refering hospice care. Met with patient and his signicficant other [facility] and reviewed hospice care. [facility] stated they want to talk to patients son and discuss options.
[2024-02-28] MEDS: DUONEB INH (15:06)
--- NOTE | 2024-02-28 16:11 | CHAP ---
Paged for Mr. Pro, after he received a poor prognosis and Hospice care was recommended by Oncologist Viktor Ortiz. Emotional support provided to Samuel, who asked for a return visit when significant other, Tg arrives. Returned as requested,
and spoke with Tg, offering emotional and spiritual support to her as well. Contacted Hospice nurse Sanchez Jeff, who then met with Tg.
--- NOTE | 2024-02-28 17:10 | PTCARENOTE ---
Patient is fatigued today, tachypnea, dyspnea. Denying pain when asked. Crying at times with at bedside. Hospice discussion initiated. dubbing machine operator supported patient and .
[2024-02-28] MEDS: TYLENOL 650 MG PO (17:34)
--- NOTE | 2024-02-28 22:32 | PTCARENOTE ---
Patient received from previous RN. Pt withdrawn and tired. Pain assessed, Pt denies pain at this time. Pt on 8L 02, sat 93%, with dyspnea on exertion. Pt with harsh, productive cough, clear sputum. HS mouth care preformed by this RN. SCDs currently
being worm by Pt. Pt denies any further needs at this time. Call light in reach.
[2024-02-28] MEDS: OCEAN, SALINE MIST 2 SPRAYS NASAL (23:42)
[2024-02-28] MEDS: AYR SALINE NASAL GEL 1 APPLIC NASAL (23:42)
--- NOTE | 2024-02-28 23:53 | PTCARENOTE ---
Patient with dry/ irritated nose. Pt currently on 8L 02. This RN contacted [facility] to Request for nasal spray and nasal lubricant. Order received. Medication administered. Pt tolerated application of medication.
[2024-02-29] VITALS (12 sets, daily range): BP systolic 96–120; BP diastolic 63–80; BMI 23.6
[2024-02-29] MEDS: ZOSYN 50 IV ×4 (02:29→21:00)
[2024-02-29] MEDS: ATIVAN 0.5 MG PO ×2 (02:29→11:59)
[2024-02-29 05:13] LABS: Blood Urea Nitrogen 25 mg/dl (9-20); Calcium 8.5 mg/dl (8.4-10.2); Carbon Dioxide 38 mmol/L (22-30); Chloride 92 mmol/L (98-107); Estimated Creatinine Clearance 89 ml/min; Glucose 77 mg/dl (70-99); Magnesium 1.9 mg/dl (1.6-2.3); Potassium 3.6 mmol/L (3.5-5.1); Sodium 136 mmol/L (135-145); eGFR > 60.00
[2024-02-29 05:16] LABS: Hematocrit 26.5 % (39.0-52.0); Hemoglobin 8.6 g/dL (13.0-18.0); Mean Corp Hgb Conc. 32.5 g/dL (33.0-37.0); Mean Corpuscular Hgb 29.8 pg (27.0-31.0); Mean Corpuscular Volume 91.7 fL (80.0-94.0); Platelet Count 29 10^3/uL (130-400); Red Blood Cell Count 2.89 10^6/uL (4.70-6.10); Red Cell Dist. Width 19.7 % (11.5-14.5); White Blood Cell Count 15.4 10^3/uL (4.8-10.8)
--- NOTE | 2024-02-29 06:51 | W.PN.CD ---
Today's Communication / Plan
-
-Some increased O2 requirements noted on 02/28/2024 likely multifactorial. Patient did receive PRBC and additional volume yesterday. Additional IV Lasix given. Chest x-ray with increased bibasilar opacities suggesting pneumonia. Patient remains
on 6 L O2 and is currently breathing comfortably with oximetry of 93%. Patient was given additional IV Lasix on 02/28/2024. Blood pressure will likely limit additional aggressive diuresis. Patient appears to be back in sinus rhythm/sinus
tachycardia today
-Resume oral Lasix
-Continue amiodarone at current dose
-Continue digoxin at low-dose with plan for developed jocks and level on Friday
-Antibiotics as directed by primary team
-Oncology note from 02/28/2024 reviewed. Oncology states that hospice would be appropriate. Considering patient's clinical course, advanced malignancy including cardiac invasion and oncology opinion regarding prognosis I am agreement with hospice.
.
Impression / Plan
-
shortness of breath
-Acute on chronic
-Patient initially treated with antibiotics for pneumonia..
-Lung cancer management as per oncology.
-Some increased O2 requirements noted on 02/28/2024 likely multifactorial. Patient did receive PRBC and additional volume yesterday. Additional IV Lasix given. Chest x-ray with increased bibasilar opacities suggesting pneumonia. Patient remains
on 6 L O2 and is currently breathing comfortably with oximetry of 93%. Patient was given additional IV Lasix on 02/28/2024. Blood pressure will likely limit additional aggressive diuresis. Patient appears to be back in sinus rhythm/sinus
tachycardia today
-Resume oral Lasix
-Continue amiodarone at current dose
-Continue digoxin at low-dose with plan for developed jocks and level on Friday
-Antibiotics as directed by primary team
-Oncology note from 02/28/2024 reviewed. Oncology states that hospice would be appropriate. Considering patient's clinical course, advanced malignancy including cardiac invasion and oncology opinion regarding prognosis I am agreement with hospice.
.
afib wit RVR. challenging to manage on prior in patient admit. For this reason he has been maintained on amiodarone 400 mg daily. Blood pressure limits medical therapy.
-Not on anticoagulation due to brain mets. Patient also now with pancytopenia
-Was in sinus rhythm at recent office visit. A-fib or flutter in the 120s this admit wi spontaneous conversion 02/25/24
-A-fib has recurred with some accelerated rates.
-Limited rate control options would increase digoxin to 0.125 mg daily. Will check level tomorrow morning and then we will check another 1 in 4 days and then again in 2 weeks.
-Additional treatment of anemia may also help with heart rate control.
-Can continue low-dose digoxin as ordered but need to monitor with use of amiodarone.
-Treat anemia
Edema of extremities. Patient had severe edema on recent office visit. Edema extending up to the legs. May be multifactorial some of may be related to heart failure reduced ejection fraction and PAF. Pulse patient has significant invasion of
pulmonary veins which may also be impacting his hemodynamics. As an outpatient patient transiently had Lasix increased to 40 mg twice daily.
-Overall the appearance of edema appears less then most recent visit.
-Continue diuresis with Lasix. will improvement
-Local measures including bilateral Donn wraps.
.
Chronic left heart failure. Patient has a cardiomyopathy and has had issues with left heart failure. Some of his cardiomyopathy may have been precipitated in the past by prolonged periods of A-fib RVR.
-Patient may have component of acute on chronic heart failure with increased O2 requirement on 02/28/2024 although increased requirements may be multifactorial related to underlying lung cancer. Earlier in hospitalization pneumonia was a
consideration. Would reassess with chest x-ray issues related to diuretics as noted above
pancytopenia -
- post chemo
- tx per oncology
-Hemoglobin down to 6.8 PRBC as per oncology. May consider additional lasix with PRBC
.
Metastatic lung cancer. Includes metastases to the brain, heart, adrenal gland, liver and retroperitoneum. Extensive lung cancer large lung mass with direct invasion of the heart this includes invasion into the left atrium, right atrium and atrial
septum and pulmonary veins. Patient's had recent chemotherapy
-Poor prognosis
-Patient to be seen by oncology. Primary oncologist is Dr. Hong. Issues reviewed with Dr. Ortiz who will be assessing the patient later today
.
Cardiac mass. Invasion of lung cancer as noted above..
Physical Exam
Vital Signs/Labs
Vital Signs
Temp Pulse Resp BP Pulse Ox
98.4 F 114 21 99/67 91
02/29/24 03:15 02/29/24 00:00 02/29/24 00:00 02/29/24 00:00 02/29/24 00:00
02/27/24 02/28/24 02/29/24
06:59 06:59 06:59
Actual Weight 79.067 kg 78.6 kg 78.8 kg
02/29/24 04:24
02/29/24 04:24
PT 14.8 Sec (11.4-14.6) H 02/23/24 12:29
INR 1.18 02/23/24 12:29
APTT 36.1 Sec (23.4-35.0) H 02/23/24 12:29
Magnesium 1.9 mg/dl (1.6-2.3) 02/29/24 04:24
Digoxin < 0.4 ng/ml (0.8-2.0) L 02/28/24 04:51
02/23/24
01:13
Txn-P-Ycghgcgssej Pept 3050
Physical Exam
Constitutional: No acute distress
Cardiovascular: Rhythm & rate is regular
Respiratory: Other (Decreased at bases.)
GI: Soft
Neuro/Psych: Other (Sleeping easily arousable awake. Breathing comfortably on 6 L)
Data Reviewed
-
Date of Service: February 29, 2024
Medical Tests (PFT, Pathology etc): Report Reviewed by me
Labs: Labs Reviewed by me
[2024-02-29] MEDS: DUONEB 3 ML INH ×2 (07:48→23:34)
[2024-02-29 07:50] LABS: Absolute Neutrophils -Man Diff 14.6 10^3/uL (1.4-6.5); Band Neutrophils 11 % (0-3); Lymphocytes 2 % (20-51); Monocytes 2 % (2-9); Segmented Neutrophils 84 % (42-75)
[2024-02-29 07:51] LABS: Anisocytosis 1+; Hypochromasia 1+; Myelocytes 1 % (-); Normal RBC Morphology No; Platelets Checked Yes; Total Cells Counted 100
[2024-02-29] MEDS: TOPROL XL 50 MG PO ×2 (08:20→20:59)
[2024-02-29] MEDS: LASIX 40 MG PO (08:20)
[2024-02-29] MEDS: ProAmatine 5 MG PO ×2 (08:20→12:04)
[2024-02-29] MEDS: FOLVITE 1 MG PO (08:20)
[2024-02-29] MEDS: KEPPRA 1000 MG PO ×2 (08:20→21:00)
[2024-02-29] MEDS: PROTONIX 40 MG PO (08:20)
[2024-02-29] MEDS: AYR SALINE NASAL GEL 1 APPLIC NASAL (08:21)
[2024-02-29] MEDS: KCL 20 MEQ PO (08:21)
[2024-02-29] MEDS: OCEAN, SALINE MIST 2 SPRAYS NASAL (08:21)
[2024-02-29] MEDS: PACERONE 200 MG PO ×2 (08:21→21:00)
[2024-02-29] MEDS: NAMENDA 10 MG PO ×2 (08:21→20:59)
--- NOTE | 2024-02-29 08:51 | CM ---
Consult for hospice noted. [facility] manager play has evaluated patient and hospice referral in [facility].
--- NOTE | 2024-02-29 10:15 | W.PN.HOSP.TC ---
Addendum entered and electronically signed by Johnathon Michael MD 02/29/24 16:59:
Correction patient's son's name is Nasir
Addendum entered and electronically signed by Johnathon Michael MD 02/29/24 16:57:
Discussed with patient's son Samuel over the phone in details. Explained to him patient prognosis and multiple medical comorbidities and hospice is recommended. Samuel will talk to his brother and will discuss among family members and decide about
hospice. In the meantime continue with current aggressive medical measures.
Original Note:
Today's Communication/Plan
-
Trend cbc
IV abx
wean o2
Hospice
prognosis guarded
Assessment / Plan
Assessment / Plan
General: chronically Ill appearing,
HEENT: Moist mucous membranes
Respiratory: worsening of rhonchi, on midflow 6-7L
Cardiac: S1/S2, regular and Tachycardia; No Murmur
GI: Soft, Non Tender, Non Distended and Normal Bowel Sounds
Musculoskeletal: No Clubbing, No Cyanosis and Other (2-3+ pitting edema b/l LEs to the knees-improving
Neuro: AO x 3 and Nonfocal/grossly intact
Psych-calm
A/P: Patient is a 68y M with PMH significant for metastatic lung cancer on chemotherapy who presents to ED complaining of increased cough and SOB
Acute on chronic hypoxemic Respiratory failure likely secondary to pneumonia bacterial and iatrogenic fluid overload secondary to blood transfusion and mild acute on chronic HFrEF and lung cancer
Chronic hypoxic respiratory insufficiency uses O2 at home on 3 L
- CXR with Right lower lobe hazy opacity, slightly improved compared to prior study. This is likely related to the large right hilar and right mediastinal mass seen on prior CT dated 01/15/2024, and/or post obstructive atelectasis from the mass.
Small right pleural effusion, likely with some loculation along the right lateral chest wall.
- Cover with IV Zosyn for now. Blood cultures in lab negative so far.
- Supportive care including nebs, chest PT, Acapella, etc.
- Follow for clinical improvement. Monitor temperature curve, culture data, etc.
- Sputum sample with Pseudomonas. Continue with Zosyn.
- Also with history of radiation fibrosis per recent CAT scan.
- Repeat chest x-ray on 02/27 with increased bibasilar opacity suggestive of pneumonia, aspiration with supplemental atelectasis. Small right pleural effusion slightly less prominent compared to prior.
Dysphagia
-s/p VSE and okay for regular diet.
Pancytopenia likely secondary to recent chemotherapy versus infection
Leukocytosis now likely 2/2 steroids
- Chronic anemia
- New neutropenia / thrombocytopenia compared to prior. Fall precaution as with low platelet
- Monitor for any evidence of active bleeding - none at present. Fall precautions already in place.
- Transfuse for hemoglobin less than 7. Transfuse for platelets less than 10,000. Status post 1u PRBC.
- Hemoglobin 8.6. Mild improvement in platelets. Status post 2 units of PRBC.
Metastatic Lung Cancer
- Patent with widely metastatic disease including the mediastinum, pericardium, brain, liver, adrenal, bone
- Currently on active chemo with last dose Friday and recent XRT (TOBACCO SAMPLER).
- Continue current steroid dosing - started after recent discovery of TOBACCO SAMPLER mets. Completed decadron taper regimen
- Oncology evaluation as noted above. Cont with keppra 1 g twice daily..
- Prognosis is dismal. Appreciate Onology recs and Hospice is recommended.
Suspected mild acute on chronic HFrEF
- Some evidence of volume overload on CXR, exam, etc - though edema improved from recent according to patient.
- Will continue with higher dose of Lasix for now (40mg daily).
- Follow I/Os, daily weights, etc.
- Adjust diuretic regimen as needed.
Paroxysmal Atrial Fibrillation
- Converted to NSR but remains tachy
- Continue usual home med regimen including Amio, dig and metoprolol. Due to soft BP limited options and difficult to control HR. digoxin dose increased. Options are limited.
- Monitor on telemetry.
- Not on OAC secondary to recent discovery of hemorrhagic brain metastases and severe persistent thrombocytopenia. Significant high risk of bleeding if on anticoagulation.
- Cardiology following
Hypotension
-Midodrine started 5mg TID
Anxiety / Depression
- Continue PRN Ativan.
DVT Prophylaxis: SCDs in the setting of severe thrombocytopenia.
Code Status: DNR/DNI per patient was that he has a living well. [facility]
Hospice was briefly broached and patient stated he is not ready and would like to continue with chemotherapy regimen. Unclear if patient truly understand his prognosis. Will appreciate oncology further assistance.
Prognosis guarded.
Discussed with significant other at bedside in details. Once again CODE STATUS was discussed and patient was to continue with DNR/DNI and significant other agreed to respect patient wishes.
Pt states of ongoing discussion regarding hospice-had not made decision yet.
Anticipated Discharge: > 48 hours
Subjective/Interval History
-
Date of Service: February 29, 2024
converted to NSR but remains tachy
increase o2 persists
Objective Data
-
Labs:
Laboratory Results
02/29/24
04:24
WBC 15.4 H
Hgb 8.6 L
Hct 26.5 L
Plt Count 29 L*
Sodium 136
Potassium 3.6
Chloride 92 L
Carbon Dioxide 38 H
BUN 25 H
Creatinine 0.9
Glucose 77
Calcium 8.5
Vital Signs:
Vital Signs
Temp Pulse Resp BP Pulse Ox
98.2 F 115 18 99/67 94
02/29/24 07:30 02/29/24 07:50 02/29/24 07:50 02/29/24 00:00 02/29/24 07:50
I&O
02/28/24 02/29/24 03/01/24
06:59 06:59 06:59
Intake Total 1260 / 1260 360 / 360
Output Total 1025 / 1025 1225 / 1225
Balance 235 / 235 -865 / -865
--- NOTE | 2024-02-29 11:30 | W.PN.PUL3 ---
Today's Communication / Plan
-
Agree with antibiotics
Agree with diuretics as able
Continue oxygen supplementation
Nebulizers as needed
No indication for steroids
Hospice discussions
Assessment
-
Patient is a 68-year-old male with previous history of metastatic lung cancer (presumed) to bone, liver, mediastinum; CHF, COPD, A-fib presenting to ER for increased cough and shortness of breath. Chest x-ray demonstrating chronic right sided
effusion, increased compared to prior. This is in the site of his known primary lung mass. Has been actively receiving treatment including palliative radiation with [facility], he is deemed a nonsurgical candidate. He has been taking additional
doses of Lasix for increased lower extremity swelling. On arrival was noted to be pancytopenic, placed on 2 L nasal cannula. We are consulted for eval.
We were asked to reevaluate him due to worsening oxygenation on new left lower lobe infiltrate.
Acute hypoxic respiratory failure-currently on 6 L
Chest x-ray02/28/2024: Showed worsening bilateral infiltrates. New large left lower lobe infiltrate compared to prior.
Pneumonia versus some degree of volume overload
-
Right-sided pleural effusion cannot exclude PNA/worsening met dz
s/p thora 09/24/23 with 40cc extracted, mostly loculated with septations
Pancytopenia
History of metastatic lung cancer, nonsurgical candidate, palliative radiation treatment
Large left atrial mass/echodensity on ECHO
History of Pseudomonas + sputum
Conditions present [employer] OFF[employer]ER
Large lung mass: PET/CT with metastatic to liver, adrenal and bone.
Status post percutaneous biopsy 06/20/2023 --nondiagnostic
s/p liver biopsy 07-14-23 by [facility] --poorly differentiated carcinoma, nonspecific, cancer type ID favored to be lung adeno with a 72% probability
Malignant R pleural effusions s/p thora 07/15/23, 1500mL removed -- positive for malignant cells
s/ PORT placement 08/08/23
Atrial fibrillation with rapid ventricular response
Tobacco abuse-likely has COPD.
Chronic heart failure with reduced ejection fraction of 20%
Former ETOH abuse, sober 17 years
Anxiety/depression
Plan
From the pulmonary perspective we are asked to see him due to worsening oxygenation and new infiltrate on x-ray.
Unfortunately, suspect he has developed pneumonia versus volume overload. Recent transfusion may be contributing.
Patient is immunosuppressed due to recent chemotherapy: High risk for infection.
-
Continue oxygen supplementation, currently 6 L which is worse than prior.
Wean as able to maintain pulse ox above 90%.
-
New infiltrate on chest x-ray 02/28/2024.
Last sputum culture available from 02/23/2024 with Pseudomonas-pansensitive
Agree with Zosyn. Eventually transition to Levaquin to complete 14 days of antibiotic therapy.
Monitor fever curve and electrolytes.
Incentive spirometer
No indication for steroid
Secretion clearance interventions
Nebulizer as needed to aid secretion clearance.
-
Prior ECHO results are reviewed indicating EF 30%-on echocardiogram 12/2023.
Part of the infiltrate may be volume overload received IV fluids and transfusion recently
Agree with diuretics currently on p.o.'s. Unable to tolerate IV diuretics due to hypotension.
Cardiology following the patient
Follow electrolytes.
-
Initially follow-up with Dr. Cardona, he lost to follow-up.
Not on inhalers.
Mainly following with oncology.
Former smoker, quit 1 year ago
-
Unfortunately, this patient has widely metastatic lung cancer. Received recently chemotherapy.
Oncology correspondence reviewed prognosis is poor.
Hospice appropriate.
-
Smoking history noted, quit 1 year ago.
-
Hospice discussions and 1.
-
Will continue to follow.

Diagnostic Data
Chest X-Ray: 02/23/24- 1. Right lower lobe hazy opacity, slightly improved compared to prior study. This is likely related to the large right hilar and right mediastinal mass seen on prior CT dated 01/15/2024, and/or post obstructive atelectasis from
the mass.
2. Small right pleural effusion, likely with some loculation along the right lateral chest wall.
CT Scan: CAP 01/15/24- 1. Large right lower lobe and right hilar mass measures 14.6 x 11.6 x 8.0 cm, grossly unchanged in size compared to PET/CT dated 12/01/2023.
2. Mass invades the mediastinum, and causes direct invasion of the left atrium. Right pulmonary venous inflow into the left atrium is severely narrowed by the mass. Intra-atrial portion of the mass measures approximately 5 cm in diameter.
3. 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
4. Hepatic metastasis, enlarged compared to prior PET/CT.
5. Bilateral adrenal metastasis.
6. Bilateral retroperitoneal/perirenal metastases, enlarged in size compared to prior PET/CT.
7. Small bilateral pleural effusions. Bibasilar subsegmental atelectasis.
8. Urinary bladder is diffusely thick-walled. Please correlate for symptoms of cystitis.
Echo: 01/08/24- Normal LV size with severely reduced systolic function. LVEF is estimated at approximately 30%. LAD and RCA territory severe hypokinesis/akinesis. Normal right ventricular size and function. Large left atrial mass/echodensity still
present. Limited valvular interrogation. Trivial pericardial effusion. Compared to prior from October 28, 2023, on [id number] comparison overall LVEF is slightly improved from 20% to approximately 30% today and left atrial mass/echodensity appears
to be slightly larger on certain views.
PFT's:
Reports and relevant images were personally reviewed.
Total time spent on this encounter __52_ includes review of history, physical exam, medications, laboratory data, personal review of imaging, extensive review of outpatient records, discussion with care team and respiratory therapy.
Subjective Data
-
Date of Service:
Date of Service: February 29, 2024
Chief Complaint: Pulmonary Follow Up
Subjective:
No new complaints at rest
Recent events noted, worsening chest x-ray with new left lower lobe infiltrate.
Increased oxygen requirements
Denies hemoptysis
Review of Systems
Cardiopulmonary: Dyspnea, Dyspnea on Exertion and Cough
GI: Abdominal Pain (n) and Nausea (n)
Objective Data
Data Reviewed
Vital Signs / I&O / Oxygen:
Vital Signs
Temp Pulse Resp BP Pulse Ox
98.2 F 115 18 99/67 94
02/29/24 07:30 02/29/24 07:50 02/29/24 07:50 02/29/24 00:00 02/29/24 07:50
Intake and Output
02/28/24 02/29/24 03/01/24
06:59 06:59 06:59
Intake Total 1260 / 1260 360 / 360
Output Total 1025 / 1025 1225 / 1225
Balance 235 / 235 -865 / -865
SaO2 94
Nasal Cannula flow liters per 6
minute
Physical Exam
General: Respiratory Distress (Mild dyspnea noted), Comfortable and Other (NAD)
HEENT: Normocephalic, Anicteric and Moist Mucous Membranes
Cardiovascular: S1-S2, Regular Rhythm and Other (PORT in place)
Respiratory: Clear (decreased BS at R base) and Non-Labored Respirations
GI: Soft, Non Distended and Non Tender
Neurology: Awake, Alert, Oriented, AO x 3 and No Motor Deficits
Skin: Warm, Dry and Good Color
Labs/Micro/Reports
Lab Data
02/29/24 04:24
02/29/24 04:24
Microbiology
02/23/24 02:08 Blood/Venous Blood Culture - Final
No Growth - Final Report
02/24/24 15:50 Pleural Fluid Body Fluid Culture - Final
No Growth After 72 Hours
02/24/24 15:50 Pleural Fluid Gram Stain - Final
[2024-02-29] MEDS: LANOXIN 125 MCG PO (11:59)
--- NOTE | 2024-02-29 13:14 | HOSPNOTE ---
Addendum entered by Yumiko Chowdary RN 02/29/24 17:43:
Asked by primary RN to speak to patients son Nasir. Called and spoke to Nasir. Reviewed hospice and answered his questions. Nasir is very realistic of his dads prognosis. He will talk with his brother who is arriving tomorrow. I reviewed I am available
to talk with the two of them again tomorrow via the phone or in person. Nasir has my direct number. I reviewed I do believe that patient will be GIP appropriate for hospice and Nasir thought this would be best for his dad. Will await to hear from Nasir
tomorrow. Will continue to follow and be available.
Original Note:
Official referral received. I spoke to the Primary RN who stated that patient has been sleeping most of the day. His two sons are expected to arrive today, one from [place]. Primary RN asked patient if he wanted to speak to hospice again today but
he declined. Primary RN believes patient is waiting for sons to have further discussion. Hospice did speak to patient and significant other yesterday in person. Notes reviewed- it appears all disciplines are recommending hospice but again patient
has not made a final decision at this time. Hospice will continue to follow and be available as patient needs and if hospice is decided. Thank you for including us in his care.
--- NOTE | 2024-02-29 16:01 | CHAP ---
Samuel was sleeping comfortably. Significant other, Tg, was at bedside. She was more calm and accepting today - awaiting the arrival of Samuel's sons, who are his next of kin. She welcomed the opportunity to share her thoughts and feelings.
Assured her of our on-going availability.
[2024-02-29] MEDS: ProAmatine PO (17:59)
[2024-02-29] MEDS: MORPHINE SULFATE 1 MG IV (18:00)
--- NOTE | 2024-02-29 19:10 | PTCARENOTE ---
Drowsy, lethargic all day. HRs 120s-130s, RR 20s-30s. Strong harsh PC. POx 94% on 8L. He answers appropriately can make some needs known like using urinal but now requiring asst of Tg his S.O> Received PO Ativan around 1200 for anxiousness -
did not improve VS. D/w Dr. Michael this afternoon- PRN Morphine ordered. Son Nasir and here spoke with Dr. Michael and olive grower. Pt is flushed head and whole body is hot to touch- oral temp normal. Cool clothed upper body and ice packs
applied to bilat axilla. Agreed to Morphine 1mg. RR improved to 24 pox93% and HR 130s. Taking in some po fluids now.
--- NOTE | 2024-02-29 23:40 | PTCARENOTE ---
Patient received from previous RN. Family at bedside. Patient sleeping, arousable to verbal stimuli, appears drowsy. Answers all orientation questions appropriately. Pt restless when aroused from sleep. Pt appears to have increased work of
breathing. Pt on 10L 02. RR 20. respiratory messaged for PRN breathing Tx. Donn wraps on B/L lower ext. Pt using urinal with yellow urine. Call light in reach.
[2024-03-01] VITALS (8 sets, daily range): BP systolic 96–111; BP diastolic 61–82; BMI 23.3
[2024-03-01] MEDS: MORPHINE SULFATE 1 MG IV ×3 (00:41→14:46)
[2024-03-01] MEDS: ZOSYN 50 IV ×2 (02:18→09:39)
[2024-03-01 04:52] LABS: Hematocrit 27.9 % (39.0-52.0); Mean Corp Hgb Conc. 32.3 g/dL (33.0-37.0); Mean Corpuscular Hgb 29.9 pg (27.0-31.0); Mean Corpuscular Volume 92.7 fL (80.0-94.0); Mean Platelet Volume 13.5 fL (7.4-10.4); Platelet Count 36 10^3/uL (130-400); Red Blood Cell Count 3.01 10^6/uL (4.70-6.10); Red Cell Dist. Width 19.4 % (11.5-14.5); White Blood Cell Count 16.7 10^3/uL (4.8-10.8)
[2024-03-01 05:03] LABS: Blood Urea Nitrogen 24 mg/dl (9-20); Calcium 8.3 mg/dl (8.4-10.2); Carbon Dioxide 34 mmol/L (22-30); Chloride 93 mmol/L (98-107); Estimated Creatinine Clearance 100 ml/min; Glucose 40 mg/dl (70-99); Potassium 3.6 mmol/L (3.5-5.1); Sodium 135 mmol/L (135-145); eGFR > 60.00
[2024-03-01 05:42] LABS: Glucose - Point of Care 46 mg/dl (70-99)
[2024-03-01] MEDS: DEXTROSE 50% SYRINGE 12.5 GRAMS IV (06:00)
[2024-03-01 06:38] LABS: Glucose - Point of Care 116 mg/dl (70-99)
--- NOTE | 2024-03-01 06:41 | PTCARENOTE ---
Am glucose from labs 40. Pt given 4 oz juice. glucose rechecked in 15 mins, 46. Attempted to give Pt 4 more 0z of juice and pt was too drowsy too swallow. UTILITY MANAGER notified. order received for IV dextrose. Med given. sugar rechecked in 15 . glucose of
116.
[2024-03-01 07:41] LABS: Absolute Neutrophils -Man Diff 15.8 10^3/uL (1.4-6.5); Band Neutrophils 10 % (0-3); Lymphocytes 2 % (20-51); Metamyelocytes 1 % (-); Monocytes 1 % (2-9); Myelocytes 1 % (-); Segmented Neutrophils 85 % (42-75)
[2024-03-01 07:43] LABS: Anisocytosis 1+; Hypochromasia 1+; Normal RBC Morphology No; Ovalocytes FEW; Platelets Checked Yes; Total Cells Counted 100
[2024-03-01 08:13] LABS: Glucose - Point of Care 73 mg/dl (70-99)
[2024-03-01] MEDS: KCL 20 MEQ PO (09:40)
[2024-03-01] MEDS: KEPPRA 1000 MG PO (09:40)
[2024-03-01] MEDS: PACERONE 200 MG PO (09:40)
[2024-03-01] MEDS: TOPROL XL 50 MG PO (09:40)
[2024-03-01] MEDS: FOLVITE 1 MG PO (09:41)
[2024-03-01] MEDS: PROTONIX 40 MG PO (09:41)
[2024-03-01] MEDS: LASIX 40 MG PO (09:41)
[2024-03-01] MEDS: ProAmatine 5 MG PO (09:41)
[2024-03-01] MEDS: NAMENDA 10 MG PO (09:41)
--- NOTE | 2024-03-01 09:53 | W.PN.HOSP.TC ---
Addendum entered and electronically signed by Johnathon Michael MD 03/01/24 14:54:
Family agreed and patient transition to hospice.
More than 30 minutes spent in discharge including
Final examination of the patient
Summarizing hospital stay
Instructions for continuing care to all relevant caregivers
Preparation of discharge records, prescriptions, and referral forms
Total time spent (in minutes): 70
Original Note:
Today's Communication/Plan
-
await family decision
prognosis poor
may require D10
IV zosyn
Assessment / Plan
Assessment / Plan
General: chronically Ill appearing, lethargic
HEENT: Moist mucous membranes
Respiratory: worsening of rhonchi, on midflow
Cardiac: S1/S2, regular and Tachycardia; No Murmur
GI: Soft, Non Tender, Non Distended and Normal Bowel Sounds
Musculoskeletal: No Clubbing, No Cyanosis and Other (2-3+ pitting edema b/l LEs to the knees-improving
Neuro: AO x 3 and Nonfocal/grossly intact
Psych-calm
A/P: Patient is a 68y M with PMH significant for metastatic lung cancer on chemotherapy who presents to ED complaining of increased cough and SOB
Acute on chronic hypoxemic Respiratory failure likely secondary to pneumonia bacterial and iatrogenic fluid overload secondary to blood transfusion and mild acute on chronic HFrEF and lung cancer
Chronic hypoxic respiratory insufficiency uses O2 at home on 3 L
- CXR with Right lower lobe hazy opacity, slightly improved compared to prior study. This is likely related to the large right hilar and right mediastinal mass seen on prior CT dated 01/15/2024, and/or post obstructive atelectasis from the mass.
Small right pleural effusion, likely with some loculation along the right lateral chest wall.
- Cover with IV Zosyn for now. Blood cultures in lab negative so far.
- Supportive care including nebs, chest PT, Acapella, etc.
- Follow for clinical improvement. Monitor temperature curve, culture data, etc.
- Sputum sample with Pseudomonas. Continue with Zosyn.
- Also with history of radiation fibrosis per recent CAT scan.
- Repeat chest x-ray on 02/27 with increased bibasilar opacity suggestive of pneumonia, aspiration with supplemental atelectasis. Small right pleural effusion slightly less prominent compared to prior.
Dysphagia
-s/p VSE and okay for regular diet. Monitor mentation closely. May require repeat speech eval.
Pancytopenia likely secondary to recent chemotherapy versus infection
Leukocytosis now likely 2/2 steroids
- Chronic anemia
- New neutropenia / thrombocytopenia compared to prior. Fall precaution as with low platelet
- Monitor for any evidence of active bleeding - none at present. Fall precautions already in place.
- Transfuse for hemoglobin less than 7. Transfuse for platelets less than 10,000. Status post 1u PRBC.
- Hemoglobin 8.6. Mild improvement in platelets. Status post 2 units of PRBC.
Metastatic Lung Cancer
- Patent with widely metastatic disease including the mediastinum, pericardium, brain, liver, adrenal, bone
- Currently on active chemo with last dose Friday and recent XRT (EARRING MAKER).
- Continue current steroid dosing - started after recent discovery of EARRING MAKER mets. Completed decadron taper regimen
- Oncology evaluation as noted above. Cont with keppra 1 g twice daily..
- Prognosis is dismal. Appreciate Onology recs and Hospice is recommended.
Suspected mild acute on chronic HFrEF
- Some evidence of volume overload on CXR, exam, etc - though edema improved from recent according to patient.
- Will continue with higher dose of Lasix for now (40mg daily).
- Follow I/Os, daily weights, etc.
- Adjust diuretic regimen as needed.
Paroxysmal Atrial Fibrillation
- Converted to NSR but remains tachy
- Continue usual home med regimen including Amio, dig and metoprolol. Due to soft BP limited options and difficult to control HR. digoxin dose increased. Options are limited.
- Monitor on telemetry.
- Not on OAC secondary to recent discovery of hemorrhagic brain metastases and severe persistent thrombocytopenia. Significant high risk of bleeding if on anticoagulation.
- Cardiology following
Hypotension
-Midodrine started 5mg TID
Hypoglycemia
If without significant p.o. intake only to start patient on D10
Anxiety / Depression
- Continue PRN Ativan.
DVT Prophylaxis: SCDs in the setting of severe thrombocytopenia.
Code Status: DNR/DNI per patient was that he has a living well. Changed in [employer]
Discussed with patient's son Nasir over the phone on 02/28 and once again at bedside on 03/01. Stated outpatient poor prognosis and multiple medical comorbidities cancer with metastasis, pancytopenia, heart failure, atrial fibrillation rapid ventricular
response and hospice is recommended by multiple specialties. Nasir to discuss with his other brother and make a decision.
Anticipated Discharge: > 48 hours
Subjective/Interval History
-
Date of Service: March 01, 2024
Overnight episode of hypoglycemia noted
Remains intermittently lethargic
Patient's son at bedside
Objective Data
-
Labs:
Laboratory Results
03/01/24
04:16
WBC 16.7 H
Hgb 9.0 L
Hct 27.9 L
Plt Count 36 L D
Sodium 135
Potassium 3.6
Chloride 93 L
Carbon Dioxide 34 H
BUN 24 H
Creatinine 0.8
Glucose 40 L*
Calcium 8.3 L
Vital Signs:
Vital Signs
Temp Pulse Resp BP Pulse Ox
99.2 F 105 22 108/71 88
03/01/24 07:15 03/01/24 09:41 03/01/24 06:00 03/01/24 09:41 03/01/24 06:00
I&O
02/29/24 03/01/24 03/02/24
06:59 06:59 06:59
Intake Total 360 / 360 430 / 430
Output Total 1225 / 1225 1325 / 1325 175 / 175
Balance -865 / -865 -895 / -895 -175 / -175
Data Reviewed
-
Total Time Spent with Patient (in minutes): 56
[2024-03-01] MEDS: ROBITUSSIN 200 MG PO ×2 (10:55→14:47)
[2024-03-01] MEDS: ATIVAN 0.5 MG PO (10:55)
--- NOTE | 2024-03-01 11:16 | HOSPNOTE ---
Hospice continues to follow. Hospice spoke to patients one son Nasir last evening. Patients other son to arrive today and Nasir is to speak with him and then they will make a decision regarding hospice. Nasir has my direct phone number and knows we are
available to answer any questions they may have. We will continue to be available.
--- NOTE | 2024-03-01 11:49 | W.PN.PUL3 ---
Today's Communication / Plan
-
Continue antibiotics
Continue oxygen supplementation
If increased work of breathing, may use morphine.
DNR status
Focus on comfort, supportive care
Hospice discussions ongoing
Assessment
-
Patient is a 68-year-old male with previous history of metastatic lung cancer (presumed) to bone, liver, mediastinum; CHF, COPD, A-fib presenting to ER for increased cough and shortness of breath. Chest x-ray demonstrating chronic right sided
effusion, increased compared to prior. This is in the site of his known primary lung mass. Has been actively receiving treatment including palliative radiation with [facility], he is deemed a nonsurgical candidate. He has been taking additional
doses of Lasix for increased lower extremity swelling. On arrival was noted to be pancytopenic, placed on 2 L nasal cannula. We are consulted for eval.
We were asked to reevaluate him due to worsening oxygenation on new left lower lobe infiltrate.
Acute hypoxic respiratory failure-currently on 6 L
Chest x-ray02/28/2024: Showed worsening bilateral infiltrates. New large left lower lobe infiltrate compared to prior.
Pneumonia versus some degree of volume overload
-
Right-sided pleural effusion cannot exclude PNA/worsening met dz
s/p thora 09/24/23 with 40cc extracted, mostly loculated with septations
Pancytopenia
History of metastatic lung cancer, nonsurgical candidate, palliative radiation treatment
Large left atrial mass/echodensity on ECHO
History of Pseudomonas + sputum
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
Large lung mass: PET/CT with metastatic to liver, adrenal and bone.
Status post percutaneous biopsy 06/20/2023 --nondiagnostic
s/p liver biopsy 07-14-23 by [facility] --poorly differentiated carcinoma, nonspecific, cancer type ID favored to be lung adeno with a 72% probability
Malignant R pleural effusions s/p thora 07/15/23, 1500mL removed -- positive for malignant cells
s/ PORT placement 08/08/23
Atrial fibrillation with rapid ventricular response
Tobacco abuse-likely has COPD.
Chronic heart failure with reduced ejection fraction of 20%
Former ETOH abuse, sober 17 years
Anxiety/depression
Plan
No change in clinical condition since yesterday.
Sleeping comfortably in bed.
From the pulmonary perspective we are asked to see him due to worsening oxygenation and new infiltrate on x-ray. 02/28/2024.
Unfortunately, suspect he has developed pneumonia versus volume overload. Recent transfusion may be contributing.
Patient is immunosuppressed due to recent chemotherapy: High risk for infection.
Severe thrombocytopenia
Widely metastatic pulmonary malignancy. Not good options for therapy at this point.
-
Continue oxygen supplementation, currently 6 L which is worse than prior.
Wean as able to maintain pulse ox above 90%.
-
New infiltrate on chest x-ray 02/28/2024.
Last sputum culture available from 02/23/2024 with Pseudomonas-pansensitive
Continue with Zosyn. Eventually transition to Levaquin to complete 14 days of antibiotic therapy.
Monitor fever curve and electrolytes.
Incentive spirometer
No indication for steroid
Secretion clearance interventions
Nebulizer as needed to aid secretion clearance.
-
Prior ECHO results are reviewed indicating EF 30%-on echocardiogram 12/2023.
Part of the infiltrate may be volume overload received IV fluids and transfusion recently
Agree with diuretics currently on p.o.'s. Unable to tolerate IV diuretics due to hypotension.
Cardiology following the patient
Follow electrolytes.
-
Initially follow-up with Dr. Cardona, he lost to follow-up.
Not on inhalers.
Mainly following with oncology.
Former smoker, quit 1 year ago
-
Unfortunately, this patient has widely metastatic lung cancer. Received recently chemotherapy.
Oncology correspondence reviewed prognosis is poor.
I agree with possibility of hospice/palliative care.
No good options to offer from the pulmonary perspective.
Continue supportive care for now.
-
Primary team and oncology discussed with family possibility of moving towards hospice care given widely metastatic cancer, multiple comorbidities, deconditioning, now with new pneumonia.
Poor prognosis

Diagnostic Data
Chest X-Ray: 02/23/24- 1. Right lower lobe hazy opacity, slightly improved compared to prior study. This is likely related to the large right hilar and right mediastinal mass seen on prior CT dated 01/15/2024, and/or post obstructive atelectasis from
the mass.
2. Small right pleural effusion, likely with some loculation along the right lateral chest wall.
CT Scan: [facility] 01/15/24- 1. Large right lower lobe and right hilar mass measures 14.6 x 11.6 x 8.0 cm, grossly unchanged in size compared to PET/CT dated 12/01/2023.
2. Mass invades the mediastinum, and causes direct invasion of the left atrium. Right pulmonary venous inflow into the left atrium is severely narrowed by the mass. Intra-atrial portion of the mass measures approximately 5 cm in diameter.
3. 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
4. Hepatic metastasis, enlarged compared to prior PET/CT.
5. Bilateral adrenal metastasis.
6. Bilateral retroperitoneal/perirenal metastases, enlarged in size compared to prior PET/CT.
7. Small bilateral pleural effusions. Bibasilar subsegmental atelectasis.
8. Urinary bladder is diffusely thick-walled. Please correlate for symptoms of cystitis.
Echo: 01/08/24- Normal LV size with severely reduced systolic function. LVEF is estimated at approximately 30%. LAD and RCA territory severe hypokinesis/akinesis. Normal right ventricular size and function. Large left atrial mass/echodensity still
present. Limited valvular interrogation. Trivial pericardial effusion. Compared to prior from October 28, 2023, on [id number] comparison overall LVEF is slightly improved from 20% to approximately 30% today and left atrial mass/echodensity appears
to be slightly larger on certain views.
PFT's:
Reports and relevant images were personally reviewed.
Total time spent on this encounter __52_ includes review of history, physical exam, medications, laboratory data, personal review of imaging, extensive review of outpatient records, discussion with care team and respiratory therapy.
Subjective Data
-
Date of Service:
Date of Service: March 01, 2024
Chief Complaint: Pulmonary Follow Up
Subjective:
No new complaints
Remains on supplemental oxygen
Debilitated
Denies hemoptysis
Review of Systems
Cardiopulmonary: Dyspnea, Dyspnea on Exertion and Cough
Objective Data
Data Reviewed
Vital Signs / I&O / Oxygen:
Vital Signs
Temp Pulse Resp BP Pulse Ox
99.2 F 105 22 108/71 88
03/01/24 07:15 03/01/24 09:41 03/01/24 06:00 03/01/24 09:41 03/01/24 06:00
Intake and Output
02/29/24 03/01/24 03/02/24
06:59 06:59 06:59
Intake Total 360 / 360 430 / 430
Output Total 1225 / 1225 1325 / 1325 175 / 175
Balance -865 / -865 -895 / -895 -175 / -175
SaO2 88
Nasal Cannula flow liters per 10
minute
Physical Exam
General: Respiratory Distress (Mild dyspnea noted at rest) and Other (Cachectic)
HEENT: Normocephalic, Anicteric and Moist Mucous Membranes
Cardiovascular: S1-S2, Regular Rhythm and Other (PORT in place)
Respiratory: Clear (decreased BS at R base) and Non-Labored Respirations
GI: Soft, Non Distended and Non Tender
Neurology: Awake, Alert, Oriented, AO x 3 and No Motor Deficits
Skin: Warm, Dry and Good Color
Labs/Micro/Reports
Lab Data
03/01/24 04:16
03/01/24 04:16
Microbiology
02/23/24 02:08 Blood/Venous Blood Culture - Final
No Growth - Final Report
02/24/24 15:50 Pleural Fluid Body Fluid Culture - Final
No Growth After 72 Hours
02/24/24 15:50 Pleural Fluid Gram Stain - Final
[2024-03-01] MEDS: LANOXIN PO (13:19)
[2024-03-01] MEDS: ProAmatine PO (13:20)
--- NOTE | 2024-03-01 13:24 | HOSPNOTE ---
Addendum entered by Yumiko Chowdary RN 03/01/24 14:47:
Family notified primary nurse that they are now ready for hospice services. Nena coming back to obtain consent and sign patient onto inpatient hospice. Will defer from moving patient to [address] [place] [address] at this time. CM and Attending updated. Admissions
notified.
Original Note:
Met with son Nasir and other family members to discuss hospice GIP sign on-answered questions regarding philosophy and services as well as bereavement support when pt passes. Literature left with family, reinforced hospice availability and verified
pt would meet criteria based on need for 8L O2, pain, respiratory and anxiety management via proposed morphine gtt, IV meds and frequent nursing assessment. Updated floor nurse Lachelle with outcome, hospice admission pending decision by family.
Hospice continues to follow.
--- NOTE | 2024-03-01 13:53 | W.DCSUMMARY ---
Discharge Summary
Discharge Data
Date of Admission: 02/23/24
Date of Discharge: 03/01/24
-
Pending Results: No
Hospital Course
Primary Diagnosis
Acute on chronic hypoxemic Respiratory failure likely secondary to pneumonia bacterial and iatrogenic fluid overload secondary to blood transfusion and mild acute on chronic HFrEF and lung cancer
Pseudomonas pneumonia
Acute on chronic HFrEF
Dysphagia
Pancytopenia
Anemia s/p blood transfusion
Atrial fibrillation with RVR
Hypoglycemia
Hypotension
Secondary Diagnosis
Lung Cancer presumed mets to mediastinum, pericardium, brain, liver, adrenal, bone
Chronic HFrEF
Anxiety
Depression
68male past medical history of lung cancer metastasis to the bone, liver, mediastinum, cardiac, CHF, COPD, atrial fibrillation, large atrial mass, history of pleural effusions, tobacco abuse, history of alcohol abuse, anxiety, depression who
presented with complaints of cough and shortness of breath. Upon admission patient required oxygenation requirement. Patient was also found to have pancytopenia. Patient was found to have pneumonia and was started on broad-spectrum antibiotics
with Zosyn. Patient oxygenation requirement continue to trend up. Not enough fluid for thoracentesis. Found to be anemic and received blood transfusions. Patient also in severe atrial fibrillation rapid ventricular response. Due to hypotension
treatment limited options and cardiology was also consulted. Digoxin dose was increased. Patient was also found to be in acute on chronic heart failure exacerbation IV Lasix was intermittently provided. Patient with persistent severe anemia and
thrombocytopenia. Patient was also on a Decadron steroid taper regimen for metastases to the brain which she completed. Patient oxygen requirement continue to trend up. Pulmonary was also following. Oncology also following. Patient with
worsening hypoxemia and mentation and decreased p.o. intake associated with tachycardia tachypnea and overall significant deconditioning. Oncology recommended hospice. Hospice was consulted. Patient and family agreed for hospice.
Discharge Plan
-
Patient Disposition: Hospice - Inpatient [facility]
Discharge Orders:
Discharge Patient (As Directed); Ordered 03/01/24
Ordered By: Johnathon Michael
Discharge Date and Time
Print Language: KYRGYZ
== END 2024-03-01 14:54 | disposition hospice, home (50) | DRG 177 ==
LOC: IMU 04:33
PROVIDERS: Radiology Vascular & Interventional Radiology; ADMITTING PHYSICIAN Hospitalist; ATTENDING PHYSICIAN Hospitalist; CONSULT PHYSICIAN Internal Medicine Cardiovascular Disease; EMERGENCY PHYSICIAN Emergency Medicine; FAMILY PHYSICIAN Student in an Organized Health Care Education/Training Program; OTHER PHYSICIAN Internal Medicine; OTHER PHYSICIAN Internal Medicine Hematology & Oncology
PROC: 0W993ZX Drainage of Right Pleural Cavity, Percutaneous Approach, Diagnostic (ICD-10-PCS; 2024-02-24)
PROC: 30233N1 Transfusion of Nonautologous Red Blood Cells into Peripheral Vein, Percutaneous Approach (ICD-10-PCS; 2024-02-24)
DX: J15.1 Pneumonia due to Pseudomonas (principal); D61.810 Antineoplastic chemotherapy induced pancytopenia; I50.43 Acute on chronic combined systolic (congestive) and diastolic (congestive) heart failure; J96.21 Acute and chronic respiratory failure with hypoxia; C34.90 Malignant neoplasm of unspecified part of unspecified bronchus or lung; D61.818 Other pancytopenia; C78.1 Secondary malignant neoplasm of mediastinum; C78.7 Secondary malignant neoplasm of liver and intrahepatic bile duct; C79.51 Secondary malignant neoplasm of bone; J44.0 Chronic obstructive pulmonary disease with (acute) lower respiratory infection; J91.0 Malignant pleural effusion; D84.9 Immunodeficiency, unspecified; C79.31 Secondary malignant neoplasm of brain; F41.9 Anxiety disorder, unspecified; F32.A Depression, unspecified; I48.0 Paroxysmal atrial fibrillation; F17.200 Nicotine dependence, unspecified, uncomplicated; F10.10 Alcohol abuse, uncomplicated; Z66 Do not resuscitate
CPT/HCPCS: 32555; 71045; 74230; 80048; 80053; 80162; 81003; 82533; 82962; 83605; 83615; 83735; 83880; 83986; 84157; 84484; 85025; 85027; 85379; 85384; 85610; 85730; 86803; 86850; 86900; 86901; 86920; 87015; 87040; 87070; 87077; 87086; 87186; 87205; 87811; 89051; 92610; 92611; 93005; 94640; 94667; 96365; 96375; 97116; 97163; 97167; 97535; 99285; P9016

== ENCOUNTER 2024-03-01 14:57 | Inpatient (IN) | payer OTHER, SELFPAY ==
--- NOTE | 2024-03-01 14:57 | ADM.HSP ---
Addendum entered and electronically signed by Johnathon Michael MD 03/01/24 16:05:
Patient with significant dyspnea and tachypnea and on 8 L of mid flow oxygenation. Not much improvement with morphine as needed. Discussed with hospice team plan to start morphine infusion. Family agreed with the planning.
Original Note:
Admission - Hospice
History of Present Illness
68male past medical history of lung cancer metastasis to the bone, liver, mediastinum, cardiac, CHF, COPD, atrial fibrillation, large atrial mass, history of pleural effusions, tobacco abuse, history of alcohol abuse, anxiety, depression who
presented with complaints of cough and shortness of breath. Upon admission patient required oxygenation requirement. Patient was also found to have pancytopenia. Patient was found to have pneumonia and was started on broad-spectrum antibiotics
with Zosyn. Patient oxygenation requirement continue to trend up. Not enough fluid for thoracentesis. Found to be anemic and received blood transfusions. Patient also in severe atrial fibrillation rapid ventricular response. Due to hypotension
treatment limited options and cardiology was also consulted. Digoxin dose was increased. Patient was also found to be in acute on chronic heart failure exacerbation IV Lasix was intermittently provided. Patient with persistent severe anemia and
thrombocytopenia. Patient was also on a Decadron steroid taper regimen for metastases to the brain which she completed. Patient oxygen requirement continue to trend up. Pulmonary was also following. Oncology also following. Patient with
worsening hypoxemia and mentation and decreased p.o. intake associated with tachycardia tachypnea and overall significant deconditioning. Oncology recommended hospice. Hospice was consulted. Patient and family agreed for hospice.
Reason for Hospice Admission
See HPI
Review of Systems
Unable to obtain full review of systems at this time due to: Acuity
Physical Exam
General: Respiratory Distress and Appears Chronically Ill
Respiratory: Rhonchi
Cardiology: Regular Rhythm, S1/S2 and Tachycardia
GI: Nondistended
Rectal: Deferred by Provider
Musculoskeletal: Edema, Right Lower Extremity and Edema, Left Lower Extremity
Psych: Calm
Assessment/Medication Plan
Generic Name Dose Route Start Last Admin
Trade Name Freq PRN Reason Stop Dose Admin
Acetaminophen 650 mg 03/01/24 14:55
Acetaminophen 650 Mg Rectal Suppository RECTAL 03/29/24 14:54
Q4HPRN PRN
mild pain, DOUGLASS, or temp >100.4F
Acetaminophen 650 mg 03/01/24 14:55
Acetaminophen 325 Mg Tablet PO 03/29/24 14:54
Q4HPRN PRN
mild pain, DOUGLASS, or temp >100.4F
Bisacodyl 10 mg 03/01/24 14:55
Bisacodyl 10 Mg Rectal Suppository RECTAL 03/29/24 14:54
DAILYPRN PRN
if no BM for 3 days
Glycopyrrolate 0.2 mg 03/01/24 14:55
Glycopyrrolate 0.2 Mg/Ml Vial IV 03/29/24 14:54
Q4HPRN PRN
excessive secretions
Morphine Sulfate/Sodium Chloride 100 mg in 100 mls @ 0 mls/hr 03/01/24 15:00
Morphine IV
PER PROTOCOL [place]
Protocol
Per Protocol
Lorazepam 2 mg 03/01/24 14:55
Lorazepam 2 Mg/Ml Vial IV 03/29/24 14:54
Q1HPRN PRN
seizure
Protocol
Magnesium Hydroxide 30 ml 03/01/24 14:55
Milk Of Magnesia 30 Ml Cup PO 03/29/24 14:54
HSPRN PRN
constipation
Morphine Sulfate 1 mg 03/01/24 14:55
Morphine 2 Mg/Ml Syringe IV 03/15/24 14:54
Q1HPRN PRN
moderate-severe pain / dyspnea
Morphine Sulfate 0 mg 03/01/24 14:55
Morphine 2 Mg/Ml Syringe IV 03/15/24 14:54
M61CLSA PRN
moderate-severe pain / dyspnea
Protocol
Ondansetron HCl 4 mg 03/01/24 14:55
Ondansetron 4 Mg/2 Ml Vial IV 03/29/24 14:54
Q6HPRN PRN
nausea/vomiting
Pharmacy Profile Note 0 unit 03/01/24 15:[address] 1 Unit IV 03/29/24 14:59
DIRECTED [place]
A/P
Lung Cancer presumed mets to mediastinum, pericardium, brain, liver, adrenal, bone
Acute on chronic hypoxemic Respiratory failure likely secondary to pneumonia bacterial and iatrogenic fluid overload secondary to blood transfusion and mild acute on chronic HFrEF and lung cancer
Pseudomonas pneumonia
Acute on chronic HFrEF
Dysphagia
Pancytopenia
Anemia s/p blood transfusion
Atrial fibrillation with RVR
Sinus tachycardia
Hypoglycemia
Hypotension
Anxiety
Depression
Plan
Start patient on hospice measures
Start patient on morphine every hour as needed with progression to infusion was needed
Ativan as needed
Continue Keppra with history of seizures and brain metastases
Hospice recs
Bowel regimen.
Antinausea meds as needed
DVT prophylaxis none
DNR/DNI
--- NOTE | 2024-03-01 15:24 | HOSPNOTE ---
Pt admitted onto hospice services. Pt GIP appropriate based on 8L O2, management of pain and anxiety through IV medications. Morphine drip to be initiated for pain and respiratory comfort. Family bedside, support offered. Hospice care ongoing.
--- NOTE | 2024-03-01 15:25 | PTCARENOTE ---
Pt admitted from [facility] to hospice today.
[2024-03-01] MEDS: MORPHINE SULFATE 1 MG IV (15:54)
--- NOTE | 2024-03-01 16:06 | PTCARENOTE ---
Pt currently with terminal agitation, anxiety, and dyspnea. Notified MD and hospice clinical manager. Orders recd to start morphine gtt for comoft measures.
[2024-03-01] MEDS: MORPHINE 100 IV (17:14)
[2024-03-01] MEDS: MORPHINE SULFATE 2 MG IV ×2 (17:44→22:22)
[2024-03-01] MEDS: ATIVAN 2 MG IV ×2 (17:50→22:23)
[2024-03-01] MEDS: KEPPRA 1000 MG IV (20:28)
[2024-03-02] MEDS: MORPHINE SULFATE 2 MG IV ×3 (00:14→03:37)
[2024-03-02] MEDS: ATIVAN 2 MG IV ×2 (02:48→03:53)
[2024-03-02] MEDS: ROBINUL 0.2 MG IV (03:22)
[2024-03-02 03:30] VITALS: BP 88/62
--- NOTE | 2024-03-02 05:26 | PTCARENOTE ---
Pt requiring multiple prn push of morphine (see MAR). Pt continues on end of life morphine gtt stage 1. Son at bed side, emotional support and education given as needed. Pt appearing to be more comfortable at this time, respirations even and not as
labored. Mouth care performed multiple times for comfort. Assessment care and documentation as charted.
--- NOTE | 2024-03-02 05:52 | W.PN.DEATH ---
Pronouncement of
-
Called to see patient to pronounce.
No spontaneous heart tones or respirations noted.
Patient not responsive to verbal stimuli.
Patient is pronounced .
Time of : 05:40
Date of : 03/02/24
Family Notified: Yes (son present in room at the time of )
--- NOTE | 2024-03-02 07:10 | PTCARENOTE ---
Pt monitor alerted asystole. Pt with no heart tones, CHANNEL ACCOUNT MANAGER at bed side to pronounce [id number].
--- NOTE | 2024-03-02 09:47 | CM ---
CM reviewed medical records. Patient has . CM will remain available as needed
== END 2024-03-02 09:31 | disposition expired | DRG 180 ==
LOC: IMU 14:57
PROVIDERS: ADMITTING PHYSICIAN Hospitalist; ATTENDING PHYSICIAN Internal Medicine
DX: C34.90 Malignant neoplasm of unspecified part of unspecified bronchus or lung (principal); I50.23 Acute on chronic systolic (congestive) heart failure; J15.1 Pneumonia due to Pseudomonas; J96.21 Acute and chronic respiratory failure with hypoxia; C79.31 Secondary malignant neoplasm of brain; D61.818 Other pancytopenia; J44.0 Chronic obstructive pulmonary disease with (acute) lower respiratory infection; Z66 Do not resuscitate; I48.91 Unspecified atrial fibrillation; I50.9 Heart failure, unspecified; F41.9 Anxiety disorder, unspecified; F32.A Depression, unspecified; Z51.5 Encounter for palliative care